=== PATIENT | female | born 1935 | race Caucasian/White ===

== ENCOUNTER → 2016-04-24 | Outpatient (CLI) | payer MEDICARE, BC ==
--- NOTE | 2016-04-25 07:28 | XR ---
EXAMINATION TYPE: XR chest 2V DATE OF EXAM: 04/24/2016 3:44 PM COMPARISON: NONE HISTORY: Shortness of breath and cough for one week. TECHNIQUE: Frontal and lateral views of the chest are obtained. FINDINGS: Sternal wires and mediastinal clips are present. There is long segment coronary stent in th e proximal left circumflex. There is chronic senescent change without suspicious focal air space opac ity, pleural effusion, or pneumothorax seen. The cardiac silhouette size is within normal limits wit h atherosclerotic thoracic aorta. The osseous structures are demineralized. IMPRESSION: Chronic parenchymal changes or fibrosis without suspicious acute infiltrate.
== END | disposition home or self-care (01) ==
LOC: RADXRYALE 15:31
PROVIDERS: ATTEND Physician Assistant Medical
DX: R06.02 Shortness of breath (principal); R09.02 Hypoxemia
CPT/HCPCS: 71020; 80053; 83880; 85027; 85379

== ENCOUNTER → 2016-04-30 | Outpatient (CLI) | payer MEDICARE, BC ==
--- NOTE | 2016-04-30 08:35 | XR ---
EXAMINATION TYPE: XR chest 2V DATE OF EXAM: 04/30/2016 8:29 AM COMPARISON: Chest x-ray from 6 days ago. HISTORY: History of bypass and COPD presents with shortness of breath and elevated d-dimer. TECHNIQUE: Frontal and lateral views of the chest are obtained. FINDINGS: Sternal wires and mediastinal clips as well as left circumflex coronary stent are all redem onstrated. There is chronic emphysematous change present with left basilar fibrosis. There is no new focal air space opacity, pleural effusion, or pneumothorax seen. The cardiac silhouette size remain s enlarged with atherosclerotic thoracic aorta. The osseous structures are demineralized. IMPRESSION: Cardiomegaly and chronic emphysematous change with left basilar fibrosis, no acute pulmo nary process.
--- NOTE | 2016-04-30 09:23 | NM ---
EXAMINATION TYPE: NM pul vent and perfuse DATE OF EXAM: 04/30/2016 9:14 AM COMPARISON: Same-day chest x-ray. HISTORY: Shortness of breath and elevated d-dimer. TECHNIQUE: Utilizing inhalation of 71.5 mCi Tc 99m DTPA aerosol and intravenous injection of 5.5 mCi of Tc 99m MAA, ventilation and perfusion images are acquired post injection in multiple projections. FINDINGS: Central clumping of particles on ventilation images is consistent with underlying COPD. Some small ma tching defects are felt present. There is no evidence of mismatched defects. IMPRESSION: Low probability for pulmonary embolism.
== END | disposition home or self-care (01) ==
LOC: RADNMMAIN 08:17
PROVIDERS: ATTEND Family Medicine
DX: J43.9 Emphysema, unspecified (principal); J84.10 Pulmonary fibrosis, unspecified; I51.7 Cardiomegaly
CPT/HCPCS: 71020; 78582; A9540; A9567

== ENCOUNTER → 2016-05-14 | Outpatient (CLI) | payer MEDICARE, BC ==
--- NOTE | 2016-05-14 14:00 | US ---
EXAMINATION TYPE: US venous doppler duplex LE BI DATE OF EXAM: 05/14/2016 1:31 PM COMPARISON: NONE CLINICAL HISTORY: R79.89 Elevated D-dimer. Pain right calf. Edema bilateral feet and ankles. Patient on blood thinner SIDE PERFORMED: bilateral VESSELS IMAGED: External Iliac Vein (EIV) Common Femoral Vein Deep Femoral Vein Greater Saphenous Vein * Femoral Vein Popliteal Vein Small Saphenous Vein * Proximal Calf Veins (* superficial vessels) TECHNOLOGIST IMPRESSION: Right Leg: No evidence of acute DVT Left Leg: No evidence of acute DVT. Anechoic area left popliteal fossa = 3.4 x 1.1 x 1.9cm, Diaz's cyst IMPRESSION: 1. Bilateral lower extremity deep venous ultrasound without evidence of deep venous thrombosis. 2. Left popliteal cyst.
== END | disposition home or self-care (01) ==
LOC: RADUSWWP 12:49
PROVIDERS: ATTEND Family Medicine
DX: R79.89 Other specified abnormal findings of blood chemistry (principal); M71.22 Synovial cyst of popliteal space [Baker], left knee
CPT/HCPCS: 93970

== ENCOUNTER 2016-07-01 05:52 | Inpatient (IN) | payer MEDICARE, BC ==
[2016-07-01] MEDS ORDERED: IPRATROPIUM-ALBUTEROL 3 ML NEB INHALATION STA (05:54)
[2016-07-01] MEDS ORDERED: FUROSEMIDE 10 MG/ML 4 ML VIAL IV STA (05:54)
[2016-07-01] MEDS ORDERED: NITROGLYCERIN OINT 1 INCH/GM PACKET TOPICAL STA (05:55)
--- NOTE | 2016-07-01 05:58 | ED ---
General Adult HPI - General Source: RN notes reviewed <Charlie Heart - Last Filed: 07/01/16 07:06> <Charlie Romo - Last Filed: 07/01/16 08:11> - General Stated complaint: [place] Time Seen by Provider: 07/01/16 05:52 - History of Present Illness Initial comments: This is an 80-year-old female with a past history significant for COPD and continues to smoke. Patient states she does wear oxygen at night occasionally home. Patient comes in today because she had a 2 or 3 day history of getting more more short of breath. When EMS arrived she was barely moving any other gave her a couple treatments around placed her on CPAP. Patient states she's only been mildly better since. EMS also gave her 125 of Solu-Medrol. Patient states she's also noticed increased edema in both of her legs. Patient denies any recent fever chills or cough. Patient denies any chest pain or palpitations. Patient denies any abdominal pain patient denies nausea and vomiting. Patient denies any headache patient denies numbness weakness patient denies any syncopal episode or lightheadedness. Patient denies any recent injury or trauma. (Charlie Heart) - Related Data Home Medications Medication Instructions Recorded Confirmed Aspirin/Calcium Carbonate/Mag 325 mg PO DAILY 07/01/16 07/01/16 [Bufferin 325 mg Tablet] Atorvastatin [Lipitor] 80 mg PO HS 07/01/16 07/01/16 Ezetimibe [Zetia] 10 mg PO DAILY 07/01/16 07/01/16 Isosorbide Mononitrate [Imdur] 120 mg PO DAILY 07/01/16 07/01/16 Nadolol [Nadolol] 20 mg PO DAILY 07/01/16 07/01/16 Nitroglycerin Sl Tabs [Nitrostat] 0.4 mg SUBLINGUAL Q5M PRN 07/01/16 07/01/16 Prasugrel HCl [Effient] 1 tab PO DAILY 07/01/16 07/01/16 Tiotropium 18 Mcg/Puff [Spiriva] 1 cap INHALATION DAILY 07/01/16 07/01/16 amLODIPine BESYLATE [Amlodipine 5 mg PO HS 07/01/16 07/01/16 Besylate] Allergies Allergy/AdvReac Type Severity Reaction Status Date / Time eptifibatide Allergy Unknown Verified 07/01/16 06:07 [From Integrilin] Penicillins Allergy Rash/Hives Verified 07/01/16 06:05 Review of Systems ROS Other: All systems not noted in ROS Statement are negative. <Charlie Heart - Last Filed: 07/01/16 07:06> ROS Other: All systems not noted in ROS Statement are negative. <Charlie Romo - Last Filed: 07/01/16 08:11> ROS Statement: Those systems with pertinent positive or pertinent negative responses have been documented in the HPI. Past Medical History Past Medical History: Cancer Additional Past Medical History / Comment(s): breast cancer History of Any Multi-Drug Resistant Organisms: None Reported Past Surgical History: Coronary Bypass/CABG, Hysterectomy Past Psychological History: No Psychological Hx Reported Smoking Status: Current every day smoker Past Alcohol Use History: None Reported Past Drug Use History: None Reported <Charlie Heart - Last Filed: 07/01/16 07:06> General Exam <Charlie Heart - Last Filed: 07/01/16 07:06> General appearance: alert, anxious, in distress Head exam: Present: atraumatic, normocephalic, normal inspection Eye exam: Present: normal appearance, PERRL, EOMI. Absent: scleral icterus, conjunctival injection, periorbital swelling ENT exam: Present: normal exam, mucous membranes moist Neck exam: Present: normal inspection. Absent: tenderness, meningismus, lymphadenopathy Respiratory exam: Present: respiratory distress, wheezes, rales, accessory muscle use, decreased breath sounds, prolonged expiratory. Absent: rhonchi, stridor Cardiovascular Exam: Present: regular rate, normal rhythm, normal heart sounds. Absent: systolic murmur, diastolic murmur, rubs, gallop, clicks GI/Abdominal exam: Present: soft, normal bowel sounds. Absent: distended, tenderness, guarding, rebound, rigid Extremities exam: Present: normal inspection, full ROM, normal capillary refill. Absent: tenderness, pedal edema, joint swelling, calf tenderness Back exam: Present: normal inspection Neurological exam: Present: alert, oriented X3, CN II-XII intact Psychiatric exam: Present: normal affect, normal mood Skin exam: Present: warm, dry, intact, normal color. Absent: rash <Charlie Romo - Last Filed: 07/01/16 08:11> - General Exam Comments Initial Comments: GENERAL: Patient is well-developed and well-nourished. Patient is nontoxic and well- hydrated and is in moderate distress. ENT: Neck is soft and supple. No significant lymphadenopathy is noted. Oropharynx is clear. Moist mucous membranes. Neck has full range of motion without eliciting any pain. EYES: The sclera were anicteric and conjunctiva were pink and moist. Extraocular movements were intact and pupils were equal round and reactive to light. Eyelids were unremarkable. PULMONARY: Patient is wheezing diffusely and has crackles at the bases. CARDIOVASCULAR: There is a regular rate and rhythm without any murmurs gallops or rubs. ABDOMEN: Soft and nontender with normal bowel sounds. No palpable organomegaly was noted. There is no palpable pulsatile mass. SKIN: Skin is clear with no lesions or rashes and otherwise unremarkable. NEUROLOGIC: Patient is alert and oriented x3. Cranial nerves II through XII are grossly intact. Motor and sensory are also intact. Normal speech, volume and content. Symmetrical smile. MUSCULOSKELETAL: Normal extremities with adequate strength and full range of motion. Patient has 2+ edema bilaterally LYMPHATICS: No significant lymphadenopathy is noted PSYCHIATRIC: Normal psychiatric evaluation. Normal interpersonal interactions appears functionally intact in deals appropriately with others. No signs of depression. No signs of anxiety. (Charlie Heart) Course <Charlie Heart - Last Filed: 07/01/16 07:06> <Charlie Romo - Last Filed: 07/01/16 08:11> Vital Signs 07/01/16 07/01/16 07/01/16 05:57 06:09 06:20 Temperature 97.9 F Pulse Rate 81 71 70 Respiratory 32 H Rate Blood Pressure 172/89 O2 Sat by Pulse 79 L Oximetry 07/01/16 07:05 Temperature Pulse Rate 61 Respiratory 25 H Rate Blood Pressure 160/72 O2 Sat by Pulse 97 Oximetry - Reevaluation(s) Reevaluation #1: 07/01/16 08:11 Patient becoming more alert on BiPAP, right work of breathing is improving ( Charlie Romo) Medical Decision Making - Lab Data Result diagrams: 07/01/16 06:10 07/01/16 06:10 <Charlie Heart - Last Filed: 07/01/16 07:06> - Lab Data Result diagrams: 07/01/16 06:10 07/01/16 06:10 - Radiology Data Radiology results: report reviewed (Chest x-ray positive for pneumonia CHF), image reviewed <Charlie Romo - Last Filed: 07/01/16 08:11> - Medical Decision Making EKG shows a sinus rhythm at 76 bpm UT interval is 210 QRS is 98 QT interval 400 QTC 450. Patient's EKG shows some ST segment depression in leads 1 and aVL as well as leads 2 and there is some poor quality in leads V5 and V6. Dr. Romo will be taking over the care of this patient at 7 AM (Charlie Heart) 80-year-old female Female here for evaluation of significant shortness of breath , patient is placed on BiPAP upon arrival to emergency room secondary to respiratory and work of respiration work of breathing, patient has COPD CHF and pneumonia. Patient will be admitted for monitoring and cardiopulmonary status. (Charlie Romo) - Lab Data Lab Results 07/01/16 07/01/16 07/01/16 Range/Units 06:10 06:10 06:10 WBC 10.8 H (3.8-10.6) k/uL RBC 3.37 L (3.80-5.40) m/uL Hgb 9.8 L (11.4-16.0) gm/dL Hct 29.8 L (34.0-46.0) % MCV 88.4 (80.0-100.0) fL MCH 28.9 (25.0-35.0) pg MCHC 32.8 (31.0-37.0) g/dL RDW 16.3 H (11.5-15.5) % Plt Count 234 (150-450) k/uL Neutrophils % 65 % Lymphocytes % 16 % Monocytes % 6 % Eosinophils % 10 % Basophils % 1 % Neutrophils # 7.1 (1.3-7.7) k/uL Lymphocytes # 1.7 (1.0-4.8) k/uL Monocytes # 0.6 (0-1.0) k/uL Eosinophils # 1.0 H (0-0.7) k/uL Basophils # 0.1 (0-0.2) k/uL Hypochromasia Moderate Anisocytosis Slight PT (9.0-12.0) sec INR (<1.1) APTT (22.0-30.0) sec Sodium 140 (137-145) mmol/L Potassium 4.3 (3.5-5.1) mmol/L Chloride 107 (98-107) mmol/L Carbon Dioxide 20 L (22-30) mmol/L Anion Gap 13 mmol/L BUN 43 H (7-17) mg/dL Creatinine 1.50 H (0.52-1.04) mg/dL Est GFR (MDRD) Af Amer 40 (>60 ml/min/1.73 sqM) Est GFR (MDRD) Non-Af 33 (>60 ml/min/1.73 sqM) Glucose 166 H (74-99) mg/dL Calcium 9.5 (8.4-10.2) mg/dL Magnesium 1.8 (1.6-2.3) mg/dL Total Bilirubin 0.8 (0.2-1.3) mg/dL AST 17 (14-36) U/L ALT 41 (9-52) U/L Alkaline Phosphatase 111 (38-126) U/L Total Creatine Kinase 37 (30-135) U/L CK-MB (CK-2) 0.9 (0.0-2.4) ng/mL CK-MB (CK-2) Rel Index 2.4 Troponin I <0.012 (0.000-0.034) ng/mL NT-Pro-B Natriuret Pep pg/mL Total Protein 7.5 (6.3-8.2) g/dL Albumin 4.0 (3.5-5.0) g/dL 07/01/16 07/01/16 Range/Units 06:10 06:10 WBC (3.8-10.6) k/uL RBC (3.80-5.40) m/uL Hgb (11.4-16.0) gm/dL Hct (34.0-46.0) % MCV (80.0-100.0) fL MCH (25.0-35.0) pg MCHC (31.0-37.0) g/dL RDW (11.5-15.5) % Plt Count (150-450) k/uL Neutrophils % % Lymphocytes % % Monocytes % % Eosinophils % % Basophils % % Neutrophils # (1.3-7.7) k/uL Lymphocytes # (1.0-4.8) k/uL Monocytes # (0-1.0) k/uL Eosinophils # (0-0.7) k/uL Basophils # (0-0.2) k/uL Hypochromasia Anisocytosis PT 13.1 H (9.0-12.0) sec INR 1.3 (<1.1) APTT 24.0 (22.0-30.0) sec Sodium (137-145) mmol/L Potassium (3.5-5.1) mmol/L Chloride (98-107) mmol/L Carbon Dioxide (22-30) mmol/L Anion Gap mmol/L BUN (7-17) mg/dL Creatinine (0.52-1.04) mg/dL Est GFR (MDRD) Af Amer (>60 ml/min/1.73 sqM) Est GFR (MDRD) Non-Af (>60 ml/min/1.73 sqM) Glucose (74-99) mg/dL Calcium (8.4-10.2) mg/dL Magnesium (1.6-2.3) mg/dL Total Bilirubin (0.2-1.3) mg/dL AST (14-36) U/L ALT (9-52) U/L Alkaline Phosphatase (38-126) U/L Total Creatine Kinase (30-135) U/L CK-MB (CK-2) (0.0-2.4) ng/mL CK-MB (CK-2) Rel Index Troponin I (0.000-0.034) ng/mL NT-Pro-B Natriuret Pep 52060 pg/mL Total Protein (6.3-8.2) g/dL Albumin (3.5-5.0) g/dL Critical Care Time Critical Care Time: Yes Total Critical Care Time: 31 <Charlie Romo - Last Filed: 07/01/16 08:11> Disposition <Charlie Heart - Last Filed: 07/01/16 07:06> <Charlie Romo - Last Filed: 07/01/16 08:11> Clinical Impression: Congestive heart failure, Community acquired pneumonia, Acute exacerbation of chronic obstructive airways disease, Hypoxia Disposition: ADMITTED IP TO THIS HOSP Condition: Serious Referrals: John Galeano DO [Primary Care Provider] - 1-2 days
[2016-07-01 06:36] LABS: Anisocytosis Slight; Basophils # (A) 0.1 k/uL (0-0.2); Basophils % (A) 1 %; CH 27.7; CHCM 31.4; Eosinophils % (A) 10 %; HCT 29.8 % (34.0-46.0); HDW 3.22; HGB 9.8 gm/dL (11.4-16.0); Hypochromasia Moderate; Luc # (Auto) 0.27; Luc % (Auto) 3; Lymphocytes # (A) 1.7 k/uL (1.0-4.8); Lymphocytes % (A) 16 %; MCH 28.9 pg (25.0-35.0); MCHC 32.8 g/dL (31.0-37.0); MCV 88.4 fL (80.0-100.0); Mean Platelet Volume 7.6; Monocytes # (A) 0.6 k/uL (0-1.0); Monocytes % (A) 6 %; Neutrophils # (A) 7.1 k/uL (1.3-7.7); Neutrophils % (A) 65 %; RBC 3.37 m/uL (3.80-5.40); RDW 16.3 % (11.5-15.5); WBC 10.8 k/uL (3.8-10.6); WBC (Perox) 10.46
[2016-07-01 06:45] LABS: Calcium 9.5 mg/dL (8.4-10.2); Magnesium 1.8 mg/dL (1.6-2.3); Potassium 4.3 mmol/L (3.5-5.1); Total Bilirubin 0.8 mg/dL (0.2-1.3); Total Protein 7.5 g/dL (6.3-8.2)
[2016-07-01 06:49] LABS: INR 1.3 (<1.1); Prothrombin Time 13.1 sec (9.0-12.0)
[2016-07-01 06:53] LABS: Creatine Kinase 37 U/L (30-135)
[2016-07-01 07:05] LABS: Creatine Kinase MB 0.9 ng/mL (0.0-2.4); Troponin I <0.012 ng/mL (0.000-0.034)
--- NOTE | 2016-07-01 07:33 | XR ---
EXAMINATION TYPE: XR chest 1V portable DATE OF EXAM: 07/01/2016 6:48 AM HISTORY: Shortness of breath. COMPARISON: 04/30/2016 TECHNIQUE: Single view of the chest is submitted. FINDINGS: Demonstrated are scattered senescent parenchymal change. There is pulmonary venous congestion with patchy basilar infiltrates and small effusions. There is al so cardiomegaly. Hilar and mediastinal structures are within normal limits. Degenerative changes are seen of the dorsal spine. IMPRESSION: 1. The findings may reflect congestive failure although basilar infiltrates of other etiology not e xcluded. Correlate clinically and progress studies are recommended.
[2016-07-01] MEDS ORDERED: IPRATROPIUM 0.5 MG/2.5 ML NEBU INHALATION STA (08:04)
[2016-07-01] MEDS ORDERED: ALBUTEROL NEBULIZED 2.5 MG/3 ML INHALATION STA (08:04)
[2016-07-01] MEDS ORDERED: LEVOFLOXACIN 750MG-D5W PMX 750 MG in DEXTROSE/WATER 1 150ML.BAG IVPB STA (08:05)
[2016-07-01] MEDS ORDERED: methylPREDNISolone SOD SUCCI 125 MG/2 ML VIAL IV STA (08:05)
[2016-07-01] MEDS ORDERED: PNEUMONIA PROTOCOL UTILIZED 1 EACH MISC PO PRN (08:06)
[2016-07-01] MEDS ORDERED: ENOXAPARIN 40 MG/0.4 ML SYRINGE SQ STA (08:10)
[2016-07-01] MEDS: SODIUM CHLORIDE 0.9% 1,000 ML IV SCH (08:42)
--- NOTE | 2016-07-01 10:02 | ECHOF ---
Referral Reason:Heart Failure MEASUREMENTS -------- HEIGHT: 157.5 cm WEIGHT: 63.5 kg BP: 155/50 RVIDd: 2.4 cm (< 3.3) IVSd: 1.0 cm (0.6 - 1.1) LVIDd: 5.6 cm (3.9 - 5.3) LVPWd: 1.3 cm (0.6 - 1.1) IVSs: 1.6 cm LVIDs: 4.4 cm LVPWs: 1.3 cm LA Diam: 4.5 cm (2.7 - 3.8) LAESV Index (A-L): 26.06 ml/m MV EXCURSION: 18.395 mm (> 18.000) MV EF SLOPE: 97 mm/s (70 - 150) EPSS: 0.8 cm MV E Reed: 0.87 m/s MV DecT: 161 ms MV A Reed: 0.53 m/s MV E/A Ratio: 1.63 FINDINGS -------- Sinus rhythm. This was a technically adequate study. There is mild concentric left ventricular hypertrophy. Overall left ventricular systolic function is low-normal with, an EF between 50 - 55 %. The right ventricle is normal in size. The left atrial size is normal. Normal LA size by volume 22+/-6 ml/m2. The right atrial size is normal. There is mild aortic valve sclerosis. There is mild aortic regurgitation. Mild mitral annular calcification present. Mild mitral regurgitation is present. Mild tricuspid regurgitation present. There is no evidence of pulmonary hypertension. The right ventricular systolic pressure, as measured by Doppler, is {RVSP}. There is no pulmonic regurgitation present. The aortic root size is normal. There is no pericardial effusion. CONCLUSIONS -------- 1. There is mild concentric left ventricular hypertrophy. 2. Overall left ventricular systolic function is low-normal with, an EF between 50 - 55 %. 3. There is mild aortic valve sclerosis. 4. There is mild aortic regurgitation. 5. Mild mitral annular calcification present. 6. Mild mitral regurgitation is present. 7. Mild tricuspid regurgitation present. 8. There is no evidence of pulmonary hypertension. 9. The right ventricular systolic pressure, as measured by Doppler, is {RVSP}. FINISHING SUPERVISOR: Norma Saleh RDCS
[2016-07-01] MEDS: methylPREDNISolone SOD SUCCI 125 MG/2 ML VIAL IV SCH ×3 (12:05→22:56)
[2016-07-01] MEDS: IPRATROPIUM-ALBUTEROL 3 ML NEB INHALATION SCH ×3 (12:18→21:42)
--- NOTE | 2016-07-01 13:16 | P.CNPUL ---
History of Present Illness Consult date: 07/01/16 Reason for consult: dyspnea History of present illness: 80-year-old female patient who presented to the hospital because of progressive worsening shortness of breath. The patient is known to have coronary artery disease and she has undergone previous carotid bypass surgery out of town. The patient used to live in [facility] and she moved to [place] approximately 3 years ago. Over the past 1 week, the patient is progressively getting short of breath and she has noted some increased congested cough. No fever. No chills. No sweats. No pleurisy. No chest pain. She had developed significant edema in lower extremities bilaterally. She has been investigated in the past for DVTs and that came back negative based on an ultrasound Doppler that was done on 05/14/2016. Perfusion scan that was also done on 04/30/2016 was a low probability. During this current admission, the patient's white cell count was not elevated at 10.8. The patient significantly elevated proBNP level above 14,000. The cardiac enzymes first set of troponin was negative and the CPK was also within normal limits. The chest x-ray shows bilateral lower lobe pulmonary infiltration/fusion which could be a combination of CHF/ pneumonia. The patient was started on IV Lasix. The patient is also on empiric antibiotic coverage with Levaquin. She has a harsh cardiac murmur and an echocardiogram is pending for now. Review of Systems 12 point review of system was done and the positive findings are almost above in history of present illness Past Medical History Past Medical History: Coronary Artery Disease (CAD), Cancer, COPD, Pneumonia Additional Past Medical History / Comment(s): Coronary artery disease with previous bypass surgery, history of left-sided breast cancer with a previous lumpectomy, COPD, chronic smoker, nocturnal oxygen use at 2 L/m nasal cannula, chronic back pain, sciatica, COPD, hyperlipidemia, hypertension, cardiac murmur , chronic renal failure History of Any Multi-Drug Resistant Organisms: None Reported Past Surgical History: Appendectomy, Breast Surgery, Coronary Bypass/CABG, Heart Catheterization, Heart Catheterization With Stent Additional Past Surgical History / Comment(s): 1989 triple bypass, PCI with stent "years ago"-done in [place]-pt does not recall date, lumpectomy left breast, colonoscopy, ectopic with R fallopian tube and ovary removed. Past Anesthesia/Blood Transfusion Reactions: No Reported Reaction Date of Last Stent Placement:: unkn Past Psychological History: No Psychological Hx Reported Additional Psychological History / Comment(s): Pt has a gulshan who resides with her. She uses a cane on occasion. She drives. Smoking Status: Current every day smoker Past Alcohol Use History: None Reported Additional Past Alcohol Use History / Comment(s): Pt states she started smoking in 1955 and has been a ppd smoker for much of that time. She is now down to 5 cigarettes a day. Past Drug Use History: None Reported - Past Family History Father Family Medical History: Cancer Additional Family Medical History / Comment(s): Father had throat cancer and at the age of 85 yrs. Mother Family Medical History: No Reported History Additional Family Medical History / Comment(s): Mother was healthy and at the age of 85yrs. Medications and Allergies Home Medications Medication Instructions Recorded Confirmed Type Aspirin/Calcium Carbonate/Mag 325 mg PO DAILY 07/01/16 07/01/16 History [Bufferin 325 mg Tablet] Atorvastatin [Lipitor] 80 mg PO HS 07/01/16 07/01/16 History Ezetimibe [Zetia] 10 mg PO DAILY 07/01/16 07/01/16 History Isosorbide Mononitrate [Imdur] 120 mg PO DAILY 07/01/16 07/01/16 History Nadolol [Nadolol] 20 mg PO DAILY 07/01/16 07/01/16 History Nitroglycerin Sl Tabs [Nitrostat] 0.4 mg SUBLINGUAL Q5M PRN 07/01/16 07/01/16 History Prasugrel HCl [Effient] 10 mg PO DAILY 07/01/16 07/01/16 History Tiotropium 18 Mcg/Puff [Spiriva] 1 cap INHALATION RT-DAILY 07/01/16 07/01/16 History amLODIPine BESYLATE [Amlodipine 5 mg PO HS 07/01/16 07/01/16 History Besylate] predniSONE [Prednisone] 5 mg PO DAILY PRN 07/01/16 07/01/16 History Allergies Allergy/AdvReac Type Severity Reaction Status Date / Time eptifibatide Allergy Unknown Verified 07/01/16 08:13 [From Integrilin] Penicillins Allergy Rash/Hives Verified 07/01/16 08:13 Physical Exam Vitals: Vital Signs Temp Pulse Pulse Resp BP BP Pulse Ox 07/01/16 12:19 68 07/01/16 12:00 96.1 F L 67 16 156/67 07/01/16 09:49 97.8 F 75 20 160/98 94 L 07/01/16 09:34 62 07/01/16 09:24 60 07/01/16 08:54 60 18 151/66 98 Head exam was generally normal. There was no scleral icterus or corneal arcus. Mucous membranes were moist.Neck was supple and positive jugular venous distension, thyromegaly, or carotid bruits. Carotids were easily palpable bilaterally. There was no adenopathy. Lung sounds are diminished in lung bases along with some bibasilar crackles. Heart sounds reveal a harsh systolic ejection murmur grade 4/6 heard throughout the precordium more so along the left apex.Abdominal exam revealed normal bowel sounds. The abdomen was soft, non -tender, and without masses, organomegaly, or appreciable enlargement of the abdominal aorta. Extremities revealed +1-2 pitting edema. There is no cyanosis or clubbing at this point. Neurologically, the patient is awake and alert. Results - Laboratory Findings CBC and BMP: 07/01/16 06:10 07/01/16 06:10 PT/INR, D-dimer PT 13.1 sec (9.0-12.0) H 07/01/16 06:10 INR 1.3 (<1.1) 07/01/16 06:10 - Diagnostic Findings Chest x-ray: image reviewed Assessment and Plan Plan: Assessment 1 acute hypoxic respiratory failure. The patient presented with significant shortness of breath and she was supported with a BiPAP overnight. Chest x-ray showing bilateral lower lobe pulmonary infiltration/effusion. Rule out a combination of CHF/pneumonia although CHF is very much suspected knowing that the patient's proBNP level was significantly elevated and the patient had developed progressive edema lower extremities bilaterally. Currently she is on 5 L of oxygen by nasal cannula 2 acute lower lobe pulmonary infiltration/effusion, likely combination of pneumonia/CHF 3 lower extremity edema 4 coronary artery disease with history of cardiac bypass surgery 5 chronic renal failure, creatinine is 1.5 6 cardiac murmur awaiting echocardiogram 7 COPD maintained on Spiriva on outpatient basis 8 hyperlipidemia 9 chronic anemia Plan IV Fluids. Continue Bronchodilators. Continue IV Lasix 40 Mg Every 12 Hours. Continue the IV Levaquin. Continued IV Solu-Medrol. Echocardiogram. Etiology Evaluation. Repeat Chest X-Ray in the Morning. We'll Continue to Follow.
[2016-07-01 14:23] LABS: Creatine Kinase MB 0.9 ng/mL (0.0-2.4); Troponin I 0.013 ng/mL (0.000-0.034)
[2016-07-01] MEDS ORDERED: NITROGLYCERIN SL TABS 0.4 MG TAB SUBLINGUAL PRN (15:34)
--- NOTE | 2016-07-01 16:01 | P.CRDCN ---
History of Present Illness Consult date: 07/01/16 Requesting physician: Gregor Ortega Consult reason: congestive heart failure Chief complaint: Shortness of breath History of present illness: This is an 80-year-old female with known history of coronary artery disease and prior bypass surgery, prior's cardiac stent placement, hypertension , hyperlipidemia, COPD with home O2 use, nicotine dependence, chronic renal failure, who presented to the hospital with symptoms of progressively worsening shortness of breath. Symptoms have been progressively getting worse over the past one week to 10 days. She denies having any chest discomfort. She also states that she developed swelling in her lower extremities. He denies any active cough at home, denies any recent fever or chills. Patient was given Solu -Medrol via EMS. Chest x-ray on arrival shows congestive heart failure although by basilar infiltrates are not excluded. EKG on arrival shows normal sinus rhythm with a first-degree AV block and nonspecific ST-T wave changes in the inferior lateral leads. Blood cell count on admission 10.8, hemoglobin 9.8 , platelet count 234, potassium 4.3, BUN 43, creatinine 1.5. Magnesium I.8, troponins 0.012, 0.013. BNP level 14,500. Patient was initiated on IV Lasix for congestive cardiac failure ,in the emergency room as well as IV antibiotics for possible pneumonia. Echocardiogram with Doppler study was performed which revealed an ejection fraction of 50-55%. Mild MR, mild TR, mild AR and mild . Past Medical History Past Medical History: Coronary Artery Disease (CAD), Cancer, COPD, Pneumonia Additional Past Medical History / Comment(s): Coronary artery disease with previous bypass surgery, history of left-sided breast cancer with a previous lumpectomy, COPD, chronic smoker, nocturnal oxygen use at 2 L/m nasal cannula, chronic back pain, sciatica, COPD, hyperlipidemia, hypertension, cardiac murmur , chronic renal failure History of Any Multi-Drug Resistant Organisms: None Reported Past Surgical History: Appendectomy, Breast Surgery, Coronary Bypass/CABG, Heart Catheterization, Heart Catheterization With Stent Additional Past Surgical History / Comment(s): 1989 triple bypass, PCI with stent "years ago"-done in [place]-pt does not recall date, lumpectomy left breast, colonoscopy, ectopic with R fallopian tube and ovary removed. Past Anesthesia/Blood Transfusion Reactions: No Reported Reaction Date of Last Stent Placement:: unkn Past Psychological History: No Psychological Hx Reported Additional Psychological History / Comment(s): Pt has a gulshan who resides with her. She uses a cane on occasion. She drives. Smoking Status: Current every day smoker Past Alcohol Use History: None Reported Additional Past Alcohol Use History / Comment(s): Pt states she started smoking in 1955 and has been a ppd smoker for much of that time. She is now down to 5 cigarettes a day. Past Drug Use History: None Reported - Past Family History Father Family Medical History: Cancer Additional Family Medical History / Comment(s): Father had throat cancer and at the age of 85 yrs. Mother Family Medical History: No Reported History Additional Family Medical History / Comment(s): Mother was healthy and at the age of 85yrs. Medications and Allergies Home Medications Medication Instructions Recorded Confirmed Type Aspirin/Calcium Carbonate/Mag 325 mg PO DAILY 07/01/16 07/01/16 History [Bufferin 325 mg Tablet] Atorvastatin [Lipitor] 80 mg PO HS 07/01/16 07/01/16 History Ezetimibe [Zetia] 10 mg PO DAILY 07/01/16 07/01/16 History Isosorbide Mononitrate [Imdur] 120 mg PO DAILY 07/01/16 07/01/16 History Nadolol [Nadolol] 20 mg PO DAILY 07/01/16 07/01/16 History Nitroglycerin Sl Tabs [Nitrostat] 0.4 mg SUBLINGUAL Q5M PRN 07/01/16 07/01/16 History Prasugrel HCl [Effient] 10 mg PO DAILY 07/01/16 07/01/16 History Tiotropium 18 Mcg/Puff [Spiriva] 1 cap INHALATION RT-DAILY 07/01/16 07/01/16 History amLODIPine BESYLATE [Amlodipine 5 mg PO HS 07/01/16 07/01/16 History Besylate] predniSONE [Prednisone] 5 mg PO DAILY PRN 07/01/16 07/01/16 History Allergies Allergy/AdvReac Type Severity Reaction Status Date / Time eptifibatide Allergy Unknown Verified 07/01/16 08:13 [From Integrilin] Penicillins Allergy Rash/Hives Verified 07/01/16 08:13 Physical Exam Vitals: Vital Signs Temp Pulse Pulse Resp BP BP Pulse Ox 07/01/16 12:19 68 07/01/16 12:00 96.1 F L 67 16 156/67 07/01/16 09:49 97.8 F 75 20 160/98 94 L 07/01/16 09:34 62 07/01/16 09:24 60 07/01/16 08:54 60 18 151/66 98 Intake and Output 07/01/16 07/01/16 07/01/16 06:59 14:59 22:59 Intake Total 120 Output Total 300 Balance -180 Intake: Oral 120 Output: Urine 300 Other: Weight 63.503 kg Patient Weight 07/02/16 06:59 Weight 63.503 kg PHYSICAL EXAMINATION: HEENT: Head is atraumatic, normocephalic. Pupils equal, round. Neck is supple. There is no elevated jugular venous pressure. HEART EXAMINATION: Heart S1 and S2 systolic murmur is heard CHEST EXAMINATION: Lungs reveal fine crackles to bilateral bases with diminished air entry to the bases. ABDOMEN: Soft, nontender. Bowel sounds are heard. No organomegaly noted. EXTREMITIES: 2+ peripheral pulses with 2+ evidence of peripheral edema and no calf tenderness noted. NEUROLOGIC patient is awake, alert and oriented -3. . Results 07/01/16 06:10 07/01/16 06:10 Cardiac Enzymes 07/01/16 Range/Units 13:28 CK-MB (CK-2) 0.9 (0.0-2.4) ng/mL Troponin I 0.013 (0.000-0.034) ng/mL Current Medications Generic Name Dose Route Start Last Admin Trade Name Freq PRN Reason Stop Dose Admin Albuterol/Ipratropium 3 ml 07/01/16 12:00 07/01/16 12:18 Duoneb 0.5 Mg-3 Mg/3 Ml Soln INHALATION 3 ml RT-QID [facility] Administration Amlodipine Besylate 5 mg 07/01/16 21:00 Norvasc PO HS [facility] Aspirin 325 mg 07/02/16 09:00 Aspirin PO DAILY [facility] Atorvastatin Calcium 80 mg 07/01/16 21:00 Lipitor PO HS [facility] Ezetimibe 10 mg 07/02/16 09:00 Zetia PO DAILY [facility] Enoxaparin Sodium 30 mg 07/02/16 09:00 Lovenox SQ DAILY [facility] Furosemide 40 mg 07/01/16 21:00 Lasix IV Q12H TONG Levofloxacin 750 mg/ IV 150 mls @ 100 mls/hr 07/02/16 18:00 Solution IVPB 07/14/16 18:01 Q48H TONG Sodium Chloride 1,000 mls @ 20 mls/hr 07/01/16 08:15 07/01/16 08:42 Saline 0.9% IV 20 mls/hr .Q24H TONG Administration Isosorbide Mononitrate 120 mg 07/02/16 09:00 Imdur PO DAILY TONG Methylprednisolone Sodium Succinate 60 mg 07/01/16 12:00 07/01/16 12:05 Solu-Medrol IV 60 mg Q6HR TONG Administration Miscellaneous Information 1 each 07/01/16 08:06 Pneumonia Protocol Utilized PO ONCE PRN Per Protocol Nadolol 20 mg 07/02/16 09:00 Corgard PO DAILY TONG Nitroglycerin 0.4 mg 07/01/16 15:34 Nitrostat SUBLINGUAL Q5M PRN Angina Prasugrel 10 mg 07/02/16 09:00 Effient PO DAILY TONG Intake and Output 07/01/16 07/01/16 07/01/16 06:59 14:59 22:59 Intake Total 120 Output Total 300 Balance -180 Intake: Oral 120 Output: Urine 300 Other: Weight 63.503 kg Patient Weight 07/02/16 06:59 Weight 63.503 kg EKG Interpretations (text) EKG shows a normal sinus rhythm with first-degree AV block and inferior lateral ST-T wave changes Assessment and Plan Plan: Assessment and plan #1 Q respiratory failure, secondary to congestive cardiac failure, diastolic in nature. Acute on chronic. Evidence also of possible pneumonia. #2 COPD, on home O2 #3 nicotine dependence #4 acute on chronic renal failure #5 hyperlipidemia #6 chronic anemia #7 known history of coronary artery disease with prior bypass surgery and stent placements Plan We will recommend to continue patient on current dose of IV Lasix. Continue antibiotics for possible pneumonia. I'll also try to obtain records of patient' s prior cardiac procedures. Decrease aspirin to 81 mg daily. Monitor intake and output along with daily weights and daily lytes BUN and creatinine. DNP note has been reviewed, I agree with a documented findings and plan of care. Patient was seen and examined.
[2016-07-01 17:15] LABS: Glucose,Whole Blood 290 mg/dL (75-99)
[2016-07-01] MEDS: INSULIN LISPRO (humaLOG) 300 UNIT/3 ML VIAL SQ SCH ×2 (17:38→22:57)
--- NOTE | 2016-07-01 19:45 | HP ---
DATE OF ADMISSION: CHIEF COMPLAINT: Dyspnea. HISTORY OF PRESENT ILLNESS: Ms. Leon is an 80-year-old female with known history of coronary artery disease, status post bypass graft in 1989, remote history of smoking and COPD. She came to the hospital with complaints of worsening shortness of breath for the past one month. Apparently patient was treated for pneumonia and COPD exacerbation with steroids and antibiotics sometime in April of 2016, and patient since then has been having worsening short of breath which got worse in the last one week, which made her come to the hospital. Patient was also having worsening leg swelling up to the thighs. No fever. No chills. Otherwise, patient denied any complaints of chest pain. Patient otherwise denied any recent illnesses and no recent travel. Patient had a DVT workup, including ultrasound as well as perfusion scan in April and May 2016 that have been negative. Patient was found to have elevated BNP level at 14,400. Chest x-ray showed congestive heart failure, although basilar infiltrates or other etiology not excluded. Patient is currently being treated with IV Lasix and antibiotics in the form of levofloxacin. Patient was hypoxic on admission and required BiPAP machine overnight. Currently patient is saturating well on nasal cannula and Pulmonary has been consulted for evaluation. REVIEW OF SYSTEMS: CONSTITUTIONAL: No fever. No chills. No weakness. RESPIRATORY: Patient does have a cough. No sputum production. Patient does have shortness of breath. CARDIOVASCULAR: No chest pain. Patient does have shortness of breath and leg swelling. ABDOMEN: No nausea, vomiting, abdominal pain. GENITOURINARY: Negative. ENDOCRINE: Negative. PSYCHIATRY: Negative. SKIN: Negative. MUSCULOSKELETAL: Negative. All other fourteen-point review of systems negative except as above. Past medical history includes: 1. History of coronary artery disease, status post coronary artery bypass graft in the . 2. History of stent placement 2 to 3 after that. 3. Chronic obstructive pulmonary disease. 4. Remote history of smoking. 5. History of left-sided breast cancer with previous lumpectomy. 6. Chronic back pain. 7. Chronic obstructive pulmonary disease, dependent on home oxygen. 8. Hyperlipidemia. 9. Hypertension. 10. Cardiac murmur. 11. Chronic kidney disease. PAST SURGICAL HISTORY: 1. Appendectomy. 2. Breast surgery. 3. Coronary artery bypass graft. 4. Cardiac catheterization and stent placement. 5. Colonoscopy. 6. Ectopic with right fallopian tube and ovary removed. No psychosocial history. SOCIAL HISTORY: Patient lives with her daughter. She uses a cane and a walker. Started smoking in 1955 at 1 pack per day. Currently 5 cigarettes per day. Denied any alcohol use. Denied any drugs or IVDU. FAMILY HISTORY: Father had throat cancer and at the age of 85. Mother healthy and at 85. HOME MEDICATIONS: 1. Aspirin. 2. Calcium carbonate and magnesium. 3. Atorvastatin. 4. Zetia. 5. Imdur. 6. Nadolol. 7. Nitroglycerin sublingual. 8. Prasugrel. 9. Spiriva. 10. Amlodipine. 11. Prednisone. ALLERGIES include: 1. INTEGRILIN. 2. PENICILLIN. PHYSICAL EXAMINATION: An 80-year-old female lying in bed comfortably. Awake, alert, alert and oriented x3. Patient in no apparent distress. VITALS: Blood pressure is 151/66, pulse 60, respiratory rate 18, afebrile. Pulse ox was 98% on 50% BiPAP in the morning. Currently saturating at 96% on 5 L nasal cannula. HEENT: Atraumatic, normocephalic. Neck is supple. No JVD. CVS: S1, S2 heard. No murmurs. No gallop. LUNGS: Bilateral air entry is present. Minimal expiratory wheezing positive. Nonlabored breathing. ABDOMEN: Soft, nontender. Bowel sounds present. RADIOLOGY SERVICES MANAGER: Awake, alert, oriented x3. No focal deficit. EXTREMITIES: Bilateral 2 to 3+ edema. Pulses palpable. No clubbing or cyanosis. PSYCHIATRIC: Cooperative. LABORATORY DATA: WBC 10.8, hemoglobin 9.8, platelets 234. INR 1.3. Sodium 140, potassium 4.3, chloride 107, bicarb 20. BUN 43, creatinine 1.5. GFR 33. Glucose is 166. Troponin x2 negative. NT-proBNP is 14,500. Liver enzymes within normal limits. Albumin level is 4.0. Two-D echo showed normal ejection fraction and no wall motion abnormalities. No valvular abnormalities noted. EKG showed sinus rhythm, AV block. IMPRESSION: 1. Shortness of breath, multifactorial, secondary to congestive heart failure as well as basilar infiltrate with pneumonia. 2. Acute hypoxic respiratory failure secondary to congestive heart failure exacerbation. 3. Acute congestive heart failure exacerbation with possible diastolic dysfunction. Two-D echocardiogram showed normal ejection fraction. 4. Bibasilar pneumonia/infiltrates. 5. History of coronary artery disease, status post coronary artery bypass graft in 1989 followed by stents x3. 6. Acute on chronic kidney disease, stage III. Baseline creatinine of around 1.5. 7. Chronic obstructive pulmonary disease with mild exacerbation. Patient is on home oxygen nocturnally. 8. Hypertension. 9. Hyperlipidemia. 10. Normocytic anemia. PLAN: Patient will be continued on IV diuresis with Lasix 40 mg b.i.d. and continue with the steroids, continue with the breathing treatments. Currently on antibiotics in the form of levofloxacin. Will continue the current management. Further recommendations based on the clinical course. Possible anemia is also contributing to her symptoms. Will ( ) level.
[2016-07-01 20:02] LABS: Creatine Kinase MB 0.8 ng/mL (0.0-2.4); Troponin I <0.012 ng/mL (0.000-0.034)
[2016-07-01 20:57] LABS: Glucose,Whole Blood 207 mg/dL (75-99)
[2016-07-01 21:43] LABS: Hemoglobin A1C 5.2 % (4.2-6.1)
[2016-07-01] MEDS: ATORVASTATIN 80 MG TAB PO SCH (22:09)
[2016-07-01] MEDS: amLODIPine 5 MG TAB PO SCH (22:09)
[2016-07-01] MEDS: FUROSEMIDE 10 MG/ML 4 ML VIAL IV SCH (22:09)
[2016-07-02 06:07] LABS: Glucose,Whole Blood 240 mg/dL (75-99)
[2016-07-02] MEDS: methylPREDNISolone SOD SUCCI 125 MG/2 ML VIAL IV SCH ×2 (06:26→12:00)
[2016-07-02] MEDS: INSULIN LISPRO (humaLOG) 300 UNIT/3 ML VIAL SQ SCH ×2 (06:26→17:19)
[2016-07-02] MEDS: SODIUM CHLORIDE 0.9% 1,000 ML IV SCH (08:32)
--- NOTE | 2016-07-02 08:33 | XR ---
EXAMINATION TYPE: XR chest 2V DATE OF EXAM: 07/02/2016 7:02 AM COMPARISON: 07/01/2016 INDICATION: Pneumonia CHF TECHNIQUE: Single frontal view of the chest is obtained. FINDINGS: The heart size is borderline in size. The pulmonary vasculature is normal. Bibasilar infiltrates are present. A small right pleural effusion is present. There may be slight imp rovement from prior study. IMPRESSION: 1. Bibasilar infiltrates with small right pleural effusion. Slight improvement from prior study. Cont inued follow-up is recommended.
[2016-07-02] MEDS: ASPIRIN 81 MG CHEW PO SCH (08:40)
[2016-07-02] MEDS: NADOLOL 20 MG TAB PO SCH (08:40)
[2016-07-02] MEDS: EZETIMIBE 10 MG TAB PO SCH (08:40)
[2016-07-02] MEDS: PRASUGREL 10 MG TAB PO SCH (08:40)
[2016-07-02] MEDS: ISOSORBIDE MONONITRATE ER 60 MG TAB.ER.24H PO SCH (08:40)
[2016-07-02] MEDS: FUROSEMIDE 10 MG/ML 4 ML VIAL IV SCH ×2 (08:40→21:06)
[2016-07-02] MEDS ORDERED: ENOXAPARIN 40 MG/0.4 ML SYRINGE SQ SCH (09:00)
[2016-07-02] MEDS ORDERED: ASPIRIN 325 MG TAB PO SCH (09:00)
[2016-07-02] MEDS: IPRATROPIUM-ALBUTEROL 3 ML NEB INHALATION SCH ×4 (09:03→20:57)
[2016-07-02 11:44] LABS: Glucose,Whole Blood 271 mg/dL (75-99)
[2016-07-02] MEDS ORDERED: INSULIN REGULAR 100 UNIT in SODIUM CHLORIDE 0.9% 100 ML IV SCH ×2 (12:15→15:30)
[2016-07-02] MEDS ORDERED: INSULIN LISPRO (humaLOG) 300 UNIT/3 ML VIAL SQ SCH ×2 (12:30→17:30)
[2016-07-02 14:20] LABS: Glucose,Whole Blood 292 mg/dL (75-99)
[2016-07-02] MEDS: ENOXAPARIN 30 MG/0.3 ML SYRINGE SQ SCH (14:39)
[2016-07-02 14:58] LABS: Glucose,Whole Blood 247 mg/dL (75-99)
[2016-07-02 16:44] LABS: Glucose,Whole Blood 129 mg/dL (75-99)
--- NOTE | 2016-07-02 17:34 | PN ---
The patient is being treated for congestive heart failure, chronic diastolic dysfunction with acute exacerbation. Patient also has multiple other pulmonary comorbidities including chronic obstructive pulmonary disease and patient is also on levofloxacin. Unfortunately I am not able to open the x-ray up and patient does cough. Patient is also being treated for pneumonia. I will go ahead and continue antibiotics for today and I will look at the x-rays, attempt to try to look at the x-rays tomorrow. If patient does not appear to have pneumonia, these antibiotics can be discontinued. Patient clinically does not appear to have pneumonia. REVIEW OF SYSTEMS: CARDIOVASCULAR: No chest pain, no orthopnea, no PND, no palpitations. PULMONARY: Continued shortness of breath. No significant change compared to yesterday. GASTROINTESTINAL: No diarrhea, nausea or vomiting. No abdominal pain. Normoactive bowel sounds. NEUROLOGIC: No headaches, no weakness, no numbness. Medications are reviewed. PHYSICAL EXAMINATION: VITAL SIGNS: Temperature 97.4, pulse of 80, respirations 16, blood pressure 172/74, saturating at 96% on 3.5 liters of oxygen here, patient uses 2 liters of oxygen at home. GENERAL: The patient is alert and oriented x3, not in any acute distress. Well developed, well nourished. HEENT: Pupils are round and equally reacting to light. EOMI. No scleral icterus. No conjunctival pallor. Normocephalic, atraumatic. No pharyngeal erythema. No thyromegaly. CARDIOVASCULAR: S1 and S2 present. No murmurs, rubs, or gallops. PULMONARY: Bibasilar crackles are appreciated. Patient does have wheezing on expiratory wheezing on exam. ABDOMEN: Soft, nontender, nondistended, normoactive bowel sounds. No palpable organomegaly. MUSCULOSKELETAL: No joint swelling or deformity. EXTREMITIES: No cyanosis, clubbing, or pedal edema. NEUROLOGICAL: Gross neurological examination did not reveal any focal deficits. SKIN: No rashes. LABORATORY DATA: None available from today, We will obtain basic metabolic profile. Patient is on Lasix, BMP and kidney function monitoring is essential. ASSESSMENT AND PLAN: 1. Acute hypoxic respiratory failure secondary to congestive heart failure exacerbation. Patient is also being treated for pneumonia, which we will go ahead and continue until we rule out pneumonia. 2. Kidney function, close kidney function monitoring. I's and O's. Patient appeared to have urinating well today more than yesterday. 3. Patient has congestive heart failure, chronic diastolic dysfunction with acute exacerbation. 4. Coronary artery disease. 5. Chronic kidney disease Stage III with baseline creatinine of around 1.5. Patient may have prerenal azotemia secondary to congestive heart failure exacerbation as well. 6. Chronic obstructive pulmonary disease with mild acute exacerbation. 7. Hypertension. 8. Hyperlipidemia. 9. Normocytic anemia secondary to anemia of chronic disease. Chest x-ray report was reviewed, although I was unable to open the x-ray, images at this point of time, showed bibasilar infiltrates and small right-sided pleural effusion. RVSP data is not available.
[2016-07-02] MEDS ORDERED: LEVOFLOXACIN 750 MG TAB PO SCH (18:00)
[2016-07-02] MEDS ORDERED: LEVOFLOXACIN 750MG-D5W PMX 750 MG in DEXTROSE/WATER 1 150ML.BAG IVPB SCH (18:00)
--- NOTE | 2016-07-02 18:25 | P.PN ---
Subjective 80-year-old female patient who presented to the hospital because of progressive worsening shortness of breath. The patient is known to have coronary artery disease and she has undergone previous carotid bypass surgery out of town. The patient used to live in [facility] and she moved to [place] approximately 3 years ago. Over the past 1 week, the patient is progressively getting short of breath and she has noted some increased congested cough. No fever. No chills. No sweats. No pleurisy. No chest pain. She had developed significant edema in lower extremities bilaterally. She has been investigated in the past for DVTs and that came back negative based on an ultrasound Doppler that was done on 05/14/2016. Perfusion scan that was also done on 04/30/2016 was a low probability. During this current admission, the patient's white cell count was not elevated at 10.8. The patient significantly elevated proBNP level above 14,000. The cardiac enzymes first set of troponin was negative and the CPK was also within normal limits. The chest x-ray shows bilateral lower lobe pulmonary infiltration/fusion which could be a combination of CHF/ pneumonia. The patient was started on IV Lasix. The patient is also on empiric antibiotic coverage with Levaquin. She has a harsh cardiac murmur and an echocardiogram is pending for now. The patient is seen again today 07/02/2016 in follow-up. She is awake and alert in no acute distress. She is breathing quite a bit easier today as compared to yesterday. Her echocardiogram revealed a preserved left ventricular systolic function with estimated ejection fraction 50-55%. There is no evidence of pulmonary hypertension. He diuresed well he remains in a negative balance. Her peripheral edema has improved. She is maintaining good O2 saturations in the mid 90s on room air. She's been afebrile. Objective - Vital Signs Vital signs: Vital Signs Temp 97.4 F L 07/02/16 15:25 Pulse 97 07/02/16 15:25 Resp 16 07/02/16 15:25 BP 172/74 07/02/16 15:25 Pulse Ox 96 07/02/16 15:25 Intake & Output 07/01/16 07/02/16 07/02/16 18:59 06:59 18:59 Intake Total 120 160 369.1 Output Total 300 650 600 Balance -180 -490 -230.9 Weight 63.503 kg 68.6 kg Intake: IV 160 Sodium Chloride 0.9% 1, 160 000 ml @ 20 mls/hr IV . Q24H TONG Rx#:[id number] Intake, IV Titration 9.1 Amount Insulin Regular 100 unit 9.1 In Sodium Chloride 0.9% 100 ml @ Titrate IV .Q0M TONG Rx#:[id number] Oral 120 360 Output: Urine 300 650 600 Other: # Bowel Movements 0 - Exam Head exam was generally normal. There was no scleral icterus or corneal arcus. Mucous membranes were moist.Neck was supple and positive jugular venous distension, thyromegaly, or carotid bruits. Carotids were easily palpable bilaterally. There was no adenopathy. Lung sounds are diminished in lung bases along with some bibasilar crackles. Heart sounds reveal a harsh systolic ejection murmur grade 4/6 heard throughout the precordium more so along the left apex.Abdominal exam revealed normal bowel sounds. The abdomen was soft, non -tender, and without masses, organomegaly, or appreciable enlargement of the abdominal aorta. Extremities revealed +1-2 pitting edema. There is no cyanosis or clubbing at this point. Neurologically, the patient is awake and alert. - Labs CBC & Chem 7: 07/01/16 06:10 07/01/16 06:10 Labs: Abnormal Lab Results - Last 24 Hours (Table) 07/01/16 07/02/16 07/02/16 Range/Units 20:44 06:00 06:08 POC Glucose (mg/dL) 207 H 240 H (75-99) mg/dL Iron 28 L (37-170) ug/dL % Saturation 8.0 L (20-50) % 07/02/16 07/02/16 07/02/16 Range/Units 11:40 13:51 14:38 POC Glucose (mg/dL) 271 H 292 H 247 H (75-99) mg/dL Iron (37-170) ug/dL % Saturation (20-50) % 07/02/16 Range/Units 16:32 POC Glucose (mg/dL) 129 H (75-99) mg/dL Iron (37-170) ug/dL % Saturation (20-50) % Microbiology - Last 24 Hours (Table) 07/01/16 13:28 Blood Culture - Preliminary Blood No Growth after 24 hours Assessment and Plan Plan: Assessment 1 acute hypoxic respiratory failure. The patient presented with significant shortness of breath and she was supported with a BiPAP overnight. Chest x-ray showing bilateral lower lobe pulmonary infiltration/effusion. Rule out a combination of CHF/pneumonia although CHF is very much suspected knowing that the patient's proBNP level was significantly elevated and the patient had developed progressive edema lower extremities bilaterally. Currently she is on 5 L of oxygen by nasal cannula 2 acute lower lobe pulmonary infiltration/effusion, likely combination of pneumonia/CHF 3 lower extremity edema 4 coronary artery disease with history of cardiac bypass surgery 5 chronic renal failure, creatinine is 1.5 6 cardiac murmur awaiting echocardiogram 7 COPD maintained on Spiriva on outpatient basis 8 hyperlipidemia 9 chronic anemia Plan The patient was seen and evaluated by Dr. Thacker. She is doing quite a bit better. We'll continue to diurese patient. We'll repeat her chest x-ray in the a.m. We will continue to follow. Possible discharge in the a.m.
[2016-07-02] MEDS ORDERED: INSULIN GLARGINE 100 UNIT/ML 10 ML VIAL SQ SCH (21:00)
[2016-07-02] MEDS: ATORVASTATIN 80 MG TAB PO SCH (21:05)
[2016-07-02] MEDS: amLODIPine 5 MG TAB PO SCH (21:05)
[2016-07-02 21:12] LABS: Glucose,Whole Blood 197 mg/dL (75-99)
[2016-07-02] MEDS: methylPREDNISolone SOD SUCCI 40 MG/ML 1 ML VIAL IV SCH (21:19)
[2016-07-03 06:28] LABS: Anisocytosis Slight; CH 27.3; CHCM 29.4; HCT 25.1 % (34.0-46.0); Hypochromasia Marked; MCH 27.3 pg (25.0-35.0); MCHC 29.3 g/dL (31.0-37.0); MCV 93.1 fL (80.0-100.0); Mean Platelet Volume 8.1; RBC 2.69 m/uL (3.80-5.40); RDW 16.6 % (11.5-15.5); WBC 14.8 k/uL (3.8-10.6)
[2016-07-03 06:30] LABS: Glucose,Whole Blood 209 mg/dL (75-99)
[2016-07-03 06:33] LABS: Calcium 9.4 mg/dL (8.4-10.2); Potassium 4.4 mmol/L (3.5-5.1)
[2016-07-03 06:42] LABS: HGB 7.3 gm/dL (11.4-16.0)
[2016-07-03] MEDS: FUROSEMIDE 10 MG/ML 4 ML VIAL IV SCH (06:55)
[2016-07-03] MEDS: INSULIN LISPRO (humaLOG) 300 UNIT/3 ML VIAL SQ SCH ×3 (07:04→17:24)
--- NOTE | 2016-07-03 07:38 | XR ---
EXAMINATION TYPE: XR chest 2V DATE OF EXAM: 07/03/2016 6:45 AM COMPARISON: 07/02/2016 HISTORY: 80-year-old female with follow-up for CHF TECHNIQUE: Frontal and lateral views FINDINGS: The heart remains mildly enlarged. Median sternotomy wires and post-CABG clips the mediastinum and li renzo coronary stent. Mild interstitial prominence similar. Small pleural effusions are redemonstrated . Some of the adjacent patchy opacity shows interval improvement. IMPRESSION: 1. Continued small effusions. Some of the adjacent basilar atelectasis/consolidation shows interval i mprovement. 2. Residual mild pulmonary vascular congestion.
[2016-07-03] MEDS: SODIUM CHLORIDE 0.9% 1,000 ML IV SCH (08:02)
[2016-07-03] MEDS: methylPREDNISolone SOD SUCCI 40 MG/ML 1 ML VIAL IV SCH ×2 (08:10→23:15)
[2016-07-03] MEDS: EZETIMIBE 10 MG TAB PO SCH (08:10)
[2016-07-03] MEDS: PRASUGREL 10 MG TAB PO SCH (08:10)
[2016-07-03] MEDS: ISOSORBIDE MONONITRATE ER 60 MG TAB.ER.24H PO SCH (08:10)
[2016-07-03] MEDS: ASPIRIN 81 MG CHEW PO SCH (08:10)
[2016-07-03] MEDS: NADOLOL 20 MG TAB PO SCH (08:10)
[2016-07-03] MEDS: ENOXAPARIN 30 MG/0.3 ML SYRINGE SQ SCH (08:10)
[2016-07-03] MEDS: IPRATROPIUM-ALBUTEROL 3 ML NEB INHALATION SCH ×4 (08:44→20:16)
[2016-07-03 11:38] LABS: % Iron Saturation 9.6 % (20-50)
[2016-07-03 11:50] LABS: Glucose,Whole Blood 258 mg/dL (75-99)
--- NOTE | 2016-07-03 13:54 | P.PN ---
Subjective 80-year-old female patient who presented to the hospital because of progressive worsening shortness of breath. The patient is known to have coronary artery disease and she has undergone previous carotid bypass surgery out of town. The patient used to live in [facility] and she moved to [place] approximately 3 years ago. Over the past 1 week, the patient is progressively getting short of breath and she has noted some increased congested cough. No fever. No chills. No sweats. No pleurisy. No chest pain. She had developed significant edema in lower extremities bilaterally. She has been investigated in the past for DVTs and that came back negative based on an ultrasound Doppler that was done on 05/14/2016. Perfusion scan that was also done on 04/30/2016 was a low probability. During this current admission, the patient's white cell count was not elevated at 10.8. The patient significantly elevated proBNP level above 14,000. The cardiac enzymes first set of troponin was negative and the CPK was also within normal limits. The chest x-ray shows bilateral lower lobe pulmonary infiltration/fusion which could be a combination of CHF/ pneumonia. The patient was started on IV Lasix. The patient is also on empiric antibiotic coverage with Levaquin. She has a harsh cardiac murmur and an echocardiogram is pending for now. The patient is seen again today 07/02/2016 in follow-up. She is awake and alert in no acute distress. She is breathing quite a bit easier today as compared to yesterday. Her echocardiogram revealed a preserved left ventricular systolic function with estimated ejection fraction 50-55%. There is no evidence of pulmonary hypertension. He diuresed well he remains in a negative balance. Her peripheral edema has improved. She is maintaining good O2 saturations in the mid 90s on room air. She's been afebrile. The patient is seen again today 07/03/2016 in follow-up on the selective care unit. She is awake and alert in no acute distress. Her breathing is improved today as compared to yesterday. She is nearly back to her baseline. Mean O2 saturations in the low 90s on room air. Has had increased creatinine level and her Lasix is currently on hold. Objective - Vital Signs Vital signs: Vital Signs Temp 97.6 F 07/03/16 12:00 Pulse 66 07/03/16 12:01 Resp 16 07/03/16 12:00 BP 142/65 07/03/16 12:00 Pulse Ox 92 L 07/03/16 12:00 Intake & Output 07/02/16 07/03/16 07/03/16 18:59 06:59 18:59 Intake Total 369.1 60 180 Output Total 600 500 Balance -230.9 -440 180 Weight 68 kg Intake: IV 60 Sodium Chloride 0.9% 1, 60 000 ml @ 20 mls/hr IV . Q24H TONG Rx#:[id number] Intake, IV Titration 9.1 Amount Insulin Regular 100 unit 9.1 In Sodium Chloride 0.9% 100 ml @ Titrate IV .Q0M TONG Rx#:[id number] Oral 360 180 Output: Urine 600 500 Other: # Bowel Movements 0 - Exam Head exam was generally normal. There was no scleral icterus or corneal arcus. Mucous membranes were moist.Neck was supple and positive jugular venous distension, thyromegaly, or carotid bruits. Carotids were easily palpable bilaterally. There was no adenopathy. Lung sounds are diminished in lung bases along with some bibasilar crackles. Heart sounds reveal a harsh systolic ejection murmur grade 4/6 heard throughout the precordium more so along the left apex.Abdominal exam revealed normal bowel sounds. The abdomen was soft, non -tender, and without masses, organomegaly, or appreciable enlargement of the abdominal aorta. Extremities revealed +1-2 pitting edema. There is no cyanosis or clubbing at this point. Neurologically, the patient is awake and alert. - Labs CBC & Chem 7: 07/03/16 05:45 07/03/16 05:45 Labs: Abnormal Lab Results - Last 24 Hours (Table) 07/02/16 07/02/16 07/02/16 Range/Units 13:51 14:38 16:32 WBC (3.8-10.6) k/uL RBC (3.80-5.40) m/uL Hgb (11.4-16.0) gm/dL Hct (34.0-46.0) % MCHC (31.0-37.0) g/dL RDW (11.5-15.5) % Carbon Dioxide (22-30) mmol/L BUN (7-17) mg/dL Creatinine (0.52-1.04) mg/dL Glucose (74-99) mg/dL POC Glucose (mg/dL) 292 H 247 H 129 H (75-99) mg/dL Iron (37-170) ug/dL % Saturation (20-50) % 07/02/16 07/03/16 07/03/16 Range/Units 21:10 05:45 05:45 WBC 14.8 H (3.8-10.6) k/uL RBC 2.69 L (3.80-5.40) m/uL Hgb 7.3 L D (11.4-16.0) gm/dL Hct 25.1 L (34.0-46.0) % MCHC 29.3 L (31.0-37.0) g/dL RDW 16.6 H (11.5-15.5) % Carbon Dioxide 17 L (22-30) mmol/L BUN 83 H* (7-17) mg/dL Creatinine 2.48 H (0.52-1.04) mg/dL Glucose 177 H (74-99) mg/dL POC Glucose (mg/dL) 197 H (75-99) mg/dL Iron (37-170) ug/dL % Saturation (20-50) % 07/03/16 07/03/16 07/03/16 Range/Units 05:45 06:27 11:48 WBC (3.8-10.6) k/uL RBC (3.80-5.40) m/uL Hgb (11.4-16.0) gm/dL Hct (34.0-46.0) % MCHC (31.0-37.0) g/dL RDW (11.5-15.5) % Carbon Dioxide (22-30) mmol/L BUN (7-17) mg/dL Creatinine (0.52-1.04) mg/dL Glucose (74-99) mg/dL POC Glucose (mg/dL) 209 H 258 H (75-99) mg/dL Iron 32 L (37-170) ug/dL % Saturation 9.6 L (20-50) % Microbiology - Last 24 Hours (Table) 07/01/16 13:28 Blood Culture - Preliminary Blood No Growth after 24 hours Assessment and Plan Plan: Assessment 1 acute hypoxic respiratory failure. The patient presented with significant shortness of breath and she was supported with a BiPAP overnight. Chest x-ray showing bilateral lower lobe pulmonary infiltration/effusion. Rule out a combination of CHF/pneumonia although CHF is very much suspected knowing that the patient's proBNP level was significantly elevated and the patient had developed progressive edema lower extremities bilaterally. Currently she is on 5 L of oxygen by nasal cannula 2 acute lower lobe pulmonary infiltration/effusion, likely combination of pneumonia/CHF 3 lower extremity edema 4 coronary artery disease with history of cardiac bypass surgery 5 chronic renal failure, creatinine is 1.5 6 cardiac murmur awaiting echocardiogram 7 COPD maintained on Spiriva on outpatient basis 8 hyperlipidemia 9 chronic anemia Plan The patient was seen and evaluated by Dr. Thacker. She is doing quite a bit better. Her chest x-ray shows interval improvement as well. Continue with her current medications. We'll increase her activity as tolerated. We'll continue to follow.
[2016-07-03 14:37] VITALS: BMI 27.3
--- NOTE | 2016-07-03 14:54 | P.PN ---
Subjective This is an 80-year-old female with known history of coronary artery disease and prior bypass surgery, prior's cardiac stent placement, hypertension , hyperlipidemia, COPD with home O2 use, nicotine dependence, chronic renal failure, who presented to the hospital with symptoms of progressively worsening shortness of breath. Symptoms have been progressively getting worse over the past one week to 10 days. She denies having any chest discomfort. She also states that she developed swelling in her lower extremities. He denies any active cough at home, denies any recent fever or chills. Patient was given Solu -Medrol via EMS. Chest x-ray on arrival shows congestive heart failure although by basilar infiltrates are not excluded. EKG on arrival shows normal sinus rhythm with a first-degree AV block and nonspecific ST-T wave changes in the inferior lateral leads.BNP level 14,500 .Patient was initiated on IV Lasix for congestive cardiac failure ,in the emergency room as well as IV antibiotics for possible pneumonia. Echocardiogram with Doppler study was performed which revealed an ejection fraction of 50-55%. Mild MR, mild TR, mild AR and mild . was started on IV Lasix, creatinine today is 2.4, BUN 83, potassium 4.4. Hemoglobin is down to 7.3, white blood cell count 14.8. Lasix has been placed on hold, orders were placed for iron studies. Objective - Vital Signs Vital signs: Vital Signs Temp 97.6 F 07/03/16 12:00 Pulse 66 07/03/16 12:01 Resp 16 07/03/16 12:00 BP 142/65 07/03/16 12:00 Pulse Ox 92 L 07/03/16 12:00 Intake & Output 07/02/16 07/03/16 07/03/16 18:59 06:59 18:59 Intake Total 369.1 60 180 Output Total 600 500 Balance -230.9 -440 180 Weight 68 kg Intake: IV 60 Sodium Chloride 0.9% 1, 60 000 ml @ 20 mls/hr IV . Q24H TONG Rx#:[id number] Intake, IV Titration 9.1 Amount Insulin Regular 100 unit 9.1 In Sodium Chloride 0.9% 100 ml @ Titrate IV .Q0M TONG Rx#:[id number] Oral 360 180 Output: Urine 600 500 Other: # Bowel Movements 0 - Exam PHYSICAL EXAMINATION: HEENT: Head is atraumatic, normocephalic. Pupils equal, round. Neck is supple. There is no elevated jugular venous pressure. HEART EXAMINATION: Heart S1 and S2 systolic murmur is heard CHEST EXAMINATION: Lungs reveal fine crackles to bilateral bases with diminished air entry to the bases. ABDOMEN: Soft, nontender. Bowel sounds are heard. No organomegaly noted. EXTREMITIES: 2+ peripheral pulses with 2+ evidence of peripheral edema and no calf tenderness noted. NEUROLOGIC patient is awake, alert and oriented -3. . - Labs CBC & Chem 7: 07/03/16 05:45 07/03/16 05:45 Labs: Abnormal Lab Results - Last 24 Hours (Table) 07/02/16 07/02/16 07/02/16 Range/Units 13:51 14:38 16:32 WBC (3.8-10.6) k/uL RBC (3.80-5.40) m/uL Hgb (11.4-16.0) gm/dL Hct (34.0-46.0) % MCHC (31.0-37.0) g/dL RDW (11.5-15.5) % Carbon Dioxide (22-30) mmol/L BUN (7-17) mg/dL Creatinine (0.52-1.04) mg/dL Glucose (74-99) mg/dL POC Glucose (mg/dL) 292 H 247 H 129 H (75-99) mg/dL Iron (37-170) ug/dL % Saturation (20-50) % 07/02/16 07/03/16 07/03/16 Range/Units 21:10 05:45 05:45 WBC 14.8 H (3.8-10.6) k/uL RBC 2.69 L (3.80-5.40) m/uL Hgb 7.3 L D (11.4-16.0) gm/dL Hct 25.1 L (34.0-46.0) % MCHC 29.3 L (31.0-37.0) g/dL RDW 16.6 H (11.5-15.5) % Carbon Dioxide 17 L (22-30) mmol/L BUN 83 H* (7-17) mg/dL Creatinine 2.48 H (0.52-1.04) mg/dL Glucose 177 H (74-99) mg/dL POC Glucose (mg/dL) 197 H (75-99) mg/dL Iron (37-170) ug/dL % Saturation (20-50) % 07/03/16 07/03/16 07/03/16 Range/Units 05:45 06:27 11:48 WBC (3.8-10.6) k/uL RBC (3.80-5.40) m/uL Hgb (11.4-16.0) gm/dL Hct (34.0-46.0) % MCHC (31.0-37.0) g/dL RDW (11.5-15.5) % Carbon Dioxide (22-30) mmol/L BUN (7-17) mg/dL Creatinine (0.52-1.04) mg/dL Glucose (74-99) mg/dL POC Glucose (mg/dL) 209 H 258 H (75-99) mg/dL Iron 32 L (37-170) ug/dL % Saturation 9.6 L (20-50) % Microbiology - Last 24 Hours (Table) 07/01/16 13:28 Blood Culture - Preliminary Blood No Growth after 24 hours Assessment and Plan Plan: Assessment and plan #1 Q respiratory failure, secondary to congestive cardiac failure, diastolic in nature. Acute on chronic. Evidence also of possible pneumonia. #2 COPD, on home O2 #3 nicotine dependence #4 acute on chronic renal failure #5 hyperlipidemia #6 chronic anemia #7 known history of coronary artery disease with prior bypass surgery and stent placements Plan Continue Lasix. Order iron studies. Echo lytes BUN and creatinine in the morning. Along with CBC. DNP note has been reviewed, I agree with a documented findings and plan of care. Patient was seen and examined.
--- NOTE | 2016-07-03 15:15 | PN ---
Patient is admitted with congestive heart failure, chronic diastolic dysfunction with acute exacerbation. Patient has worsening renal function because of which diuretic therapy will be discontinued. Will continue to monitor her kidney function and I&O's at this point of time. Patient is still wheezing minimally. Beyond that, patient does not have any significant crackles. Chest x-ray although showing continued minimal pulmonary edema. REVIEW OF SYSTEMS: CARDIOVASCULAR: No chest pain, no orthopnea, no PND, no palpitations. PULMONARY: Denied any shortness of breath. No cough or hemoptysis. GASTROINTESTINAL: No diarrhea, nausea or vomiting. No abdominal pain. Normoactive bowel sounds. NEUROLOGIC: No headaches, no weakness, no numbness. Medications were reviewed. PHYSICAL EXAMINATION: Temperature 97.7, pulse of 66, respiratory rate of 16, blood pressure is 156/70, saturating at 93% on 2 L of O2 by nasal cannula. LUNG EXAMINATION: Minimal expiratory wheezing was appreciated on exam, no crackles were appreciated. GENERAL: The patient is alert and oriented x3, not in any acute distress. Well developed, well nourished. HEENT: Pupils are round and equally reacting to light. EOMI. No scleral icterus. No conjunctival pallor. Normocephalic, atraumatic. No pharyngeal erythema. No thyromegaly. CARDIOVASCULAR: S1 and S2 present. No murmurs, rubs, or gallops. ABDOMEN: Soft, nontender, nondistended, normoactive bowel sounds. No palpable organomegaly. MUSCULOSKELETAL: No joint swelling or deformity. EXTREMITIES: No cyanosis, clubbing, or pedal edema. NEUROLOGICAL: Gross neurological examination did not reveal any focal deficits. SKIN: No rashes. LABORATORY DATA: CBC and CMP are abnormal for low bicarbonate of 17, secondary to uremia. BUN of 83, creatinine of 2.48. ASSESSMENT AND PLAN: 1. Acute renal failure secondary to excessive diuretic therapy, which will be held. 2. Acute hypoxic respiratory failure secondary to congestive heart failure as well as chronic obstructive pulmonary disease or bronchospasm for which patient is on antibiotics. Therapy is being held because patient is on the hypovolemic side. 3. Chronic diastolic dysfunction with acute exacerbation, now presently hypovolemic. 4. Coronary artery disease. 5. Chronic kidney disease stage III with baseline creatinine around 1.5, now patient is AKA secondary to excessive diuretic therapy and prerenal azotemia. 6. Chronic obstructive pulmonary disease with acute exacerbation. 7. Hypertension. 8. Hyperlipidemia. 9. Normocytic anemia, probably anemia of chronic disease. PLAN: As mentioned above. Monitor kidney function closely, repeat electrolytes tomorrow. For her blood sugars which are uncontrolled, will up-titrate the Lantus as well as premeal insulin. This is due to systemic steroids she is receiving.
[2016-07-03 16:40] LABS: Glucose,Whole Blood 199 mg/dL (75-99)
[2016-07-03] MEDS: HEPARIN SODIUM,PORCINE 5,000 UNIT/ML 1 ML VIAL SQ SCH (17:26)
[2016-07-03] MEDS: amLODIPine 5 MG TAB PO SCH (23:13)
[2016-07-03] MEDS: ATORVASTATIN 80 MG TAB PO SCH (23:13)
[2016-07-03] MEDS: INSULIN GLARGINE 100 UNIT/ML 10 ML VIAL SQ SCH (23:14)
[2016-07-04 05:57] LABS: Glucose,Whole Blood 179 mg/dL (75-99)
[2016-07-04 07:08] LABS: Calcium 9.2 mg/dL (8.4-10.2); Potassium 4.2 mmol/L (3.5-5.1)
[2016-07-04] MEDS: INSULIN LISPRO (humaLOG) 300 UNIT/3 ML VIAL SQ SCH ×3 (07:41→17:23)
[2016-07-04] MEDS: HEPARIN SODIUM,PORCINE 5,000 UNIT/ML 1 ML VIAL SQ SCH ×4 (07:42→23:03)
[2016-07-04] MEDS: IPRATROPIUM-ALBUTEROL 3 ML NEB INHALATION SCH ×4 (08:19→20:16)
[2016-07-04] MEDS: methylPREDNISolone SOD SUCCI 40 MG/ML 1 ML VIAL IV SCH ×2 (10:47→20:55)
[2016-07-04] MEDS: ASPIRIN 81 MG CHEW PO SCH (10:47)
[2016-07-04] MEDS: ISOSORBIDE MONONITRATE ER 60 MG TAB.ER.24H PO SCH (10:47)
[2016-07-04] MEDS: NADOLOL 20 MG TAB PO SCH (10:48)
[2016-07-04 10:52] LABS: Anisocytosis Slight; CH 27.5; CHCM 30.2; HCT 25.1 % (34.0-46.0); HDW 2.88; HGB 7.6 gm/dL (11.4-16.0); Hypochromasia Marked; MCH 27.7 pg (25.0-35.0); MCHC 30.3 g/dL (31.0-37.0); MCV 91.5 fL (80.0-100.0); Mean Platelet Volume 8.8; RBC 2.74 m/uL (3.80-5.40); RDW 16.8 % (11.5-15.5); WBC 14.3 k/uL (3.8-10.6)
[2016-07-04] MEDS: SODIUM CHLORIDE 0.9% 1,000 ML IV SCH (10:55)
[2016-07-04 12:05] LABS: Glucose,Whole Blood 165 mg/dL (75-99)
[2016-07-04] MEDS: EZETIMIBE 10 MG TAB PO SCH (12:50)
--- NOTE | 2016-07-04 14:27 | P.PN ---
Subjective This is an 80-year-old female with known history of coronary artery disease and prior bypass surgery, prior's cardiac stent placement, hypertension , hyperlipidemia, COPD with home O2 use, nicotine dependence, chronic renal failure, who presented to the hospital with symptoms of progressively worsening shortness of breath. Symptoms have been progressively getting worse over the past one week to 10 days. She denies having any chest discomfort. She also states that she developed swelling in her lower extremities. He denies any active cough at home, denies any recent fever or chills. Patient was given Solu -Medrol via EMS. Chest x-ray on arrival shows congestive heart failure although by basilar infiltrates are not excluded. EKG on arrival shows normal sinus rhythm with a first-degree AV block and nonspecific ST-T wave changes in the inferior lateral leads.BNP level 14,500 .Patient was initiated on IV Lasix for congestive cardiac failure ,in the emergency room as well as IV antibiotics for possible pneumonia. Echocardiogram with Doppler study was performed which revealed an ejection fraction of 50-55%. Mild MR, mild TR, mild AR and mild . Creatinine yesterday 2.4, down to 2.2 today. Hemoglobin 7.6 today. Objective - Vital Signs Vital signs: Vital Signs Temp 97.3 F L 07/04/16 12:00 Pulse 67 07/04/16 12:00 Resp 18 07/04/16 12:00 BP 143/68 07/04/16 12:00 Pulse Ox 94 L 07/04/16 12:00 Intake & Output 07/03/16 07/04/16 07/04/16 18:59 06:59 18:59 Intake Total 420 100 180 Output Total 750 Balance 420 -650 180 Weight 68 kg 68.9 kg Intake: Oral 420 100 180 Output: Urine 750 Other: # Bowel Movements 0 - Exam PHYSICAL EXAMINATION: HEENT: Head is atraumatic, normocephalic. Pupils equal, round. Neck is supple. There is no elevated jugular venous pressure. HEART EXAMINATION: Heart S1 and S2 systolic murmur is heard CHEST EXAMINATION: Lungs reveal fine crackles to bilateral bases with diminished air entry to the bases. ABDOMEN: Soft, nontender. Bowel sounds are heard. No organomegaly noted. EXTREMITIES: 2+ peripheral pulses with 2+ evidence of peripheral edema and no calf tenderness noted. NEUROLOGIC patient is awake, alert and oriented -3. . - Labs CBC & Chem 7: 04/28/17 05:51 07/04/16 05:51 Labs: Abnormal Lab Results - Last 24 Hours (Table) 07/03/16 07/04/16 07/04/16 Range/Units 16:34 05:51 05:51 WBC 14.3 H (3.8-10.6) k/uL RBC 2.74 L (3.80-5.40) m/uL Hgb 7.6 L (11.4-16.0) gm/dL Hct 25.1 L (34.0-46.0) % MCHC 30.3 L (31.0-37.0) g/dL RDW 16.8 H (11.5-15.5) % Chloride 108 H (98-107) mmol/L Carbon Dioxide 21 L (22-30) mmol/L BUN 89 H* (7-17) mg/dL Creatinine 2.23 H (0.52-1.04) mg/dL Glucose 149 H (74-99) mg/dL POC Glucose (mg/dL) 199 H (75-99) mg/dL 07/04/16 07/04/16 Range/Units 05:56 12:00 WBC (3.8-10.6) k/uL RBC (3.80-5.40) m/uL Hgb (11.4-16.0) gm/dL Hct (34.0-46.0) % MCHC (31.0-37.0) g/dL RDW (11.5-15.5) % Chloride (98-107) mmol/L Carbon Dioxide (22-30) mmol/L BUN (7-17) mg/dL Creatinine (0.52-1.04) mg/dL Glucose (74-99) mg/dL POC Glucose (mg/dL) 179 H 165 H (75-99) mg/dL Microbiology - Last 24 Hours (Table) 07/03/16 15:55 Gram Stain - Preliminary Sputum 07/01/16 13:28 Blood Culture - Preliminary Blood No Growth after 48 hours Assessment and Plan Plan: Assessment and plan #1 Acute respiratory failure, secondary to congestive cardiac failure, diastolic in nature. Acute on chronic. Evidence also of possible pneumonia. #2 COPD, on home O2 #3 nicotine dependence #4 acute on chronic renal failure #5 hyperlipidemia #6 chronic anemia #7 known history of coronary artery disease with prior bypass surgery and stent placements Plan Etiology's standpoint, we'll follow this patient with you now on an as-needed basis only, please don't hesitate to call with any questions. DNP note has been reviewed, I agree with a documented findings and plan of care. Patient was seen and examined.
--- NOTE | 2016-07-04 14:46 | PN ---
Patient is admitted with congestive heart failure, chronic diastolic dysfunction with acute exacerbation. Patient was treated for that. Patient probably has pneumonia as well as COPD exacerbation. REVIEW OF SYSTEMS: RESPIRATORY: Patient states she is clinically not doing well either. CARDIOVASCULAR: No chest pain, no orthopnea, no PND, no palpitations. GASTROINTESTINAL: No diarrhea, nausea or vomiting. No abdominal pain. Normoactive bowel sounds. NEUROLOGIC: No headaches, no weakness, no numbness. Medications were reviewed. PHYSICAL EXAMINATION: VITAL SIGNS: Temperature 97.3, pulse of 66, respiratory rate of 18, blood pressure is 143/68, saturating at 94% on 3 L of O2 nasal cannula. RESPIRATORY: Minimal decrease in ( ) lung cobb. No wheezing was appreciated. No crackles were appreciated. GENERAL: The patient is alert and oriented x3, not in any acute distress. Well developed, well nourished. HEENT: Pupils are round and equally reacting to light. EOMI. No scleral icterus. No conjunctival pallor. Normocephalic, atraumatic. No pharyngeal erythema. No thyromegaly. CARDIOVASCULAR: S1 and S2 present. No murmurs, rubs, or gallops. ABDOMEN: Soft, nontender, nondistended, normoactive bowel sounds. No palpable organomegaly. MUSCULOSKELETAL: No joint swelling or deformity. EXTREMITIES: No cyanosis, clubbing, or pedal edema. NEUROLOGICAL: Gross neurological examination did not reveal any focal deficits. SKIN: No rashes. LABORATORY DATA: CBC, basic metabolic profile are abnormal for elevated WBC count of 14,300, hemoglobin of 7.6, chloride of 108, bicarbonate of 21, BUN of 89, creatinine of 2.23. ASSESSMENT AND PLAN: 1. Acute renal failure secondary to ( ) therapy, which will be held and will monitor kidney function. 2. Acute hypoxic respiratory failure, multifactorial with chronic obstructive pulmonary disease exacerbation and possible chronic diastolic dysfunction with acute exacerbation. On admission, patient is on the hypovolemic side at this point of time. 3. Coronary artery disease. 4. Chronic kidney disease stage III with acute renal failure secondary to prerenal azotemia from excessive diuretic therapy. 5. Hypertension. 6. Hyperlipidemia. 7. Normocytic anemia. PLAN: As mentioned above, if patient's kidney function improves, patient probably will be discharged tomorrow. Continue to hold off on Lasix.
--- NOTE | 2016-07-04 16:01 | P.PN ---
Subjective 80-year-old female patient who presented to the hospital because of progressive worsening shortness of breath. The patient is known to have coronary artery disease and she has undergone previous carotid bypass surgery out of town. The patient used to live in [facility] and she moved to [place] approximately 3 years ago. Over the past 1 week, the patient is progressively getting short of breath and she has noted some increased congested cough. No fever. No chills. No sweats. No pleurisy. No chest pain. She had developed significant edema in lower extremities bilaterally. She has been investigated in the past for DVTs and that came back negative based on an ultrasound Doppler that was done on 05/14/2016. Perfusion scan that was also done on 04/30/2016 was a low probability. During this current admission, the patient's white cell count was not elevated at 10.8. The patient significantly elevated proBNP level above 14,000. The cardiac enzymes first set of troponin was negative and the CPK was also within normal limits. The chest x-ray shows bilateral lower lobe pulmonary infiltration/fusion which could be a combination of CHF/ pneumonia. The patient was started on IV Lasix. The patient is also on empiric antibiotic coverage with Levaquin. She has a harsh cardiac murmur and an echocardiogram is pending for now. The patient is seen again today 07/02/2016 in follow-up. She is awake and alert in no acute distress. She is breathing quite a bit easier today as compared to yesterday. Her echocardiogram revealed a preserved left ventricular systolic function with estimated ejection fraction 50-55%. There is no evidence of pulmonary hypertension. He diuresed well he remains in a negative balance. Her peripheral edema has improved. She is maintaining good O2 saturations in the mid 90s on room air. She's been afebrile. The patient is seen again today 07/03/2016 in follow-up on the selective care unit. She is awake and alert in no acute distress. Her breathing is improved today as compared to yesterday. She is nearly back to her baseline. Mean O2 saturations in the low 90s on room air. Has had increased creatinine level and her Lasix is currently on hold. 07/04/2016, the patient has still having a congested cough. Unable to bring, sputum. Despite improvement in her breathing, she still requires oxygen at 3 L per minute nasal cannula. No nausea. No vomiting. No chest pain. She had an acute on top of the chronic renal insufficiency secondary to diuresis. Creatinine is up to 2.4 max and currently is down to 2.2. The rest of the electrodes are within normal limits. No nausea. No vomiting. No change in mental status. No headaches. No other complaints otherwise. She is feeling rather weak. She is anemic and her serum iron is on the lower side. Objective - Vital Signs Vital signs: Vital Signs Temp 97.3 F L 07/04/16 12:00 Pulse 67 07/04/16 12:00 Resp 18 07/04/16 12:00 BP 143/68 07/04/16 12:00 Pulse Ox 94 L 07/04/16 12:00 Intake & Output 07/03/16 07/04/16 07/04/16 18:59 06:59 18:59 Intake Total 420 100 180 Output Total 750 Balance 420 -650 180 Weight 68 kg 68.9 kg Intake: Oral 420 100 180 Output: Urine 750 Other: # Bowel Movements 0 - Exam Head exam was generally normal. There was no scleral icterus or corneal arcus. Mucous membranes were moist.Neck was supple and positive jugular venous distension, thyromegaly, or carotid bruits. Carotids were easily palpable bilaterally. There was no adenopathy. Lung sounds are diminished in lung bases along with some bibasilar crackles. Heart sounds reveal a harsh systolic ejection murmur grade 4/6 heard throughout the precordium more so along the left apex.Abdominal exam revealed normal bowel sounds. The abdomen was soft, non -tender, and without masses, organomegaly, or appreciable enlargement of the abdominal aorta. Extremities revealed +1-2 pitting edema. There is no cyanosis or clubbing at this point. Neurologically, the patient is awake and alert. - Labs CBC & Chem 7: 07/04/16 05:51 07/04/16 05:51 Labs: Abnormal Lab Results - Last 24 Hours (Table) 07/03/16 07/04/16 07/04/16 Range/Units 16:34 05:51 05:51 WBC 14.3 H (3.8-10.6) k/uL RBC 2.74 L (3.80-5.40) m/uL Hgb 7.6 L (11.4-16.0) gm/dL Hct 25.1 L (34.0-46.0) % MCHC 30.3 L (31.0-37.0) g/dL RDW 16.8 H (11.5-15.5) % Chloride 108 H (98-107) mmol/L Carbon Dioxide 21 L (22-30) mmol/L BUN 89 H* (7-17) mg/dL Creatinine 2.23 H (0.52-1.04) mg/dL Glucose 149 H (74-99) mg/dL POC Glucose (mg/dL) 199 H (75-99) mg/dL 07/04/16 07/04/16 Range/Units 05:56 12:00 WBC (3.8-10.6) k/uL RBC (3.80-5.40) m/uL Hgb (11.4-16.0) gm/dL Hct (34.0-46.0) % MCHC (31.0-37.0) g/dL RDW (11.5-15.5) % Chloride (98-107) mmol/L Carbon Dioxide (22-30) mmol/L BUN (7-17) mg/dL Creatinine (0.52-1.04) mg/dL Glucose (74-99) mg/dL POC Glucose (mg/dL) 179 H 165 H (75-99) mg/dL Microbiology - Last 24 Hours (Table) 07/01/16 13:28 Blood Culture - Preliminary Blood No Growth after 72 hours 07/03/16 15:55 Gram Stain - Preliminary Sputum Assessment and Plan Plan: Assessment 1 acute hypoxic respiratory failure. The patient presented with significant shortness of breath and she was supported with a BiPAP overnight. Chest x-ray showing bilateral lower lobe pulmonary infiltration/effusion. Rule out a combination of CHF/pneumonia although CHF is very much suspected knowing that the patient's proBNP level was significantly elevated and the patient had developed progressive edema lower extremities bilaterally. Currently she is on 3 L of oxygen by nasal cannula 2 acute lower lobe pulmonary infiltration/effusion, likely combination of pneumonia/CHF 3 lower extremity edema 4 coronary artery disease with history of cardiac bypass surgery 5 chronic renal failure, with acute worsening of the creatinine because of prerenal factors. 6 cardiac murmur awaiting echocardiogram 7 COPD maintained on Spiriva on outpatient basis 8 hyperlipidemia 9 chronic anemia, with a component of iron deficiency. Plan Continue the current management. Continue the antibiotics. The patient continues to have some congested cough. Unable to bring up much of sputum at this point. She is on Levaquin 500 mg every 48 hours. She is on IV Solu- Medrol. She is on bronchodilators. We'll repeat a chest x-ray in the morning to follow of the progress of this bilateral lower lobe pneumonia. Meanwhile, the diuretic will be placed on hold and the patient will be monitored in regards to renal function.Repeat chest x-ray in the morning. We'll give the patient does of IV iron.
[2016-07-04] MEDS ORDERED: SODIUM FERRIC GLUCONAT-SUCROSE 125 MG in SODIUM CHLORIDE 0.9% 100 ML IVPB ONE (16:30)
[2016-07-04 16:59] LABS: Glucose,Whole Blood 191 mg/dL (75-99)
[2016-07-04] MEDS: LEVOFLOXACIN 500 MG TAB PO SCH (17:28)
[2016-07-04] MEDS: ATORVASTATIN 80 MG TAB PO SCH (20:55)
[2016-07-04] MEDS: amLODIPine 5 MG TAB PO SCH (20:55)
[2016-07-04 21:13] LABS: Glucose,Whole Blood 159 mg/dL (75-99)
[2016-07-04] MEDS: INSULIN GLARGINE 100 UNIT/ML 10 ML VIAL SQ SCH (21:43)
--- NOTE | 2016-07-05 06:51 | XR ---
EXAMINATION TYPE: XR chest 2V DATE OF EXAM: 07/05/2016 6:41 AM COMPARISON: Chest x-ray from 2 days ago. HISTORY: Pneumonia and CHF progress study. TECHNIQUE: Frontal and lateral views of the chest are obtained. FINDINGS: Post-CABG changes with mediastinal clips and sternal wires is redemonstrated. There is calc ified left circumflex coronary stent redemonstrated. There is chronic parenchymal change with small bilateral pleural effusions and associated bibasilar atelectasis and/or infiltrate. The cardiac silh ouette size is stable and mildly enlarged with atherosclerotic thoracic aorta. The osseous structur es are demineralized. IMPRESSION: Chronic emphysematous change and cardiomegaly with small bilateral pleural effusions and associated bibasilar atelectasis and/or infiltrate all redemonstrated.
[2016-07-05 06:57] LABS: Glucose,Whole Blood 121 mg/dL (75-99)
[2016-07-05] MEDS: INSULIN LISPRO (humaLOG) 300 UNIT/3 ML VIAL SQ SCH ×3 (06:59→17:07)
[2016-07-05] MEDS: SODIUM CHLORIDE 0.9% 1,000 ML IV SCH (07:29)
[2016-07-05] MEDS: EZETIMIBE 10 MG TAB PO SCH (07:37)
[2016-07-05] MEDS: NADOLOL 20 MG TAB PO SCH (07:37)
[2016-07-05] MEDS: HEPARIN SODIUM,PORCINE 5,000 UNIT/ML 1 ML VIAL SQ SCH ×3 (07:37→21:01)
[2016-07-05] MEDS: ASPIRIN 81 MG CHEW PO SCH (07:37)
[2016-07-05] MEDS: methylPREDNISolone SOD SUCCI 40 MG/ML 1 ML VIAL IV SCH ×2 (07:37→20:53)
[2016-07-05] MEDS: ISOSORBIDE MONONITRATE ER 60 MG TAB.ER.24H PO SCH (07:37)
[2016-07-05] MEDS: IPRATROPIUM-ALBUTEROL 3 ML NEB INHALATION SCH ×4 (08:59→21:36)
[2016-07-05 11:36] LABS: Glucose,Whole Blood 245 mg/dL (75-99)
[2016-07-05] MEDS ORDERED: ACETAMINOPHEN TAB 325 MG TAB PO PRN (11:53)
--- NOTE | 2016-07-05 12:31 | P.PN ---
Subjective 80-year-old female patient who presented to the hospital because of progressive worsening shortness of breath. The patient is known to have coronary artery disease and she has undergone previous carotid bypass surgery out of town. The patient used to live in [facility] and she moved to [place] approximately 3 years ago. Over the past 1 week, the patient is progressively getting short of breath and she has noted some increased congested cough. No fever. No chills. No sweats. No pleurisy. No chest pain. She had developed significant edema in lower extremities bilaterally. She has been investigated in the past for DVTs and that came back negative based on an ultrasound Doppler that was done on 05/14/2016. Perfusion scan that was also done on 04/30/2016 was a low probability. During this current admission, the patient's white cell count was not elevated at 10.8. The patient significantly elevated proBNP level above 14,000. The cardiac enzymes first set of troponin was negative and the CPK was also within normal limits. The chest x-ray shows bilateral lower lobe pulmonary infiltration/fusion which could be a combination of CHF/ pneumonia. The patient was started on IV Lasix. The patient is also on empiric antibiotic coverage with Levaquin. She has a harsh cardiac murmur and an echocardiogram is pending for now. The patient is seen again today 07/02/2016 in follow-up. She is awake and alert in no acute distress. She is breathing quite a bit easier today as compared to yesterday. Her echocardiogram revealed a preserved left ventricular systolic function with estimated ejection fraction 50-55%. There is no evidence of pulmonary hypertension. He diuresed well he remains in a negative balance. Her peripheral edema has improved. She is maintaining good O2 saturations in the mid 90s on room air. She's been afebrile. The patient is seen again today 07/03/2016 in follow-up on the selective care unit. She is awake and alert in no acute distress. Her breathing is improved today as compared to yesterday. She is nearly back to her baseline. Mean O2 saturations in the low 90s on room air. Has had increased creatinine level and her Lasix is currently on hold. 07/04/2016, the patient has still having a congested cough. Unable to bring, sputum. Despite improvement in her breathing, she still requires oxygen at 3 L per minute nasal cannula. No nausea. No vomiting. No chest pain. She had an acute on top of the chronic renal insufficiency secondary to diuresis. Creatinine is up to 2.4 max and currently is down to 2.2. The rest of the electrodes are within normal limits. No nausea. No vomiting. No change in mental status. No headaches. No other complaints otherwise. She is feeling rather weak. She is anemic and her serum iron is on the lower side. On 07/05/2016, the patient is improved and less short of breath compared to yesterday. Chest x-ray still showing some atelectatic changes infiltrates in lung bases. Nevertheless clinically the patient seems to be breathing easier. No fever. No chills. Function is improving and the creatinine is down to 1.9. She was found to have some low iron level and the patient was given a dose of IV iron and 50 mg yesterday. In terms of her breathing, the patient continues to be on DuoNeb nebulized treatments around the clock, IV Solu-Medrol and oral Levaquin 500 milligrams every 48 hours. Objective - Vital Signs Vital signs: Vital Signs Temp 98.1 F 07/05/16 10:53 Pulse 63 07/05/16 10:53 Resp 16 07/05/16 10:53 BP 169/74 07/05/16 10:53 Pulse Ox 94 L 07/05/16 10:53 Intake & Output 07/04/16 07/05/16 07/05/16 18:59 06:59 18:59 Intake Total 360 320 Output Total 800 Balance 360 -480 Weight 68.5 kg Intake: IV 320 Sodium Chloride 0.9% 1, 320 000 ml @ 20 mls/hr IV . Q24H [facility] Rx#:[id number] Oral 360 Output: Urine 800 Other: Voiding Method Toilet - Exam Head exam was generally normal. There was no scleral icterus or corneal arcus. Mucous membranes were moist.Neck was supple and positive jugular venous distension, thyromegaly, or carotid bruits. Carotids were easily palpable bilaterally. There was no adenopathy. Lung sounds are diminished in lung bases along with some bibasilar crackles. Heart sounds reveal a harsh systolic ejection murmur grade 4/6 heard throughout the precordium more so along the left apex.Abdominal exam revealed normal bowel sounds. The abdomen was soft, non -tender, and without masses, organomegaly, or appreciable enlargement of the abdominal aorta. Extremities revealed +1-2 pitting edema. There is no cyanosis or clubbing at this point. Neurologically, the patient is awake and alert. - Labs CBC & Chem 7: 07/04/16 05:51 07/05/16 06:25 Labs: Abnormal Lab Results - Last 24 Hours (Table) 07/04/16 07/04/16 07/05/16 Range/Units 16:45 21:11 06:25 Chloride 110 H (98-107) mmol/L Carbon Dioxide 21 L (22-30) mmol/L BUN 91 H* (7-17) mg/dL Creatinine 1.90 H (0.52-1.04) mg/dL Glucose 110 H (74-99) mg/dL POC Glucose (mg/dL) 191 H 159 H (75-99) mg/dL 07/05/16 07/05/16 Range/Units 06:56 11:35 Chloride (98-107) mmol/L Carbon Dioxide (22-30) mmol/L BUN (7-17) mg/dL Creatinine (0.52-1.04) mg/dL Glucose (74-99) mg/dL POC Glucose (mg/dL) 121 H 245 H (75-99) mg/dL Microbiology - Last 24 Hours (Table) 07/03/16 15:55 Gram Stain - Final Sputum Sputum Culture - Final 07/01/16 13:28 Blood Culture - Preliminary Blood No Growth after 72 hours Assessment and Plan Plan: Assessment 1 acute hypoxic respiratory failure. The patient presented with significant shortness of breath and she was supported with a BiPAP overnight. Chest x-ray showing bilateral lower lobe pulmonary infiltration/effusion. Rule out a combination of CHF/pneumonia although CHF is very much suspected knowing that the patient's proBNP level was significantly elevated and the patient had developed progressive edema lower extremities bilaterally. Currently she is on 3 L of oxygen by nasal cannula On 07/05 2016, the patient is breathing easier and she seems to have improved compared to the past 2 days. Chest x-ray however still showing infiltration of the lung bases bilaterally and the patient remains on Zosyn. 2 acute lower lobe pulmonary infiltration/effusion, likely combination of pneumonia/CHF 3 lower extremity edema 4 coronary artery disease with history of cardiac bypass surgery 5 chronic renal failure, with acute worsening of the creatinine because of prerenal factors. 6 cardiac murmur awaiting echocardiogram 7 COPD maintained on Spiriva on outpatient basis 8 hyperlipidemia 9 chronic anemia, with a component of iron deficiency. Plan Continue the current management. Continue the antibiotics. Clinically the breathing status is improving. Creatinine is also down to 1.9. The patient is currently off diuretics. Ablate this patient the hallway. Wean down the FiO2 knowing that she is still at 3 L/m nasal cannula. We'll continue to follow.
[2016-07-05 16:29] LABS: Glucose,Whole Blood 178 mg/dL (75-99)
--- NOTE | 2016-07-05 19:23 | PN ---
Patient is admitted with congestive heart failure, chronic diastolic dysfunction and acute respiratory failure, multifactorial pneumonia and mostly secondary to COPD exacerbation. Patient is hypovolemic, discontinued IV Lasix because of worsening kidney function. Patient's kidney function has started improving now. REVIEW OF SYSTEMS: CARDIOVASCULAR: No chest pain, no orthopnea, no PND, no palpitations. PULMONARY: Denied any shortness of breath. No cough or hemoptysis. GASTROINTESTINAL: No diarrhea, nausea or vomiting. No abdominal pain. Normoactive bowel sounds. NEUROLOGIC: No headaches, no weakness, no numbness. Medications are reviewed. PHYSICAL EXAMINATION: VITAL SIGNS: Temperature 97.5, pulse of 68, respiratory rate of 16, blood pressure is 194/77, saturating at 95% on 3L of O2 by nasal cannula. GENERAL: The patient is alert and oriented x3, not in any acute distress. Well developed, well nourished. HEENT: Pupils are round and equally reacting to light. EOMI. No scleral icterus. No conjunctival pallor. Normocephalic, atraumatic. No pharyngeal erythema. No thyromegaly. CARDIOVASCULAR: S1 and S2 present. No murmurs, rubs, or gallops. PULMONARY: Decreased air entry in bilateral lung cobb. No wheezing was appreciated. No crackles were appreciated. ABDOMEN: Soft, nontender, nondistended, normoactive bowel sounds. No palpable organomegaly. MUSCULOSKELETAL: No joint swelling or deformity. EXTREMITIES: No cyanosis, clubbing, or pedal edema. NEUROLOGICAL: Gross neurological examination did not reveal any focal deficits. SKIN: No rashes. LABORATORY DATA: Improved creatinine to 1.9; BUN is 91, a bit worse when compared to yesterday. ASSESSMENT AND PLAN: 1. Acute renal failure secondary to excessive diuretic therapy, which is being held at this point of time with improving creatinine function. Patient has prerenal azotemia and intravascular volume depletion secondary to excessive diuretic therapy. 2. Acute hypoxic respiratory failure, multifactorial, secondary to chronic obstructive pulmonary disease exacerbation with possible chronic diastolic dysfunction with acute exacerbation on admission, now on the volume depleted side, along with possible pneumonia for which patient is on antibiotics. 3. Coronary artery disease. 4. 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 5. Hypertension. 6. Hyperlipidemia 7. Normocytic anemia. 8. Continue to hold of Lasix, monitor kidney function. PT and OT evaluation. If she requests rehab, the patient will be discharged the day after; otherwise, patient probably can be discharged tomorrow.
[2016-07-05] MEDS: ATORVASTATIN 80 MG TAB PO SCH (20:53)
[2016-07-05] MEDS: amLODIPine 5 MG TAB PO SCH (20:53)
[2016-07-05 21:00] LABS: Glucose,Whole Blood 148 mg/dL (75-99)
[2016-07-05] MEDS: INSULIN GLARGINE 100 UNIT/ML 10 ML VIAL SQ SCH (21:01)
[2016-07-06 06:25] LABS: Glucose,Whole Blood 84 mg/dL (75-99)
[2016-07-06] MEDS: INSULIN LISPRO (humaLOG) 300 UNIT/3 ML VIAL SQ SCH ×3 (06:27→19:04)
[2016-07-06 07:07] LABS: Calcium 9.1 mg/dL (8.4-10.2); Potassium 4.1 mmol/L (3.5-5.1)
[2016-07-06] MEDS: SODIUM CHLORIDE 0.9% 1,000 ML IV SCH (07:41)
[2016-07-06] MEDS: NADOLOL 20 MG TAB PO SCH (07:41)
[2016-07-06] MEDS: EZETIMIBE 10 MG TAB PO SCH (07:41)
[2016-07-06] MEDS: ASPIRIN 81 MG CHEW PO SCH (07:41)
[2016-07-06] MEDS: HEPARIN SODIUM,PORCINE 5,000 UNIT/ML 1 ML VIAL SQ SCH ×3 (07:41→23:51)
[2016-07-06] MEDS: ISOSORBIDE MONONITRATE ER 60 MG TAB.ER.24H PO SCH (07:41)
[2016-07-06] MEDS: methylPREDNISolone SOD SUCCI 40 MG/ML 1 ML VIAL IV SCH ×2 (07:41→21:47)
[2016-07-06] MEDS: IPRATROPIUM-ALBUTEROL 3 ML NEB INHALATION SCH ×4 (08:48→19:29)
[2016-07-06 11:35] LABS: Glucose,Whole Blood 140 mg/dL (75-99)
--- NOTE | 2016-07-06 12:38 | P.PN ---
Subjective 80-year-old female patient who presented to the hospital because of progressive worsening shortness of breath. The patient is known to have coronary artery disease and she has undergone previous carotid bypass surgery out of town. The patient used to live in [facility] and she moved to [place] approximately 3 years ago. Over the past 1 week, the patient is progressively getting short of breath and she has noted some increased congested cough. No fever. No chills. No sweats. No pleurisy. No chest pain. She had developed significant edema in lower extremities bilaterally. She has been investigated in the past for DVTs and that came back negative based on an ultrasound Doppler that was done on 05/14/2016. Perfusion scan that was also done on 04/30/2016 was a low probability. During this current admission, the patient's white cell count was not elevated at 10.8. The patient significantly elevated proBNP level above 14,000. The cardiac enzymes first set of troponin was negative and the CPK was also within normal limits. The chest x-ray shows bilateral lower lobe pulmonary infiltration/fusion which could be a combination of CHF/ pneumonia. The patient was started on IV Lasix. The patient is also on empiric antibiotic coverage with Levaquin. She has a harsh cardiac murmur and an echocardiogram is pending for now. The patient is seen again today 07/02/2016 in follow-up. She is awake and alert in no acute distress. She is breathing quite a bit easier today as compared to yesterday. Her echocardiogram revealed a preserved left ventricular systolic function with estimated ejection fraction 50-55%. There is no evidence of pulmonary hypertension. He diuresed well he remains in a negative balance. Her peripheral edema has improved. She is maintaining good O2 saturations in the mid 90s on room air. She's been afebrile. The patient is seen again today 07/03/2016 in follow-up on the selective care unit. She is awake and alert in no acute distress. Her breathing is improved today as compared to yesterday. She is nearly back to her baseline. Mean O2 saturations in the low 90s on room air. Has had increased creatinine level and her Lasix is currently on hold. 07/04/2016, the patient has still having a congested cough. Unable to bring, sputum. Despite improvement in her breathing, she still requires oxygen at 3 L per minute nasal cannula. No nausea. No vomiting. No chest pain. She had an acute on top of the chronic renal insufficiency secondary to diuresis. Creatinine is up to 2.4 max and currently is down to 2.2. The rest of the electrodes are within normal limits. No nausea. No vomiting. No change in mental status. No headaches. No other complaints otherwise. She is feeling rather weak. She is anemic and her serum iron is on the lower side. On 07/05/2016, the patient is improved and less short of breath compared to yesterday. Chest x-ray still showing some atelectatic changes infiltrates in lung bases. Nevertheless clinically the patient seems to be breathing easier. No fever. No chills. Function is improving and the creatinine is down to 1.9. She was found to have some low iron level and the patient was given a dose of IV iron and 50 mg yesterday. In terms of her breathing, the patient continues to be on DuoNeb nebulized treatments around the clock, IV Solu-Medrol and oral Levaquin 500 milligrams every 48 hours. On 07/06/2016, the patient is doing better. She is less short of breath. Her pulse ox is around 96% on 3 L of oxygen by nasal cannula and I was able to cut down her oxygen further and wean it off. She does have some limited congested cough. No chest pain. No wheezing. Crackles in the lung bases improved. Renal function is also improving and the creatinine is down to 1.4. She has no specific complaints. She has chronic edema lower extremities bilaterally. Echocardiogram was again noted. Objective - Vital Signs Vital signs: Vital Signs Temp 98.5 F 07/06/16 12:00 Pulse 68 07/06/16 12:01 Resp 18 07/06/16 12:00 BP 146/80 07/06/16 12:00 Pulse Ox 98 07/06/16 12:00 Intake & Output 07/05/16 07/06/16 07/06/16 18:59 06:59 18:59 Intake Total 120 320 200 Output Total 200 Balance 120 120 200 Weight 63 kg Intake: IV 320 Sodium Chloride 0.9% 1, 320 000 ml @ 20 mls/hr IV . Q24H TONG Rx#:[id number] Oral 120 200 Output: Urine 200 Other: Voiding Method Toilet # Voids 1 - Exam Head exam was generally normal. There was no scleral icterus or corneal arcus. Mucous membranes were moist.Neck was supple and positive jugular venous distension, thyromegaly, or carotid bruits. Carotids were easily palpable bilaterally. There was no adenopathy. Lung sounds are diminished in lung bases along with some bibasilar crackles. Heart sounds reveal a harsh systolic ejection murmur grade 4/6 heard throughout the precordium more so along the left apex.Abdominal exam revealed normal bowel sounds. The abdomen was soft, non -tender, and without masses, organomegaly, or appreciable enlargement of the abdominal aorta. Extremities revealed +1-2 pitting edema. There is no cyanosis or clubbing at this point. Neurologically, the patient is awake and alert. - Labs CBC & Chem 7: 07/04/16 05:51 07/06/16 06:30 Labs: Abnormal Lab Results - Last 24 Hours (Table) 07/05/16 07/05/16 07/06/16 Range/Units 16:27 20:58 06:30 Chloride 112 H (98-107) mmol/L BUN 78 H (7-17) mg/dL Creatinine 1.42 H (0.52-1.04) mg/dL POC Glucose (mg/dL) 178 H 148 H (75-99) mg/dL 07/06/16 Range/Units 11:33 Chloride (98-107) mmol/L BUN (7-17) mg/dL Creatinine (0.52-1.04) mg/dL POC Glucose (mg/dL) 140 H (75-99) mg/dL Microbiology - Last 24 Hours (Table) 07/01/16 13:28 Blood Culture - Preliminary Blood No Growth after 96 hours 07/03/16 15:55 Gram Stain - Final Sputum Sputum Culture - Final Assessment and Plan Plan: Assessment 1 acute hypoxic respiratory failure. The patient presented with significant shortness of breath and she was supported with a BiPAP overnight. Chest x-ray showing bilateral lower lobe pulmonary infiltration/effusion. Rule out a combination of CHF/pneumonia although CHF is very much suspected knowing that the patient's proBNP level was significantly elevated and the patient had developed progressive edema lower extremities bilaterally. Currently she is on 3 L of oxygen by nasal cannula On 07/05 2016, the patient is breathing easier and she seems to have improved compared to the past 2 days. Chest x-ray however still showing infiltration of the lung bases bilaterally and the patient remains on Levaquin On 07/06/2016, the patient is improving and the patient is less short of breath. It final chest x-ray will be done tomorrow. The patient remains on Levaquin 2 acute lower lobe pulmonary infiltration/effusion, likely combination of pneumonia/CHF 3 lower extremity edema, chronic 4 coronary artery disease with history of cardiac bypass surgery 5 chronic renal failure, with acute worsening of the creatinine because of prerenal factors. Noted the patient had an acute on top of chronic renal failure and creatinine is gradually improving is down to 1.4 on the diuretics have been stopped. 6 cardiac murmur awaiting echocardiogram 7 COPD maintained on Spiriva on outpatient basis 8 hyperlipidemia 9 chronic anemia, with a component of iron deficiency. Plan Continue the current management. Wean down the FiO2. Chest x-ray in the morning. Monitor renal function. Monitor hemoglobin. Discharge planning is in progress.
--- NOTE | 2016-07-06 15:37 | PN ---
Patient is admitted to congestive heart failure, chronic diastolic dysfunction with acute exacerbation. Patient does not have any heart failure exacerbation. The patient is presently being treated for pneumonia and COPD. Patient's target saturations are improving and patient's kidney function is improving at this point of time. Patient will need physical therapy evaluation, possibility of subacute rehabilitation placement. Patient will be transferred out of selective care unit. REVIEW OF SYSTEMS: CARDIOVASCULAR: No chest pain, no orthopnea, no PND, no palpitations. PULMONARY: Denied any shortness of breath. No cough or hemoptysis. GASTROINTESTINAL: No diarrhea, nausea or vomiting. No abdominal pain. Normoactive bowel sounds. NEUROLOGIC: No headaches, no weakness, no numbness. GENERAL: Patient was complaining of generalized weakness and not able to take care of herself at home apparently. Medications are reviewed. PHYSICAL EXAMINATION: Temperature 98.8, pulse of 68, respiratory rate of 18, blood pressure is 146/84, saturating at 98% on 2 L of O2 via cannula. GENERAL: The patient is alert and oriented x3, not in any acute distress. Well developed, well nourished. HEENT: Pupils are round and equally reacting to light. EOMI. No scleral icterus. No conjunctival pallor. Normocephalic, atraumatic. No pharyngeal erythema. No thyromegaly. CARDIOVASCULAR: S1 and S2 present. No murmurs, rubs, or gallops. PULMONARY: Chest is clear to auscultation, no wheezing or crackles. ABDOMEN: Soft, nontender, nondistended, normoactive bowel sounds. No palpable organomegaly. MUSCULOSKELETAL: No joint swelling or deformity. EXTREMITIES: No cyanosis, clubbing, or pedal edema. NEUROLOGICAL: Gross neurological examination did not reveal any focal deficits. SKIN: No rashes. LABORATORY DATA: The BUN and creatinine continue to improve. BUN 78 and creatinine is 1.42. ASSESSMENT AND PLAN: 1. Acute renal failure secondary to excessive diuretic therapy. 2. Acute hypoxic respiratory failure secondary to chronic obstructive pulmonary disease exacerbation and patient is also being treated for pneumonia. 3. Coronary artery disease. 4. 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 5. Hypertension. 6. Hyperlipidemia. 7. Normocytic anemia. Plan is to continue to hold Lasix. Continue physical therapy. Continue systemic steroids, inhalational treatments, antibiotics and transferred out of selective care.
[2016-07-06 17:00] LABS: Glucose,Whole Blood 144 mg/dL (75-99)
[2016-07-06] MEDS: LEVOFLOXACIN 500 MG TAB PO SCH (18:17)
[2016-07-06 21:23] LABS: Glucose,Whole Blood 157 mg/dL (75-99)
[2016-07-06] MEDS: INSULIN GLARGINE 100 UNIT/ML 10 ML VIAL SQ SCH (21:47)
[2016-07-06] MEDS: ATORVASTATIN 80 MG TAB PO SCH (21:47)
[2016-07-06] MEDS: amLODIPine 5 MG TAB PO SCH (21:47)
[2016-07-07 02:18] LABS: Glucose,Whole Blood 194 mg/dL (75-99)
[2016-07-07 07:25] LABS: Glucose,Whole Blood 149 mg/dL (75-99)
[2016-07-07] MEDS: IPRATROPIUM-ALBUTEROL 3 ML NEB INHALATION SCH ×3 (07:43→15:24)
[2016-07-07 08:03] VITALS: RESP 16; TEMP 97.9
[2016-07-07] MEDS: ISOSORBIDE MONONITRATE ER 60 MG TAB.ER.24H PO SCH (08:41)
[2016-07-07] MEDS: methylPREDNISolone SOD SUCCI 40 MG/ML 1 ML VIAL IV SCH (08:42)
[2016-07-07] MEDS: EZETIMIBE 10 MG TAB PO SCH (08:42)
[2016-07-07] MEDS: ASPIRIN 81 MG CHEW PO SCH (08:42)
[2016-07-07] MEDS: HEPARIN SODIUM,PORCINE 5,000 UNIT/ML 1 ML VIAL SQ SCH ×2 (08:42→16:53)
[2016-07-07] MEDS: INSULIN LISPRO (humaLOG) 300 UNIT/3 ML VIAL SQ SCH ×3 (08:44→16:53)
[2016-07-07 10:35] LABS: Potassium 4.1 mmol/L (3.5-5.1)
[2016-07-07] MEDS: NADOLOL 20 MG TAB PO SCH (10:36)
--- NOTE | 2016-07-07 11:18 | XR ---
EXAMINATION TYPE: XR chest 1V DATE OF EXAM: 07/07/2016 11:06 AM HISTORY: Shortness of breath. COMPARISON: 07/05/2016 TECHNIQUE: Single view of the chest is submitted. FINDINGS: Demonstrated are scattered senescent parenchymal change. There is no evidence for focal infiltrate. The heart continues to be enlarged although slightly improved. There is persistent but improving pulm onary venous congestion and interstitial edema. Small pleural effusions persist. Hilar and mediastinal structures are within normal limits. Degenerative changes are seen of the dorsal spine. IMPRESSION: 1. The heart continues to be enlarged although slightly improved. There is persistent but improving pulmonary venous congestion and interstitial edema. Small pleural effusions persist.
--- NOTE | 2016-07-07 11:21 | DS ---
PROGRESS NOTE/DISCHARGE SUMMARY DATE OF ADMISSION: 07/01/2016 DATE OF DISCHARGE: This dictation is both progress note and discharge summary. Patient is admitted for congestive heart failure, chronic diastolic dysfunction with acute exacerbation. Patient later became hypovolemic and Lasix was discontinued and patient's kidney function initially worsened, has gotten better now and patient is also being treated for pneumonia and COPD. Patient has improved symptoms. Will get ( ) and make her ambulate. She may end up requiring home O2. Patient presently uses only 2 L at home during nighttime. Will obtain a chest x-ray, make sure she is not retaining fluid and will get the opinion of Cardiology regarding her home dosage of Lasix and patient was subsequently discharged to either subacute rehabilitation, if she qualifies and PT and OT is evaluating the patient or home with home care. REVIEW OF SYSTEMS: CARDIOVASCULAR: No chest pain, no orthopnea, no PND, no palpitations. PULMONARY: Denied any shortness of breath. No cough or hemoptysis. GASTROINTESTINAL: No diarrhea, nausea or vomiting. No abdominal pain. Normoactive bowel sounds. NEUROLOGIC: No headaches, no weakness, no numbness. Medications were reviewed. PHYSICAL EXAMINATION: Temperature 97.9, pulse of 68, respiratory rate of 16, blood pressure is 173/74, saturating at 98% on 3 L of O2 nasal cannula. GENERAL: The patient is alert and oriented x3, not in any acute distress. Well developed, well nourished. HEENT: Pupils are round and equally reacting to light. EOMI. No scleral icterus. No conjunctival pallor. Normocephalic, atraumatic. No pharyngeal erythema. No thyromegaly. CARDIOVASCULAR: S1 and S2 present. No murmurs, rubs, or gallops. PULMONARY: Chest is clear to auscultation, no wheezing or crackles. ABDOMEN: Soft, nontender, nondistended, normoactive bowel sounds. No palpable organomegaly. MUSCULOSKELETAL: No joint swelling or deformity. NEUROLOGICAL: Gross neurological examination did not reveal any focal deficits. SKIN: No rashes. EXTREMITIES: Patient does have 2+ pitting pedal edema. No murmurs, rubs, or gallops were appreciated. I did not appreciate any clearcut JVD. Lungs are clear to auscultation. LABORATORY DATA: Improved BUN and creatinine 69 and 1.39. Her baseline creatinine is around 1.3. ASSESSMENT AND PLAN: 1. Acute renal failure secondary to excessive diuretic therapy, which improved now and acute hypoxic respiratory failure secondary to chronic obstructive pulmonary disease exacerbation and pneumonia. 2. Coronary artery disease. 3. Chronic kidney disease stage III with hypertensive nephrosclerosis. 4. Hypertension. 5. Hyperlipidemia. 6. Normocytic anemia. Patient will be discharged today as mentioned above. DISCHARGE DIET: Cardiac. Activity as tolerated. Follow up with Dr. John Galeano as an outpatient. Patient may need compressions socks. Spent greater than 35 minutes in total discharge process.
[2016-07-07 11:46] LABS: Glucose,Whole Blood 119 mg/dL (75-99)
[2016-07-07] MEDS: SODIUM CHLORIDE 0.9% 1,000 ML IV SCH (13:28)
[2016-07-07 15:54] VITALS: BP 177/76; PULSE 56
--- NOTE | 2016-07-07 16:58 | P.PN ---
Subjective Principal diagnosis: Acute congestive heart failure 80-year-old female patient who presented to the hospital because of progressive worsening shortness of breath. The patient is known to have coronary artery disease and she has undergone previous carotid bypass surgery out of town. The patient used to live in [facility] and she moved to [place] approximately 3 years ago. Over the past 1 week, the patient is progressively getting short of breath and she has noted some increased congested cough. No fever. No chills. No sweats. No pleurisy. No chest pain. She had developed significant edema in lower extremities bilaterally. She has been investigated in the past for DVTs and that came back negative based on an ultrasound Doppler that was done on 05/14/2016. Perfusion scan that was also done on 04/30/2016 was a low probability. During this current admission, the patient's white cell count was not elevated at 10.8. The patient significantly elevated proBNP level above 14,000. The cardiac enzymes first set of troponin was negative and the CPK was also within normal limits. The chest x-ray shows bilateral lower lobe pulmonary infiltration/fusion which could be a combination of CHF/ pneumonia. The patient was started on IV Lasix. The patient is also on empiric antibiotic coverage with Levaquin. She has a harsh cardiac murmur and an echocardiogram is pending for now. The patient is seen again today 07/02/2016 in follow-up. She is awake and alert in no acute distress. She is breathing quite a bit easier today as compared to yesterday. Her echocardiogram revealed a preserved left ventricular systolic function with estimated ejection fraction 50-55%. There is no evidence of pulmonary hypertension. He diuresed well he remains in a negative balance. Her peripheral edema has improved. She is maintaining good O2 saturations in the mid 90s on room air. She's been afebrile. The patient is seen again today 07/03/2016 in follow-up on the selective care unit. She is awake and alert in no acute distress. Her breathing is improved today as compared to yesterday. She is nearly back to her baseline. Mean O2 saturations in the low 90s on room air. Has had increased creatinine level and her Lasix is currently on hold. 07/04/2016, the patient has still having a congested cough. Unable to bring, sputum. Despite improvement in her breathing, she still requires oxygen at 3 L per minute nasal cannula. No nausea. No vomiting. No chest pain. She had an acute on top of the chronic renal insufficiency secondary to diuresis. Creatinine is up to 2.4 max and currently is down to 2.2. The rest of the electrodes are within normal limits. No nausea. No vomiting. No change in mental status. No headaches. No other complaints otherwise. She is feeling rather weak. She is anemic and her serum iron is on the lower side. On 07/05/2016, the patient is improved and less short of breath compared to yesterday. Chest x-ray still showing some atelectatic changes infiltrates in lung bases. Nevertheless clinically the patient seems to be breathing easier. No fever. No chills. Function is improving and the creatinine is down to 1.9. She was found to have some low iron level and the patient was given a dose of IV iron and 50 mg yesterday. In terms of her breathing, the patient continues to be on DuoNeb nebulized treatments around the clock, IV Solu-Medrol and oral Levaquin 500 milligrams every 48 hours. On 07/06/2016, the patient is doing better. She is less short of breath. Her pulse ox is around 96% on 3 L of oxygen by nasal cannula and I was able to cut down her oxygen further and wean it off. She does have some limited congested cough. No chest pain. No wheezing. Crackles in the lung bases improved. Renal function is also improving and the creatinine is down to 1.4. She has no specific complaints. She has chronic edema lower extremities bilaterally. Echocardiogram was again noted. On 07/07/2016, patient continues to do well, breathing a lot easier, no shortness of breath, no chest pain, no fever, no chills, no hemoptysis, no wheezing. Continues to have minimal crackles at the bases, and chest x-ray showed definite improvement in her pulmonary edema. Basic metabolic profile was noted , BUN is up to 69 creatinine is 1.31, patient remains on diuretics. Objective - Vital Signs Vital signs: Vital Signs Temp 97.9 F 07/07/16 15:00 Pulse 64 07/07/16 15:37 Resp 16 07/07/16 15:00 BP 177/76 07/07/16 15:00 Pulse Ox 93 L 07/07/16 15:00 Intake & Output 07/06/16 07/07/16 07/07/16 18:59 06:59 18:59 Intake Total 318 480 200 Output Total 200 Balance 318 480 0 Weight 63 kg 63 kg Intake: Oral 318 480 200 Output: Urine 200 Other: Voiding Method Toilet Toilet # Voids 1 1 # Bowel Movements 0 - Exam Head exam was generally normal. There was no scleral icterus or corneal arcus. Mucous membranes were moist.Neck was supple and positive jugular venous distension, thyromegaly, or carotid bruits. Carotids were easily palpable bilaterally. There was no adenopathy. Lung sounds are diminished in lung bases along with some bibasilar crackles. Heart sounds reveal a harsh systolic ejection murmur grade 4/6 heard throughout the precordium more so along the left apex.Abdominal exam revealed normal bowel sounds. The abdomen was soft, non -tender, and without masses, organomegaly, or appreciable enlargement of the abdominal aorta. Extremities revealed +1-2 pitting edema. There is no cyanosis or clubbing at this point. Neurologically, the patient is awake and alert. - Labs CBC & Chem 7: 07/04/16 05:51 07/07/16 09:24 Labs: Abnormal Lab Results - Last 24 Hours (Table) 07/06/16 07/06/16 07/07/16 Range/Units 16:57 21:12 02:16 Chloride (98-107) mmol/L BUN (7-17) mg/dL Creatinine (0.52-1.04) mg/dL Glucose (74-99) mg/dL POC Glucose (mg/dL) 144 H 157 H 194 H (75-99) mg/dL 07/07/16 07/07/16 07/07/16 Range/Units 07:14 09:24 11:40 Chloride 109 H (98-107) mmol/L BUN 69 H (7-17) mg/dL Creatinine 1.31 H (0.52-1.04) mg/dL Glucose 209 H (74-99) mg/dL POC Glucose (mg/dL) 149 H 119 H (75-99) mg/dL Microbiology - Last 24 Hours (Table) 07/01/16 13:28 Blood Culture - Final Blood No Growth after 144 hours Assessment and Plan Plan: 1 acute hypoxic respiratory failure. This is mostly a picture of congestive heart failure on presentation, chest x-ray is showing definite improvement. Rule out a combination of CHF/pneumonia although CHF is very much suspected knowing that the patient's proBNP level was significantly elevated and the patient had developed progressive edema lower extremities bilaterally. Currently she is on 3 L of oxygen by nasal cannula On 07/05 2016, the patient is breathing easier and she seems to have improved compared to the past 2 days. Chest x-ray however still showing infiltration of the lung bases bilaterally and the patient remains on Levaquin On 07/06/2016, the patient is improving and the patient is less short of breath. It final chest x-ray will be done tomorrow. The patient remains on Levaquin On 07/07/2016, chest x-ray was reviewed and improved, clinically the patient is feeling better, consider discharge planning. 2 acute lower lobe pulmonary infiltration/effusion, likely combination of pneumonia/CHF 3 lower extremity edema, chronic 4 coronary artery disease with history of cardiac bypass surgery 5 chronic renal failure, with acute worsening of the creatinine because of prerenal factors. Noted the patient had an acute on top of chronic renal failure and creatinine is gradually improving is down to 1.4 on the diuretics have been stopped. 6 cardiac murmur awaiting echocardiogram 7 COPD maintained on Spiriva on outpatient basis 8 hyperlipidemia 9 chronic anemia, with a component of iron deficiency. Recommendation: Continue oxygen, continue present meds including diuretics, consider discharge planning. Time with Patient: Less than 30
[2016-07-07 17:03] LABS: Glucose,Whole Blood 192 mg/dL (75-99)
== END 2016-07-07 17:55 | DRG 291 ==
LOC: EC 05:52 → 6ICU 08:06 → 6SEL 09:38 → 5MS5E 07-06 16:14
PROVIDERS: ADMIT Hospitalist; ATTEND Hospitalist
DX: I13.0 Hypertensive heart and chronic kidney disease with heart failure and stage 1 through stage 4 chronic kidney disease, or unspecified chronic kidney disease (principal); I50.33 Acute on chronic diastolic (congestive) heart failure; J96.01 Acute respiratory failure with hypoxia; J18.9 Pneumonia, unspecified organism; N17.9 Acute kidney failure, unspecified; E86.1 Hypovolemia; J44.0 Chronic obstructive pulmonary disease with (acute) lower respiratory infection; N18.3 Chronic kidney disease, stage 3 (moderate); Z99.81 Dependence on supplemental oxygen; J44.1 Chronic obstructive pulmonary disease with (acute) exacerbation; D63.8 Anemia in other chronic diseases classified elsewhere; E78.5 Hyperlipidemia, unspecified; F17.210 Nicotine dependence, cigarettes, uncomplicated; I25.10 Atherosclerotic heart disease of native coronary artery without angina pectoris; I44.0 Atrioventricular block, first degree; T50.2X5A Adverse effect of carbonic-anhydrase inhibitors, benzothiadiazides and other diuretics, initial encounter; Z79.899 Other long term (current) drug therapy; Z85.3 Personal history of malignant neoplasm of breast; Z95.1 Presence of aortocoronary bypass graft; Z95.5 Presence of coronary angioplasty implant and graft
CPT/HCPCS: 36415; 71010; 71020; 80048; 80053; 82550; 82553; 82728; 83036; 83540; 83550; 83735; 83880; 84466; 84484; 85025; 85027; 85610; 85730; 87040; 87070; 87205; 93005; 93306; 94640; 94660; 94760; 96365; 96372; 96375; 99291

== ENCOUNTER → 2016-08-20 | Outpatient (CLI) | payer MEDICARE, BC ==
--- NOTE | 2016-08-21 07:19 | XR ---
EXAMINATION TYPE: XR chest 2V DATE OF EXAM: 08/20/2016 COMPARISON: 07/07/2016 TECHNIQUE: PA and lateral views submitted. HISTORY: Shortness of breath FINDINGS: Heart is enlarged and there is postoperative change. Underlying COPD and pulmonary fibrosis suspected . Coarsened interstitium noted. Stable appearing compression deformity midthoracic spine. Question co ronary stenting. Vascular atherosclerotic changes noted. IMPRESSION: 1. COPD with suspected pulmonary fibrosis. Underlying infiltrate at the right lung base not excluded correlate clinically. Interstitium appears to be increased correlate for progressive pulmonary fibros is versus interstitial pneumonitis or mild venous congestion.
== END | disposition home or self-care (01) ==
LOC: RADXRYALE 16:38
PROVIDERS: ATTEND Physician Assistant Medical
DX: J44.9 Chronic obstructive pulmonary disease, unspecified (principal)
CPT/HCPCS: 71020

== ENCOUNTER → 2016-08-29 | Outpatient (CLI) | payer MEDICARE, BC ==
--- NOTE | 2016-08-30 06:40 | XR ---
EXAMINATION TYPE: XR chest 2V DATE OF EXAM: 08/29/2016 HISTORY: SHORTNESS OF BREATH. REFERENCE: Previous study dated 08/20/2016. FINDINGS: There has been a midline sternotomy. The lungs are overinflated. There are bibasilar infiltrates. The heart is enlarged. There is marked c oronary artery calcification. There is underlying interstitial disease which appears chronic and like ly relates to fibrosis. There are small, bilateral effusions. IMPRESSION: 1. COPD. 2. CARDIOMEGALY. 3. BIBASILAR INFILTRATES. 4. SMALL, BILATERAL EFFUSIONS. 5. UNDERLYING INTERSTITIAL CHANGE.
== END | disposition home or self-care (01) ==
LOC: RADXRYALE 16:55
PROVIDERS: ATTEND Family Medicine
DX: J90 Pleural effusion, not elsewhere classified (principal); J44.9 Chronic obstructive pulmonary disease, unspecified; R91.8 Other nonspecific abnormal finding of lung field; I51.7 Cardiomegaly
CPT/HCPCS: 71020

== ENCOUNTER 2016-09-08 15:45 | Emergency (ER) | payer MEDICARE, BC ==
[2016-09-08 16:01] VITALS: RESP 18
[2016-09-08] MEDS ORDERED: ALBUTEROL NEBULIZED 2.5 MG/3 ML INHALATION STA (16:17)
[2016-09-08 16:34] LABS: Basophils # (A) 0.1 k/uL (0-0.2); Basophils % (A) 1 %; CH 26.2; CHCM 31.8; Eosinophils # (A) 0.1 k/uL (0-0.7); Eosinophils % (A) 1 %; HCT 23.5 % (34.0-46.0); HDW 3.85; HGB 7.6 gm/dL (11.4-16.0); Hypochromasia Moderate; Luc # (Auto) 0.24; Luc % (Auto) 2; Lymphocytes # (A) 2.4 k/uL (1.0-4.8); Lymphocytes % (A) 24 %; MCH 26.7 pg (25.0-35.0); MCHC 32.3 g/dL (31.0-37.0); Mean Platelet Volume 8.5; Monocytes # (A) 0.7 k/uL (0-1.0); Monocytes % (A) 7 %; Neutrophils # (A) 6.7 k/uL (1.3-7.7); Neutrophils % (A) 65 %; Poikilocytosis Slight; RBC 2.84 m/uL (3.80-5.40); RDW 15.8 % (11.5-15.5); WBC 10.2 k/uL (3.8-10.6); WBC (Perox) 9.89
[2016-09-08 16:39] LABS: MCV 82.7 fL (80.0-100.0)
[2016-09-08 16:44] LABS: Calcium 8.8 mg/dL (8.4-10.2); Potassium 3.9 mmol/L (3.5-5.1)
--- NOTE | 2016-09-08 16:53 | XR ---
EXAMINATION TYPE: XR chest 2V DATE OF EXAM: 09/08/2016 COMPARISON: 07/07/2016 HISTORY: Short of breath TECHNIQUE: Frontal and lateral views of the chest are obtained. FINDINGS: There is pulmonary vascular congestion. There is blunting of costophrenic angles. There ar e sternal wires. There is osteopenia with 70% anterior wedging of a midthoracic vertebra. IMPRESSION: Congestive heart failure some pulmonary edema and pleural fluid. The congestion is worse than last exam. Pleural fluid is unchanged.
--- NOTE | 2016-09-08 18:03 | ED ---
General Adult HPI - General Chief complaint: Recheck/Abnormal Lab/Rx Stated complaint: Dr Sent Time Seen by Provider: 09/08/16 16:04 Source: patient, RN notes reviewed Mode of arrival: wheelchair Limitations: no limitations - History of Present Illness Initial comments: 81-year-old female presented emergency department with chief complaint of low hemoglobin. Patient had lab work drawn on September 0504-25 patient states her doctor called her and told to come to the ER for evaluation with hemoglobin is 7.3. Patient has chronically low hemoglobin when reviewing medical records. Patient denies hematuria, rectal bleeding, melena. Patient has no abdominal pain denies nausea vomiting diarrhea constipation. Patient states she has history of CHF, COPD. Patient had x-ray 10 days ago which showed evidence of CHF and elevated BNP. She is continued on Lasix. Patient states she is feeling better and aspect. States she has no increased shortness of breath this time. - Related Data Home Medications Medication Instructions Recorded Confirmed Atorvastatin [Lipitor] 80 mg PO DAILY 07/01/16 09/08/16 Ezetimibe [Zetia] 10 mg PO DAILY 07/01/16 09/08/16 Isosorbide Mononitrate [Imdur] 120 mg PO DAILY 07/01/16 09/08/16 Nadolol 20 mg PO DAILY 07/01/16 09/08/16 Nitroglycerin Sl Tabs [Nitrostat] 0.4 mg SUBLINGUAL Q5M PRN 07/01/16 09/08/16 Prasugrel HCl [Effient] 10 mg PO DAILY 07/01/16 09/08/16 Tiotropium 18 Mcg/Puff [Spiriva] 1 cap INHALATION RT-DAILY 07/01/16 09/08/16 Aspirin 325 mg PO DAILY 09/08/16 09/08/16 Furosemide [Lasix] 20 mg PO DAILY 09/08/16 09/08/16 INSULIN LISPRO (humaLOG) [HumaLOG] See Protocol SQ AC-TID PRN 09/08/16 09/08/16 Insulin Glargine [Lantus] 10 unit SQ HS 09/08/16 09/08/16 amLODIPine [Norvasc] 10 mg PO DAILY 09/08/16 09/08/16 Allergies Allergy/AdvReac Type Severity Reaction Status Date / Time eptifibatide Allergy Unknown Verified 09/08/16 16:27 [From Integrilin] Penicillins Allergy Rash/Hives Verified 09/08/16 16:27 Review of Systems ROS Statement: Those systems with pertinent positive or pertinent negative responses have been documented in the HPI. ROS Other: All systems not noted in ROS Statement are negative. Past Medical History Past Medical History: Coronary Artery Disease (CAD), Cancer, COPD, Pneumonia Additional Past Medical History / Comment(s): Coronary artery disease with previous bypass surgery, history of left-sided breast cancer with a previous lumpectomy, COPD, chronic smoker, nocturnal oxygen use at 2 L/m nasal cannula, chronic back pain, sciatica, COPD, hyperlipidemia, hypertension, cardiac murmur , chronic renal failure History of Any Multi-Drug Resistant Organisms: None Reported Past Surgical History: Appendectomy, Breast Surgery, Coronary Bypass/CABG, Heart Catheterization, Heart Catheterization With Stent Additional Past Surgical History / Comment(s): 1989 triple bypass, PCI with stent "years ago"-done in [place]-pt does not recall date, lumpectomy left breast, colonoscopy, ectopic with R fallopian tube and ovary removed. Past Anesthesia/Blood Transfusion Reactions: No Reported Reaction Date of Last Stent Placement:: unkn Past Psychological History: No Psychological Hx Reported Smoking Status: Current every day smoker Past Alcohol Use History: None Reported Past Drug Use History: None Reported - Past Family History Father Family Medical History: Cancer Additional Family Medical History / Comment(s): Father had throat cancer and at the age of 85 yrs. Mother Family Medical History: No Reported History Additional Family Medical History / Comment(s): Mother was healthy and at the age of 85yrs. General Exam Limitations: no limitations General appearance: alert, in no apparent distress Neck exam: Present: normal inspection. Absent: tenderness, meningismus, lymphadenopathy Respiratory exam: Present: wheezes (Minimal). Absent: normal lung sounds bilaterally, respiratory distress, rales, rhonchi, stridor Cardiovascular Exam: Present: regular rate, normal rhythm, normal heart sounds. Absent: systolic murmur, diastolic murmur, rubs, gallop, clicks GI/Abdominal exam: Present: soft, normal bowel sounds. Absent: distended, tenderness, guarding, rebound, rigid Rectal exam: Present: normal inspection, normal rectal tone, heme (-) stool, other (Exam performed with Lucía RN) Back exam: Absent: CVA tenderness (R), CVA tenderness (L) Neurological exam: Present: alert, oriented X3, CN II-XII intact Course Vital Signs 09/08/16 09/08/16 09/08/16 15:56 16:35 16:41 Temperature 98.3 F Pulse Rate 48 L 56 L 62 Respiratory 18 Rate Blood Pressure 168/74 O2 Sat by Pulse 93 L Oximetry 09/08/16 17:46 Temperature 98.9 F Pulse Rate 80 Respiratory 18 Rate Blood Pressure 164/71 O2 Sat by Pulse 92 L Oximetry Medical Decision Making - Medical Decision Making 81-year-old female presented for low hemoglobin. Patient's hemoglobin is 7.6 at this time she does not require transfusion. Patient did have some evidence of CHF on x-ray no one compared does not see much worse and patient is currently on Lasix. She has no complaints of shortness of breath or chest pain off her normal baseline. Patient did ambulate with no difficulty year and had no desaturations. Patient states she normally monitor pulse ox at home and which she normally stays around 93 or 92. Patiently discharges out with follow- up with primary care physician on Thursday return parameters were discussed. Case discussed with Dr. Carrizales - Lab Data Result diagrams: 09/08/16 16:22 09/08/16 16:22 Lab Results 09/08/16 09/08/16 09/08/16 Range/Units 16:22 16:22 16:22 WBC 10.2 (3.8-10.6) k/uL RBC 2.84 L (3.80-5.40) m/uL Hgb 7.6 L (11.4-16.0) gm/dL Hct 23.5 L (34.0-46.0) % MCV 82.7 D (80.0-100.0) fL MCH 26.7 (25.0-35.0) pg MCHC 32.3 (31.0-37.0) g/dL RDW 15.8 H (11.5-15.5) % Plt Count 248 (150-450) k/uL Neutrophils % 65 % Lymphocytes % 24 % Monocytes % 7 % Eosinophils % 1 % Basophils % 1 % Neutrophils # 6.7 (1.3-7.7) k/uL Lymphocytes # 2.4 (1.0-4.8) k/uL Monocytes # 0.7 (0-1.0) k/uL Eosinophils # 0.1 (0-0.7) k/uL Basophils # 0.1 (0-0.2) k/uL Hypochromasia Moderate Poikilocytosis Slight Sodium 140 (137-145) mmol/L Potassium 3.9 (3.5-5.1) mmol/L Chloride 106 (98-107) mmol/L Carbon Dioxide 20 L (22-30) mmol/L Anion Gap 14 mmol/L BUN 69 H (7-17) mg/dL Creatinine 2.02 H (0.52-1.04) mg/dL Est GFR (MDRD) Af Amer 29 (>60 ml/min/1.73 sqM) Est GFR (MDRD) Non-Af 24 (>60 ml/min/1.73 sqM) Glucose 95 (74-99) mg/dL Calcium 8.8 (8.4-10.2) mg/dL Stool Occult Blood (Negative) Blood Type A Positive Blood Type Confirm Blood Type Recheck CABO Indicated Antibody Screen NEGATIVE Spec Expiration Date 09/11/2016232109/08/16 09/08/16 Range/Units 16:22 16:22 WBC (3.8-10.6) k/uL RBC (3.80-5.40) m/uL Hgb (11.4-16.0) gm/dL Hct (34.0-46.0) % MCV (80.0-100.0) fL MCH (25.0-35.0) pg MCHC (31.0-37.0) g/dL RDW (11.5-15.5) % Plt Count (150-450) k/uL Neutrophils % % Lymphocytes % % Monocytes % % Eosinophils % % Basophils % % Neutrophils # (1.3-7.7) k/uL Lymphocytes # (1.0-4.8) k/uL Monocytes # (0-1.0) k/uL Eosinophils # (0-0.7) k/uL Basophils # (0-0.2) k/uL Hypochromasia Poikilocytosis Sodium (137-145) mmol/L Potassium (3.5-5.1) mmol/L Chloride (98-107) mmol/L Carbon Dioxide (22-30) mmol/L Anion Gap mmol/L BUN (7-17) mg/dL Creatinine (0.52-1.04) mg/dL Est GFR (MDRD) Af Amer (>60 ml/min/1.73 sqM) Est GFR (MDRD) Non-Af (>60 ml/min/1.73 sqM) Glucose (74-99) mg/dL Calcium (8.4-10.2) mg/dL Stool Occult Blood Negative (Negative) Blood Type Blood Type Confirm A Positive Blood Type Recheck Antibody Screen Spec Expiration Date Disposition Clinical Impression: Anemia Disposition: HOME SELF-CARE Condition: Stable Instructions: Anemia (ED) Additional Instructions: Please return to the Emergency Department if symptoms worsen or any other concerns. Referrals: John Galeano DO [Primary Care Provider] - 1-2 days Time of Disposition: 18:02
[2016-09-08 18:14] VITALS: BP 167/72; PULSE 58; TEMP 97
== END 2016-09-08 18:23 | disposition home or self-care (01) ==
LOC: EC 15:45
DX: D64.9 Anemia, unspecified (principal); I13.0 Hypertensive heart and chronic kidney disease with heart failure and stage 1 through stage 4 chronic kidney disease, or unspecified chronic kidney disease; N18.9 Chronic kidney disease, unspecified; I50.9 Heart failure, unspecified; J44.9 Chronic obstructive pulmonary disease, unspecified; I25.10 Atherosclerotic heart disease of native coronary artery without angina pectoris; E78.5 Hyperlipidemia, unspecified; F17.200 Nicotine dependence, unspecified, uncomplicated; Z85.3 Personal history of malignant neoplasm of breast; Z95.1 Presence of aortocoronary bypass graft; Z99.81 Dependence on supplemental oxygen; Z88.0 Allergy status to penicillin; Z88.8 Allergy status to other drugs, medicaments and biological substances; Z79.02 Long term (current) use of antithrombotics/antiplatelets; Z79.4 Long term (current) use of insulin; Z79.51 Long term (current) use of inhaled steroids; Z79.82 Long term (current) use of aspirin; Z79.899 Other long term (current) drug therapy
CPT/HCPCS: 36415; 71020; 80048; 82272; 85025; 86850; 86900; 86901; 94640; 99284

== ENCOUNTER 2016-09-11 09:16 | Inpatient (IN) | payer MEDICARE, BC ==
[2016-09-11] MEDS ORDERED: IPRATROPIUM-ALBUTEROL 3 ML NEB INHALATION STA (09:34)
[2016-09-11] MEDS ORDERED: NITROGLYCERIN OINT 1 INCH/GM PACKET TOPICAL STA (09:34)
[2016-09-11] MEDS ORDERED: FUROSEMIDE 10 MG/ML 4 ML VIAL IV STA (09:34)
--- NOTE | 2016-09-11 09:43 | ED ---
General Adult HPI - General Stated complaint: Difficulty Breathing Time Seen by Provider: 09/11/16 09:22 Source: patient, RN notes reviewed Mode of arrival: EMS Limitations: no limitations - History of Present Illness Initial comments: Patient is a pleasant 81-year-old female presenting to the emergency department complaining of difficulty breathing. Onset of symptoms was when she awoke. Patient has a history of similar symptoms previously associated with COPD. Patient admits also to have any history of congestive heart failure. Patient does have leg swelling. No calf pain. No fevers. No cough. Patient was told she had some fluid in her lungs couple of days ago with an x-ray. Patient did have some left shoulder discomfort this morning that resolved with aspirin and nitroglycerin. - Related Data Home Medications Medication Instructions Recorded Confirmed Atorvastatin [Lipitor] 80 mg PO DAILY 07/01/16 09/11/16 Ezetimibe [Zetia] 10 mg PO DAILY 07/01/16 09/11/16 Isosorbide Mononitrate [Imdur] 120 mg PO DAILY 07/01/16 09/11/16 Nadolol 20 mg PO DAILY 07/01/16 09/11/16 Nitroglycerin Sl Tabs [Nitrostat] 0.4 mg SUBLINGUAL Q5M PRN 07/01/16 09/11/16 Prasugrel HCl [Effient] 10 mg PO DAILY 07/01/16 09/11/16 Tiotropium 18 Mcg/Puff [Spiriva] 1 cap INHALATION RT-DAILY 07/01/16 09/11/16 Aspirin 325 mg PO DAILY 09/08/16 09/11/16 Furosemide [Lasix] 20 mg PO DAILY 09/08/16 09/11/16 INSULIN LISPRO (humaLOG) [HumaLOG] See Protocol SQ AC-TID PRN 09/08/16 09/11/16 Insulin Glargine [Lantus] 10 unit SQ HS 09/08/16 09/11/16 amLODIPine [Norvasc] 10 mg PO DAILY 09/08/16 09/11/16 Allergies Allergy/AdvReac Type Severity Reaction Status Date / Time eptifibatide Allergy Unknown Verified 09/11/16 10:29 [From Integrilin] Penicillins Allergy Rash/Hives Verified 09/11/16 10:29 Review of Systems ROS Statement: Those systems with pertinent positive or pertinent negative responses have been documented in the HPI. ROS Other: All systems not noted in ROS Statement are negative. Constitutional: Denies: fever Eyes: Denies: eye pain ENT: Denies: ear pain Respiratory: Reports: dyspnea. Denies: cough Cardiovascular: Denies: palpitations Endocrine: Denies: fatigue Gastrointestinal: Denies: abdominal pain Genitourinary: Denies: dysuria Musculoskeletal: Denies: back pain Skin: Denies: rash Neurological: Denies: headache Past Medical History Past Medical History: Coronary Artery Disease (CAD), Cancer, COPD, Pneumonia Additional Past Medical History / Comment(s): Coronary artery disease with previous bypass surgery, history of left-sided breast cancer with a previous lumpectomy, COPD, chronic smoker, nocturnal oxygen use at 2 L/m nasal cannula, chronic back pain, sciatica, COPD, hyperlipidemia, hypertension, cardiac murmur , chronic renal failure History of Any Multi-Drug Resistant Organisms: None Reported Past Surgical History: Appendectomy, Breast Surgery, Coronary Bypass/CABG, Heart Catheterization, Heart Catheterization With Stent Additional Past Surgical History / Comment(s): 1989 triple bypass, PCI with stent "years ago"-done in [place]-pt does not recall date, lumpectomy left breast, colonoscopy, ectopic with R fallopian tube and ovary removed. Past Anesthesia/Blood Transfusion Reactions: No Reported Reaction Date of Last Stent Placement:: unkn Past Psychological History: No Psychological Hx Reported Smoking Status: Current every day smoker Past Alcohol Use History: None Reported Past Drug Use History: None Reported - Past Family History Father Family Medical History: Cancer Additional Family Medical History / Comment(s): Father had throat cancer and at the age of 85 yrs. Mother Family Medical History: No Reported History Additional Family Medical History / Comment(s): Mother was healthy and at the age of 85yrs. General Exam Limitations: no limitations General appearance: alert, in no apparent distress Head exam: Present: atraumatic Eye exam: Present: normal appearance, PERRL ENT exam: Present: normal oropharynx Neck exam: Present: normal inspection Respiratory exam: Present: rales Cardiovascular Exam: Present: regular rate, normal rhythm, systolic murmur GI/Abdominal exam: Present: soft. Absent: tenderness Extremities exam: Present: normal inspection Neurological exam: Present: alert Psychiatric exam: Present: normal affect, normal mood Skin exam: Present: normal color Course Vital Signs 09/11/16 09/11/16 09/11/16 09:35 09:37 09:50 Temperature 97.8 F Pulse Rate 62 57 L 56 L Respiratory 24 Rate Blood Pressure 134/62 O2 Sat by Pulse 82 L Oximetry 09/11/16 09/11/16 10:07 10:47 Temperature 97 F L Pulse Rate 58 L 61 Respiratory 20 20 Rate Blood Pressure 162/67 150/70 O2 Sat by Pulse 89 L 92 L Oximetry EKG Findings - EKG Comments: EKG Findings:: Sinus bradycardia 55. UT 176. QRS 102. QT 470. QTc 449. Normal axis. ST depression V5 V6. Normal QRS. Medical Decision Making - Medical Decision Making Patient reexamined. Patient and family updated. Case discussed with Dr. Boston, who will admit for Dr. Conner Benjamin. - Lab Data Result diagrams: 09/11/16 09:25 09/11/16 09:25 Lab Results 09/11/16 09/11/16 09/11/16 Range/Units 09:25 09:25 09:25 WBC 8.6 (3.8-10.6) k/uL RBC 2.72 L (3.80-5.40) m/uL Hgb 7.1 L (11.4-16.0) gm/dL Hct 22.7 L (34.0-46.0) % MCV 83.4 (80.0-100.0) fL MCH 26.1 (25.0-35.0) pg MCHC 31.3 (31.0-37.0) g/dL RDW 16.0 H (11.5-15.5) % Plt Count 247 (150-450) k/uL Neutrophils % 72 % Lymphocytes % 19 % Monocytes % 5 % Eosinophils % 1 % Basophils % 0 % Neutrophils # 6.2 (1.3-7.7) k/uL Lymphocytes # 1.6 (1.0-4.8) k/uL Monocytes # 0.5 (0-1.0) k/uL Eosinophils # 0.1 (0-0.7) k/uL Basophils # 0.0 (0-0.2) k/uL Hypochromasia Marked Poikilocytosis Slight Anisocytosis Slight PT (9.0-12.0) sec INR (<1.1) APTT (22.0-30.0) sec Sodium 141 (137-145) mmol/L Potassium 4.5 (3.5-5.1) mmol/L Chloride 107 (98-107) mmol/L Carbon Dioxide 18 L (22-30) mmol/L Anion Gap 16 mmol/L BUN 93 H* (7-17) mg/dL Creatinine 2.76 H (0.52-1.04) mg/dL Est GFR (MDRD) Af Amer 20 (>60 ml/min/1.73 sqM) Est GFR (MDRD) Non-Af 16 (>60 ml/min/1.73 sqM) Glucose 128 H (74-99) mg/dL Calcium 8.6 (8.4-10.2) mg/dL Total Bilirubin 0.8 (0.2-1.3) mg/dL AST 19 (14-36) U/L ALT 49 (9-52) U/L Alkaline Phosphatase 166 H (38-126) U/L Total Creatine Kinase <20 L (30-135) U/L CK-MB (CK-2) 0.7 (0.0-2.4) ng/mL CK-MB (CK-2) Rel Index 0.0 Troponin I 0.025 (0.000-0.034) ng/mL NT-Pro-B Natriuret Pep pg/mL Total Protein 6.4 (6.3-8.2) g/dL Albumin 3.4 L (3.5-5.0) g/dL 09/11/16 09/11/16 Range/Units 09:25 09:25 WBC (3.8-10.6) k/uL RBC (3.80-5.40) m/uL Hgb (11.4-16.0) gm/dL Hct (34.0-46.0) % MCV (80.0-100.0) fL MCH (25.0-35.0) pg MCHC (31.0-37.0) g/dL RDW (11.5-15.5) % Plt Count (150-450) k/uL Neutrophils % % Lymphocytes % % Monocytes % % Eosinophils % % Basophils % % Neutrophils # (1.3-7.7) k/uL Lymphocytes # (1.0-4.8) k/uL Monocytes # (0-1.0) k/uL Eosinophils # (0-0.7) k/uL Basophils # (0-0.2) k/uL Hypochromasia Poikilocytosis Anisocytosis PT 13.5 H (9.0-12.0) sec INR 1.4 (<1.1) APTT 23.2 (22.0-30.0) sec Sodium (137-145) mmol/L Potassium (3.5-5.1) mmol/L Chloride (98-107) mmol/L Carbon Dioxide (22-30) mmol/L Anion Gap mmol/L BUN (7-17) mg/dL Creatinine (0.52-1.04) mg/dL Est GFR (MDRD) Af Amer (>60 ml/min/1.73 sqM) Est GFR (MDRD) Non-Af (>60 ml/min/1.73 sqM) Glucose (74-99) mg/dL Calcium (8.4-10.2) mg/dL Total Bilirubin (0.2-1.3) mg/dL AST (14-36) U/L ALT (9-52) U/L Alkaline Phosphatase (38-126) U/L Total Creatine Kinase (30-135) U/L CK-MB (CK-2) (0.0-2.4) ng/mL CK-MB (CK-2) Rel Index Troponin I (0.000-0.034) ng/mL NT-Pro-B Natriuret Pep 96845 pg/mL Total Protein (6.3-8.2) g/dL Albumin (3.5-5.0) g/dL - Radiology Data Radiology results: image reviewed (Chest x-ray shows cardiomegaly and worsening changes of congestive heart failure. COPD.) Disposition Clinical Impression: Congestive heart failure Disposition: ADMITTED IP TO THIS HOSP Referrals: John Galeano DO [Primary Care Provider] - 1-2 days Decision Time: 11:05
[2016-09-11 09:49] LABS: Anisocytosis Slight; Basophils % (A) 0 %; CHCM 31.2; Eosinophils # (A) 0.1 k/uL (0-0.7); Eosinophils % (A) 1 %; HCT 22.7 % (34.0-46.0); HDW 3.95; HGB 7.1 gm/dL (11.4-16.0); Hypochromasia Marked; Luc # (Auto) 0.17; Luc % (Auto) 2; Lymphocytes # (A) 1.6 k/uL (1.0-4.8); Lymphocytes % (A) 19 %; MCH 26.1 pg (25.0-35.0); MCHC 31.3 g/dL (31.0-37.0); MCV 83.4 fL (80.0-100.0); Mean Platelet Volume 8.7; Monocytes # (A) 0.5 k/uL (0-1.0); Monocytes % (A) 5 %; Neutrophils # (A) 6.2 k/uL (1.3-7.7); Neutrophils % (A) 72 %; Poikilocytosis Slight; RBC 2.72 m/uL (3.80-5.40); WBC 8.6 k/uL (3.8-10.6); WBC (Perox) 8.58
[2016-09-11 09:57] LABS: INR 1.4 (<1.1); Partial Thromboplastin Time 23.2 sec (22.0-30.0); Prothrombin Time 13.5 sec (9.0-12.0)
[2016-09-11 09:58] LABS: Calcium 8.6 mg/dL (8.4-10.2); Potassium 4.5 mmol/L (3.5-5.1); Total Bilirubin 0.8 mg/dL (0.2-1.3); Total Protein 6.4 g/dL (6.3-8.2)
[2016-09-11 10:24] LABS: Creatine Kinase MB 0.7 ng/mL (0.0-2.4); Troponin I 0.025 ng/mL (0.000-0.034)
[2016-09-11 10:26] LABS: Creatine Kinase <20 U/L (30-135)
--- NOTE | 2016-09-11 10:26 | XR ---
EXAMINATION TYPE: XR chest 2V DATE OF EXAM: 09/11/2016 HISTORY: difficulty breathing. REFERENCE: Previous study dated 09/08/2016. FINDINGS: There has been a midline sternotomy. The lungs are overinflated. The heart is enlarged. There is vascular congestion and pulmonary edema. There is basilar airspace disease. There are bilateral effusions, greater on the right than the left. IMPRESSION: 1. COPD. 2. CARDIOMEGALY. 3. WORSENING CHANGES OF CONGESTIVE HEART FAILURE.
[2016-09-11] MEDS ORDERED: ASPIRIN 325 MG TAB PO STA (11:05)
[2016-09-11] MEDS: NITROGLYCERIN OINT 1 INCH/GM PACKET TOPICAL SCH ×3 (14:20→20:55)
--- NOTE | 2016-09-11 15:46 | P.HPIM ---
History of Present Illness H&P Date: 09/11/16 Chief Complaint: Difficulty in breathing 7-year-old female with chronic kidney disease comes in the hospital with acute onset difficulty breathing. Patient states that she was in good health over the weekend started to have some progressive worsening of dyspnea on september thereafter noted to have severe dyspnea this morning and hence came to the hospital for ongoing care Patient was noted to be in severe distress patient was noted to be in congestive heart failure patient was started on BiPAP at 12/5 a BiPAP over EPAP patient is currently on 50% of FiO2 Patient denies having any headaches blurry vision nausea vomiting chest pain. 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, nocturnal oxygen use at 2 L/m nasal cannula , chronic back pain, R sided sciatica, cardiac murmur, chronic renal failure stage III, normocytic anemia History of Any Multi-Drug Resistant Organisms: None Reported Past Surgical History: Appendectomy, Breast Surgery, Coronary Bypass/CABG, Heart Catheterization, Heart Catheterization With Stent Additional Past Surgical History / Comment(s): 1989 triple bypass, PCI with stent "years ago"-done in [place]-pt does not recall date, lumpectomy left breast, colonoscopy, ectopic with R fallopian tube and ovary removed, bilateral cataract removal with lens implants. Past Anesthesia/Blood Transfusion Reactions: No Reported Reaction Date of Last Stent Placement:: unkn Smoking Status: Former smoker - Past Family History Father Family Medical History: Cancer Additional Family Medical History / Comment(s): Father had throat cancer and at the age of 85 yrs. Mother Family Medical History: No Reported History Additional Family Medical History / Comment(s): Mother was healthy and at the age of 85yrs. Medications and Allergies Home Medications Medication Instructions Recorded Confirmed Type Atorvastatin [Lipitor] 80 mg PO DAILY 07/01/16 09/11/16 History Ezetimibe [Zetia] 10 mg PO DAILY 07/01/16 09/11/16 History Isosorbide Mononitrate [Imdur] 120 mg PO DAILY 07/01/16 09/11/16 History Nadolol 20 mg PO DAILY 07/01/16 09/11/16 History Nitroglycerin Sl Tabs [Nitrostat] 0.4 mg SUBLINGUAL Q5M PRN 07/01/16 09/11/16 History Prasugrel HCl [Effient] 10 mg PO DAILY 07/01/16 09/11/16 History Tiotropium 18 Mcg/Puff [Spiriva] 1 cap INHALATION RT-DAILY 07/01/16 09/11/16 History Aspirin 325 mg PO DAILY 09/08/16 09/11/16 History Furosemide [Lasix] 20 mg PO DAILY 09/08/16 09/11/16 History INSULIN LISPRO (humaLOG) [HumaLOG] See Protocol SQ AC-TID PRN 09/08/16 09/11/16 History Insulin Glargine [Lantus] 10 unit SQ HS 09/08/16 09/11/16 History amLODIPine [Norvasc] 10 mg PO DAILY 09/08/16 09/11/16 History Allergies Allergy/AdvReac Type Severity Reaction Status Date / Time eptifibatide Allergy Unknown Verified 09/11/16 10:29 [From Integrilin] Penicillins Allergy Rash/Hives Verified 09/11/16 10:29 Physical Exam Vitals: Vital Signs Temp Pulse Pulse Resp BP BP Pulse Ox 09/11/16 12:30 96.9 F L 56 L 21 131/74 96 09/11/16 12:16 96.5 F L 58 L 18 157/70 92 L 09/11/16 10:47 61 20 150/70 92 L 09/11/16 10:07 97 F L 58 L 20 162/67 89 L 09/11/16 09:50 56 L 09/11/16 09:37 57 L 09/11/16 09:35 97.8 F 62 24 134/62 82 L Intake and Output 09/11/16 09/11/16 09/11/16 06:59 14:59 22:59 Other: Weight 63.957 kg Patient Weight 09/12/16 06:59 Weight 63.957 kg Physical exam Gen. appearance oriented 3 in no distress Neck is supple no JVD Lungs Crackles at the bases no wheezing, or rhonchi 3+ edema Heart S1-S2 heard regular rate and rhythm no murmurs appreciated Abdomen is soft nontender no organomegaly bowel sounds are intact Neurologically cranial nerves II-12 grossly intact no focal motor or sensory deficits noted Skin no abnormalities appreciated Results CBC & Chem 7: 09/11/16 09:25 09/11/16 09:25 Labs: Abnormal Lab Results - Last 24 Hours (Table) 09/11/16 09/11/16 09/11/16 Range/Units 09:25 09:25 09:25 RBC 2.72 L (3.80-5.40) m/uL Hgb 7.1 L (11.4-16.0) gm/dL Hct 22.7 L (34.0-46.0) % RDW 16.0 H (11.5-15.5) % PT (9.0-12.0) sec Carbon Dioxide 18 L (22-30) mmol/L BUN 93 H* (7-17) mg/dL Creatinine 2.76 H (0.52-1.04) mg/dL Glucose 128 H (74-99) mg/dL Alkaline Phosphatase 166 H (38-126) U/L Total Creatine Kinase <20 L (30-135) U/L Albumin 3.4 L (3.5-5.0) g/dL 09/11/16 Range/Units 09:25 RBC (3.80-5.40) m/uL Hgb (11.4-16.0) gm/dL Hct (34.0-46.0) % RDW (11.5-15.5) % PT 13.5 H (9.0-12.0) sec Carbon Dioxide (22-30) mmol/L BUN (7-17) mg/dL Creatinine (0.52-1.04) mg/dL Glucose (74-99) mg/dL Alkaline Phosphatase (38-126) U/L Total Creatine Kinase (30-135) U/L Albumin (3.5-5.0) g/dL Thrombosis Risk Factor Assmnt - Choose All That Apply Any of the Below Risk Factors Present?: Yes Each Factor Represents 1 point: Abnormal pulmonary function (COPD), Heart failure (<1month), Serious lung disease incl. pneumonia (< 1month), Swollen legs (current) Other Risk Factors: Yes Each Risk Factor Represents 2 Points: Malignancy Each Risk Factor Represents 3 Points: Age 75 years or older Other congenital or acquired thrombophilia - If yes, enter type in comment: No Thrombosis Risk Factor Assessment Total Risk Factor Score: 9 Thrombosis Risk Factor Assessment Level: High Risk Assessment and Plan Plan: #1 acute exacerbation of heart failure patient's previous EF is 55-60 unknown diastolic or systolic #2 acute hypoxemic respiratory failure #3 anemia likely due to CK D we'll rule out iron deficiency #4 non-anion gap metabolic acidosis #5 history of COPD #6 hypertension #7 diabetes most type II #8 Dyslipidemia #9 history of CAD status post PCI Plan We'll change Lasix to 80 IV twice a day strict I's and O's Repeat echocardiogram will be ordered discuss the case with the cupola tapper helper as well We'll discontinue off BiPAP as tolerated Iron profile will be done Labs in a.m. DVT prophylaxis
[2016-09-11] MEDS ORDERED: FUROSEMIDE 10 MG/ML 4 ML VIAL IV SCH (16:00)
[2016-09-11] MEDS: HEPARIN SODIUM,PORCINE 5,000 UNIT/ML 1 ML VIAL SQ SCH ×2 (16:27→23:36)
[2016-09-11] MEDS: FUROSEMIDE 10 MG/ML 10 ML VIAL IV SCH ×2 (16:27→20:43)
[2016-09-11 16:44] LABS: Glucose,Whole Blood 179 mg/dL (75-99)
[2016-09-11] MEDS: INSULIN LISPRO (humaLOG) 300 UNIT/3 ML VIAL SQ PRN ×2 (17:36→20:47)
[2016-09-11 20:38] LABS: Glucose,Whole Blood 195 mg/dL (75-99)
[2016-09-11] MEDS: INSULIN GLARGINE 100 UNIT/ML 10 ML VIAL SQ SCH (20:43)
[2016-09-12 05:45] LABS: Glucose,Whole Blood 125 mg/dL (75-99)
[2016-09-12 06:56] LABS: Anisocytosis Slight; Basophils % (A) 1 %; CH 25.8; CHCM 30.5; Eosinophils # (A) 0.2 k/uL (0-0.7); Eosinophils % (A) 2 %; HCT 22.4 % (34.0-46.0); HDW 3.85; Hypochromasia Marked; Luc # (Auto) 0.18; Luc % (Auto) 2; Lymphocytes # (A) 1.8 k/uL (1.0-4.8); Lymphocytes % (A) 21 %; MCH 26.2 pg (25.0-35.0); MCV 84.7 fL (80.0-100.0); Mean Platelet Volume 8.5; Monocytes # (A) 0.6 k/uL (0-1.0); Monocytes % (A) 7 %; Neutrophils # (A) 5.8 k/uL (1.3-7.7); Neutrophils % (A) 68 %; Poikilocytosis Slight; RBC 2.65 m/uL (3.80-5.40); RDW 16.1 % (11.5-15.5); WBC 8.6 k/uL (3.8-10.6); WBC (Perox) 8.37
[2016-09-12 07:01] LABS: Calcium 8.7 mg/dL (8.4-10.2); Magnesium 1.7 mg/dL (1.6-2.3); Potassium 4.6 mmol/L (3.5-5.1); Total Bilirubin 0.7 mg/dL (0.2-1.3); Total Protein 6.3 g/dL (6.3-8.2)
[2016-09-12 07:03] LABS: HGB 6.9 gm/dL (11.4-16.0)
--- NOTE | 2016-09-12 07:06 | XR ---
EXAMINATION TYPE: XR chest 1V portable DATE OF EXAM: 09/12/2016 HISTORY: [place]. REFERENCE: Previous study dated 09/11/2016. FINDINGS: There has been a midline sternotomy and AC bypass. The heart is enlarged. There is vascular congestion and pulmonary edema. There are small, bilateral e ffusions worse on the left than the right. IMPRESSION: CONTINUING CHANGES OF CONGESTIVE HEART FAILURE.
[2016-09-12] MEDS ORDERED: FUROSEMIDE 10 MG/ML 10 ML VIAL IV STA (08:16)
[2016-09-12] MEDS: ASPIRIN 325 MG TAB PO SCH (08:27)
[2016-09-12] MEDS: NADOLOL 20 MG TAB PO SCH (08:27)
[2016-09-12] MEDS: PRASUGREL 10 MG TAB PO SCH (08:27)
[2016-09-12] MEDS: HEPARIN SODIUM,PORCINE 5,000 UNIT/ML 1 ML VIAL SQ SCH ×3 (08:29→23:29)
[2016-09-12] MEDS: FUROSEMIDE 10 MG/ML 10 ML VIAL IV SCH (08:29)
[2016-09-12] MEDS: NITROGLYCERIN OINT 1 INCH/GM PACKET TOPICAL SCH ×4 (08:29→20:12)
[2016-09-12] MEDS: TIOTROPIUM 18 MCG/PUFF INHALER INHALATION SCH (08:52)
[2016-09-12 09:35] LABS: % Iron Saturation 4.6 % (20-50)
--- NOTE | 2016-09-12 09:38 | P.CRDCN ---
History of Present Illness Consult date: 09/12/16 Requesting physician: Evaristo [place] Consult reason: congestive heart failure Chief complaint: Shortness of breath History of present illness: This is an 81-year-old female with known history of coronary artery disease and prior bypass surgery, prior cardiac stent placement, hypertension, hyperlipidemia, COPD, nicotine dependence, chronic renal failure, who was recently in the hospital in June of this year with an exacerbation of congestive cardiac failure. She presents to the hospital with symptoms of worsening shortness of breath. Chest x-ray on admission did reveal congestive cardiac failure. EKG shows a sinus bradycardia with nonspecific ST-T wave abnormalities. Hemoglobin on admission 7.1, 6.9 this morning. Platelet count 247, to 35 this morning. Potassium 4.6, BUN 104, creatinine 3.2. Magnesium 1.7. BNP level 41,200. Troponin 0.025. Patient was seen in consultation by Dr. VC Medina, she was initiated on IV Lasix 80 mg every 8 hourly. Oriented to the patient, she does not recall ever having a workup for her anemia, upon review of the charts, it appears that she has been anemic since April of this year. Echocardiogram with Doppler study performed in June revealed an ejection fraction of 50-55%. 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 with a previous lumpectomy, nocturnal oxygen use at 2 L/m nasal cannula , chronic back pain, R sided sciatica, cardiac murmur, chronic renal failure stage III, normocytic anemia History of Any Multi-Drug Resistant Organisms: None Reported Past Surgical History: Appendectomy, Breast Surgery, Coronary Bypass/CABG, Heart Catheterization, Heart Catheterization With Stent Additional Past Surgical History / Comment(s): 1989 triple bypass, PCI with stent "years ago"-done in [place]-pt does not recall date, lumpectomy left breast, colonoscopy, ectopic with R fallopian tube and ovary removed, bilateral cataract removal with lens implants. Past Anesthesia/Blood Transfusion Reactions: No Reported Reaction Date of Last Stent Placement:: unkn Smoking Status: Former smoker - Past Family History Father Family Medical History: Cancer Additional Family Medical History / Comment(s): Father had throat cancer and at the age of 85 yrs. Mother Family Medical History: No Reported History Additional Family Medical History / Comment(s): Mother was healthy and at the age of 85yrs. Medications and Allergies Home Medications Medication Instructions Recorded Confirmed Type Atorvastatin [Lipitor] 80 mg PO DAILY 07/01/16 09/11/16 History Ezetimibe [Zetia] 10 mg PO DAILY 07/01/16 09/11/16 History Isosorbide Mononitrate [Imdur] 120 mg PO DAILY 07/01/16 09/11/16 History Nadolol 20 mg PO DAILY 07/01/16 09/11/16 History Nitroglycerin Sl Tabs [Nitrostat] 0.4 mg SUBLINGUAL Q5M PRN 07/01/16 09/11/16 History Prasugrel HCl [Effient] 10 mg PO DAILY 07/01/16 09/11/16 History Tiotropium 18 Mcg/Puff [Spiriva] 1 cap INHALATION RT-DAILY 07/01/16 09/11/16 History Aspirin 325 mg PO DAILY 09/08/16 09/11/16 History Furosemide [Lasix] 20 mg PO DAILY 09/08/16 09/11/16 History INSULIN LISPRO (humaLOG) [HumaLOG] See Protocol SQ AC-TID PRN 09/08/16 09/11/16 History Insulin Glargine [Lantus] 10 unit SQ HS 09/08/16 09/11/16 History amLODIPine [Norvasc] 10 mg PO DAILY 09/08/16 09/11/16 History Allergies Allergy/AdvReac Type Severity Reaction Status Date / Time eptifibatide Allergy Unknown Verified 09/11/16 10:29 [From Integrilin] Penicillins Allergy Rash/Hives Verified 09/11/16 10:29 Physical Exam Vitals: Vital Signs Temp Pulse Pulse Resp BP BP Pulse Ox 09/12/16 04:00 97 F L 67 18 126/90 98 09/12/16 00:00 97 F L 74 18 142/81 100 09/11/16 20:47 92 L 09/11/16 20:00 97 F L 71 19 159/66 92 L 09/11/16 17:04 95 09/11/16 16:00 97 F L 60 20 128/58 93 L 09/11/16 12:30 96.9 F L 56 L 21 131/74 96 09/11/16 12:16 96.5 F L 58 L 18 157/70 92 L 09/11/16 10:47 61 20 150/70 92 L 09/11/16 10:07 97 F L 58 L 20 162/67 89 L 09/11/16 09:50 56 L 09/11/16 09:37 57 L 09/11/16 09:35 97.8 F 62 24 134/62 82 L Intake and Output 09/11/16 09/12/16 09/12/16 22:59 06:59 14:59 Intake Total 20 600 90 Output Total 350 100 Balance -330 500 90 Intake: IV 20 0.9 flush 20 Oral 600 90 Output: Urine 350 100 Other: Voiding Method Bedside Commode Bedside Commode Weight 66.1 kg PHYSICAL EXAMINATION: HEENT: Head is atraumatic, normocephalic. Pupils equal, round. Neck is supple. There is elevated jugular venous pressure. HEART EXAMINATION: Heart S1 S2 1 systolic murmur is heard. CHEST EXAMINATION: Lungs reveal rales to bilateral bases with diminished air entry to the bases. ABDOMEN: Soft, nontender. Bowel sounds are heard. No organomegaly noted. EXTREMITIES: 2+ peripheral pulses with 2+ evidence of peripheral edema and no calf tenderness noted. NEUROLOGIC patient is awake, alert and oriented -3. . Results 09/12/16 06:15 09/12/16 06:15 Cardiac Enzymes 09/11/16 09/11/16 09/12/16 Range/Units 09:25 09:25 06:15 AST 19 15 (14-36) U/L CK-MB (CK-2) 0.7 (0.0-2.4) ng/mL Troponin I 0.025 (0.000-0.034) ng/mL Coagulation 09/11/16 Range/Units 09:25 PT 13.5 H (9.0-12.0) sec APTT 23.2 (22.0-30.0) sec CBC 09/11/16 09/12/16 Range/Units 09:25 06:15 WBC 8.6 8.6 (3.8-10.6) k/uL RBC 2.72 L 2.65 L (3.80-5.40) m/uL Hgb 7.1 L 6.9 L* (11.4-16.0) gm/dL Hct 22.7 L 22.4 L (34.0-46.0) % Plt Count 247 235 (150-450) k/uL Comprehensive Metabolic Panel 09/11/16 09/12/16 Range/Units 09:25 06:15 Sodium 141 143 (137-145) mmol/L Potassium 4.5 4.6 (3.5-5.1) mmol/L Chloride 107 108 H (98-107) mmol/L Carbon Dioxide 18 L 18 L (22-30) mmol/L BUN 93 H* 104 H* (7-17) mg/dL Creatinine 2.76 H 3.20 H (0.52-1.04) mg/dL Glucose 128 H 108 H (74-99) mg/dL Calcium 8.6 8.7 (8.4-10.2) mg/dL AST 19 15 (14-36) U/L ALT 49 46 (9-52) U/L Alkaline Phosphatase 166 H 145 H (38-126) U/L Total Protein 6.4 6.3 (6.3-8.2) g/dL Albumin 3.4 L 3.3 L (3.5-5.0) g/dL Current Medications Generic Name Dose Route Start Last Admin Trade Name Kennethq PRN Reason Stop Dose Admin Aspirin 325 mg 09/12/16 09:00 09/12/16 08:27 Aspirin PO 325 mg DAILY TONG Administration Furosemide 80 mg 09/11/16 15:00 09/12/16 08:29 Lasix IV 80 mg Q12HR TONG Administration Heparin Sodium (Porcine) 5,000 unit 09/11/16 16:00 09/12/16 08:29 Heparin SQ 5,000 unit Q8HR TONG Administration Insulin Glargine 10 unit 09/11/16 21:00 09/11/16 20:43 Lantus SQ 10 unit HS TONG Administration Insulin Human Lispro 0 unit 09/11/16 14:21 09/11/16 20:47 Humalog SQ 2 unit AC-TID PRN Administration Blood Sugar - High Protocol Nadolol 20 mg 09/12/16 09:00 09/12/16 08:27 Corgard PO 20 mg DAILY TONG Administration Nitroglycerin 1 inch 09/11/16 13:00 09/12/16 08:29 Nitro-Bid Oint TOPICAL 1 inch QID TONG Administration Prasugrel 10 mg 09/12/16 09:00 09/12/16 08:27 Effient PO 10 mg DAILY TONG Administration Sodium Chloride 10 ml 09/11/16 21:00 09/12/16 08:29 Saline Flush IV 10 ml BID TONG Administration Tiotropium [place] 1 puff 09/12/16 08:00 09/12/16 08:52 Spiriva INHALATION Not Given RT-DAILY TONG Intake and Output 09/11/16 09/12/16 09/12/16 22:59 06:59 14:59 Intake Total 20 600 90 Output Total 350 100 Balance -330 500 90 Intake: IV 20 0.9 flush 20 Oral 600 90 Output: Urine 350 100 Other: Voiding Method Bedside Commode Bedside Commode Weight 66.1 kg 09/12/16 06:15 09/12/16 06:15 EKG Interpretations (text) EKG shows a sinus bradycardia with non-specific ST-T wave changes Assessment and Plan Plan: Assessment and plan #1 diastolic congestive heart failure, acute on chronic #2 anemia #3 acute on chronic renal failure #4 hypertension Number 5 diabetes #6 history of coronary artery disease with prior bypass and stent placements #7 hyperlipidemia #8 nicotine dependence #9 COPD Plan We'll repeat an echocardiogram with Doppler study, start the patient on IV diuretics 80 mg every 12 hourly, monitor intake and output closely along with the renal function. Suggest workup for anemia. Further recommendations to follow. DNP note has been reviewed, I agree with a documented findings and plan of care. Patient was seen and examined.
[2016-09-12 10:17] LABS: Hemoglobin A1C 7.3 % (4.2-6.1)
--- NOTE | 2016-09-12 10:24 | ECHOF ---
Referral Reason:chf MEASUREMENTS -------- HEIGHT: 157.5 cm WEIGHT: 65.8 kg BP: 119/75 RVIDd: 3.6 cm (< 3.3) IVSd: 1.5 cm (0.6 - 1.1) LVIDd: 4.7 cm (3.9 - 5.3) LVPWd: 1.6 cm (0.6 - 1.1) IVSs: 1.6 cm LVIDs: 3.2 cm LVPWs: 1.4 cm LA Diam: 4.1 cm (2.7 - 3.8) LAESV Index (A-L): 42.96 ml/m Ao Diam: 2.7 cm (2.0 - 3.7) AV Cusp: 1.0 cm (1.5 - 2.6) LA Diam: 4.7 cm (2.7 - 3.8) MV EXCURSION: 17.007 mm (> 18.000) MV EF SLOPE: 122 mm/s (70 - 150) EPSS: 0.7 cm MV E Reed: 0.94 m/s MV DecT: 143 ms MV A Reed: 0.46 m/s MV E/A Ratio: 2.05 AR PHT: 543 ms RAP: 20.00 mmHg RVSP: 66.34 mmHg FINDINGS -------- Undetermined rhythm. This was a technically adequate study. There is moderate concentric left ventricular hypertrophy. Overall left ventricular systolic function is low-normal with, an EF between 50 - 55 %. The right ventricle is normal in size. LA is severely dilated >40 ml/m2 The right atrial size is normal. There is mild aortic valve sclerosis. There is mild aortic regurgitation. Mild mitral annular calcification present. Moderate mitral regurgitation is present. Moderate tricuspid regurgitation present. Right ventricular systolic pressure is normal at < 35 mmHg. There is severe pulmonary hypertension. Moderate pulmonic regurgitation. The aortic root size is normal. The inferior vena cava is severely dilated. There is no pericardial effusion. CONCLUSIONS -------- 1. There is moderate concentric left ventricular hypertrophy. 2. There is severe pulmonary hypertension. 3. Moderate pulmonic regurgitation. 4. The aortic root size is normal. 5. The inferior vena cava is severely dilated. 6. There is no pericardial effusion. 7. Overall left ventricular systolic function is low-normal with, an EF between 50 - 55 %. 8. LA is severely dilated >40 ml/m2 9. There is mild aortic valve sclerosis. 10. There is mild aortic regurgitation. 11. Mild mitral annular calcification present. 12. Moderate mitral regurgitation is present. 13. Moderate tricuspid regurgitation present. 14. Right ventricular systolic pressure is normal at < 35 mmHg. MIND READER: Norma Saleh RDCS
--- NOTE | 2016-09-12 10:46 | P.NPCON ---
History of Present Illness - Reason for Consult acute renal failure - History of Present Illness Reason for consultation: Acute kidney injury History of present illness: Patient is a 81-year-old female seen in renal consultation for acute kidney injury. Her baseline creatinine appears to be near 1.3. It was elevated at 2.76 this admission and is up to 3.2 this morning. Patient presented to the hospital with dyspnea that started yesterday morning. Patient does have history of diastolic CHF and takes 20 mg of Lasix every day. She has severe edema in her lower extremities and chest x-ray is suggestive of pulmonary edema. She denies any vomiting or diarrhea. Denies chest pain. Oral intake has been fair. No difficulty with urination. No hematuria or dysuria. No evidence of urinary retention. Denies use of NSAIDs. Denies any family history of renal disease. She does not follow with a subcontract administrator as an outpatient. Hemoglobin is also down to 6.9 and she scheduled to receive 1 unit of blood transmission today. Vital signs are stable. General: The patient appeared well nourished and normally developed. HEENT: Head exam is unremarkable. Neck is without jugular venous distension. LUNGS: Lungs are clear to auscultation and percussion. Breath sounds decreased. HEART: Rate and Rhythm are regular. First and second heart sounds normal. No murmurs, rubs or gallops. ABDOMEN: Abdominal exam reveals normal bowel sounds. Non-tender and non- distended. No evidence of peritonitis. EXTREMITITES: 2+ edema. 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 with a previous lumpectomy, nocturnal oxygen use at 2 L/m nasal cannula , chronic back pain, R sided sciatica, cardiac murmur, chronic renal failure stage III, normocytic anemia History of Any Multi-Drug Resistant Organisms: None Reported Past Surgical History: Appendectomy, Breast Surgery, Coronary Bypass/CABG, Heart Catheterization, Heart Catheterization With Stent Additional Past Surgical History / Comment(s): 1989 triple bypass, PCI with stent "years ago"-done in [place]-pt does not recall date, lumpectomy left breast, colonoscopy, ectopic with R fallopian tube and ovary removed, bilateral cataract removal with lens implants. Past Anesthesia/Blood Transfusion Reactions: No Reported Reaction Date of Last Stent Placement:: unkn Smoking Status: Former smoker - Past Family History Father Family Medical History: Cancer Additional Family Medical History / Comment(s): Father had throat cancer and at the age of 85 yrs. Mother Family Medical History: No Reported History Additional Family Medical History / Comment(s): Mother was healthy and at the age of 85yrs. Medications and Allergies Home Medications Medication Instructions Recorded Confirmed Type Atorvastatin [Lipitor] 80 mg PO DAILY 07/01/16 09/11/16 History Ezetimibe [Zetia] 10 mg PO DAILY 07/01/16 09/11/16 History Isosorbide Mononitrate [Imdur] 120 mg PO DAILY 07/01/16 09/11/16 History Nadolol 20 mg PO DAILY 07/01/16 09/11/16 History Nitroglycerin Sl Tabs [Nitrostat] 0.4 mg SUBLINGUAL Q5M PRN 07/01/16 09/11/16 History Prasugrel HCl [Effient] 10 mg PO DAILY 07/01/16 09/11/16 History Tiotropium 18 Mcg/Puff [Spiriva] 1 cap INHALATION RT-DAILY 07/01/16 09/11/16 History Aspirin 325 mg PO DAILY 09/08/16 09/11/16 History Furosemide [Lasix] 20 mg PO DAILY 09/08/16 09/11/16 History INSULIN LISPRO (humaLOG) [HumaLOG] See Protocol SQ AC-TID PRN 09/08/16 09/11/16 History Insulin Glargine [Lantus] 10 unit SQ HS 09/08/16 09/11/16 History amLODIPine [Norvasc] 10 mg PO DAILY 09/08/16 09/11/16 History Allergies Allergy/AdvReac Type Severity Reaction Status Date / Time eptifibatide Allergy Unknown Verified 09/11/16 10:29 [From Integrilin] Penicillins Allergy Rash/Hives Verified 09/11/16 10:29 Physical Exam Vitals: Vital Signs Temp Pulse Pulse Resp BP BP Pulse Ox 09/12/16 08:00 96.9 F L 63 24 137/65 98 09/12/16 04:00 97 F L 67 18 126/90 98 09/12/16 00:00 97 F L 74 18 142/81 100 09/11/16 20:47 92 L 09/11/16 20:00 97 F L 71 19 159/66 92 L 09/11/16 17:04 95 09/11/16 16:00 97 F L 60 20 128/58 93 L 09/11/16 12:30 96.9 F L 56 L 21 131/74 96 09/11/16 12:16 96.5 F L 58 L 18 157/70 92 L 09/11/16 10:47 61 20 150/70 92 L Intake and Output 09/11/16 09/12/16 09/12/16 22:59 06:59 14:59 Intake Total 20 600 90 Output Total 350 100 Balance -330 500 90 Intake: IV 20 0.9 flush 20 Oral 600 90 Output: Urine 350 100 Other: Voiding Method Bedside Commode Bedside Commode Weight 66.1 kg Results - Lab Results Most recent lab results Calcium 8.7 mg/dL (8.4-10.2) 09/12/16 06:15 Magnesium 1.7 mg/dL (1.6-2.3) 09/12/16 06:15 09/12/16 06:15 09/12/16 06:15 Assessment and Plan Plan: Assessment: #1. Nonoliguric acute kidney injury secondary to ischemic ATN secondary to cardiorenal syndrome. Creatinine up to 3.2 today. #2. Diastolic CHF. Decompensated. #3. Volume overload. #4. Acute anemia. Hemoglobin 6.9 this morning. No active bleeding. Rule out iron deficiency. #5. Metabolic acidosis secondary to acute kidney injury. #6. Insulin-dependent diabetes mellitus. #7. Chronic kidney disease stage III with baseline creatinine near 1.3. Etiology is likely cardiorenal syndrome with component of diabetic kidney disease. Plan: Discontinue IV push Lasix and start Lasix drip at 10 mL an hour. Cardiology following. Dobutamine to be started as well. Low-salt and 1200 mL fluid restricted diet. Start oral sodium bicarbonate 650 Shahriar grams twice daily. Doesn't and nose and daily weights. Scheduled to receive 1 unit of blood transfusion today. Check iron studies. Check urinalysis. Check renal ultrasound. Follow-up echocardiogram results. Thank you for the consultation. I will continue to follow the patient with you during her hospital stay.
--- NOTE | 2016-09-12 10:54 | P.PN ---
Subjective 7-year-old female with chronic kidney disease comes in the hospital with acute onset difficulty breathing. Patient states that she was in good health over the weekend started to have some progressive worsening of dyspnea on september thereafter noted to have severe dyspnea this morning and hence came to the hospital for ongoing care Patient was noted to be in severe distress patient was noted to be in congestive heart failure patient was started on BiPAP at 12/5 a BiPAP over EPAP patient is currently on 50% of FiO2 Patient denies having any headaches blurry vision nausea vomiting chest pain. Patient does state to have orthopnea and PND Patient is currently using about 4 pillows Has significant amount of weight gain in her lower extremity is Or 3+ edema according to her 09/12/2016 Patient states that she is having a difficulty breathing at this time patient is sitting up in bed continues to be on BiPAP at this time requiring over 5 L of oxygen States that her breathing has gotten worse over the last 24 hours Objective - Vital Signs Vital signs: Vital Signs Temp 96.9 F L 09/12/16 08:00 Pulse 63 09/12/16 08:00 Resp 24 09/12/16 08:00 BP 137/65 09/12/16 08:00 Pulse Ox 98 09/12/16 08:00 Intake & Output 09/11/16 09/12/16 09/12/16 18:59 06:59 18:59 Intake Total 620 90 Output Total 350 100 Balance -350 520 90 Weight 63.957 kg 66.1 kg Intake: IV 20 0.9 flush 20 Oral 600 90 Output: Urine 350 100 Other: Voiding Method Bedside Commode - Exam In appearance alert oriented 3 in mild respiratory distress Lungs air movement is noted crackles at the bases no rhonchi noted Heart S1-S2 heard regular rate and rhythm no murmurs appreciated Abdomen is soft nontender organomegaly Neuro no focal motor or sensory deficits noted Lower extremities 3+ pitting edema noted bilaterally - Labs CBC & Chem 7: 09/12/16 06:15 09/12/16 06:15 Labs: Abnormal Lab Results - Last 24 Hours (Table) 09/11/16 09/11/16 09/12/16 Range/Units 16:39 20:37 05:44 RBC (3.80-5.40) m/uL Hgb (11.4-16.0) gm/dL Hct (34.0-46.0) % RDW (11.5-15.5) % Chloride (98-107) mmol/L Carbon Dioxide (22-30) mmol/L BUN (7-17) mg/dL Creatinine (0.52-1.04) mg/dL Glucose (74-99) mg/dL POC Glucose (mg/dL) 179 H 195 H 125 H (75-99) mg/dL Iron (37-170) ug/dL % Saturation (20-50) % Alkaline Phosphatase (38-126) U/L Albumin (3.5-5.0) g/dL 09/12/16 09/12/16 Range/Units 06:15 06:15 RBC 2.65 L (3.80-5.40) m/uL Hgb 6.9 L* (11.4-16.0) gm/dL Hct 22.4 L (34.0-46.0) % RDW 16.1 H (11.5-15.5) % Chloride 108 H (98-107) mmol/L Carbon Dioxide 18 L (22-30) mmol/L BUN 104 H* (7-17) mg/dL Creatinine 3.20 H (0.52-1.04) mg/dL Glucose 108 H (74-99) mg/dL POC Glucose (mg/dL) (75-99) mg/dL Iron 15 L (37-170) ug/dL % Saturation 4.6 L (20-50) % Alkaline Phosphatase 145 H (38-126) U/L Albumin 3.3 L (3.5-5.0) g/dL Assessment and Plan Plan: #1 acute exacerbation of heart failure, diastolic in nature with valvular dysfunction #2 acute hypoxemic respiratory failure #3 anemia likely due to CK D we'll rule out iron deficiency #4 non-anion gap metabolic acidosis #5 history of COPD #6 hypertension #7 diabetes most type II #8 Dyslipidemia #9 history of CAD status post PCI #10 moderate MR Plan Chart the patient on a Lasix drip at 10 mg/h N started on inotropic agent Continue BiPAP strict I's and O's frequent PVRs Renal function slightly worsened today We'll have nephrology evaluate the patient as well
[2016-09-12 11:19] LABS: Appearance,Urine Cloudy (Clear); Bilirubin,Urine Negative (Negative); Glucose,Urine (UA) Negative (Negative); Ketones,Urine Negative (Negative); Leukocyte Esterase,Urine Small (Negative); Mucus,Urine Rare /hpf; Nitrite,Urine Negative (Negative); Particle Count 5555; Protein,Urine Negative (Negative); RBC,Urine 1 /hpf (0-5); Specific Gravity,Urine 1.009 (1.001-1.035); Squamous Epithelial Cell,Urine 3 /hpf (0-4); UA Billing (MACRO vs. MICRO) MICRO; Urobilinogen,Urine <2.0 mg/dL (<2.0); WBC,Urine 2 /hpf (0-5)
--- NOTE | 2016-09-12 11:22 | US ---
EXAMINATION TYPE: US kidneys/renal and bladder DATE OF EXAM: 09/12/2016 COMPARISON: CT CLINICAL HISTORY: nick. EXAM MEASUREMENTS: Right Kidney: 9.1 x 4.6 x 4.7 cm Left Kidney: 7.6 x 3.9 x 3.5 cm Exam done portable on patient with difficulty breathing, unable to lay flat. Patient scanned upright. Right Kidney: No hydronephrosis or masses seen Left Kidney: atrophied, echogenic, lower pole partially obscured by bowel. Bladder: not well distended Incidental note is made of lt pleural effusion Left kidney is smaller than the right. This may be secondary to atrophic change. IMPRESSION: 1. UNREMARKABLE RENAL ULTRASOUND. THERE IS NO EVIDENCE OF HYDRONEPHROSIS AT THIS TIME. 2. LEFT-SIDED PLEURAL EFFUSION.
[2016-09-12] MEDS: FUROSEMIDE 250 MG in SODIUM CHLORIDE 0.9% 225 ML IVP SCH (11:30)
[2016-09-12 11:32] LABS: Glucose,Whole Blood 157 mg/dL (75-99)
[2016-09-12] MEDS: SODIUM FERRIC GLUCONAT-SUCROSE 125 MG in SODIUM CHLORIDE 0.9% 100 ML IVPB SCH (11:34)
[2016-09-12] MEDS: DOBUTamine DRIP 500 MG in DEXTROSE/WATER 1 250ML.BAG IV SCH (15:03)
[2016-09-12] MEDS: MAGNESIUM SULFATE-D5W PMX 1 GM in DEXTROSE/WATER 1 100ML.BAG IVPB SCH ×2 (15:46→16:44)
[2016-09-12 16:55] LABS: Glucose,Whole Blood 214 mg/dL (75-99)
[2016-09-12] MEDS: INSULIN LISPRO (humaLOG) 300 UNIT/3 ML VIAL SQ PRN (20:12)
[2016-09-12] MEDS: INSULIN GLARGINE 100 UNIT/ML 10 ML VIAL SQ SCH (20:12)
[2016-09-12 20:41] LABS: Glucose,Whole Blood 216 mg/dL (75-99)
[2016-09-13 06:39] LABS: Glucose,Whole Blood 87 mg/dL (75-99)
[2016-09-13 06:48] LABS: Basophils % (A) 1 %; CH 25.8; CHCM 30.7; Eosinophils # (A) 0.2 k/uL (0-0.7); Eosinophils % (A) 2 %; HCT 24.8 % (34.0-46.0); HDW 4.47; HGB 7.8 gm/dL (11.4-16.0); Hypochromasia Marked; Luc # (Auto) 0.18; Luc % (Auto) 2; Lymphocytes # (A) 1.5 k/uL (1.0-4.8); Lymphocytes % (A) 19 %; MCH 26.6 pg (25.0-35.0); MCHC 31.4 g/dL (31.0-37.0); MCV 84.5 fL (80.0-100.0); Mean Platelet Volume 7.9; Monocytes # (A) 0.6 k/uL (0-1.0); Monocytes % (A) 7 %; Neutrophils # (A) 5.4 k/uL (1.3-7.7); Neutrophils % (A) 68 %; Poikilocytosis Moderate; RBC 2.94 m/uL (3.80-5.40); RDW 15.8 % (11.5-15.5); WBC 7.9 k/uL (3.8-10.6); WBC (Perox) 8.13
[2016-09-13 06:59] LABS: Calcium 8.6 mg/dL (8.4-10.2); Magnesium 2.2 mg/dL (1.6-2.3); Potassium 3.8 mmol/L (3.5-5.1)
--- NOTE | 2016-09-13 07:32 | XR ---
EXAMINATION TYPE: XR chest 1V portable DATE OF EXAM: 09/13/2016 Comparison: 09/12/2016 Clinical History: 81 year-old female follow-up CHF Findings: Median sternotomy wires and post-CABG clips in the mediastinum. Heart remains mildly enlarged. Diffus e interstitial prominence and increasing bibasilar opacities with small pleural effusions. Impression: Continued CHF with pulmonary vascular congestion/interstitial edema. Bibasilar infiltrates vs conflue nt edema and small pleural effusions are slightly increased.
[2016-09-13] MEDS: TIOTROPIUM 18 MCG/PUFF INHALER INHALATION SCH (08:38)
[2016-09-13] MEDS: PRASUGREL 10 MG TAB PO SCH (08:59)
[2016-09-13] MEDS: HEPARIN SODIUM,PORCINE 5,000 UNIT/ML 1 ML VIAL SQ SCH ×3 (08:59→23:09)
[2016-09-13] MEDS: ASPIRIN 325 MG TAB PO SCH (08:59)
[2016-09-13] MEDS: NADOLOL 20 MG TAB PO SCH (08:59)
[2016-09-13] MEDS: NITROGLYCERIN OINT 1 INCH/GM PACKET TOPICAL SCH ×4 (08:59→21:20)
[2016-09-13] MEDS: SODIUM FERRIC GLUCONAT-SUCROSE 125 MG in SODIUM CHLORIDE 0.9% 100 ML IVPB SCH (08:59)
[2016-09-13] MEDS: FUROSEMIDE 250 MG in SODIUM CHLORIDE 0.9% 225 ML IVP SCH (09:00)
[2016-09-13] MEDS: DOBUTamine DRIP 500 MG in DEXTROSE/WATER 1 250ML.BAG IV SCH ×2 (09:00→19:54)
--- NOTE | 2016-09-13 09:53 | P.PN ---
Subjective This is an 81-year-old female seen in consultation because of cardiorenal syndrome, chronic kidney disease. She has severe heart failure, edema, is on Lasix drip as well as dobutamine drip. She has responded now with subjective improvement in her shortness of breath. Her appetite remains poor but slowly improving. She is able to sleep last night. Currently on exam she is sitting on her bed. Does have some dizziness on and off. A chest x-ray done today shows no significant change from yesterday's chest x-ray. Her creatinine did improve though to 2.6 from 3.2 She is known with COPD coronary artery disease diabetes hypertension, coronary artery bypass and coronary stents. Objective - Vital Signs Vital signs: Vital Signs Temp 97 F L 09/13/16 04:00 Pulse 63 09/13/16 04:00 Resp 18 09/13/16 04:00 BP 141/63 09/13/16 04:00 Pulse Ox 95 09/13/16 04:00 Intake & Output 09/12/16 09/13/16 09/13/16 18:59 06:59 18:59 Intake Total 1079.603 225 463.65 Output Total 300 1100 400 Balance 779.603 -875 63.65 Weight 66.4 kg Intake: IV 155 225 0.9 @10 90 DOBUTamine DRIP 500 mg In 10 45 Dextrose/Water 1 250ml. bag @ 2.5 MCG/KG/MIN 4.95 mls/hr IV .Q24H [facility] Rx#: [id number] Furosemide 250 mg In 45 90 Sodium Chloride 0.9% 225 ml @ 10 MG/HR 10 mls/hr IVP .Q24H [facility] Rx#: [id number] Sodium Ferric Gluconat- 100 Sucrose 125 mg In Sodium Chloride 0.9% 100 ml @ 100 mls/hr IVPB DAILY [facility] Rx#:[id number] Intake, IV Titration 114.603 363.65 Amount DOBUTamine DRIP 500 mg In 14.603 148.65 Dextrose/Water 1 250ml. bag @ 2.5 MCG/KG/MIN 4.95 mls/hr IV .Q24H [facility] Rx#: [id number] Furosemide 250 mg In 215 Sodium Chloride 0.9% 225 ml @ 10 MG/HR 10 mls/hr IVP .Q24H [facility] Rx#: [id number] Magnesium Sulfate-D5w Pmx 100 1 gm In Dextrose/Water 1 100ml.bag @ 100 mls/hr IVPB Q1H [facility] Rx#: [id number] Oral 190 100 Blood Product 620 Rc As-1 Unit 310 [id number] Output: Urine 300 1100 400 Other: Voiding Method Bedside Commode # Voids 1 Currently on exam she is awake alert oriented. HEENT exam JVP is elevated about 8-10 cm about her sternal angle Neck is supple no facial asymmetry Lungs are significant for bilateral fine crackles with fair air entry and no dullness to percussion. Heart sounds unremarkable for any murmur rub gallop Abdomen soft nontender no hepatosplenomegaly Extremity exam was moderate edema Neurologically awake alert oriented. Warm to touch. - Labs CBC & Chem 7: 09/13/16 06:20 09/13/16 06:20 Labs: Abnormal Lab Results - Last 24 Hours (Table) 09/12/16 09/12/16 09/12/16 Range/Units 06:15 06:15 09:07 RBC (3.80-5.40) m/uL Hgb (11.4-16.0) gm/dL Hct (34.0-46.0) % RDW (11.5-15.5) % Chloride (98-107) mmol/L Carbon Dioxide (22-30) mmol/L BUN (7-17) mg/dL Creatinine (0.52-1.04) mg/dL POC Glucose (mg/dL) (75-99) mg/dL Hemoglobin A1c 7.3 H (4.2-6.1) % Iron 15 L (37-170) ug/dL % Saturation 4.6 L (20-50) % Urine Appearance (Clear) Urine Blood (Negative) Ur Leukocyte Esterase (Negative) Hyaline Casts (0-2) /lpf Urine Mucus (None) /hpf Crossmatch See Detail 09/12/16 09/12/16 09/12/16 Range/Units 10:20 11:28 16:51 RBC (3.80-5.40) m/uL Hgb (11.4-16.0) gm/dL Hct (34.0-46.0) % RDW (11.5-15.5) % Chloride (98-107) mmol/L Carbon Dioxide (22-30) mmol/L BUN (7-17) mg/dL Creatinine (0.52-1.04) mg/dL POC Glucose (mg/dL) 157 H 214 H (75-99) mg/dL Hemoglobin A1c (4.2-6.1) % Iron (37-170) ug/dL % Saturation (20-50) % Urine Appearance Cloudy H (Clear) Urine Blood Trace H (Negative) Ur Leukocyte Esterase Small H (Negative) Hyaline Casts 20 H (0-2) /lpf Urine Mucus Rare H (None) /hpf Crossmatch 09/12/16 09/13/16 09/13/16 Range/Units 20:00 06:20 06:20 RBC 2.94 L (3.80-5.40) m/uL Hgb 7.8 L (11.4-16.0) gm/dL Hct 24.8 L (34.0-46.0) % RDW 15.8 H (11.5-15.5) % Chloride 111 H (98-107) mmol/L Carbon Dioxide 16 L (22-30) mmol/L BUN 103 H* (7-17) mg/dL Creatinine 2.65 H (0.52-1.04) mg/dL POC Glucose (mg/dL) 216 H (75-99) mg/dL Hemoglobin A1c (4.2-6.1) % Iron (37-170) ug/dL % Saturation (20-50) % Urine Appearance (Clear) Urine Blood (Negative) Ur Leukocyte Esterase (Negative) Hyaline Casts (0-2) /lpf Urine Mucus (None) /hpf Crossmatch Assessment and Plan Plan: Impression. 1. Acute kidney injury secondary to cardiorenal syndrome, responding to IV Lasix and dobutamine creatinine down from 3.2-2.6. Urine output is documented at 1400 mL but this is a non-catheterized specimen. 2. Chronic kidney disease stage III, secondary to nephrosclerosis, baseline creatinine 1.3. No proteinuria to suggest diabetic nephropathy 3. History of diabetes, 4. Anemia of chronic kidney disease, hemoglobin is 7.8, up from 6.9 5. Iron deficiency on Venofer. 6. Significant edema 7. Gap and non-gap acidosis. Bicarb is 16 and gap is 16. Etiology is acute kidney injury. Recommendation. 1. Will continue the Lasix and dobutamine. 2. Start sodium bicarb 650, 4 times a day 8. Monitor calcium phosphorus hemoglobin renal profile and potassium. 4. Strict I's and O's
--- NOTE | 2016-09-13 11:40 | PN ---
This patient was admitted with congestive cardiac failure. The patient continues to have symptoms of shortness of breath. She did not respond to the IV diuretics very well. Blood pressure is 129/59 mmHg. Her oxygen saturation is 92%. The respiratory rate is 26. First and second heart sounds are normal. Lungs examination reveals bilateral rales in the lower one third of the lung cobb. Chest x-ray yesterday did show evidence of significant heart failure. The patient's echocardiogram was repeated which showed overall normal left ventricular systolic function with evidence of dilated left atrium, pulmonary hypertension and dilated IVCs. This is suggestive of acute on chronic diastolic heart failure. Because of significant pulmonary hypertension, as well as congestive heart failure, the patient is started on Lasix drip. She is going to get one unit of packed cells and we will also start her on small dose of dobutamine to see if there is any improvement which might help to improve his pulmonary hypertension. [facility]
[2016-09-13] MEDS: SODIUM BICARBONATE TAB 650 MG TAB PO SCH ×3 (11:55→21:14)
[2016-09-13 12:00] LABS: Glucose,Whole Blood 144 mg/dL (75-99)
--- NOTE | 2016-09-13 14:21 | P.PN ---
Subjective Principal diagnosis: CHF This is an 81-year-old female with known history of coronary artery disease and prior bypass surgery, prior cardiac stent placement, hypertension, hyperlipidemia, COPD, nicotine dependence, chronic renal failure, who was recently in the hospital in June of this year with an exacerbation of congestive cardiac failure. She presents to the hospital with symptoms of worsening shortness of breath. Chest x-ray on admission did reveal congestive cardiac failure. EKG shows a sinus bradycardia with nonspecific ST-T wave abnormalities. BNP level on admission 41,200. Patient was initiated on IV Lasix drip as well as dobutamine drip. She did diurese well through the night last night, and continues to put out good urine today. Creatinine show some improvement today, 2.6 today BUN 103, potassium 3.8. Hemoglobin 7.8. Patient does state that overall she is feeling much better. Continues to have a significant amount of peripheral edema. Chest x-ray repeated this morning reveals congestive heart failure with pulmonary vascular congestion and interstitial edema. Objective - Vital Signs Vital signs: Vital Signs Temp 97 F L 09/13/16 11:59 Pulse 54 L 09/13/16 11:59 Resp 16 09/13/16 11:59 BP 144/72 09/13/16 11:59 Pulse Ox 94 L 09/13/16 11:59 Intake & Output 09/12/16 09/13/16 09/13/16 18:59 06:59 18:59 Intake Total 1079.603 225 463.65 Output Total 300 1100 400 Balance 779.603 -875 63.65 Weight 66.4 kg Intake: IV 155 225 0.9 @10 90 DOBUTamine DRIP 500 mg In 10 45 Dextrose/Water 1 250ml. bag @ 2.5 MCG/KG/MIN 4.95 mls/hr IV .Q24H [facility] Rx#: [id number] Furosemide 250 mg In 45 90 Sodium Chloride 0.9% 225 ml @ 10 MG/HR 10 mls/hr IVP .Q24H [facility] Rx#: [id number] Sodium Ferric Gluconat- 100 Sucrose 125 mg In Sodium Chloride 0.9% 100 ml @ 100 mls/hr IVPB DAILY [facility] Rx#:[id number] Intake, IV Titration 114.603 363.65 Amount DOBUTamine DRIP 500 mg In 14.603 148.65 Dextrose/Water 1 250ml. bag @ 2.5 MCG/KG/MIN 4.95 mls/hr IV .Q24H [facility] Rx#: [id number] Furosemide 250 mg In 215 Sodium Chloride 0.9% 225 ml @ 10 MG/HR 10 mls/hr IVP .Q24H [facility] Rx#: [id number] Magnesium Sulfate-D5w Pmx 100 1 gm In Dextrose/Water 1 100ml.bag @ 100 mls/hr IVPB Q1H [facility] Rx#: [id number] Oral 190 100 Blood Product 620 Rc As-1 Unit 310 [id number] Output: Urine 300 1100 400 Other: Voiding Method Bedside Commode # Voids 1 - Exam PHYSICAL EXAMINATION: HEENT: Head is atraumatic, normocephalic. Pupils equal, round. Neck is supple. There is elevated jugular venous pressure. HEART EXAMINATION: Heart S1 S2 1 systolic murmur is heard. CHEST EXAMINATION: Lungs reveal rales to bilateral bases with diminished air entry to the bases. ABDOMEN: Soft, nontender. Bowel sounds are heard. No organomegaly noted. EXTREMITIES: 2+ peripheral pulses with 2+ evidence of peripheral edema and no calf tenderness noted. NEUROLOGIC patient is awake, alert and oriented -3. . - Labs CBC & Chem 7: 09/13/16 06:20 09/13/16 06:20 Labs: Abnormal Lab Results - Last 24 Hours (Table) 09/12/16 09/12/16 09/12/16 Range/Units 09:07 16:51 20:00 RBC (3.80-5.40) m/uL Hgb (11.4-16.0) gm/dL Hct (34.0-46.0) % RDW (11.5-15.5) % Chloride (98-107) mmol/L Carbon Dioxide (22-30) mmol/L BUN (7-17) mg/dL Creatinine (0.52-1.04) mg/dL POC Glucose (mg/dL) 214 H 216 H (75-99) mg/dL Crossmatch See Detail 09/13/16 09/13/16 09/13/16 Range/Units 06:20 06:20 11:57 RBC 2.94 L (3.80-5.40) m/uL Hgb 7.8 L (11.4-16.0) gm/dL Hct 24.8 L (34.0-46.0) % RDW 15.8 H (11.5-15.5) % Chloride 111 H (98-107) mmol/L Carbon Dioxide 16 L (22-30) mmol/L BUN 103 H* (7-17) mg/dL Creatinine 2.65 H (0.52-1.04) mg/dL POC Glucose (mg/dL) 144 H (75-99) mg/dL Crossmatch Assessment and Plan Plan: Assessment and plan #1 diastolic congestive heart failure, acute on chronic #2 anemia #3 acute on chronic renal failure #4 hypertension Number 5 diabetes #6 history of coronary artery disease with prior bypass and stent placements #7 hyperlipidemia #8 nicotine dependence #9 COPD Plan We will continue the patient on the Lasix drip along with the dobutamine drip. Continue to monitor accurate intake and output along with daily weights. DNP note has been reviewed, I agree with a documented findings and plan of care. Patient was seen and examined.
[2016-09-13 17:02] LABS: Glucose,Whole Blood 163 mg/dL (75-99)
--- NOTE | 2016-09-13 18:00 | P.PN ---
Subjective 7-year-old female with chronic kidney disease comes in the hospital with acute onset difficulty breathing. Patient states that she was in good health over the weekend started to have some progressive worsening of dyspnea on september thereafter noted to have severe dyspnea this morning and hence came to the hospital for ongoing care Patient was noted to be in severe distress patient was noted to be in congestive heart failure patient was started on BiPAP at 12/5 a BiPAP over EPAP patient is currently on 50% of FiO2 Patient denies having any headaches blurry vision nausea vomiting chest pain. Patient does state to have orthopnea and PND Patient is currently using about 4 pillows Has significant amount of weight gain in her lower extremity is Or 3+ edema according to her 09/12/2016 Patient states that she is having a difficulty breathing at this time patient is sitting up in bed continues to be on BiPAP at this time requiring over 5 L of oxygen States that her breathing has gotten worse over the last 24 hours 09/13/2016 Patient is doing significantly better today Is on 5 L of supplemental oxygen however uses BiPAP intermittently Urine output has improved Status post 1 unit of PRBC Denies having fevers chills chest pain nausea vomiting or diarrhea at this time Objective - Vital Signs Vital signs: Vital Signs Temp 97 F L 09/13/16 16:00 Pulse 62 09/13/16 16:00 Resp 18 09/13/16 16:00 BP 130/58 09/13/16 16:00 Pulse Ox 93 L 09/13/16 16:00 Intake & Output 09/12/16 09/13/16 09/13/16 18:59 06:59 18:59 Intake Total 1079.603 225 463.65 Output Total 300 1100 400 Balance 779.603 -875 63.65 Weight 66.4 kg Intake: IV 155 225 0.9 @10 90 DOBUTamine DRIP 500 mg In 10 45 Dextrose/Water 1 250ml. bag @ 2.5 MCG/KG/MIN 4.95 mls/hr IV .Q24H [facility] Rx#: [id number] Furosemide 250 mg In 45 90 Sodium Chloride 0.9% 225 ml @ 10 MG/HR 10 mls/hr IVP .Q24H [facility] Rx#: [id number] Sodium Ferric Gluconat- 100 Sucrose 125 mg In Sodium Chloride 0.9% 100 ml @ 100 mls/hr IVPB DAILY [facility] Rx#:[id number] Intake, IV Titration 114.603 363.65 Amount DOBUTamine DRIP 500 mg In 14.603 148.65 Dextrose/Water 1 250ml. bag @ 2.5 MCG/KG/MIN 4.95 mls/hr IV .Q24H [facility] Rx#: [id number] Furosemide 250 mg In 215 Sodium Chloride 0.9% 225 ml @ 10 MG/HR 10 mls/hr IVP .Q24H [facility] Rx#: [id number] Magnesium Sulfate-D5w Pmx 100 1 gm In Dextrose/Water 1 100ml.bag @ 100 mls/hr IVPB Q1H [facility] Rx#: [id number] Oral 190 100 Blood Product 620 Rc As-1 Unit 310 [id number] Output: Urine 300 1100 400 Other: Voiding Method Bedside Commode # Voids 1 - Exam In appearance alert oriented 3 in mild respiratory distress Lungs air movement is noted crackles at the bases however improved from previous examinations no rhonchi noted Heart S1-S2 heard regular rate and rhythm no murmurs appreciated Abdomen is soft nontender organomegaly Neuro no focal motor or sensory deficits noted Lower extremities 3+ pitting edema noted bilaterally - Labs CBC & Chem 7: 09/13/16 06:20 09/13/16 06:20 Labs: Abnormal Lab Results - Last 24 Hours (Table) 09/12/16 09/13/16 09/13/16 Range/Units 20:00 06:20 06:20 RBC 2.94 L (3.80-5.40) m/uL Hgb 7.8 L (11.4-16.0) gm/dL Hct 24.8 L (34.0-46.0) % RDW 15.8 H (11.5-15.5) % Chloride 111 H (98-107) mmol/L Carbon Dioxide 16 L (22-30) mmol/L BUN 103 H* (7-17) mg/dL Creatinine 2.65 H (0.52-1.04) mg/dL POC Glucose (mg/dL) 216 H (75-99) mg/dL 09/13/16 09/13/16 Range/Units 11:57 16:58 RBC (3.80-5.40) m/uL Hgb (11.4-16.0) gm/dL Hct (34.0-46.0) % RDW (11.5-15.5) % Chloride (98-107) mmol/L Carbon Dioxide (22-30) mmol/L BUN (7-17) mg/dL Creatinine (0.52-1.04) mg/dL POC Glucose (mg/dL) 144 H 163 H (75-99) mg/dL Assessment and Plan Plan: #1 acute exacerbation of heart failure, diastolic in nature with valvular dysfunction #2 acute hypoxemic respiratory failure #3 anemia likely due to CK D we'll rule out iron deficiency #4 non-anion gap metabolic acidosis #5 history of COPD #6 hypertension #7 diabetes most type II #8 Dyslipidemia #9 history of CAD status post PCI #10 moderate MR Plan Continue with Lasix drip and dobutamine Renal functions improved Telemetry monitoring BiPAP when necessary Supplement oxygen to be titrated down her graft
[2016-09-13 20:31] LABS: Glucose,Whole Blood 254 mg/dL (75-99)
[2016-09-13] MEDS: INSULIN GLARGINE 100 UNIT/ML 10 ML VIAL SQ SCH (21:12)
[2016-09-13] MEDS: INSULIN LISPRO (humaLOG) 300 UNIT/3 ML VIAL SQ PRN (21:13)
[2016-09-14 05:41] LABS: Glucose,Whole Blood 90 mg/dL (75-99)
[2016-09-14 06:54] LABS: Anisocytosis Slight; Basophils % (A) 1 %; CH 25.6; CHCM 29.7; Eosinophils # (A) 0.2 k/uL (0-0.7); Eosinophils % (A) 2 %; HCT 24.8 % (34.0-46.0); HDW 4.17; HGB 7.6 gm/dL (11.4-16.0); Hypochromasia Marked; Luc # (Auto) 0.17; Luc % (Auto) 2; Lymphocytes # (A) 1.4 k/uL (1.0-4.8); Lymphocytes % (A) 18 %; MCH 26.7 pg (25.0-35.0); MCHC 30.8 g/dL (31.0-37.0); MCV 86.6 fL (80.0-100.0); Mean Platelet Volume 7.4; Monocytes # (A) 0.5 k/uL (0-1.0); Monocytes % (A) 7 %; Neutrophils # (A) 5.5 k/uL (1.3-7.7); Neutrophils % (A) 70 %; Poikilocytosis Moderate; RBC 2.87 m/uL (3.80-5.40); RDW 16.2 % (11.5-15.5); WBC 7.8 k/uL (3.8-10.6); WBC (Perox) 8.02
[2016-09-14 06:56] LABS: Calcium 8.8 mg/dL (8.4-10.2); Potassium 3.9 mmol/L (3.5-5.1); Total Bilirubin 0.7 mg/dL (0.2-1.3); Total Protein 6.1 g/dL (6.3-8.2)
[2016-09-14] MEDS: NITROGLYCERIN OINT 1 INCH/GM PACKET TOPICAL SCH ×2 (07:23→07:24)
[2016-09-14] MEDS: HEPARIN SODIUM,PORCINE 5,000 UNIT/ML 1 ML VIAL SQ SCH ×3 (07:32→22:26)
[2016-09-14] MEDS: NADOLOL 20 MG TAB PO SCH (07:33)
[2016-09-14] MEDS: PRASUGREL 10 MG TAB PO SCH (07:33)
[2016-09-14] MEDS: FUROSEMIDE 250 MG in SODIUM CHLORIDE 0.9% 225 ML IVP SCH ×2 (07:33→09:28)
[2016-09-14] MEDS: ASPIRIN 325 MG TAB PO SCH (07:33)
[2016-09-14] MEDS: SODIUM BICARBONATE TAB 650 MG TAB PO SCH ×4 (07:33→22:25)
[2016-09-14] MEDS: DOBUTamine DRIP 500 MG in DEXTROSE/WATER 1 250ML.BAG IV SCH (07:33)
[2016-09-14] MEDS: TIOTROPIUM 18 MCG/PUFF INHALER INHALATION SCH (07:54)
--- NOTE | 2016-09-14 09:25 | P.PN ---
Subjective This is an 81-year-old female seen in consultation because of cardiorenal syndrome, chronic kidney disease. She has severe heart failure, with 2+ edema, is on Lasix drip as well as dobutamine drip. She has responded somewhat with subjective improvement in her shortness of breath. Her appetite remains poor but slowly improving. She is able to sleep last night. Currently on exam she is sitting on her bed. Does have some dizziness on and off. A chest x-ray done on 09/13/2016 yesterday shows no significant change from previous chest x- ray. Her creatinine did improve though from 3.2-2.6 blood went up again to 2.8 this morning. She is known with COPD coronary artery disease diabetes hypertension, coronary artery bypass and coronary stents. Objective - Vital Signs Vital signs: Vital Signs Temp 97.4 F L 09/14/16 08:00 Pulse 62 09/14/16 04:00 Resp 18 09/14/16 08:00 BP 134/72 09/14/16 08:00 Pulse Ox 94 L 09/14/16 08:00 Intake & Output 09/13/16 09/14/16 09/14/16 18:59 06:59 18:59 Intake Total 663.65 333.019 460.952 Output Total 400 500 Balance 263.65 -166.981 460.952 Weight 67.6 kg Intake: IV 225 0.9 @10 90 DOBUTamine DRIP 500 mg In 45 Dextrose/Water 1 250ml. bag @ 2.5 MCG/KG/MIN 4.95 mls/hr IV .Q24H [facility] Rx#: [id number] Furosemide 250 mg In 90 Sodium Chloride 0.9% 225 ml @ 10 MG/HR 10 mls/hr IVP .Q24H [facility] Rx#: [id number] Intake, IV Titration 363.65 108.019 340.952 Amount DOBUTamine DRIP 500 mg In 148.65 108.019 115.452 Dextrose/Water 1 250ml. bag @ 2.5 MCG/KG/MIN 4.95 mls/hr IV .Q24H [facility]ONG Rx#: [id number] Furosemide 250 mg In 215 225.5 Sodium Chloride 0.9% 225 ml @ 10 MG/HR 10 mls/hr IVP .Q24H [facility] Rx#: [id number] Oral 300 120 Output: Urine 400 500 Other: Voiding Method Bedside Commode # Voids 1 Early on exam she is awake alert oriented continues to sit by the side of her bed. She is on nasal cannula oxygen. Her saturation 94% Orthostatic changes were not present with sitting blood pressure of 117/54 with heart rate of 61 and standing up was 122/83 with a heart rate of 57 although she did should complain off dizziness. HEENT exam JVP is elevated about 7-8 cm above her sternal angle. Lungs are clear to auscultation with fair air entry bilaterally no dullness to percussion Heart sounds are unremarkable no murmur rub gallop Abdomen soft nontender Extremity exam was 2+ edema Neurologically awake alert oriented warm to touch. No focal motor deficit but generalized weakness - Labs CBC & Chem 7: 09/14/16 06:14 09/14/16 06:10 Labs: Abnormal Lab Results - Last 24 Hours (Table) 09/13/16 09/13/16 09/13/16 Range/Units 11:57 16:58 20:30 RBC (3.80-5.40) m/uL Hgb (11.4-16.0) gm/dL Hct (34.0-46.0) % MCHC (31.0-37.0) g/dL RDW (11.5-15.5) % Chloride (98-107) mmol/L Carbon Dioxide (22-30) mmol/L BUN (7-17) mg/dL Creatinine (0.52-1.04) mg/dL POC Glucose (mg/dL) 144 H 163 H 254 H (75-99) mg/dL Total Protein (6.3-8.2) g/dL Albumin (3.5-5.0) g/dL 09/14/16 09/14/16 Range/Units 06:10 06:14 RBC 2.87 L (3.80-5.40) m/uL Hgb 7.6 L (11.4-16.0) gm/dL Hct 24.8 L (34.0-46.0) % MCHC 30.8 L (31.0-37.0) g/dL RDW 16.2 H (11.5-15.5) % Chloride 109 H (98-107) mmol/L Carbon Dioxide 17 L (22-30) mmol/L BUN 102 H* (7-17) mg/dL Creatinine 2.83 H (0.52-1.04) mg/dL POC Glucose (mg/dL) (75-99) mg/dL Total Protein 6.1 L (6.3-8.2) g/dL Albumin 3.2 L (3.5-5.0) g/dL Assessment and Plan Plan: Impression. 1. Acute kidney injury secondary to cardiorenal syndrome, responding to IV Lasix and dobutamine creatinine down from 3.2-2.6. Urine output is down from 1400 mL to 900 mL but it may not be an accurate collection. She does not have a Roy catheter. 2. Chronic kidney disease stage III, secondary to nephrosclerosis, baseline creatinine 1.3. No proteinuria to suggest diabetic nephropathy 3. History of diabetes, 4. Anemia of chronic kidney disease, hemoglobin is 6.9 > 7.8 > 7.6, will 5. Iron deficiency status post 1 dose of Ferrlecit 125 mg on 09/12/2016 r. 6. Significant edema 7. Gap and non-gap acidosis. Bicarb is 17 and gap is 18. Etiology is acute kidney injury. Recommendation. 1. Will continue the Lasix and dobutamine. 2. Continue sodium bicarb 650, 4 times a day 3. Monitor calcium phosphorus hemoglobin renal profile and potassium. 4. Strict I's and O's 5. Will add Zaroxolyn 10 mg daily 1 dose.
[2016-09-14] MEDS: SODIUM FERRIC GLUCONAT-SUCROSE 125 MG in SODIUM CHLORIDE 0.9% 100 ML IVPB SCH (09:26)
[2016-09-14] MEDS ORDERED: METOLAZONE 5 MG TAB PO SCH (09:30)
[2016-09-14 11:40] LABS: Glucose,Whole Blood 134 mg/dL (75-99)
[2016-09-14] MEDS ORDERED: METOLAZONE 5 MG TAB PO ONE (12:00)
[2016-09-14] MEDS: ISOSORBIDE MONONITRATE ER 60 MG TAB.ER.24H PO SCH (12:22)
[2016-09-14] MEDS: ATORVASTATIN 80 MG TAB PO SCH (12:22)
--- NOTE | 2016-09-14 15:44 | P.PN ---
Subjective 7-year-old female with chronic kidney disease comes in the hospital with acute onset difficulty breathing. Patient states that she was in good health over the weekend started to have some progressive worsening of dyspnea on september thereafter noted to have severe dyspnea this morning and hence came to the hospital for ongoing care Patient was noted to be in severe distress patient was noted to be in congestive heart failure patient was started on BiPAP at 12/5 a BiPAP over EPAP patient is currently on 50% of FiO2 Patient denies having any headaches blurry vision nausea vomiting chest pain. Patient does state to have orthopnea and PND Patient is currently using about 4 pillows Has significant amount of weight gain in her lower extremity is Or 3+ edema according to her 09/12/2016 Patient states that she is having a difficulty breathing at this time patient is sitting up in bed continues to be on BiPAP at this time requiring over 5 L of oxygen States that her breathing has gotten worse over the last 24 hours 09/13/2016 Patient is doing significantly better today Is on 5 L of supplemental oxygen however uses BiPAP intermittently Urine output has improved Status post 1 unit of PRBC Denies having fevers chills chest pain nausea vomiting or diarrhea at this time 09/14/2016 States to be doing slightly better no fevers chills nausea vomiting diarrhea. States her breathing is better however is anxious that she does not have access to BiPAP now Objective - Vital Signs Vital signs: Vital Signs Temp 97.4 F L 09/14/16 15:27 Pulse 65 09/14/16 15:27 Resp 20 09/14/16 15:29 BP 152/60 09/14/16 15:27 Pulse Ox 92 L 09/14/16 15:27 Intake & Output 09/13/16 09/14/16 09/14/16 18:59 06:59 18:59 Intake Total 663.65 333.019 720.119 Output Total 400 500 Balance 263.65 -166.981 720.119 Weight 67.6 kg Intake: IV 225 0.9 @10 90 DOBUTamine DRIP 500 mg In 45 Dextrose/Water 1 250ml. bag @ 2.5 MCG/KG/MIN 4.95 mls/hr IV .Q24H [facility] Rx#: [id number] Furosemide 250 mg In 90 Sodium Chloride 0.9% 225 ml @ 10 MG/HR 10 mls/hr IVP .Q24H [facility] Rx#: [id number] Intake, IV Titration 363.65 108.019 360.119 Amount DOBUTamine DRIP 500 mg In 148.65 108.019 115.452 Dextrose/Water 1 250ml. bag @ 2.5 MCG/KG/MIN 4.95 mls/hr IV .Q24H [facility] Rx#: [id number] Furosemide 250 mg In 215 244.667 Sodium Chloride 0.9% 225 ml @ 10 MG/HR 10 mls/hr IVP .Q24H [facility] Rx#: [id number] Oral 300 360 Output: Urine 400 500 Other: Voiding Method Bedside Commode # Voids 1 - Exam In appearance alert oriented 3 in mild respiratory distress Lungs air movement is noted crackles at the bases however improved from previous examinations no rhonchi noted Heart S1-S2 heard regular rate and rhythm no murmurs appreciated Abdomen is soft nontender organomegaly Neuro no focal motor or sensory deficits noted Lower extremities 3+ pitting edema noted bilaterally - Labs CBC & Chem 7: 09/14/16 06:14 09/14/16 06:10 Labs: Abnormal Lab Results - Last 24 Hours (Table) 09/13/16 09/13/16 09/14/16 Range/Units 16:58 20:30 06:10 RBC (3.80-5.40) m/uL Hgb (11.4-16.0) gm/dL Hct (34.0-46.0) % MCHC (31.0-37.0) g/dL RDW (11.5-15.5) % Chloride 109 H (98-107) mmol/L Carbon Dioxide 17 L (22-30) mmol/L BUN 102 H* (7-17) mg/dL Creatinine 2.83 H (0.52-1.04) mg/dL POC Glucose (mg/dL) 163 H 254 H (75-99) mg/dL Total Protein 6.1 L (6.3-8.2) g/dL Albumin 3.2 L (3.5-5.0) g/dL 09/14/16 09/14/16 Range/Units 06:14 11:21 RBC 2.87 L (3.80-5.40) m/uL Hgb 7.6 L (11.4-16.0) gm/dL Hct 24.8 L (34.0-46.0) % MCHC 30.8 L (31.0-37.0) g/dL RDW 16.2 H (11.5-15.5) % Chloride (98-107) mmol/L Carbon Dioxide (22-30) mmol/L BUN (7-17) mg/dL Creatinine (0.52-1.04) mg/dL POC Glucose (mg/dL) 134 H (75-99) mg/dL Total Protein (6.3-8.2) g/dL Albumin (3.5-5.0) g/dL Assessment and Plan Plan: #1 acute exacerbation of heart failure, diastolic in nature with valvular dysfunction #2 acute hypoxemic respiratory failure #3 severe iron deficiency anemia #4 non-anion gap metabolic acidosis #5 history of COPD #6 hypertension #7 diabetes most type II #8 Dyslipidemia #9 history of CAD status post PCI #10 moderate MR Plan Continue with Lasix drip and dobutamine A dose of Zaroxolyn was given DC dobutamine tomorrow? Renal function improved Telemetry monitoring Day 3 of IV iron status post 1 unit of PRBC BiPAP when necessary Supplement oxygen to be titrated down
[2016-09-14 16:41] LABS: Glucose,Whole Blood 195 mg/dL (75-99)
[2016-09-14 21:04] LABS: Glucose,Whole Blood 214 mg/dL (75-99)
[2016-09-14] MEDS: INSULIN GLARGINE 100 UNIT/ML 10 ML VIAL SQ SCH (22:24)
[2016-09-15 06:11] LABS: Glucose,Whole Blood 146 mg/dL (75-99)
[2016-09-15 06:56] LABS: Potassium 3.7 mmol/L (3.5-5.1); Total Bilirubin 0.6 mg/dL (0.2-1.3); Total Protein 5.9 g/dL (6.3-8.2)
[2016-09-15] MEDS: ATORVASTATIN 80 MG TAB PO SCH (08:31)
[2016-09-15] MEDS: PRASUGREL 10 MG TAB PO SCH (08:31)
[2016-09-15] MEDS: ISOSORBIDE MONONITRATE ER 60 MG TAB.ER.24H PO SCH (08:31)
[2016-09-15] MEDS: NADOLOL 20 MG TAB PO SCH (08:31)
[2016-09-15] MEDS: ASPIRIN 325 MG TAB PO SCH (08:31)
[2016-09-15] MEDS: HEPARIN SODIUM,PORCINE 5,000 UNIT/ML 1 ML VIAL SQ SCH ×2 (08:31→17:54)
[2016-09-15] MEDS: SODIUM BICARBONATE TAB 650 MG TAB PO SCH ×4 (08:32→22:09)
[2016-09-15] MEDS: TIOTROPIUM 18 MCG/PUFF INHALER INHALATION SCH (09:20)
[2016-09-15] MEDS: DOBUTamine DRIP 500 MG in DEXTROSE/WATER 1 250ML.BAG IV SCH (11:38)
[2016-09-15] MEDS: FUROSEMIDE 250 MG in SODIUM CHLORIDE 0.9% 225 ML IVP SCH (11:38)
[2016-09-15 11:39] LABS: Glucose,Whole Blood 147 mg/dL (75-99)
--- NOTE | 2016-09-15 12:19 | PN ---
The patient is seen for followup for acute kidney injury, mainly cardiorenal syndrome. She is maintained on dobutamine and Lasix drip. Her renal function is fairly stable with creatinine staying at about 2.8 mg/dL, which is the same as yesterday. Patient's urine output for 24 hours has been about 900 mL. She is on a Lasix drip at 10 mg an hour and dobutamine. She did receive Zaroxolyn 10 mg yesterday. The patient states that she has voided more since she received the Zaroxolyn. This patient she states her shortness of breath is perhaps slightly better. She still has significant dyspnea on exertion. No chest pains. No nausea, vomiting or abdominal pain. Patient is tolerating oral intake. On examination, blood pressure is 152/69, heart rate 60 per minute. She is afebrile. EXAMINATION OF THE HEART: S1 and S2. Systolic murmur is heard. EXAMINATION OF THE LUNGS: Bilateral breath sounds are heard with crackles in the bases. ABDOMEN: Soft, nontender. Examination of the lower extremities shows edema 1+ bilaterally. BUDGET REPORT CLERK exam is grossly intact. The patient is moving all 4 extremities. Labs show sodium 143, potassium 3.7, BUN 106, serum creatinine 2.8 mg/dL. ASSESSMENT: 1 Acute kidney injury, cardiorenal syndrome, currently maintained on Lasix, which I will continue. I will repeat another dose of Zaroxolyn today. 2. Diastolic dysfunction and heart failure. 3. Mitral regurgitation noted on echocardiogram. 4. Pulmonary hypertension and elevated right heart pressures. 5. Chronic kidney disease, secondary to nephrosclerosis and NKF stage III with previous creatinine about 1.3 mg/dL. 6. Anemia with hemoglobin 6.9 grams per deciliter, status post packed RBCs transfusion. No active bleeding noted at this time.There was significant iron deficiency noted with iron saturation only at 4.6% and patient is maintained on IV iron infusion. PLAN: Repeat Zaroxolyn. Continue with Lasix drip. Patient has been talked to regarding possible need for renal replacement therapy if her renal function continues to worsen and volume status does not improve. Repeat CBC today and transfuse packed RBCs if hemoglobin is lower. MTDD
--- NOTE | 2016-09-15 16:12 | P.PN ---
Subjective Principal diagnosis: CHF This is an 81-year-old female with known history of coronary artery disease and prior bypass surgery, prior cardiac stent placement, hypertension, hyperlipidemia, COPD, nicotine dependence, chronic renal failure, who was recently in the hospital in June of this year with an exacerbation of congestive cardiac failure. She presents to the hospital with symptoms of worsening shortness of breath. Chest x-ray on admission did reveal congestive cardiac failure. EKG shows a sinus bradycardia with nonspecific ST-T wave abnormalities. BNP level on admission 41,200. Patient was initiated on IV Lasix drip as well as dobutamine drip. She did diurese well through the night last night, and continues to put out good urine today. Creatinine show some improvement today, 2.6 today BUN 103, potassium 3.8. Hemoglobin 7.8. Patient does state that overall she is feeling much better. Continues to have a significant amount of peripheral edema. Chest x-ray repeated this morning reveals congestive heart failure with pulmonary vascular congestion and interstitial edema. 09/15/2016 Patient seen and examined this morning, urine output very marginal today. She was given 10 mg of Zaroxolyn yesterday. Potassium 3.7 today, BUN 106, creatinine 2.8. States that her breathing is mildly improved today, still quite short of breath. Dr. Zamora did have a lengthy discussion with the patient regarding the possible need for dialysis. Objective - Vital Signs Vital signs: Vital Signs Temp 97.9 F 09/15/16 15:25 Pulse 59 L 09/15/16 15:25 Resp 16 09/15/16 15:25 BP 166/70 09/15/16 15:25 Pulse Ox 94 L 09/15/16 15:25 Intake & Output 09/14/16 09/15/16 09/15/16 18:59 06:59 18:59 Intake Total 668.212 5828 Output Total 600 1000 Balance 840.119 -600 40 Weight 68.3 kg 68.3 kg Intake: Intake, IV Titration 360.119 500 Amount DOBUTamine DRIP 500 mg In 115.452 250 Dextrose/Water 1 250ml. bag @ 2.5 MCG/KG/MIN 4.95 mls/hr IV .Q24H [facility] Rx#: [id number] Furosemide 250 mg In 244.667 250 Sodium Chloride 0.9% 225 ml @ 10 MG/HR 10 mls/hr IVP .Q24H [facility] Rx#: [id number] Oral 480 540 Output: Urine 600 1000 Other: Voiding Method Bedside Commode # Voids 1 - Exam PHYSICAL EXAMINATION: HEENT: Head is atraumatic, normocephalic. Pupils equal, round. Neck is supple. There is elevated jugular venous pressure. HEART EXAMINATION: Heart S1 S2 1 systolic murmur is heard. CHEST EXAMINATION: Lungs reveal rales to bilateral bases with diminished air entry to the bases. ABDOMEN: Soft, nontender. Bowel sounds are heard. No organomegaly noted. EXTREMITIES: 2+ peripheral pulses with 2+ evidence of peripheral edema and no calf tenderness noted. NEUROLOGIC patient is awake, alert and oriented -3. . - Labs CBC & Chem 7: 09/14/16 06:14 09/15/16 06:13 Labs: Abnormal Lab Results - Last 24 Hours (Table) 09/12/16 09/14/16 09/14/16 Range/Units 09:07 16:36 20:59 Chloride (98-107) mmol/L Carbon Dioxide (22-30) mmol/L BUN (7-17) mg/dL Creatinine (0.52-1.04) mg/dL Glucose (74-99) mg/dL POC Glucose (mg/dL) 195 H 214 H (75-99) mg/dL AST (14-36) U/L Total Protein (6.3-8.2) g/dL Albumin (3.5-5.0) g/dL Crossmatch See Detail 09/15/16 09/15/16 09/15/16 Range/Units 06:10 06:13 11:37 Chloride 108 H (98-107) mmol/L Carbon Dioxide 20 L (22-30) mmol/L BUN 106 H* (7-17) mg/dL Creatinine 2.80 H (0.52-1.04) mg/dL Glucose 131 H (74-99) mg/dL POC Glucose (mg/dL) 146 H 147 H (75-99) mg/dL AST 12 L (14-36) U/L Total Protein 5.9 L (6.3-8.2) g/dL Albumin 3.2 L (3.5-5.0) g/dL Crossmatch Assessment and Plan Plan: Assessment and plan #1 diastolic congestive heart failure, acute on chronic #2 anemia #3 acute on chronic renal failure #4 hypertension # 5 diabetes #6 history of coronary artery disease with prior bypass and stent placements #7 hyperlipidemia #8 nicotine dependence #9 COPD Plan We will continue the patient on the Lasix drip along with the dobutamine drip. Continue to monitor accurate intake and output along with daily weights. DNP note has been reviewed, I agree with a documented findings and plan of care. Patient was seen and examined.
[2016-09-15 16:54] LABS: Glucose,Whole Blood 154 mg/dL (75-99)
--- NOTE | 2016-09-15 17:26 | PN ---
Mrs. Leon is an 81-year-old female who presented with symptoms of worsening dyspnea and renal failure. She continues to be quite dyspneic this morning. She denies any symptoms of chest discomfort. She continues to have significant peripheral edema. She has a history of coronary artery bypass grafting, percutaneous revascularization, hypertension, hyperlipidemia, and chronic obstructive lung disease. During this hospitalization she had an echocardiogram that showed a preserved systolic function with dilated inferior vena cava and severe pulmonary hypertension. She continues to be on IV dobutamine, IV Lasix drip, Corgard 20 mg daily, nitro paste, sodium bicarb and aspirin. PHYSICAL EXAMINATION: Blood pressure 134/70 with heart rate in the 60s. Lungs with mild crackles at the bases. Heart: S1, S2. No S3 with systolic murmur 2/6 heard at the base. No diastolic murmur. Abdomen is soft, nontender. Extremities : Bilateral 2 to 3+ edema. Lab data revealed a BUN and creatinine of 102 and 2.83. Potassium 3.9. Hemoglobin of 7.6. IMPRESSION: 1. Severe heart failure with preserved systolic function and evidence of cardiorenal syndrome. 2. History of coronary artery disease. 3. History of diabetes. 4. History of hyperlipidemia. 5. History of chronic obstructive heart disease. RECOMMENDATIONS: From the cardiac standpoint, I will re-initiate the treatment with Effient. Marilyn has received dose of Zaroxolyn today. Will continue the rest of her medical regimen. Probably will stop the dobutamine tomorrow and depending on her progress further recommendations will be made. The prognosis remains guarded. MTDD
--- NOTE | 2016-09-15 17:50 | P.PN ---
Subjective 7-year-old female with chronic kidney disease comes in the hospital with acute onset difficulty breathing. Patient states that she was in good health over the weekend started to have some progressive worsening of dyspnea on september thereafter noted to have severe dyspnea this morning and hence came to the hospital for ongoing care Patient was noted to be in severe distress patient was noted to be in congestive heart failure patient was started on BiPAP at 12/5 a BiPAP over EPAP patient is currently on 50% of FiO2 Patient denies having any headaches blurry vision nausea vomiting chest pain. Patient does state to have orthopnea and PND Patient is currently using about 4 pillows Has significant amount of weight gain in her lower extremity is Or 3+ edema according to her 09/12/2016 Patient states that she is having a difficulty breathing at this time patient is sitting up in bed continues to be on BiPAP at this time requiring over 5 L of oxygen States that her breathing has gotten worse over the last 24 hours 09/13/2016 Patient is doing significantly better today Is on 5 L of supplemental oxygen however uses BiPAP intermittently Urine output has improved Status post 1 unit of PRBC Denies having fevers chills chest pain nausea vomiting or diarrhea at this time 09/14/2016 States to be doing slightly better no fevers chills nausea vomiting diarrhea. States her breathing is better however is anxious that she does not have access to BiPAP now 09/15/2016 States to be feeling slightly better is currently maintained on 4 L supplement oxygen No fevers chills nausea vomiting or diarrhea is reported States to improvement in lower extremity edema. Objective - Vital Signs Vital signs: Vital Signs Temp 97.9 F 09/15/16 15:25 Pulse 59 L 09/15/16 16:00 Resp 16 09/15/16 16:00 BP 166/70 09/15/16 15:25 Pulse Ox 94 L 09/15/16 15:25 Intake & Output 09/14/16 09/15/16 09/15/16 18:59 06:59 18:59 Intake Total 678.465 0523 Output Total 600 1000 Balance 840.119 -600 40 Weight 68.3 kg 68.3 kg Intake: Intake, IV Titration 360.119 500 Amount DOBUTamine DRIP 500 mg In 115.452 250 Dextrose/Water 1 250ml. bag @ 2.5 MCG/KG/MIN 4.95 mls/hr IV .Q24H [facility] Rx#: [id number] Furosemide 250 mg In 244.667 250 Sodium Chloride 0.9% 225 ml @ 10 MG/HR 10 mls/hr IVP .Q24H [facility] Rx#: [id number] Oral 480 540 Output: Urine 600 1000 Other: Voiding Method Bedside Commode # Voids 1 - Exam In appearance alert oriented 3 in mild respiratory distress Lungs air movement is noted crackles at the bases however improved from previous examinations no rhonchi noted Heart S1-S2 heard regular rate and rhythm no murmurs appreciated Abdomen is soft nontender organomegaly Neuro no focal motor or sensory deficits noted Lower extremities 2+ pitting edema noted bilaterally - Labs CBC & Chem 7: 09/14/16 06:14 09/15/16 06:13 Labs: Abnormal Lab Results - Last 24 Hours (Table) 09/12/16 09/14/16 09/15/16 Range/Units 09:07 20:59 06:10 Chloride (98-107) mmol/L Carbon Dioxide (22-30) mmol/L BUN (7-17) mg/dL Creatinine (0.52-1.04) mg/dL Glucose (74-99) mg/dL POC Glucose (mg/dL) 214 H 146 H (75-99) mg/dL AST (14-36) U/L Total Protein (6.3-8.2) g/dL Albumin (3.5-5.0) g/dL Crossmatch See Detail 09/15/16 09/15/16 09/15/16 Range/Units 06:13 11:37 16:49 Chloride 108 H (98-107) mmol/L Carbon Dioxide 20 L (22-30) mmol/L BUN 106 H* (7-17) mg/dL Creatinine 2.80 H (0.52-1.04) mg/dL Glucose 131 H (74-99) mg/dL POC Glucose (mg/dL) 147 H 154 H (75-99) mg/dL AST 12 L (14-36) U/L Total Protein 5.9 L (6.3-8.2) g/dL Albumin 3.2 L (3.5-5.0) g/dL Crossmatch Assessment and Plan Plan: #1 acute exacerbation of heart failure, diastolic in nature with valvular dysfunction #2 acute hypoxemic respiratory failure #3 severe iron deficiency anemia #4 non-anion gap metabolic acidosis #5 history of COPD #6 hypertension #7 diabetes most type II #8 Dyslipidemia #9 history of CAD status post PCI #10 moderate MR Plan Continue with Lasix drip discontinue dobutamine continue with Zaroxolyn This with nephrology as well in regards to possibility of ultrafiltration Strict I's and O's Continue monitoring labs in a.m.
[2016-09-15] MEDS: METOLAZONE 5 MG TAB PO SCH (17:53)
[2016-09-15 21:06] LABS: Glucose,Whole Blood 173 mg/dL (75-99)
[2016-09-15] MEDS: INSULIN GLARGINE 100 UNIT/ML 10 ML VIAL SQ SCH (22:16)
[2016-09-15] MEDS: IPRATROPIUM-ALBUTEROL 3 ML NEB INHALATION SCH (23:56)
[2016-09-16] MEDS: HEPARIN SODIUM,PORCINE 5,000 UNIT/ML 1 ML VIAL SQ SCH ×3 (00:13→18:03)
[2016-09-16] MEDS: IPRATROPIUM-ALBUTEROL 3 ML NEB INHALATION SCH ×5 (03:28→20:50)
[2016-09-16] MEDS: IPRATROPIUM-ALBUTEROL 3 ML NEB INHALATION PRN ×2 (05:54→22:51)
[2016-09-16 06:33] LABS: Glucose,Whole Blood 72 mg/dL (75-99)
[2016-09-16 06:43] LABS: Anisocytosis Slight; Basophils % (A) 0 %; CH 26.3; CHCM 30.9; Eosinophils # (A) 0.2 k/uL (0-0.7); Eosinophils % (A) 3 %; HCT 25.2 % (34.0-46.0); HDW 4.09; HGB 7.7 gm/dL (11.4-16.0); Hypochromasia Marked; Luc # (Auto) 0.16; Luc % (Auto) 2; Lymphocytes # (A) 1.5 k/uL (1.0-4.8); Lymphocytes % (A) 22 %; MCH 26.2 pg (25.0-35.0); MCHC 30.7 g/dL (31.0-37.0); MCV 85.3 fL (80.0-100.0); Monocytes # (A) 0.6 k/uL (0-1.0); Monocytes % (A) 8 %; Neutrophils # (A) 4.5 k/uL (1.3-7.7); Neutrophils % (A) 65 %; Poikilocytosis Moderate; RBC 2.96 m/uL (3.80-5.40); WBC 6.9 k/uL (3.8-10.6); WBC (Perox) 6.85
[2016-09-16 07:01] LABS: Calcium 9.1 mg/dL (8.4-10.2); Potassium 3.5 mmol/L (3.5-5.1); Total Bilirubin 0.5 mg/dL (0.2-1.3); Total Protein 5.9 g/dL (6.3-8.2)
[2016-09-16] MEDS: ISOSORBIDE MONONITRATE ER 60 MG TAB.ER.24H PO SCH (07:49)
[2016-09-16] MEDS: ATORVASTATIN 80 MG TAB PO SCH (07:50)
[2016-09-16] MEDS: ASPIRIN 81 MG CHEW PO SCH (07:50)
[2016-09-16] MEDS: SYMBICORT 160-4.5 MCG INHALER INHALATION SCH ×3 (07:50→21:09)
[2016-09-16] MEDS: PRASUGREL 10 MG TAB PO SCH (07:51)
[2016-09-16] MEDS: NADOLOL 20 MG TAB PO SCH (07:51)
[2016-09-16] MEDS: METOLAZONE 5 MG TAB PO SCH (07:51)
[2016-09-16] MEDS: SODIUM BICARBONATE TAB 650 MG TAB PO SCH ×4 (07:52→21:33)
--- NOTE | 2016-09-16 07:59 | XR ---
EXAMINATION TYPE: XR chest 1V portable DATE OF EXAM: 09/16/2016 CLINICAL HISTORY: Difficulty breathing and CHF progress study. TECHNIQUE: Single AP portable frontal view of the chest is obtained. COMPARISON: Chest x-ray from 3 days earlier FINDINGS: Sternal wires and mediastinal clips are redemonstrated. There is stable mild cardiomegaly. There is suspected coronary stent graft in the proximal left circumflex on current study unchanged b e new from prior. There are reticular interstitial changes bilaterally with bibasilar opacity felt to reflect infiltrat e and/or atelectasis and probable small bilateral pleural effusions. Findings stable versus prior. Os seous structures are demineralized. IMPRESSION: Overall stable findings, interstitial changes likely reflect combination of chronic fib rosis and acute edema with persistent small bilateral pleural effusions and bibasilar infiltrate and/ or atelectasis all redemonstrated.
[2016-09-16] MEDS: TIOTROPIUM 18 MCG/PUFF INHALER INHALATION SCH ×2 (08:06→08:47)
--- NOTE | 2016-09-16 11:53 | P.PN ---
Subjective Principal diagnosis: CHF This is an 81-year-old female with known history of coronary artery disease and prior bypass surgery, prior cardiac stent placement, hypertension, hyperlipidemia, COPD, nicotine dependence, chronic renal failure, who was recently in the hospital in June of this year with an exacerbation of congestive cardiac failure. She presents to the hospital with symptoms of worsening shortness of breath. Chest x-ray on admission did reveal congestive cardiac failure. EKG shows a sinus bradycardia with nonspecific ST-T wave abnormalities. BNP level on admission 41,200. Patient was initiated on IV Lasix drip as well as dobutamine drip. She did diurese well through the night last night, and continues to put out good urine today. Creatinine show some improvement today, 2.6 today BUN 103, potassium 3.8. Hemoglobin 7.8. Patient does state that overall she is feeling much better. Continues to have a significant amount of peripheral edema. Chest x-ray repeated this morning reveals congestive heart failure with pulmonary vascular congestion and interstitial edema. 09/15/2016 Patient seen and examined this morning, urine output very marginal today. She was given 10 mg of Zaroxolyn yesterday. Potassium 3.7 today, BUN 106, creatinine 2.8. States that her breathing is mildly improved today, still quite short of breath. Dr. Zamora did have a lengthy discussion with the patient regarding the possible need for dialysis. 09/16/2016. Patient seen and examined this morning, urinary protein is very marginal. Patient does feel more short of breath today.BUN 105, creatinine 3.1 , hemoglobin 7.7. Patient has been advised that she may need to undergo dialysis. Objective - Vital Signs Vital signs: Vital Signs Temp 97.6 F 09/16/16 10:07 Pulse 56 L 09/16/16 10:07 Resp 20 09/16/16 10:07 BP 140/62 09/16/16 10:07 Pulse Ox 90 L 09/16/16 10:07 Intake & Output 09/15/16 09/16/16 09/16/16 18:59 06:59 18:59 Intake Total 1040 280 120 Output Total 1000 500 Balance 40 -220 120 Weight 68.3 kg 69.4 kg 69.4 kg Intake: IV 160 0.9 @10 80 Furosemide 250 mg In 80 Sodium Chloride 0.9% 225 ml @ 10 MG/HR 10 mls/hr IVP .Q24H [facility] Rx#: [id number] Intake, IV Titration 500 Amount DOBUTamine DRIP 500 mg In 250 Dextrose/Water 1 250ml. bag @ 2.5 MCG/KG/MIN 4.95 mls/hr IV .Q24H [facility] Rx#: [id number] Furosemide 250 mg In 250 Sodium Chloride 0.9% 225 ml @ 10 MG/HR 10 mls/hr IVP .Q24H [facility] Rx#: [id number] Oral 540 120 120 Output: Urine 1000 500 Other: Voiding Method Bedside Commode Bedside Commode # Voids 1 1 - Exam PHYSICAL EXAMINATION: HEENT: Head is atraumatic, normocephalic. Pupils equal, round. Neck is supple. There is elevated jugular venous pressure. HEART EXAMINATION: Heart S1 S2 1 systolic murmur is heard. CHEST EXAMINATION: Lungs reveal rales to bilateral bases with diminished air entry to the bases. ABDOMEN: Soft, nontender. Bowel sounds are heard. No organomegaly noted. EXTREMITIES: 2+ peripheral pulses with 2+ evidence of peripheral edema and no calf tenderness noted. NEUROLOGIC patient is awake, alert and oriented -3. . - Labs CBC & Chem 7: 09/16/16 06:03 09/16/16 06:03 Labs: Abnormal Lab Results - Last 24 Hours (Table) 09/15/16 09/15/16 09/16/16 Range/Units 16:49 21:05 05:59 RBC (3.80-5.40) m/uL Hgb (11.4-16.0) gm/dL Hct (34.0-46.0) % MCHC (31.0-37.0) g/dL RDW (11.5-15.5) % Carbon Dioxide (22-30) mmol/L BUN (7-17) mg/dL Creatinine (0.52-1.04) mg/dL Glucose (74-99) mg/dL POC Glucose (mg/dL) 154 H 173 H 72 L (75-99) mg/dL AST (14-36) U/L Total Protein (6.3-8.2) g/dL Albumin (3.5-5.0) g/dL 09/16/16 09/16/16 Range/Units 06:03 06:03 RBC 2.96 L (3.80-5.40) m/uL Hgb 7.7 L (11.4-16.0) gm/dL Hct 25.2 L (34.0-46.0) % MCHC 30.7 L (31.0-37.0) g/dL RDW 18.0 H (11.5-15.5) % Carbon Dioxide 20 L (22-30) mmol/L BUN 105 H* (7-17) mg/dL Creatinine 3.10 H (0.52-1.04) mg/dL Glucose 63 L (74-99) mg/dL POC Glucose (mg/dL) (75-99) mg/dL AST 12 L (14-36) U/L Total Protein 5.9 L (6.3-8.2) g/dL Albumin 3.2 L (3.5-5.0) g/dL Assessment and Plan Plan: Assessment and plan #1 diastolic congestive heart failure, acute on chronic #2 anemia #3 acute on chronic renal failure #4 hypertension # 5 diabetes #6 history of coronary artery disease with prior bypass and stent placements #7 hyperlipidemia #8 nicotine dependence #9 COPD Plan We will continue the patient on the Lasix drip along with the dobutamine drip. Continue to monitor accurate intake and output along with daily weights.patient may benefit from dialysis, we'll continue to follow. DNP note has been reviewed, I agree with a documented findings and plan of care. Patient was seen and examined.
[2016-09-16 12:00] LABS: Glucose,Whole Blood 121 mg/dL (75-99)
--- NOTE | 2016-09-16 15:42 | P.PN ---
Subjective 7-year-old female with chronic kidney disease comes in the hospital with acute onset difficulty breathing. Patient states that she was in good health over the weekend started to have some progressive worsening of dyspnea on september thereafter noted to have severe dyspnea this morning and hence came to the hospital for ongoing care Patient was noted to be in severe distress patient was noted to be in congestive heart failure patient was started on BiPAP at 12/5 a BiPAP over EPAP patient is currently on 50% of FiO2 Patient denies having any headaches blurry vision nausea vomiting chest pain. Patient does state to have orthopnea and PND Patient is currently using about 4 pillows Has significant amount of weight gain in her lower extremity is Or 3+ edema according to her 09/12/2016 Patient states that she is having a difficulty breathing at this time patient is sitting up in bed continues to be on BiPAP at this time requiring over 5 L of oxygen States that her breathing has gotten worse over the last 24 hours 09/13/2016 Patient is doing significantly better today Is on 5 L of supplemental oxygen however uses BiPAP intermittently Urine output has improved Status post 1 unit of PRBC Denies having fevers chills chest pain nausea vomiting or diarrhea at this time 09/14/2016 States to be doing slightly better no fevers chills nausea vomiting diarrhea. States her breathing is better however is anxious that she does not have access to BiPAP now 09/15/2016 States to be feeling slightly better is currently maintained on 4 L supplement oxygen No fevers chills nausea vomiting or diarrhea is reported States to improvement in lower extremity edema. 09/16/2016 Patient states to be feeling better. Currently on 4 L supplement oxygen. However is not able to lay flat No fevers chills nausea vomiting or diarrhea is reported States that there is improvement in her lower extremity edema Objective - Vital Signs Vital signs: Vital Signs Temp 97.9 F 09/16/16 15:25 Pulse 59 L 09/16/16 15:25 Resp 17 09/16/16 15:25 BP 144/65 09/16/16 15:25 Pulse Ox 94 L 09/16/16 15:25 Intake & Output 09/15/16 09/16/16 09/16/16 18:59 06:59 18:59 Intake Total 1040 280 360 Output Total 1000 500 600 Balance 40 -220 -240 Weight 68.3 kg 69.4 kg 69.4 kg Intake: IV 160 0.9 @10 80 Furosemide 250 mg In 80 Sodium Chloride 0.9% 225 ml @ 10 MG/HR 10 mls/hr IVP .Q24H [facility] Rx#: [id number] Intake, IV Titration 500 Amount DOBUTamine DRIP 500 mg In 250 Dextrose/Water 1 250ml. bag @ 2.5 MCG/KG/MIN 4.95 mls/hr IV .Q24H [facility] Rx#: [id number] Furosemide 250 mg In 250 Sodium Chloride 0.9% 225 ml @ 10 MG/HR 10 mls/hr IVP .Q24H [facility] Rx#: [id number] Oral 540 120 360 Output: Urine 1000 500 600 Other: Voiding Method Bedside Commode Bedside Commode # Voids 1 1 1 - Exam In appearance alert oriented 3 in mild respiratory distress Lungs air movement is noted crackles at the bases however improved from previous examinations no rhonchi noted Heart S1-S2 heard regular rate and rhythm no murmurs appreciated Abdomen is soft nontender organomegaly Neuro no focal motor or sensory deficits noted Lower extremities 2+ pitting edema noted bilaterally - Labs CBC & Chem 7: 09/16/16 06:03 09/16/16 06:03 Labs: Abnormal Lab Results - Last 24 Hours (Table) 09/15/16 09/15/16 09/16/16 Range/Units 16:49 21:05 05:59 RBC (3.80-5.40) m/uL Hgb (11.4-16.0) gm/dL Hct (34.0-46.0) % MCHC (31.0-37.0) g/dL RDW (11.5-15.5) % Carbon Dioxide (22-30) mmol/L BUN (7-17) mg/dL Creatinine (0.52-1.04) mg/dL Glucose (74-99) mg/dL POC Glucose (mg/dL) 154 H 173 H 72 L (75-99) mg/dL AST (14-36) U/L Total Protein (6.3-8.2) g/dL Albumin (3.5-5.0) g/dL 09/16/16 09/16/16 09/16/16 Range/Units 06:03 06:03 11:48 RBC 2.96 L (3.80-5.40) m/uL Hgb 7.7 L (11.4-16.0) gm/dL Hct 25.2 L (34.0-46.0) % MCHC 30.7 L (31.0-37.0) g/dL RDW 18.0 H (11.5-15.5) % Carbon Dioxide 20 L (22-30) mmol/L BUN 105 H* (7-17) mg/dL Creatinine 3.10 H (0.52-1.04) mg/dL Glucose 63 L (74-99) mg/dL POC Glucose (mg/dL) 121 H (75-99) mg/dL AST 12 L (14-36) U/L Total Protein 5.9 L (6.3-8.2) g/dL Albumin 3.2 L (3.5-5.0) g/dL Assessment and Plan Plan: #1 acute exacerbation of heart failure, diastolic in nature with valvular dysfunction #2 acute hypoxemic respiratory failure #3 severe iron deficiency anemia #4 non-anion gap metabolic acidosis #5 history of COPD #6 hypertension #7 diabetes most type II #8 Dyslipidemia #9 history of CAD status post PCI #10 moderate MR Plan Renal functions slightly worsen. However patient has reasonable amount of urine output Clinically slightly improved Chest x-ray today is noted continues to have pulmonary edema underlying fibrosis is noted We'll obtain a computed tomography scan of the chest without contrast Continue ongoing care with Zaroxolyn. Over the next 24 hours hopefully patient will improve and ultrafiltration could be prevented
[2016-09-16 16:07] LABS: Glucose,Whole Blood 213 mg/dL (75-99)
--- NOTE | 2016-09-16 17:47 | CT ---
EXAMINATION TYPE: CT chest wo con DATE OF EXAM: 09/16/2016 COMPARISON: Chest x-ray same date HISTORY: SOB and difficulty breathing. CT DLP: 284.9 mGycm. Automated Exposure Control for Dose Reduction was Utilized. TECHNIQUE: CT scan of the thorax is performed without IV contrast. FINDINGS: LUNGS: There are bilateral pleural effusions present. Interstitium is increased bilaterally, groundgl ass opacity compatible with alveolitis, pulmonary edema present bilaterally. Calcifications at the lo wer right lung compatible with old granulomatous disease. Lower lung air bronchograms are present. MEDIASTINUM: Lack of IV contrast is noted. Heart is enlarged. There are coronary artery calcification s. Aortic root calcification is present. Pulmonary arteries prominent, there may be pulmonary artery hypertension. Retrocaval pretracheal lymph node is enlarged, subcarinal calcified nodes, right hilar calcified nodes are present. Patient is post median sternotomy, coronary artery bypass graft noted. No cardiomegaly or pericardial effusion is seen. OTHER: Bilateral adrenal hyperplasia is noted. Calcifications are present within the spleen. Left kid monica is atrophic. Pancreatic calcifications may be due to chronic pancreatitis. Abdominal aorta is dil ated at approximately 5 cm. Is incompletely evaluated. There is a scoliotic curvature of the spine. D egenerative disc disease present within the spine. IMPRESSION: Findings compatible with patient's chest x-ray, congestive heart failure with bilateral p leural effusions. Postop changes. Old granulomatous disease. Abdominal aortic aneurysm. Bilateral adr enal hyperplasia suspected. Additional findings above.
[2016-09-16] MEDS: FUROSEMIDE 250 MG in SODIUM CHLORIDE 0.9% 225 ML IVP SCH ×2 (18:02→18:03)
--- NOTE | 2016-09-16 18:06 | PN ---
Patient is seen for followup for acute kidney injury, mainly cardiorenal. Patient remains on dobutamine and Lasix drip at 10 mg/hour. We added Zaroxolyn at 10 mg daily. Patient states she is feeling slightly better; however, her weight has not changed much for the last 3 days. Patient's serum creatinine is at 3.1 today from 2.8 yesterday. I had discussed dialysis with her, and at this time she would like to wait at least another 1 to 2 days prior to making that decision. On examination today, blood pressure is 144/65, heart rate 59 per minute. She is afebrile. EXAMINATION OF THE HEART: S1 and S2. EXAMINATION OF LUNGS: Bilateral breath sounds are heard. Abdomen is soft, non-tender. Examination of lower extremities shows edema 1+ bilaterally. 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 Patient is moving all 4 extremities. Labs show sodium 143, potassium 3.5, BUN 105, serum creatinine 3.1. Hemoglobin 7.7 grams/dL. ASSESSMENT: 1. Acute kidney injury, cardiorenal, currently non-oliguric with slight elevation in creatinine from yesterday, which is up to 3.1 from 2.8 yesterday. I have discussed with the patient regarding renal replacement therapy, and at this time she states that she would like to wait another 24 hours prior to making that decision. Patient does say that her shortness of breath is slightly better. We will continue with the Lasix drip and the Zaroxolyn at 10 mg daily. 2. Anemia with severe iron deficiency, maintained on IV iron, status post one unit packed RBC transfusion. No active bleeding noted at this time. 3. Pulmonary hypertension and elevated right heart pressures. 4. Chronic kidney disease, stage III, with previous creatinine about 1.3 mg/dL secondary to nephrosclerosis. PLAN: Continue current diuretics. Repeat labs in a.m. Possible dialysis tomorrow. [facility]
[2016-09-16 21:02] LABS: Glucose,Whole Blood 212 mg/dL (75-99)
[2016-09-16] MEDS: INSULIN GLARGINE 100 UNIT/ML 10 ML VIAL SQ SCH (21:32)
[2016-09-17] MEDS: HEPARIN SODIUM,PORCINE 5,000 UNIT/ML 1 ML VIAL SQ SCH ×3 (01:05→17:32)
[2016-09-17] MEDS: IPRATROPIUM-ALBUTEROL 3 ML NEB INHALATION PRN ×2 (03:26→23:12)
[2016-09-17 06:27] LABS: Glucose,Whole Blood 128 mg/dL (75-99)
[2016-09-17 06:38] LABS: Anisocytosis Slight; Basophils % (A) 0 %; CH 26.2; Eosinophils # (A) 0.2 k/uL (0-0.7); Eosinophils % (A) 2 %; HCT 24.6 % (34.0-46.0); HDW 3.99; HGB 7.8 gm/dL (11.4-16.0); Hypochromasia Marked; Luc # (Auto) 0.13; Luc % (Auto) 2; Lymphocytes # (A) 1.2 k/uL (1.0-4.8); Lymphocytes % (A) 21 %; MCH 26.8 pg (25.0-35.0); MCHC 31.6 g/dL (31.0-37.0); MCV 84.8 fL (80.0-100.0); Mean Platelet Volume 7.3; Monocytes # (A) 0.5 k/uL (0-1.0); Monocytes % (A) 8 %; Neutrophils % (A) 66 %; Poikilocytosis Slight; RDW 18.2 % (11.5-15.5); WBC (Perox) 5.82
[2016-09-17 06:47] LABS: Calcium 9.1 mg/dL (8.4-10.2); Potassium 3.5 mmol/L (3.5-5.1); Total Bilirubin 0.6 mg/dL (0.2-1.3); Total Protein 5.8 g/dL (6.3-8.2)
[2016-09-17] MEDS: IPRATROPIUM-ALBUTEROL 3 ML NEB INHALATION SCH ×4 (08:26→20:03)
[2016-09-17] MEDS: SYMBICORT 160-4.5 MCG INHALER INHALATION SCH ×5 (08:27→20:03)
[2016-09-17] MEDS: ASPIRIN 81 MG CHEW PO SCH (08:37)
[2016-09-17] MEDS: ATORVASTATIN 80 MG TAB PO SCH (08:37)
[2016-09-17] MEDS: ISOSORBIDE MONONITRATE ER 60 MG TAB.ER.24H PO SCH (08:37)
[2016-09-17] MEDS: NADOLOL 20 MG TAB PO SCH (08:38)
[2016-09-17] MEDS: METOLAZONE 5 MG TAB PO SCH (08:38)
[2016-09-17] MEDS: PRASUGREL 10 MG TAB PO SCH (08:38)
[2016-09-17] MEDS: SODIUM BICARBONATE TAB 650 MG TAB PO SCH ×4 (08:39→21:10)
[2016-09-17] MEDS: TIOTROPIUM 18 MCG/PUFF INHALER INHALATION SCH ×2 (08:46→08:52)
[2016-09-17 11:35] LABS: Glucose,Whole Blood 132 mg/dL (75-99)
[2016-09-17] MEDS: FUROSEMIDE 250 MG in SODIUM CHLORIDE 0.9% 225 ML IVP SCH (12:00)
--- NOTE | 2016-09-17 14:07 | P.PN ---
Subjective Principal diagnosis: CHF This is an 81-year-old female with known history of coronary artery disease and prior bypass surgery, prior cardiac stent placement, hypertension, hyperlipidemia, COPD, nicotine dependence, chronic renal failure, who was recently in the hospital in June of this year with an exacerbation of congestive cardiac failure. She presents to the hospital with symptoms of worsening shortness of breath. Chest x-ray on admission did reveal congestive cardiac failure. EKG shows a sinus bradycardia with nonspecific ST-T wave abnormalities. BNP level on admission 41,200. Patient was initiated on IV Lasix drip as well as dobutamine drip. She did diurese well through the night last night, and continues to put out good urine today. Creatinine show some improvement today, 2.6 today BUN 103, potassium 3.8. Hemoglobin 7.8. Patient does state that overall she is feeling much better. Continues to have a significant amount of peripheral edema. Chest x-ray repeated this morning reveals congestive heart failure with pulmonary vascular congestion and interstitial edema. 09/15/2016 Patient seen and examined this morning, urine output very marginal today. She was given 10 mg of Zaroxolyn yesterday. Potassium 3.7 today, BUN 106, creatinine 2.8. States that her breathing is mildly improved today, still quite short of breath. Dr. Zamora did have a lengthy discussion with the patient regarding the possible need for dialysis. 09/16/2016. Patient seen and examined this morning, urinary protein is very marginal. Patient does feel more short of breath today.BUN 105, creatinine 3.1 , hemoglobin 7.7. Patient has been advised that she may need to undergo dialysis. 09/17/2016. Patient seen and examined this morning, feeling significantly better today. Urine output has increased significantly, BUN today 105, creatinine 2.7, hemoglobin 7.8. Continues to be on a Lasix drip. Objective - Vital Signs Vital signs: Vital Signs Temp 97.3 F L 09/17/16 12:00 Pulse 68 09/17/16 12:01 Resp 20 09/17/16 12:00 BP 138/61 09/17/16 12:00 Pulse Ox 93 L 09/17/16 12:00 Intake & Output 09/16/16 09/17/16 09/17/16 18:59 06:59 18:59 Intake Total 730.167 70.167 1024 Output Total 600 600 300 Balance 130.167 -529.833 724 Weight 69.4 kg 69.2 kg Intake: IV 80 0.9 @10 80 Intake, IV Titration 250.167 70.167 164 Amount Furosemide 250 mg In 250.167 70.167 164 Sodium Chloride 0.9% 225 ml @ 15 MG/HR 15 mls/hr IVP .[id number] [facility] Rx#: [id number] Oral 480 780 Output: Urine 600 600 300 Other: Voiding Method Bedside Commode # Voids 1 1 1 - Labs CBC & Chem 7: 09/17/16 06:18 09/17/16 06:17 Labs: Abnormal Lab Results - Last 24 Hours (Table) 09/16/16 09/16/16 09/17/16 Range/Units 15:55 20:49 06:17 RBC (3.80-5.40) m/uL Hgb (11.4-16.0) gm/dL Hct (34.0-46.0) % RDW (11.5-15.5) % Carbon Dioxide 21 L (22-30) mmol/L BUN 105 H* (7-17) mg/dL Creatinine 2.70 H (0.52-1.04) mg/dL Glucose 112 H (74-99) mg/dL POC Glucose (mg/dL) 213 H 212 H (75-99) mg/dL AST 12 L (14-36) U/L Total Protein 5.8 L (6.3-8.2) g/dL Albumin 3.2 L (3.5-5.0) g/dL 09/17/16 09/17/16 09/17/16 Range/Units 06:18 06:26 11:29 RBC 2.90 L (3.80-5.40) m/uL Hgb 7.8 L (11.4-16.0) gm/dL Hct 24.6 L (34.0-46.0) % RDW 18.2 H (11.5-15.5) % Carbon Dioxide (22-30) mmol/L BUN (7-17) mg/dL Creatinine (0.52-1.04) mg/dL Glucose (74-99) mg/dL POC Glucose (mg/dL) 128 H 132 H (75-99) mg/dL AST (14-36) U/L Total Protein (6.3-8.2) g/dL Albumin (3.5-5.0) g/dL Assessment and Plan Plan: Assessment and plan #1 diastolic congestive heart failure, acute on chronic #2 anemia #3 acute on chronic renal failure #4 hypertension # 5 diabetes #6 history of coronary artery disease with prior bypass and stent placements #7 hyperlipidemia #8 nicotine dependence #9 COPD Plan We will continue the patient on the Lasix drip.. Continue to monitor accurate intake and output along with daily weights. DNP note has been reviewed, I agree with a documented findings and plan of care. Patient was seen and examined.
--- NOTE | 2016-09-17 14:16 | PN ---
DATE OF SERVICE: 09/17/2016 Patient is seen for followup for acute kidney injury, mainly cardiorenal syndrome. Currently, she is maintained on dobutamine ( ) along with Zaroxolyn at 10 mg per day. We have discussed dialysis and patient wanted to wait another 24 hours prior to starting renal replacement therapy; however, responding her creatinine is down to 2.7 from 3.1 yesterday and she has made a lot of urine. We have about 1500 mL over 24 hours. Patient overall states she is feeling better. Therefore, I have advised her that we will continue to monitor for now. On examination, currently blood pressure is 142/58, heart rate is 77 per minute. She is afebrile. Examination of the heart, S1, S2. Examination of the lungs, bilateral breath sounds are heard. Abdomen is soft, nontender. Exam of the lower extremities shows edema 2+ bilaterally. 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 Patient moving all 4 extremities. Labs show sodium 142, potassium 3.5, BUN 105, serum creatinine 2.7, hemoglobin 7.8 g/dL. ASSESSMENT: 1. Acute kidney injury, cardiorenal, currently stable with some improvement in serum creatinine. Patient also has good ( ). Will continue the current regimen for now and hold off on dialysis and will leave Antivert again tomorrow. 2. Fluid overload and congestive heart failure with CAT scan showing evidence of interstitial edema. Continue current regimen and again if there is no further improvement in her overall condition and renal function, she will need to start renal replacement therapy. Hopefully, this will be just a temporary measure. 3. Anemia with no active bleeding noted. Status post RBC transfusion. Patient was also found to be severely iron deficient and has IV iron as well. 4. Diastolic dysfunction with echocardiogram done on 09/12/2016 showing ejection fraction 50% to 55%. 5. Severely dilated left atrium. 6. Severe pulmonary hypertension. PLAN: Continue the Zaroxolyn along with the Lasix drip. Repeat labs in a.m. Evaluate for need for dialysis tomorrow. [facility]
--- NOTE | 2016-09-17 16:06 | P.PN ---
Subjective 7-year-old female with chronic kidney disease comes in the hospital with acute onset difficulty breathing. Patient states that she was in good health over the weekend started to have some progressive worsening of dyspnea on september thereafter noted to have severe dyspnea this morning and hence came to the hospital for ongoing care Patient was noted to be in severe distress patient was noted to be in congestive heart failure patient was started on BiPAP at 12/5 a BiPAP over EPAP patient is currently on 50% of FiO2 Patient denies having any headaches blurry vision nausea vomiting chest pain. Patient does state to have orthopnea and PND Patient is currently using about 4 pillows Has significant amount of weight gain in her lower extremity is Or 3+ edema according to her 09/12/2016 Patient states that she is having a difficulty breathing at this time patient is sitting up in bed continues to be on BiPAP at this time requiring over 5 L of oxygen States that her breathing has gotten worse over the last 24 hours 09/13/2016 Patient is doing significantly better today Is on 5 L of supplemental oxygen however uses BiPAP intermittently Urine output has improved Status post 1 unit of PRBC Denies having fevers chills chest pain nausea vomiting or diarrhea at this time 09/14/2016 States to be doing slightly better no fevers chills nausea vomiting diarrhea. States her breathing is better however is anxious that she does not have access to BiPAP now 09/15/2016 States to be feeling slightly better is currently maintained on 4 L supplement oxygen No fevers chills nausea vomiting or diarrhea is reported States to improvement in lower extremity edema. 09/16/2016 Patient states to be feeling better. Currently on 4 L supplement oxygen. However is not able to lay flat No fevers chills nausea vomiting or diarrhea is reported States that there is improvement in her lower extremity edema 03/20/2016 Patient is doing significantly better Was able to lay down. States that she is able to breathe better at rest her lower extremity edema is improved Chest pain diarrhea abdominal pain nausea vomiting headaches are reported Objective - Vital Signs Vital signs: Vital Signs Temp 97.3 F L 09/17/16 12:00 Pulse 68 09/17/16 12:01 Resp 20 09/17/16 12:00 BP 138/61 09/17/16 12:00 Pulse Ox 93 L 09/17/16 12:00 Intake & Output 09/16/16 09/17/16 09/17/16 18:59 06:59 18:59 Intake Total 730.167 70.167 1024 Output Total 600 600 300 Balance 130.167 -529.833 724 Weight 69.4 kg 69.2 kg Intake: IV 80 0.9 @10 80 Intake, IV Titration 250.167 70.167 164 Amount Furosemide 250 mg In 250.167 70.167 164 Sodium Chloride 0.9% 225 ml @ 15 MG/HR 15 mls/hr IVP .[id number] [facility] Rx#: [id number] Oral 480 780 Output: Urine 600 600 300 Other: Voiding Method Bedside Commode # Voids 1 1 1 - Exam In appearance alert oriented 3 in mild respiratory distress Lungs air movement is noted crackles at the bases however improved from previous examinations no rhonchi noted Heart S1-S2 heard regular rate and rhythm no murmurs appreciated Abdomen is soft nontender organomegaly Neuro no focal motor or sensory deficits noted Lower extremities 2+ pitting edema noted bilaterally improved - Labs CBC & Chem 7: 09/17/16 06:18 09/17/16 06:17 Labs: Abnormal Lab Results - Last 24 Hours (Table) 09/16/16 09/16/16 09/17/16 Range/Units 15:55 20:49 06:17 RBC (3.80-5.40) m/uL Hgb (11.4-16.0) gm/dL Hct (34.0-46.0) % RDW (11.5-15.5) % Carbon Dioxide 21 L (22-30) mmol/L BUN 105 H* (7-17) mg/dL Creatinine 2.70 H (0.52-1.04) mg/dL Glucose 112 H (74-99) mg/dL POC Glucose (mg/dL) 213 H 212 H (75-99) mg/dL AST 12 L (14-36) U/L Total Protein 5.8 L (6.3-8.2) g/dL Albumin 3.2 L (3.5-5.0) g/dL 09/17/16 09/17/16 09/17/16 Range/Units 06:18 06:26 11:29 RBC 2.90 L (3.80-5.40) m/uL Hgb 7.8 L (11.4-16.0) gm/dL Hct 24.6 L (34.0-46.0) % RDW 18.2 H (11.5-15.5) % Carbon Dioxide (22-30) mmol/L BUN (7-17) mg/dL Creatinine (0.52-1.04) mg/dL Glucose (74-99) mg/dL POC Glucose (mg/dL) 128 H 132 H (75-99) mg/dL AST (14-36) U/L Total Protein (6.3-8.2) g/dL Albumin (3.5-5.0) g/dL Assessment and Plan Plan: #1 acute exacerbation of heart failure, diastolic in nature with valvular dysfunction #2 acute hypoxemic respiratory failure #3 severe iron deficiency anemia #4 non-anion gap metabolic acidosis #5 history of COPD #6 hypertension #7 diabetes most type II #8 Dyslipidemia #9 history of CAD status post PCI #10 moderate MR Plan Urine output is significantly better Continue with 15 mg per hour on the Lasix drip Renal functions also improved Hopefully the next 24 hours could be changed over to a intermittent infusion of Lasix Encourage ambulation Titrate down oxygen as tolerated
[2016-09-17 16:46] LABS: Glucose,Whole Blood 190 mg/dL (75-99)
[2016-09-17 20:35] LABS: Glucose,Whole Blood 193 mg/dL (75-99)
[2016-09-17] MEDS: INSULIN GLARGINE 100 UNIT/ML 10 ML VIAL SQ SCH (21:10)
[2016-09-18] MEDS: IPRATROPIUM-ALBUTEROL 3 ML NEB INHALATION PRN ×2 (02:53→22:50)
[2016-09-18] MEDS: HEPARIN SODIUM,PORCINE 5,000 UNIT/ML 1 ML VIAL SQ SCH ×3 (04:12→15:46)
[2016-09-18 05:58] LABS: Glucose,Whole Blood 132 mg/dL (75-99)
[2016-09-18 06:37] LABS: Anisocytosis Slight; Basophils % (A) 1 %; CH 26.3; CHCM 31.2; Eosinophils # (A) 0.3 k/uL (0-0.7); Eosinophils % (A) 4 %; HCT 24.1 % (34.0-46.0); HDW 3.96; HGB 7.6 gm/dL (11.4-16.0); Hypochromasia Marked; Luc # (Auto) 0.15; Luc % (Auto) 3; Lymphocytes # (A) 1.5 k/uL (1.0-4.8); Lymphocytes % (A) 24 %; MCH 26.6 pg (25.0-35.0); MCHC 31.5 g/dL (31.0-37.0); MCV 84.4 fL (80.0-100.0); Mean Platelet Volume 8.2; Monocytes # (A) 0.6 k/uL (0-1.0); Monocytes % (A) 10 %; Neutrophils # (A) 3.6 k/uL (1.3-7.7); Neutrophils % (A) 59 %; Poikilocytosis Slight; RBC 2.86 m/uL (3.80-5.40); RDW 18.7 % (11.5-15.5); WBC 6.1 k/uL (3.8-10.6); WBC (Perox) 5.94
[2016-09-18 07:00] LABS: Calcium 8.6 mg/dL (8.4-10.2); Potassium 3.2 mmol/L (3.5-5.1); Total Bilirubin 0.7 mg/dL (0.2-1.3)
[2016-09-18] MEDS: IPRATROPIUM-ALBUTEROL 3 ML NEB INHALATION SCH ×4 (07:59→18:59)
[2016-09-18] MEDS: TIOTROPIUM 18 MCG/PUFF INHALER INHALATION SCH (07:59)
[2016-09-18] MEDS ORDERED: POTASSIUM CHLORIDE ER 20 MEQ TAB.ER PO STA (09:19)
--- NOTE | 2016-09-18 09:25 | P.PN ---
Subjective Patient is seen in follow-up for acute kidney injury. Her creatinine peaked at 3.2 this admission and is down to 2.5 today. She is currently maintained on Lasix drip at 15 mL an hour as well as metolazone. She is noted to have diastolic CHF with severe pulmonary hypertension. States her edema and dyspnea are both improved. Admits to good urine output. Her weight is trending down. Urine output in the last 24 hours is documented as 1.2 L. Not sure how accurate this is as she does not have a Roy catheter. No vomiting or diarrhea. Vital signs are stable. General: The patient appeared well nourished and normally developed. HEENT: Head exam is unremarkable. Neck is without jugular venous distension. LUNGS: Lungs are clear to auscultation and percussion. Breath sounds decreased. HEART: Rate and Rhythm are regular. First and second heart sounds normal. No murmurs, rubs or gallops. ABDOMEN: Abdominal exam reveals normal bowel sounds. Non-tender and non- distended. No evidence of peritonitis. EXTREMITITES: 2+ edema. Objective - Vital Signs Vital signs: Vital Signs Temp 97.2 F L 09/18/16 04:00 Pulse 80 09/18/16 08:11 Resp 18 09/18/16 04:00 BP 138/61 09/18/16 04:00 Pulse Ox 98 09/18/16 04:00 Intake & Output 09/17/16 09/18/16 09/18/16 18:59 06:59 18:59 Intake Total 1264 Output Total 300 Balance 964 Weight 68.7 kg Intake: IV 80 0.9 @10 80 Intake, IV Titration 164 Amount Furosemide 250 mg In 164 Sodium Chloride 0.9% 225 ml @ 15 MG/HR 15 mls/hr IVP .[id number] [facility] Rx#: [id number] Oral 1020 Output: Urine 300 Other: # Voids 1 400 - Labs CBC & Chem 7: 09/18/16 06:04 09/18/16 06:04 Labs: Abnormal Lab Results - Last 24 Hours (Table) 09/17/16 09/17/16 09/17/16 Range/Units 11:29 16:43 20:31 RBC (3.80-5.40) m/uL Hgb (11.4-16.0) gm/dL Hct (34.0-46.0) % RDW (11.5-15.5) % Potassium (3.5-5.1) mmol/L BUN (7-17) mg/dL Creatinine (0.52-1.04) mg/dL Glucose (74-99) mg/dL POC Glucose (mg/dL) 132 H 190 H 193 H (75-99) mg/dL AST (14-36) U/L Total Protein (6.3-8.2) g/dL Albumin (3.5-5.0) g/dL 09/18/16 09/18/16 09/18/16 Range/Units 05:56 06:04 06:04 RBC 2.86 L (3.80-5.40) m/uL Hgb 7.6 L (11.4-16.0) gm/dL Hct 24.1 L (34.0-46.0) % RDW 18.7 H (11.5-15.5) % Potassium 3.2 L (3.5-5.1) mmol/L BUN 102 H* (7-17) mg/dL Creatinine 2.50 H (0.52-1.04) mg/dL Glucose 113 H (74-99) mg/dL POC Glucose (mg/dL) 132 H (75-99) mg/dL AST 11 L (14-36) U/L Total Protein 6.0 L (6.3-8.2) g/dL Albumin 3.2 L (3.5-5.0) g/dL Assessment and Plan Plan: Assessment: #1. Nonoliguric acute kidney injury secondary to cardiorenal syndrome. Creatinine down to 2.5 today. #2. Diastolic CHF. Decompensated. #3. Volume overload. Improving. Weight trending down. #4. Acute anemia. s/p pRBC transfusion this admission and IV iron. #5. Metabolic acidosis secondary to acute kidney injury. Improved. #6. Insulin-dependent diabetes mellitus. #7. Chronic kidney disease stage III with baseline creatinine near 1.3. Etiology is cardiorenal syndrome. #8. Hypokalemia due to diuresis. Rule out mg deficiency. Plan: Continue Lasix drip at 15 mL an hour. Cardiology following. Dobutamine has been discontinued. Low-salt and 1200 mL fluid restricted diet. Continue oral sodium bicarbonate 650 mg twice daily. Daily weights. Replace potassium - 40 meq today. Check Mg level. Patient refusing renal replacement therapy at this time and wants to continue with diuretics only for now.
[2016-09-18] MEDS: SODIUM BICARBONATE TAB 650 MG TAB PO SCH ×4 (09:34→21:50)
[2016-09-18] MEDS: NADOLOL 20 MG TAB PO SCH (09:35)
[2016-09-18] MEDS: PRASUGREL 10 MG TAB PO SCH (09:35)
[2016-09-18] MEDS: ISOSORBIDE MONONITRATE ER 60 MG TAB.ER.24H PO SCH (09:35)
[2016-09-18] MEDS: METOLAZONE 5 MG TAB PO SCH (09:35)
[2016-09-18] MEDS: ASPIRIN 81 MG CHEW PO SCH (09:35)
[2016-09-18] MEDS: ATORVASTATIN 80 MG TAB PO SCH (09:36)
--- NOTE | 2016-09-18 11:07 | P.PN ---
Subjective Principal diagnosis: CHF This is an 81-year-old female with known history of coronary artery disease and prior bypass surgery, prior cardiac stent placement, hypertension, hyperlipidemia, COPD, nicotine dependence, chronic renal failure, who was recently in the hospital in June of this year with an exacerbation of congestive cardiac failure. She presents to the hospital with symptoms of worsening shortness of breath. Chest x-ray on admission did reveal congestive cardiac failure. EKG shows a sinus bradycardia with nonspecific ST-T wave abnormalities. BNP level on admission 41,200. Patient was initiated on IV Lasix drip as well as dobutamine drip. She did diurese well through the night last night, and continues to put out good urine today. Creatinine show some improvement today, 2.6 today BUN 103, potassium 3.8. Hemoglobin 7.8. Patient does state that overall she is feeling much better. Continues to have a significant amount of peripheral edema. Chest x-ray repeated this morning reveals congestive heart failure with pulmonary vascular congestion and interstitial edema. 09/15/2016 Patient seen and examined this morning, urine output very marginal today. She was given 10 mg of Zaroxolyn yesterday. Potassium 3.7 today, BUN 106, creatinine 2.8. States that her breathing is mildly improved today, still quite short of breath. Dr. Zamora did have a lengthy discussion with the patient regarding the possible need for dialysis. 09/16/2016. Patient seen and examined this morning, urinary protein is very marginal. Patient does feel more short of breath today.BUN 105, creatinine 3.1 , hemoglobin 7.7. Patient has been advised that she may need to undergo dialysis. 09/17/2016. Patient seen and examined this morning, feeling significantly better today. Urine output has increased significantly, BUN today 105, creatinine 2.7, hemoglobin 7.8. Continues to be on a Lasix drip. 09/18/2016 patient seen and examined this morning, slept well last night, feeling better overall today. Continues to have good urine output. Her weight today is down 1 kg. Blood pressure 138/60 with a heart rate in the 50s to 60s. Hemoglobin 7.6, BUN 102, creatinine 2.5, potassium 3.2. Objective - Vital Signs Vital signs: Vital Signs Temp 97.2 F L 09/18/16 04:00 Pulse 80 09/18/16 08:11 Resp 18 09/18/16 04:00 BP 138/61 09/18/16 04:00 Pulse Ox 98 09/18/16 04:00 Intake & Output 09/17/16 09/18/16 09/18/16 18:59 06:59 18:59 Intake Total 1264 Output Total 300 Balance 964 Weight 68.7 kg Intake: IV 80 0.9 @10 80 Intake, IV Titration 164 Amount Furosemide 250 mg In 164 Sodium Chloride 0.9% 225 ml @ 15 MG/HR 15 mls/hr IVP .[id number] [facility] Rx#: [id number] Oral 1020 Output: Urine 300 Other: # Voids 1 400 - Exam PHYSICAL EXAMINATION: HEENT: Head is atraumatic, normocephalic. Pupils equal, round. Neck is supple. There is elevated jugular venous pressure. HEART EXAMINATION: Heart S1 S2 1 systolic murmur is heard. CHEST EXAMINATION: Lungs reveal fine rales to bilateral bases with improvement air entry to the bases. ABDOMEN: Soft, nontender. Bowel sounds are heard. No organomegaly noted. EXTREMITIES: 2+ peripheral pulses with 1+ evidence of peripheral edema and no calf tenderness noted. NEUROLOGIC patient is awake, alert and oriented -3. . - Labs CBC & Chem 7: 09/18/16 06:04 09/18/16 06:04 Labs: Abnormal Lab Results - Last 24 Hours (Table) 09/17/16 09/17/16 09/17/16 Range/Units 11:29 16:43 20:31 RBC (3.80-5.40) m/uL Hgb (11.4-16.0) gm/dL Hct (34.0-46.0) % RDW (11.5-15.5) % Potassium (3.5-5.1) mmol/L BUN (7-17) mg/dL Creatinine (0.52-1.04) mg/dL Glucose (74-99) mg/dL POC Glucose (mg/dL) 132 H 190 H 193 H (75-99) mg/dL AST (14-36) U/L Total Protein (6.3-8.2) g/dL Albumin (3.5-5.0) g/dL 09/18/16 09/18/16 09/18/16 Range/Units 05:56 06:04 06:04 RBC 2.86 L (3.80-5.40) m/uL Hgb 7.6 L (11.4-16.0) gm/dL Hct 24.1 L (34.0-46.0) % RDW 18.7 H (11.5-15.5) % Potassium 3.2 L (3.5-5.1) mmol/L BUN 102 H* (7-17) mg/dL Creatinine 2.50 H (0.52-1.04) mg/dL Glucose 113 H (74-99) mg/dL POC Glucose (mg/dL) 132 H (75-99) mg/dL AST 11 L (14-36) U/L Total Protein 6.0 L (6.3-8.2) g/dL Albumin 3.2 L (3.5-5.0) g/dL Assessment and Plan Plan: Assessment and plan #1 diastolic congestive heart failure, acute on chronic #2 anemia #3 acute on chronic renal failure #4 hypertension # 5 diabetes #6 history of coronary artery disease with prior bypass and stent placements #7 hyperlipidemia #8 nicotine dependence #9 COPD Plan From cardiology's perspective, we will follow this patient with you now on an as -needed basis only, diuresis as per nephrology. We will make a follow-up appointment in the office post discharge. DNP note has been reviewed, I agree with a documented findings and plan of care. Patient was seen and examined.
[2016-09-18 11:49] LABS: Glucose,Whole Blood 202 mg/dL (75-99)
--- NOTE | 2016-09-18 15:56 | P.PN ---
Subjective 7-year-old female with chronic kidney disease comes in the hospital with acute onset difficulty breathing. Patient states that she was in good health over the weekend started to have some progressive worsening of dyspnea on september thereafter noted to have severe dyspnea this morning and hence came to the hospital for ongoing care Patient was noted to be in severe distress patient was noted to be in congestive heart failure patient was started on BiPAP at 12/5 a BiPAP over EPAP patient is currently on 50% of FiO2 Patient denies having any headaches blurry vision nausea vomiting chest pain. Patient does state to have orthopnea and PND Patient is currently using about 4 pillows Has significant amount of weight gain in her lower extremity is Or 3+ edema according to her 09/12/2016 Patient states that she is having a difficulty breathing at this time patient is sitting up in bed continues to be on BiPAP at this time requiring over 5 L of oxygen States that her breathing has gotten worse over the last 24 hours 09/13/2016 Patient is doing significantly better today Is on 5 L of supplemental oxygen however uses BiPAP intermittently Urine output has improved Status post 1 unit of PRBC Denies having fevers chills chest pain nausea vomiting or diarrhea at this time 09/14/2016 States to be doing slightly better no fevers chills nausea vomiting diarrhea. States her breathing is better however is anxious that she does not have access to BiPAP now 09/15/2016 States to be feeling slightly better is currently maintained on 4 L supplement oxygen No fevers chills nausea vomiting or diarrhea is reported States to improvement in lower extremity edema. 09/16/2016 Patient states to be feeling better. Currently on 4 L supplement oxygen. However is not able to lay flat No fevers chills nausea vomiting or diarrhea is reported States that there is improvement in her lower extremity edema 03/20/2016 Patient is doing significantly better Was able to lay down. States that she is able to breathe better at rest her lower extremity edema is improved Chest pain diarrhea abdominal pain nausea vomiting headaches are reported 09/18/2016 Patient is doing better Was able to relate Our states to be weak Denies having fevers chills nausea vomiting or diarrhea Objective - Vital Signs Vital signs: Vital Signs Temp 97.6 F 09/18/16 12:00 Pulse 72 09/18/16 15:23 Resp 18 09/18/16 12:00 BP 138/64 09/18/16 12:00 Pulse Ox 93 L 09/18/16 12:00 Intake & Output 09/17/16 09/18/16 09/18/16 18:59 06:59 18:59 Intake Total 1264 180 Output Total 300 1000 Balance 964 -820 Weight 68.7 kg Intake: IV 80 0.9 @10 80 Intake, IV Titration 164 Amount Furosemide 250 mg In 164 Sodium Chloride 0.9% 225 ml @ 15 MG/HR 15 mls/hr IVP .[id number] [id number] Rx#: [id number] Oral 1020 180 Output: Urine 300 1000 Other: # Voids 1 400 - Exam In appearance alert oriented 3 in mild respiratory distress Lungs air movement is noted no significant crackles no rhonchi noted Heart S1-S2 heard regular rate and rhythm no murmurs appreciated Abdomen is soft nontender organomegaly Neuro no focal motor or sensory deficits noted Lower extremities 2+ pitting edema noted bilaterally improved - Labs CBC & Chem 7: 09/18/16 06:04 09/18/16 06:04 Labs: Abnormal Lab Results - Last 24 Hours (Table) 09/17/16 09/17/16 09/18/16 Range/Units 16:43 20:31 05:56 RBC (3.80-5.40) m/uL Hgb (11.4-16.0) gm/dL Hct (34.0-46.0) % RDW (11.5-15.5) % Potassium (3.5-5.1) mmol/L BUN (7-17) mg/dL Creatinine (0.52-1.04) mg/dL Glucose (74-99) mg/dL POC Glucose (mg/dL) 190 H 193 H 132 H (75-99) mg/dL AST (14-36) U/L Total Protein (6.3-8.2) g/dL Albumin (3.5-5.0) g/dL 09/18/16 09/18/16 09/18/16 Range/Units 06:04 06:04 11:45 RBC 2.86 L (3.80-5.40) m/uL Hgb 7.6 L (11.4-16.0) gm/dL Hct 24.1 L (34.0-46.0) % RDW 18.7 H (11.5-15.5) % Potassium 3.2 L (3.5-5.1) mmol/L BUN 102 H* (7-17) mg/dL Creatinine 2.50 H (0.52-1.04) mg/dL Glucose 113 H (74-99) mg/dL POC Glucose (mg/dL) 202 H (75-99) mg/dL AST 11 L (14-36) U/L Total Protein 6.0 L (6.3-8.2) g/dL Albumin 3.2 L (3.5-5.0) g/dL Assessment and Plan Plan: #1 acute exacerbation of heart failure, diastolic in nature with valvular dysfunction #2 acute hypoxemic respiratory failure #3 severe iron deficiency anemia #4 non-anion gap metabolic acidosis #5 history of COPD #6 hypertension #7 diabetes most type II #8 Dyslipidemia #9 history of CAD status post PCI #10 moderate MR Plan Urine output is significantly better Continue with 15 mg per hour on the Lasix drip PT/OT Encourage ambulation Titrate down oxygen as tolerated
[2016-09-18 17:32] LABS: Glucose,Whole Blood 167 mg/dL (75-99)
[2016-09-18] MEDS: SYMBICORT 160-4.5 MCG INHALER INHALATION SCH (18:58)
[2016-09-18] MEDS: FUROSEMIDE 250 MG in SODIUM CHLORIDE 0.9% 225 ML IVP SCH ×4 (20:02→20:09)
[2016-09-18 21:51] LABS: Glucose,Whole Blood 204 mg/dL (75-99)
[2016-09-18] MEDS: INSULIN GLARGINE 100 UNIT/ML 10 ML VIAL SQ SCH (21:56)
[2016-09-19] MEDS: HEPARIN SODIUM,PORCINE 5,000 UNIT/ML 1 ML VIAL SQ SCH ×4 (00:22→23:29)
[2016-09-19] MEDS: IPRATROPIUM-ALBUTEROL 3 ML NEB INHALATION PRN (02:50)
[2016-09-19 06:27] LABS: Glucose,Whole Blood 131 mg/dL (75-99)
[2016-09-19 06:33] LABS: Calcium 8.5 mg/dL (8.4-10.2); Magnesium 1.9 mg/dL (1.6-2.3); Potassium 3.1 mmol/L (3.5-5.1)
[2016-09-19] MEDS ORDERED: POTASSIUM CHLORIDE ER 20 MEQ TAB.ER PO STA (06:40)
--- NOTE | 2016-09-19 07:45 | PN ---
Patient is seen for followup for acute kidney injury, mainly cardiorenal which has been improving slowly. There was consideration for dialysis at one time; however, her renal function continues to improve. She is maintained on Lasix drip and dobutamine. Weight has also decreased now by about 1 kg. On examination, blood pressure is 143/58, heart rate 62 per minute, patient is afebrile. Examination of the heart, S1, S2. Examination of the lungs, bilateral breath sounds are heard. Abdomen is soft, nontender. Examination of the lower extremities shows edema 2+ bilaterally. REGIONAL ENGAGEMENT CONSULTANT exam is grossly intact. Labs show sodium 144, potassium 3.1 from this morning. Serum creatinine 2.45. BUN at 108. ASSESSMENT: 1. Acute kidney injury, cardiorenal, currently slowing improving. Continue with the Lasix drip which is now at 15 mg/h along with the dobutamine. 2. Hypokalemia secondary to diuretics. Will replace. 3. Diastolic heart failure. PLAN: Replace potassium and continue with current diuretic regimen with Lasix drip and Zaroxolyn. Repeat labs in a.m. MTDD
[2016-09-19] MEDS: ASPIRIN 81 MG CHEW PO SCH (07:49)
[2016-09-19] MEDS: ISOSORBIDE MONONITRATE ER 60 MG TAB.ER.24H PO SCH (07:49)
[2016-09-19] MEDS: METOLAZONE 5 MG TAB PO SCH (07:49)
[2016-09-19] MEDS: ATORVASTATIN 80 MG TAB PO SCH (07:49)
[2016-09-19] MEDS: NADOLOL 20 MG TAB PO SCH (07:50)
[2016-09-19] MEDS: SODIUM BICARBONATE TAB 650 MG TAB PO SCH ×4 (07:50→20:17)
[2016-09-19] MEDS: PRASUGREL 10 MG TAB PO SCH (07:50)
[2016-09-19] MEDS: IPRATROPIUM-ALBUTEROL 3 ML NEB INHALATION SCH ×4 (08:18→20:38)
[2016-09-19] MEDS: TIOTROPIUM 18 MCG/PUFF INHALER INHALATION SCH (08:20)
[2016-09-19] MEDS: SYMBICORT 160-4.5 MCG INHALER INHALATION SCH ×2 (08:20→20:38)
[2016-09-19 12:13] LABS: Glucose,Whole Blood 151 mg/dL (75-99)
[2016-09-19] MEDS: FUROSEMIDE 250 MG in SODIUM CHLORIDE 0.9% 225 ML IVP SCH (16:14)
[2016-09-19 17:11] LABS: Glucose,Whole Blood 196 mg/dL (75-99)
[2016-09-19] MEDS: POTASSIUM CHLORIDE ER 20 MEQ TAB.ER PO SCH (20:17)
[2016-09-19 20:45] LABS: Glucose,Whole Blood 243 mg/dL (75-99)
[2016-09-19] MEDS: INSULIN GLARGINE 100 UNIT/ML 10 ML VIAL SQ SCH (20:54)
[2016-09-20] MEDS: IPRATROPIUM-ALBUTEROL 3 ML NEB INHALATION PRN ×3 (00:37→23:22)
[2016-09-20] MEDS: FUROSEMIDE 250 MG in SODIUM CHLORIDE 0.9% 225 ML IVP SCH ×3 (04:55→20:15)
[2016-09-20 05:52] LABS: Glucose,Whole Blood 127 mg/dL (75-99)
[2016-09-20 06:46] LABS: Anisocytosis Slight; Basophils % (A) 1 %; CH 26.6; CHCM 30.3; Eosinophils # (A) 0.2 k/uL (0-0.7); Eosinophils % (A) 4 %; HCT 26.9 % (34.0-46.0); HDW 3.83; HGB 8.1 gm/dL (11.4-16.0); Hypochromasia Marked; Luc # (Auto) 0.16; Luc % (Auto) 2; Lymphocytes # (A) 1.4 k/uL (1.0-4.8); Lymphocytes % (A) 20 %; MCH 26.3 pg (25.0-35.0); MCV 87.9 fL (80.0-100.0); Mean Platelet Volume 8.8; Monocytes # (A) 0.7 k/uL (0-1.0); Monocytes % (A) 10 %; Neutrophils # (A) 4.2 k/uL (1.3-7.7); Neutrophils % (A) 63 %; Poikilocytosis Slight; RBC 3.06 m/uL (3.80-5.40); RDW 18.6 % (11.5-15.5); WBC 6.7 k/uL (3.8-10.6); WBC (Perox) 6.92
[2016-09-20 07:12] LABS: Calcium 8.9 mg/dL (8.4-10.2); Potassium 3.4 mmol/L (3.5-5.1)
--- NOTE | 2016-09-20 07:34 | PN ---
DATE OF SERVICE: 09/19/2016 CLINICAL HISTORY: Ms. Baker is an 81-year-old female with known history of chronic kidney disease, admitted to the hospital with worsening short of breath and leg swelling. Patient noted to be in severe distress with congestive heart failure and was on BiPAP machine. Currently, patient is saturating well on nasal cannula. Otherwise, patient is still having bilateral lower extremity swelling. Currently, patient is on IV Lasix drip and Nephrology is following this patient as well. Patient, otherwise denied any complaints of chest pain or short of breath. No nausea, vomiting. REVIEW OF SYSTEMS: No fever, no chills, No abdominal pain. No nausea, vomiting. No headache, dizziness or lightheadedness. All other review of systems negative except above. Current medications include: DuoNeb, aspirin, Lipitor, Symbicort, Lasix, heparin subQ, Lantus, Humalog, Imdur, metolazone, Nadolol, potassium chloride, prasugrel, sodium bicarbonate and saline flush. PHYSICAL EXAMINATION: An 81-year-old female, sitting in a chair, awake, alert and oriented x3. Appears to be in no apparent distress. VITALS: Blood pressure is 150/76, pulse is 63, respirations 18, temperature afebrile, pulse ox 94% on 3 L of nasal cannula. HEENT: Atraumatic, normocephalic. Neck is supple, no JVD. CVS exam S1, S2 heard. No murmurs, no rub. LUNGS: Bilateral air entry is present. Decreased breath sounds basally. Nonlabored breathing. Abdomen is soft, nontender. Bowel sounds are heard. HEAD SULFIDE OPERATOR: Awake, alert, oriented x3. Able to move all her extremities. EXTREMITIES: Bilateral lower extremity 3+ edema, pitting type. Pulses palpable. SKIN: No rash or skin lesions. LABORATORY DATA: Sodium 141, potassium 3.1, chloride 1.02, bicarb is 27, BUN 108, creatinine 2.45, magnesium 1.9. IMPRESSION: 1. Acute exacerbation on congestive heart failure with diastolic dysfunction with valvular dysfunction. 2. Acute hypoxic respiratory failure on admission. Was on BiPAP machine. 3. Acute on chronic Kidney disease-4, possible cardiorenal, currently on IV Lasix drip. 4. Severe iron-deficiency anemia. 5. Non-anion gap metabolic acidosis currently on bicarb tablets. 6. History of chronic obstructive pulmonary disease. 7. Hypertension. 8. Diabetes type 2. 9. Hyperlipidemia. 10. History of coronary artery disease, status post PCI. 11. Moderate mitral regurgitation. DISCUSSION AND PLAN: Patient will be continued on IV Lasix drip. Monitor INR and continue with the current management. Continue with the PT, OT. Patient is still having orthopnea. Will continue with the current management including oxygen therapy and titrate down to room air. Will follow closely. Further recommendations based on the clinical course. MTDD
[2016-09-20] MEDS: IPRATROPIUM-ALBUTEROL 3 ML NEB INHALATION SCH ×4 (08:15→19:45)
[2016-09-20] MEDS: SYMBICORT 160-4.5 MCG INHALER INHALATION SCH ×2 (08:16→19:44)
[2016-09-20] MEDS: NADOLOL 20 MG TAB PO SCH (09:11)
[2016-09-20] MEDS: METOLAZONE 5 MG TAB PO SCH (09:11)
[2016-09-20] MEDS: ASPIRIN 81 MG CHEW PO SCH (09:11)
[2016-09-20] MEDS: ATORVASTATIN 80 MG TAB PO SCH (09:11)
[2016-09-20] MEDS: ISOSORBIDE MONONITRATE ER 60 MG TAB.ER.24H PO SCH (09:11)
[2016-09-20] MEDS: HEPARIN SODIUM,PORCINE 5,000 UNIT/ML 1 ML VIAL SQ SCH ×3 (09:12→23:43)
[2016-09-20] MEDS: PRASUGREL 10 MG TAB PO SCH (09:12)
[2016-09-20] MEDS: POTASSIUM CHLORIDE ER 20 MEQ TAB.ER PO SCH ×2 (09:12→21:49)
--- NOTE | 2016-09-20 09:34 | P.PN ---
Subjective Patient is seen in follow-up for acute kidney injury. Her creatinine peaked at 3.2 this admission and is down to 2.4 today. She is currently maintained on Lasix drip at 15 mL an hour as well as metolazone. Dobutamine has been discontinued. She is noted to have diastolic CHF with severe pulmonary hypertension. States her edema and dyspnea are both improved. Admits to good urine output. Urine output in the last 24 hours is documented as 1.3 L. Not sure how accurate this is as she does not have a Roy catheter and the nurse isn't sure about this either. No vomiting or diarrhea. Vital signs are stable. General: The patient appeared well nourished and normally developed. HEENT: Head exam is unremarkable. Neck is without jugular venous distension. LUNGS: Lungs are clear to auscultation and percussion. Breath sounds decreased. HEART: Rate and Rhythm are regular. First and second heart sounds normal. No murmurs, rubs or gallops. ABDOMEN: Abdominal exam reveals normal bowel sounds. Non-tender and non- distended. No evidence of peritonitis. EXTREMITITES: 2+ edema. Objective - Vital Signs Vital signs: Vital Signs Temp 96.8 F L 09/20/16 04:00 Pulse 62 09/20/16 08:27 Resp 18 09/20/16 04:00 BP 156/72 09/20/16 04:00 Pulse Ox 94 L 09/20/16 08:17 Intake & Output 09/19/16 09/20/16 09/20/16 18:59 06:59 18:59 Intake Total 250 492.5 Output Total 1000 300 600 Balance -750 -300 -107.5 Weight 68.9 kg Intake: Intake, IV Titration 250 252.5 Amount Furosemide 250 mg In 250 Sodium Chloride 0.9% 225 ml @ 15 MG/HR 15 mls/hr IVP .[id number] [facility] Rx#: [id number] Furosemide 250 mg In 252.5 Sodium Chloride 0.9% 225 ml @ 20 MG/HR 20 mls/hr IVP .[id number] [facility] Rx#: [id number] Oral 240 Output: Urine 1000 300 600 Other: Voiding Method Bedside Commode Bedside Commode # Voids 1 1 - Labs CBC & Chem 7: 09/20/16 06:26 09/20/16 06:26 Labs: Abnormal Lab Results - Last 24 Hours (Table) 09/19/16 09/19/16 09/19/16 Range/Units 12:10 17:09 20:44 RBC (3.80-5.40) m/uL Hgb (11.4-16.0) gm/dL Hct (34.0-46.0) % MCHC (31.0-37.0) g/dL RDW (11.5-15.5) % Potassium (3.5-5.1) mmol/L BUN (7-17) mg/dL Creatinine (0.52-1.04) mg/dL Glucose (74-99) mg/dL POC Glucose (mg/dL) 151 H 196 H 243 H (75-99) mg/dL 09/20/16 09/20/16 09/20/16 Range/Units 05:50 06:26 06:26 RBC 3.06 L (3.80-5.40) m/uL Hgb 8.1 L (11.4-16.0) gm/dL Hct 26.9 L (34.0-46.0) % MCHC 30.0 L (31.0-37.0) g/dL RDW 18.6 H (11.5-15.5) % Potassium 3.4 L (3.5-5.1) mmol/L BUN 114 H* (7-17) mg/dL Creatinine 2.40 H (0.52-1.04) mg/dL Glucose 111 H (74-99) mg/dL POC Glucose (mg/dL) 127 H (75-99) mg/dL Assessment and Plan Plan: Assessment: #1. Nonoliguric acute kidney injury secondary to cardiorenal syndrome. Creatinine down to 2.4 today. Urinalysis benign. No evidence of hydronephrosis on renal ultrasound. #2. Diastolic CHF. Decompensated. #3. Volume overload. Slightly improved. #4. Acute anemia. s/p pRBC transfusion this admission and IV iron. #5. Metabolic acidosis secondary to acute kidney injury. Resolved. #6. Insulin-dependent diabetes mellitus. #7. Chronic kidney disease stage III with baseline creatinine near 1.3. Etiology is cardiorenal syndrome. #8. Hypokalemia due to diuresis. Magnesium replete. Plan: Increase Lasix drip to 20 mL an hour. Cardiology following. Dobutamine has been discontinued. Low-salt and 1200 mL fluid restricted diet. Discontinue sodium bicarbonate supplementation. Daily weights. Replace potassium - 40 meq today. Start Aranesp. Patient refusing renal replacement therapy at this time and wants to continue with diuretics only for now.
[2016-09-20] MEDS ORDERED: POTASSIUM CHLORIDE ER 20 MEQ TAB.ER PO ONE (10:00)
[2016-09-20 11:46] LABS: Glucose,Whole Blood 157 mg/dL (75-99)
[2016-09-20] MEDS: DARBEPOETIN ALFA 40 MCG/0.4 ML SYRINGE SQ SCH (12:25)
[2016-09-20 16:58] LABS: Glucose,Whole Blood 175 mg/dL (75-99)
[2016-09-20] MEDS: INSULIN LISPRO (humaLOG) 300 UNIT/3 ML VIAL SQ PRN (17:09)
[2016-09-20 20:50] LABS: Glucose,Whole Blood 210 mg/dL (75-99)
[2016-09-20] MEDS: INSULIN GLARGINE 100 UNIT/ML 10 ML VIAL SQ SCH (21:49)
[2016-09-21] MEDS: IPRATROPIUM-ALBUTEROL 3 ML NEB INHALATION PRN (03:27)
[2016-09-21 06:06] LABS: Glucose,Whole Blood 111 mg/dL (75-99)
[2016-09-21] MEDS: SODIUM BICARBONATE TAB 650 MG TAB PO SCH (07:37)
[2016-09-21] MEDS: SYMBICORT 160-4.5 MCG INHALER INHALATION SCH ×2 (08:06→19:37)
[2016-09-21] MEDS: IPRATROPIUM-ALBUTEROL 3 ML NEB INHALATION SCH ×4 (08:06→19:37)
--- NOTE | 2016-09-21 08:51 | P.PN ---
Subjective Patient is seen in follow-up for acute kidney injury. Her creatinine peaked at 3.2 this admission and was down to 2.4 as of yesterday. She is currently maintained on Lasix drip at 20 mL an hour as well as metolazone. Dobutamine has been discontinued. She is noted to have diastolic CHF with severe pulmonary hypertension. She is quite dyspneic today. Admits to good urine output. Urine output in the last 24 hours is documented as 2.8 L. Vital signs are stable. General: The patient appeared well nourished and normally developed. HEENT: Head exam is unremarkable. Neck is without jugular venous distension. LUNGS: Lungs are clear to auscultation and percussion. Breath sounds decreased. HEART: Rate and Rhythm are regular. First and second heart sounds normal. No murmurs, rubs or gallops. ABDOMEN: Abdominal exam reveals normal bowel sounds. Non-tender and non- distended. No evidence of peritonitis. EXTREMITITES: 2+ edema. Objective - Vital Signs Vital signs: Vital Signs Temp 96.8 F L 09/21/16 04:00 Pulse 66 09/21/16 08:20 Resp 18 09/21/16 04:00 BP 158/67 09/21/16 04:00 Pulse Ox 90 L 09/21/16 08:09 Intake & Output 09/20/16 09/21/16 09/21/16 18:59 06:59 18:59 Intake Total 732.5 217.667 Output Total 1250 1600 Balance -517.5 -1382.333 Weight 68 kg Intake: Intake, IV Titration 252.5 217.667 Amount Furosemide 250 mg In 252.5 217.667 Sodium Chloride 0.9% 225 ml @ 20 MG/HR 20 mls/hr IVP .[id number] [facility] Rx#: [id number] Oral 480 Output: Urine 1250 1600 Other: Voiding Method Bedside Commode # Voids 1 - Labs CBC & Chem 7: 09/20/16 06:26 09/20/16 06:26 Labs: Abnormal Lab Results - Last 24 Hours (Table) 09/20/16 09/20/16 09/20/16 Range/Units 11:44 16:50 20:49 POC Glucose (mg/dL) 157 H 175 H 210 H (75-99) mg/dL 09/21/16 Range/Units 06:04 POC Glucose (mg/dL) 111 H (75-99) mg/dL Assessment and Plan Plan: Assessment: #1. Nonoliguric acute kidney injury secondary to cardiorenal syndrome. Creatinine down to 2.4 as of yesterday. Urinalysis benign. No evidence of hydronephrosis on renal ultrasound. #2. Diastolic CHF. Decompensated. #3. Volume overload. Slightly improved. #4. Acute anemia. s/p pRBC transfusion this admission and IV iron. #5. Metabolic acidosis secondary to acute kidney injury. Resolved. #6. Insulin-dependent diabetes mellitus. #7. Chronic kidney disease stage III with baseline creatinine near 1.3. Etiology is cardiorenal syndrome. #8. Hypokalemia due to diuresis. Magnesium replete. Plan: Maintain Lasix drip at 20 mL an hour along with metolazone. Cardiology following. Dobutamine has been discontinued. Low-salt and 1200 mL fluid restricted diet. Discontinued sodium bicarbonate supplementation. Daily weights. Maintain Aranesp. Patient refusing renal replacement therapy at this time and wants to continue with diuretics only for now.
[2016-09-21] MEDS: ATORVASTATIN 80 MG TAB PO SCH (09:03)
[2016-09-21] MEDS: METOLAZONE 5 MG TAB PO SCH (09:03)
[2016-09-21] MEDS: ASPIRIN 81 MG CHEW PO SCH (09:04)
[2016-09-21] MEDS: POTASSIUM CHLORIDE ER 20 MEQ TAB.ER PO SCH ×2 (09:04→21:00)
[2016-09-21] MEDS: PRASUGREL 10 MG TAB PO SCH (09:04)
[2016-09-21] MEDS: HEPARIN SODIUM,PORCINE 5,000 UNIT/ML 1 ML VIAL SQ SCH (09:04)
[2016-09-21] MEDS: ISOSORBIDE MONONITRATE ER 60 MG TAB.ER.24H PO SCH (09:04)
[2016-09-21] MEDS: NADOLOL 20 MG TAB PO SCH (09:04)
[2016-09-21] MEDS: FUROSEMIDE 250 MG in SODIUM CHLORIDE 0.9% 225 ML IVP SCH ×2 (09:04→21:03)
[2016-09-21 10:11] LABS: Calcium 8.8 mg/dL (8.4-10.2)
[2016-09-21 12:14] LABS: Glucose,Whole Blood 134 mg/dL (75-99)
[2016-09-21] MEDS: INSULIN LISPRO (humaLOG) 300 UNIT/3 ML VIAL SQ PRN (12:50)
--- NOTE | 2016-09-21 16:04 | P.PN ---
Subjective Principal diagnosis: Leg swelling and short of breath Ms. Baker is an 81-year-old female with known history of chronic kidney disease , admitted to the hospital with worsening short of breath and leg swelling. Patient noted to be in severe distress with congestive heart failure and was on BiPAP machine. Currently, patient is saturating well on nasal cannula. Otherwise, patient is still having bilateral lower extremity swelling. Currently, patient is on IV Lasix drip and Nephrology is following this patient as well. Patient, otherwise denied any complaints of chest pain or short of breath. No nausea, vomiting. REVIEW OF SYSTEMS: No fever, no chills, No abdominal pain. No nausea, vomiting. No headache, dizziness or lightheadedness. All other review of systems negative except above. On 09/20/2016 Patient is still having leg swelling but improved compared to yesterday. Still having significant orthopnea. They'll function slightly improved. Otherwise there is no very c/ of chest pain or short of breath. No acute overnight issues and is diagnosing well. Objective - Vital Signs Vital signs: Vital Signs Temp 96.8 F L 09/21/16 15:54 Pulse 60 09/21/16 15:55 Resp 20 09/21/16 15:54 BP 144/73 09/21/16 15:54 Pulse Ox 90 L 09/21/16 15:54 Intake & Output 09/20/16 09/21/16 09/21/16 18:59 06:59 18:59 Intake Total 732.5 217.667 430 Output Total 1250 1600 1200 Balance -517.5 -1382.333 -770 Weight 68 kg Intake: Intake, IV Titration 252.5 217.667 250 Amount Furosemide 250 mg In 252.5 217.667 250 Sodium Chloride 0.9% 225 ml @ 20 MG/HR 20 mls/hr IVP .[id number] [facility] Rx#: [id number] Oral 480 180 Output: Urine 1250 1600 1200 Other: Voiding Method Bedside Commode # Voids 1 # Bowel Movements 1 - Exam An 81-year-old female, sitting in a chair, awake, alert and oriented x3. Appears to be in no apparent distress. HEENT: Atraumatic, normocephalic. Neck is supple, no JVD. CVS exam S1, S2 heard. No murmurs, no rub. LUNGS: Bilateral air entry is present. Decreased breath sounds basally. Nonlabored breathing. Abdomen is soft, nontender. Bowel sounds are heard. IUSS ANALYST: Awake, alert, oriented x3. Able to move all her extremities. EXTREMITIES: Bilateral lower extremity 3+ edema, pitting type. Pulses palpable. SKIN: No rash or skin lesions. - Labs CBC & Chem 7: 09/20/16 06:26 09/21/16 09:28 Labs: Abnormal Lab Results - Last 24 Hours (Table) 09/20/16 09/20/16 09/21/16 Range/Units 16:50 20:49 06:04 BUN (7-17) mg/dL Creatinine (0.52-1.04) mg/dL Glucose (74-99) mg/dL POC Glucose (mg/dL) 175 H 210 H 111 H (75-99) mg/dL 09/21/16 09/21/16 Range/Units 09:28 12:04 BUN 111 H* (7-17) mg/dL Creatinine 2.24 H (0.52-1.04) mg/dL Glucose 142 H (74-99) mg/dL POC Glucose (mg/dL) 134 H (75-99) mg/dL Assessment and Plan Plan: 1. Acute exacerbation on congestive heart failure with diastolic dysfunction with valvular dysfunction. 2. Acute hypoxic respiratory failure on admission. Was on BiPAP machine. 3. Acute on chronic Kidney disease-4, possible cardiorenal, currently on IV Lasix drip. cr 2.4 4. Severe iron-deficiency anemia. 5. Non-anion gap metabolic acidosis currently on bicarb tablets. 6. History of chronic obstructive pulmonary disease. 7. Hypertension. 8. Diabetes type 2. 9. Hyperlipidemia. 10. History of coronary artery disease, status post PCI. 11. Moderate mitral regurgitation. DISCUSSION AND PLAN: Patient will be continued on IV Lasix drip. Monitor CR and continue with the current management. Continue with the PT, OT. Patient is still having orthopnea. Will continue with the current management including oxygen therapy and titrate down to room air. Will follow closely. Further recommendations based on the clinical course.
[2016-09-21 16:43] LABS: Glucose,Whole Blood 129 mg/dL (75-99)
--- NOTE | 2016-09-21 16:56 | P.PN ---
Subjective Principal diagnosis: Leg swelling and short of breath Ms. Baker is an 81-year-old female with known history of chronic kidney disease , admitted to the hospital with worsening short of breath and leg swelling. Patient noted to be in severe distress with congestive heart failure and was on BiPAP machine. Currently, patient is saturating well on nasal cannula. Otherwise, patient is still having bilateral lower extremity swelling. Currently, patient is on IV Lasix drip and Nephrology is following this patient as well. Patient, otherwise denied any complaints of chest pain or short of breath. No nausea, vomiting. On 09/20/2016 Patient is still having leg swelling but improved compared to yesterday. Still having significant orthopnea. They'll function slightly improved. Otherwise there is no very c/ of chest pain or short of breath. No acute overnight issues and is diagnosing well. In 09/21/2016 Patient's leg swelling is improving slowly. Patient is able to lie in the bed with 2 pillows today. Chest pain. No worsening short of breath. Patient is having bruises on the abdomen and the heparin injection site, heparin has been held today. Patient's creatinine level improved to 2.2 for today REVIEW OF SYSTEMS: No fever, no chills, No abdominal pain. No nausea, vomiting. No headache, dizziness or lightheadedness. All other review of systems negative except above. Objective - Vital Signs Vital signs: Vital Signs Temp 96.8 F L 09/21/16 15:54 Pulse 60 09/21/16 16:06 Resp 20 09/21/16 15:54 BP 144/73 09/21/16 15:54 Pulse Ox 90 L 09/21/16 15:54 Intake & Output 09/20/16 09/21/16 09/21/16 18:59 06:59 18:59 Intake Total 732.5 217.667 430 Output Total 1250 1600 1200 Balance -517.5 -1382.333 -770 Weight 68 kg Intake: Intake, IV Titration 252.5 217.667 250 Amount Furosemide 250 mg In 252.5 217.667 250 Sodium Chloride 0.9% 225 ml @ 20 MG/HR 20 mls/hr IVP .[id number] Rx#: [id number] Oral 480 180 Output: Urine 1250 1600 1200 Other: Voiding Method Bedside Commode # Voids 1 # Bowel Movements 1 - Exam An 81-year-old female, sitting in a chair, awake, alert and oriented x3. Appears to be in no apparent distress. HEENT: Atraumatic, normocephalic. Neck is supple, no JVD. CVS exam S1, S2 heard. No murmurs, no rub. LUNGS: Bilateral air entry is present. Decreased breath sounds basally. Nonlabored breathing. Abdomen is soft, nontender. Bowel sounds are heard. TRUSS ASSEMBLER: Awake, alert, oriented x3. Able to move all her extremities. EXTREMITIES: Bilateral lower extremity 3+ edema, legs are pressured rapped, pitting type. Pulses palpable. SKIN: No rash or skin lesions. - Labs CBC & Chem 7: 09/20/16 06:26 09/21/16 09:28 Labs: Abnormal Lab Results - Last 24 Hours (Table) 09/20/16 09/20/16 09/21/16 Range/Units 16:50 20:49 06:04 BUN (7-17) mg/dL Creatinine (0.52-1.04) mg/dL Glucose (74-99) mg/dL POC Glucose (mg/dL) 175 H 210 H 111 H (75-99) mg/dL 09/21/16 09/21/16 09/21/16 Range/Units 09:28 12:04 16:40 BUN 111 H* (7-17) mg/dL Creatinine 2.24 H (0.52-1.04) mg/dL Glucose 142 H (74-99) mg/dL POC Glucose (mg/dL) 134 H 129 H (75-99) mg/dL Assessment and Plan Plan: 1. Acute exacerbation on congestive heart failure with diastolic dysfunction with valvular dysfunction. 2. Acute hypoxic respiratory failure on admission. Was on BiPAP machine. 3. Acute on chronic Kidney disease-4, possible cardiorenal, currently on IV Lasix drip. cr 2.4--2.24 4. Severe iron-deficiency anemia. 5. Non-anion gap metabolic acidosis currently on bicarb tablets. 6. History of chronic obstructive pulmonary disease. 7. Hypertension. 8. Diabetes type 2. 9. Hyperlipidemia. 10. History of coronary artery disease, status post PCI. 11. Moderate mitral regurgitation. DISCUSSION AND PLAN: Patient will be continued on IV Lasix drip. Monitor CR and continue with the current management. Continue with the PT, OT. Patient is still having orthopnea but improved. Vision is able to lie down flat with pillow support.. Will continue with the current management including oxygen therapy and titrate down to room air. Will follow closely. Further recommendations based on the clinical course. Time with Patient: Greater than 30
[2016-09-21 20:53] LABS: Glucose,Whole Blood 178 mg/dL (75-99)
[2016-09-21] MEDS: INSULIN GLARGINE 100 UNIT/ML 10 ML VIAL SQ SCH (21:00)
[2016-09-22 06:57] LABS: Calcium 9.1 mg/dL (8.4-10.2); Magnesium 1.8 mg/dL (1.6-2.3); Potassium 4.1 mmol/L (3.5-5.1)
[2016-09-22] MEDS: HEPARIN SODIUM,PORCINE 5,000 UNIT/ML 1 ML VIAL SQ SCH ×3 (08:23→23:19)
[2016-09-22] MEDS: SYMBICORT 160-4.5 MCG INHALER INHALATION SCH ×3 (08:29→19:52)
[2016-09-22] MEDS: IPRATROPIUM-ALBUTEROL 3 ML NEB INHALATION SCH ×7 (08:29→19:54)
[2016-09-22] MEDS: ATORVASTATIN 80 MG TAB PO SCH (08:52)
[2016-09-22] MEDS: ASPIRIN 81 MG CHEW PO SCH (08:52)
[2016-09-22] MEDS: NADOLOL 20 MG TAB PO SCH (08:53)
[2016-09-22] MEDS: ISOSORBIDE MONONITRATE ER 60 MG TAB.ER.24H PO SCH (08:53)
[2016-09-22] MEDS: METOLAZONE 5 MG TAB PO SCH (08:53)
[2016-09-22] MEDS: PRASUGREL 10 MG TAB PO SCH (08:54)
[2016-09-22] MEDS: POTASSIUM CHLORIDE ER 20 MEQ TAB.ER PO SCH ×2 (08:54→20:41)
--- NOTE | 2016-09-22 10:42 | P.PN ---
Subjective Patient is seen in follow-up for acute kidney injury. Her creatinine peaked at 3.2 this admission and is down to 2.06 today. She is currently maintained on Lasix drip at 20 mL an hour as well as metolazone. Dobutamine has been discontinued. She is noted to have diastolic CHF with severe pulmonary hypertension. She feels a little better today but still gets dyspneic and still has lower extremity edema. Admits to good urine output. Urine output in the last 24 hours is documented as 1.2 L but this does not appear to be accurate and was discussed with the nurse. Vital signs are stable. General: The patient appeared well nourished and normally developed. HEENT: Head exam is unremarkable. Neck is without jugular venous distension. LUNGS: Lungs are clear to auscultation and percussion. Breath sounds decreased. HEART: Rate and Rhythm are regular. First and second heart sounds normal. No murmurs, rubs or gallops. ABDOMEN: Abdominal exam reveals normal bowel sounds. Non-tender and non- distended. No evidence of peritonitis. EXTREMITITES: 2+ edema. Objective - Vital Signs Vital signs: Vital Signs Temp 98.2 F 09/22/16 04:00 Pulse 60 09/22/16 08:40 Resp 20 09/22/16 08:00 BP 150/65 09/22/16 04:00 Pulse Ox 100 09/22/16 08:30 Intake & Output 09/21/16 09/22/16 09/22/16 18:59 06:59 18:59 Intake Total 490 239.667 Output Total 1200 Balance -710 239.667 Weight 66 kg 66 kg Intake: Intake, IV Titration 250 239.667 Amount Furosemide 250 mg In 250 239.667 Sodium Chloride 0.9% 225 ml @ 20 MG/HR 20 mls/hr IVP .[id number] [facility] Rx#: [id number] Oral 240 Output: Urine 1200 Other: Voiding Method Bedside Commode # Voids 0 # Bowel Movements 1 - Labs CBC & Chem 7: 09/20/16 06:26 09/22/16 05:48 Labs: Abnormal Lab Results - Last 24 Hours (Table) 09/21/16 09/21/16 09/21/16 Range/Units 12:04 16:40 20:43 Sodium (137-145) mmol/L BUN (7-17) mg/dL Creatinine (0.52-1.04) mg/dL POC Glucose (mg/dL) 134 H 129 H 178 H (75-99) mg/dL 09/22/16 Range/Units 05:48 Sodium 146 H (137-145) mmol/L BUN 116 H* (7-17) mg/dL Creatinine 2.06 H (0.52-1.04) mg/dL POC Glucose (mg/dL) (75-99) mg/dL Assessment and Plan Plan: Assessment: #1. Nonoliguric acute kidney injury secondary to cardiorenal syndrome. Creatinine down to 2.06. Urinalysis benign. No evidence of hydronephrosis on renal ultrasound. #2. Diastolic CHF. Decompensated. #3. Volume overload. Slightly improved. #4. Acute anemia. s/p pRBC transfusion this admission and IV iron. #5. Metabolic acidosis secondary to acute kidney injury. Resolved. #6. Insulin-dependent diabetes mellitus. #7. Chronic kidney disease stage III with baseline creatinine near 1.3. Etiology is cardiorenal syndrome. #8. Hypokalemia due to diuresis. Magnesium replete. Improved. Plan: Maintain Lasix drip at 20 mL an hour along with metolazone. Cardiology following. Dobutamine has been discontinued. Low-salt and 1200 mL fluid restricted diet. Discontinued sodium bicarbonate supplementation. Daily weights and strict I's and O's. Maintain Aranesp. Patient refusing renal replacement therapy at this time and wants to continue with diuretics only for now.
[2016-09-22 11:40] LABS: Glucose,Whole Blood 128 mg/dL (75-99)
[2016-09-22] MEDS: FUROSEMIDE 250 MG in SODIUM CHLORIDE 0.9% 225 ML IVP SCH ×2 (12:17→20:40)
[2016-09-22 16:41] LABS: Glucose,Whole Blood 149 mg/dL (75-99)
[2016-09-22] MEDS: INSULIN GLARGINE 100 UNIT/ML 10 ML VIAL SQ SCH (20:40)
[2016-09-22 20:56] LABS: Glucose,Whole Blood 156 mg/dL (75-99)
[2016-09-23 06:56] LABS: Calcium 9.1 mg/dL (8.4-10.2); Magnesium 1.8 mg/dL (1.6-2.3); Potassium 3.9 mmol/L (3.5-5.1)
[2016-09-23] MEDS: SYMBICORT 160-4.5 MCG INHALER INHALATION SCH ×2 (07:53→19:22)
[2016-09-23] MEDS: IPRATROPIUM-ALBUTEROL 3 ML NEB INHALATION SCH ×4 (07:53→19:22)
[2016-09-23] MEDS: ASPIRIN 81 MG CHEW PO SCH (08:25)
[2016-09-23] MEDS: HEPARIN SODIUM,PORCINE 5,000 UNIT/ML 1 ML VIAL SQ SCH ×3 (08:25→23:44)
[2016-09-23] MEDS: METOLAZONE 5 MG TAB PO SCH (08:25)
[2016-09-23] MEDS: POTASSIUM CHLORIDE ER 20 MEQ TAB.ER PO SCH ×2 (08:26→21:04)
[2016-09-23] MEDS: ISOSORBIDE MONONITRATE ER 60 MG TAB.ER.24H PO SCH (08:26)
[2016-09-23] MEDS: NADOLOL 20 MG TAB PO SCH (08:26)
[2016-09-23] MEDS: PRASUGREL 10 MG TAB PO SCH (08:26)
[2016-09-23] MEDS: ATORVASTATIN 80 MG TAB PO SCH (08:26)
[2016-09-23 11:54] LABS: Glucose,Whole Blood 142 mg/dL (75-99)
--- NOTE | 2016-09-23 13:04 | P.PN ---
Subjective Patient is seen in follow-up for acute kidney injury. Her creatinine peaked at 3.2 this admission and was down to 2.06 yesterday. 2.4 today. She is currently maintained on Lasix drip at 20 mL an hour as well as metolazone. Dobutamine has been discontinued. She is noted to have diastolic CHF with severe pulmonary hypertension. She feels a little better today but still gets dyspneic and still has lower extremity edema, which is improving. Admits to good urine output. Urine output in the last 24 hours is documented as 2.8 L. Vital signs are stable. General: The patient appeared well nourished and normally developed. HEENT: Head exam is unremarkable. Neck is without jugular venous distension. LUNGS: Lungs are clear to auscultation and percussion. Breath sounds decreased. HEART: Rate and Rhythm are regular. First and second heart sounds normal. No murmurs, rubs or gallops. ABDOMEN: Abdominal exam reveals normal bowel sounds. Non-tender and non- distended. No evidence of peritonitis. EXTREMITITES: 2+ edema. Objective - Vital Signs Vital signs: Vital Signs Temp 98 F 09/23/16 08:00 Pulse 64 09/23/16 11:51 Resp 20 09/23/16 08:00 BP 145/87 09/23/16 08:00 Pulse Ox 95 09/23/16 08:00 Intake & Output 09/22/16 09/23/16 09/23/16 18:59 06:59 18:59 Intake Total 250 407.667 Output Total 950 1850 Balance -700 -1442.333 Weight 66 kg 65.8 kg Intake: IV 240 Lasix 240 Intake, IV Titration 250 167.667 Amount Furosemide 250 mg In 250 167.667 Sodium Chloride 0.9% 225 ml @ 20 MG/HR 20 mls/hr IVP .[id number] [facility] Rx#: [id number] Output: Urine 950 1850 Other: Voiding Method Bedside Commode # Voids 1 3 - Labs CBC & Chem 7: 09/20/16 06:26 09/23/16 06:14 Labs: Abnormal Lab Results - Last 24 Hours (Table) 09/22/16 09/22/16 09/23/16 Range/Units 16:36 20:54 06:14 BUN 109 H* (7-17) mg/dL Creatinine 2.40 H (0.52-1.04) mg/dL POC Glucose (mg/dL) 149 H 156 H (75-99) mg/dL 09/23/16 Range/Units 11:32 BUN (7-17) mg/dL Creatinine (0.52-1.04) mg/dL POC Glucose (mg/dL) 142 H (75-99) mg/dL Assessment and Plan Plan: Assessment: #1. Nonoliguric acute kidney injury secondary to cardiorenal syndrome. Creatinine down to 2.06 on September 22. 2.4 today. Urinalysis benign. No evidence of hydronephrosis on renal ultrasound. #2. Diastolic CHF. Decompensated. #3. Volume overload. Slightly improved. #4. Acute anemia. s/p pRBC transfusion this admission and IV iron. #5. Metabolic acidosis secondary to acute kidney injury. Resolved. #6. Insulin-dependent diabetes mellitus. #7. Chronic kidney disease stage III with baseline creatinine near 1.3. Etiology is cardiorenal syndrome. #8. Hypokalemia due to diuresis. Magnesium replete. Improved. Plan: Maintain Lasix drip at 20 mL an hour along with metolazone. Cardiology following. Dobutamine has been discontinued. Low-salt and 1200 mL fluid restricted diet. Discontinued sodium bicarbonate supplementation. Daily weights and strict I's and O's. Maintain Aranesp. Patient refusing renal replacement therapy at this time and wants to continue with diuretics only for now. I discussed with her today that ultrafiltration will help with her dyspnea and edema but she still wants to hold off at this time.
--- NOTE | 2016-09-23 13:37 | XR ---
EXAMINATION TYPE: XR chest 1V portable DATE OF EXAM: 09/23/2016 HISTORY: looking for improvement . REFERENCE: Previous study dated 09/16/2016. FINDINGS: There has been a midline sternotomy. The heart is enlarged. There is bibasilar airspace disease. There are small bilateral effusions. Overall aeration at the rig ht lung base is improved slightly. IMPRESSION: SLIGHT IMPROVED AERATION AT THE RIGHT LUNG BASE.
[2016-09-23 16:44] LABS: Glucose,Whole Blood 192 mg/dL (75-99)
[2016-09-23] MEDS ORDERED: TOLVAPTAN 15 MG 1/2 TABLET PO ONE (18:36)
[2016-09-23] MEDS: FUROSEMIDE 250 MG in SODIUM CHLORIDE 0.9% 225 ML IVP SCH (20:52)
[2016-09-23 21:00] LABS: Glucose,Whole Blood 218 mg/dL (75-99)
[2016-09-23] MEDS: INSULIN GLARGINE 100 UNIT/ML 10 ML VIAL SQ SCH (21:00)
--- NOTE | 2016-09-23 21:49 | P.PN ---
Subjective Principal diagnosis: Leg swelling and short of breath Ms. Baker is an 81-year-old female with known history of chronic kidney disease , admitted to the hospital with worsening short of breath and leg swelling. Patient noted to be in severe distress with congestive heart failure and was on BiPAP machine. Currently, patient is saturating well on nasal cannula. Otherwise, patient is still having bilateral lower extremity swelling. Currently, patient is on IV Lasix drip and Nephrology is following this patient as well. Patient, otherwise denied any complaints of chest pain or short of breath. No nausea, vomiting. On 09/20/2016 Patient is still having leg swelling but improved compared to yesterday. Still having significant orthopnea. They'll function slightly improved. Otherwise there is no very c/ of chest pain or short of breath. No acute overnight issues and is diagnosing well. In 09/21/2016 Patient's leg swelling is improving slowly. Patient is able to lie in the bed with 2 pillows today. Chest pain. No worsening short of breath. Patient is having bruises on the abdomen and the heparin injection site, heparin has been held today. Patient's creatinine level improved to 2.2 for today. On 09/22/2016 - patient's lower extremity edema has slightly improved. Patient is ambulating with some help. Renal functions slightly improving. REVIEW OF SYSTEMS: No fever, no chills, No abdominal pain. No nausea, vomiting. No headache, dizziness or lightheadedness. All other review of systems negative except above. Objective - Vital Signs Vital signs: Vital Signs Temp 97.5 F L 09/22/16 16:00 Pulse 60 09/22/16 20:02 Resp 20 09/22/16 16:00 BP 141/64 09/22/16 16:00 Pulse Ox 96 09/22/16 16:00 Intake & Output 09/22/16 09/22/16 09/23/16 06:59 18:59 06:59 Intake Total 239.667 250 167.667 Output Total 950 Balance 239.667 -700 167.667 Weight 66 kg 66 kg Intake: Intake, IV Titration 239.667 250 167.667 Amount Furosemide 250 mg In 239.667 250 167.667 Sodium Chloride 0.9% 225 ml @ 20 MG/HR 20 mls/hr IVP .[id number] [facility] Rx#: [id number] Output: Urine 950 Other: Voiding Method Bedside Commode # Voids 0 1 - Exam An 81-year-old female, sitting in a chair, awake, alert and oriented x3. Appears to be in no apparent distress. HEENT: Atraumatic, normocephalic. Neck is supple, no JVD. CVS exam S1, S2 heard. No murmurs, no rub. LUNGS: Bilateral air entry is present. Decreased breath sounds basally. Nonlabored breathing. Mild crackles bilaterally. Abdomen is soft, nontender. Bowel sounds are heard. BUSINESS REPORTING DEVELOPER: Awake, alert, oriented x3. Able to move all her extremities. EXTREMITIES: Bilateral lower extremity 3+ edema, legs are pressured rapped, pitting type. Pulses palpable. SKIN: No rash or skin lesions. - Labs CBC & Chem 7: 09/20/16 06:26 09/22/16 05:48 Labs: Abnormal Lab Results - Last 24 Hours (Table) 09/22/16 09/22/16 09/22/16 Range/Units 05:48 11:33 16:36 Sodium 146 H (137-145) mmol/L BUN 116 H* (7-17) mg/dL Creatinine 2.06 H (0.52-1.04) mg/dL POC Glucose (mg/dL) 128 H 149 H (75-99) mg/dL 09/22/16 Range/Units 20:54 Sodium (137-145) mmol/L BUN (7-17) mg/dL Creatinine (0.52-1.04) mg/dL POC Glucose (mg/dL) 156 H (75-99) mg/dL Assessment and Plan Plan: 1. Acute exacerbation on congestive heart failure with diastolic dysfunction with valvular dysfunction. 2. Acute hypoxic respiratory failure on admission. Was on BiPAP machine. 3. Acute on chronic Kidney disease-4, possible cardiorenal, currently on IV Lasix drip. cr 2.4--2.24 - 2.06 4. Severe iron-deficiency anemia. 5. Non-anion gap metabolic acidosis currently on bicarb tablets. 6. History of chronic obstructive pulmonary disease. 7. Hypertension. 8. Diabetes type 2. 9. Hyperlipidemia. 10. History of coronary artery disease, status post PCI. 11. Moderate mitral regurgitation. DISCUSSION AND PLAN: Patient will be continued on IV Lasix drip. Monitor creatinine and continue with the current management. Continue with the PT, OT. Patient is still having orthopnea but improved. She is able to lie down flat with pillow support.. Will continue with the current management including oxygen therapy and titrate down to room air. Will follow closely. Further recommendations based on the clinical course.
--- NOTE | 2016-09-23 21:54 | P.PN ---
Subjective Principal diagnosis: Acute exacerbation of CHF- diastolic Ms. Baker is an 81-year-old female with known history of chronic kidney disease , admitted to the hospital with worsening short of breath and leg swelling. Patient noted to be in severe distress with congestive heart failure and was on BiPAP machine. Currently, patient is saturating well on nasal cannula. Otherwise, patient is still having bilateral lower extremity swelling. Currently, patient is on IV Lasix drip and Nephrology is following this patient as well. Patient, otherwise denied any complaints of chest pain or short of breath. No nausea, vomiting. On 09/20/2016 Patient is still having leg swelling but improved compared to yesterday. Still having significant orthopnea. They'll function slightly improved. Otherwise there is no very c/ of chest pain or short of breath. No acute overnight issues and is diagnosing well. In 09/21/2016 Patient's leg swelling is improving slowly. Patient is able to lie in the bed with 2 pillows today. Chest pain. No worsening short of breath. Patient is having bruises on the abdomen and the heparin injection site, heparin has been held today. Patient's creatinine level improved to 2.2 for today. On 09/22/2016 - patient's lower extremity edema has slightly improved. Patient is ambulating with some help. Renal functions slightly improving. On 09/23/2016 - patient still has significant lower extremity edema. Patient is still on IV Lasix drip. Patient was started on Tolvaptan as per nephrology . Discussed with the patient about hemodialysis. Patient would like to have a discussion with her daughter regarding this. REVIEW OF SYSTEMS: No fever, no chills, No abdominal pain. No nausea, vomiting. No headache, dizziness or lightheadedness. All other review of systems negative except above. Objective - Vital Signs Vital signs: Vital Signs Temp 97.1 F L 09/23/16 20:00 Pulse 62 09/23/16 20:00 Resp 20 09/23/16 20:00 BP 162/79 09/23/16 20:00 Pulse Ox 95 09/23/16 20:00 Intake & Output 09/23/16 09/23/16 09/24/16 06:59 18:59 06:59 Intake Total 407.667 250 Output Total 1850 Balance -1442.333 250 Weight 65.8 kg Intake: IV 240 Lasix 240 Intake, IV Titration 167.667 250 Amount Furosemide 250 mg In 167.667 250 Sodium Chloride 0.9% 225 ml @ 20 MG/HR 20 mls/hr IVP .[id number] [facility] Rx#: [id number] Output: Urine 1850 Other: Voiding Method Bedside Commode Bedside Commode # Voids 3 2 - Exam An 81-year-old female, sitting in a chair, awake, alert and oriented x3. Appears to be in no apparent distress. HEENT: Atraumatic, normocephalic. Neck is supple, no JVD. CVS exam S1, S2 heard. No murmurs, no rub. LUNGS: Bilateral air entry is present. Decreased breath sounds basally. Nonlabored breathing. Mild crackles bilaterally. Abdomen is soft, nontender. Bowel sounds are heard. SUPERVISOR PAINT: Awake, alert, oriented x3. Able to move all her extremities. EXTREMITIES: Bilateral lower extremity 3+ edema, legs are in a Martell bandage, pitting type. Pulses palpable. SKIN: No rash or skin lesions. - Labs CBC & Chem 7: 09/20/16 06:26 09/23/16 06:14 Labs: Abnormal Lab Results - Last 24 Hours (Table) 09/23/16 09/23/16 09/23/16 Range/Units 06:14 11:32 16:34 BUN 109 H* (7-17) mg/dL Creatinine 2.40 H (0.52-1.04) mg/dL POC Glucose (mg/dL) 142 H 192 H (75-99) mg/dL 09/23/16 Range/Units 20:57 BUN (7-17) mg/dL Creatinine (0.52-1.04) mg/dL POC Glucose (mg/dL) 218 H (75-99) mg/dL Assessment and Plan Plan: 1. Acute exacerbation on congestive heart failure with diastolic dysfunction with valvular dysfunction. 2. Acute hypoxic respiratory failure on admission. Was on BiPAP machine. 3. Acute on chronic Kidney disease-4, possible cardiorenal, currently on IV Lasix drip. cr 2.4--2.24 - 2.06 - 2.40 4. Severe iron-deficiency anemia. 5. Non-anion gap metabolic acidosis currently on bicarb tablets. 6. History of chronic obstructive pulmonary disease. 7. Hypertension. 8. Diabetes type 2. 9. Hyperlipidemia. 10. History of coronary artery disease, status post PCI. 11. Moderate mitral regurgitation. DISCUSSION AND PLAN: Patient will be continued on IV Lasix drip. Monitor creatinine and continue with the current management. Continue with the PT, OT. Patient is still having orthopnea but improved. She is able to lie down flat with pillow support. Will continue with the current management including oxygen therapy and titrate down to room air. Will follow closely. Further recommendations based on the clinical course. Time with Patient: Greater than 30 (Greater than 35 minutes spent- in patient care, counseling and coordinating care.)
[2016-09-24 06:24] LABS: Glucose,Whole Blood 135 mg/dL (75-99)
[2016-09-24] MEDS: FUROSEMIDE 250 MG in SODIUM CHLORIDE 0.9% 225 ML IVP SCH ×6 (07:56→21:59)
[2016-09-24] MEDS: ATORVASTATIN 80 MG TAB PO SCH (09:20)
[2016-09-24] MEDS: ASPIRIN 81 MG CHEW PO SCH (09:20)
[2016-09-24] MEDS: HEPARIN SODIUM,PORCINE 5,000 UNIT/ML 1 ML VIAL SQ SCH ×2 (09:20→17:44)
[2016-09-24] MEDS: ISOSORBIDE MONONITRATE ER 60 MG TAB.ER.24H PO SCH (09:20)
[2016-09-24] MEDS: METOLAZONE 5 MG TAB PO SCH (09:20)
[2016-09-24] MEDS: PRASUGREL 10 MG TAB PO SCH (09:21)
[2016-09-24] MEDS: POTASSIUM CHLORIDE ER 20 MEQ TAB.ER PO SCH ×2 (09:21→20:51)
[2016-09-24] MEDS: NADOLOL 20 MG TAB PO SCH (09:21)
[2016-09-24] MEDS: SYMBICORT 160-4.5 MCG INHALER INHALATION SCH ×2 (09:22→20:24)
[2016-09-24] MEDS: IPRATROPIUM-ALBUTEROL 3 ML NEB INHALATION SCH ×4 (09:22→20:24)
--- NOTE | 2016-09-24 10:32 | P.PN ---
Subjective Patient is seen in follow-up for acute kidney injury. Her creatinine peaked at 3.2 this admission and was down to 2.06 on September 22 . 2.6 today. She is currently maintained on Lasix drip at 20 mL an hour as well as metolazone. Dobutamine has been discontinued. She is noted to have diastolic CHF with severe pulmonary hypertension. She feels a little better today but still gets dyspneic and still has lower extremity edema, which is improving. Admits to good urine output. Urine output in the last 24 hours is documented as 1.8 L. Vital signs are stable. General: The patient appeared well nourished and normally developed. HEENT: Head exam is unremarkable. Neck is without jugular venous distension. LUNGS: Lungs are clear to auscultation and percussion. Breath sounds decreased. HEART: Rate and Rhythm are regular. First and second heart sounds normal. No murmurs, rubs or gallops. ABDOMEN: Abdominal exam reveals normal bowel sounds. Non-tender and non- distended. No evidence of peritonitis. EXTREMITITES: 2+ edema. Objective - Vital Signs Vital signs: Vital Signs Temp 96.9 F L 09/24/16 08:00 Pulse 68 09/24/16 09:47 Resp 18 09/24/16 08:00 BP 156/75 09/24/16 08:00 Pulse Ox 97 09/24/16 08:00 Intake & Output 09/23/16 09/24/16 09/24/16 18:59 06:59 18:59 Intake Total 250 366 182.333 Output Total 1800 Balance 250 -1434 182.333 Weight 64.5 kg Intake: IV 300 0.9 @10 60 Lasix 240 Intake, IV Titration 250 66 182.333 Amount Furosemide 250 mg In 250 66 182.333 Sodium Chloride 0.9% 225 ml @ 20 MG/HR 20 mls/hr IVP .[id number] [facility] Rx#: [id number] Output: Urine 1800 Other: Voiding Method Bedside Commode # Voids 2 1 # Bowel Movements 1 - Labs CBC & Chem 7: 09/20/16 06:26 09/24/16 05:36 Labs: Abnormal Lab Results - Last 24 Hours (Table) 09/23/16 09/23/16 09/23/16 Range/Units 11:32 16:34 20:57 Carbon Dioxide (22-30) mmol/L BUN (7-17) mg/dL Creatinine (0.52-1.04) mg/dL POC Glucose (mg/dL) 142 H 192 H 218 H (75-99) mg/dL 09/24/16 09/24/16 Range/Units 05:36 06:21 Carbon Dioxide 33 H (22-30) mmol/L BUN 107 H* (7-17) mg/dL Creatinine 2.60 H (0.52-1.04) mg/dL POC Glucose (mg/dL) 135 H (75-99) mg/dL Assessment and Plan Plan: Assessment: #1. Nonoliguric acute kidney injury secondary to cardiorenal syndrome. Creatinine down to 2.06 on September 22. 2.6 today. Urinalysis benign. No evidence of hydronephrosis on renal ultrasound. #2. Diastolic CHF. Decompensated. #3. Volume overload. Slightly improved. #4. Acute anemia. s/p pRBC transfusion this admission and IV iron. #5. Metabolic acidosis secondary to acute kidney injury. Resolved. #6. Insulin-dependent diabetes mellitus. #7. Chronic kidney disease stage III with baseline creatinine near 1.3. Etiology is cardiorenal syndrome. #8. Hypokalemia due to diuresis. Magnesium replete. Improved. Plan: Maintain Lasix drip at 20 mL an hour along with metolazone. Cardiology following. Dobutamine has been discontinued. Low-salt and 1200 mL fluid restricted diet. Discontinued sodium bicarbonate supplementation. Daily weights and strict I's and O's. Maintain Aranesp. I discussed again with the patient and the daughter regarding the need for renal replacement therapy particularly for ultrafiltration. They are willing to proceed but want to speak to vascular surgeon as to have some questions regarding the catheter placement. Will plan for hemodialysis, mostly for ultrafiltration, once catheter is in place.
[2016-09-24 11:55] LABS: Glucose,Whole Blood 121 mg/dL (75-99)
[2016-09-24 16:59] LABS: Glucose,Whole Blood 144 mg/dL (75-99)
[2016-09-24] MEDS ORDERED: fentaNYL (PF) 50 MCG/ML 2 ML AMP IVP ONE (17:48)
[2016-09-24] MEDS: LIDOCAINE 2% INJ 20 MG/ML SQ ONE ×2 (17:53→17:54)
[2016-09-24 20:38] LABS: Glucose,Whole Blood 179 mg/dL (75-99)
[2016-09-24] MEDS: INSULIN GLARGINE 100 UNIT/ML 10 ML VIAL SQ SCH (20:51)
--- NOTE | 2016-09-24 22:20 | P.PN ---
Subjective Principal diagnosis: Acute exacerbation of CHF- diastolic Ms. Baker is an 81-year-old female with known history of chronic kidney disease , admitted to the hospital with worsening short of breath and leg swelling. Patient noted to be in severe distress with congestive heart failure and was on BiPAP machine. Currently, patient is saturating well on nasal cannula. Otherwise, patient is still having bilateral lower extremity swelling. Currently, patient is on IV Lasix drip and Nephrology is following this patient as well. Patient, otherwise denied any complaints of chest pain or short of breath. No nausea, vomiting. On 09/20/2016 Patient is still having leg swelling but improved compared to yesterday. Still having significant orthopnea. They'll function slightly improved. Otherwise there is no very c/ of chest pain or short of breath. No acute overnight issues and is diagnosing well. In 09/21/2016 Patient's leg swelling is improving slowly. Patient is able to lie in the bed with 2 pillows today. Chest pain. No worsening short of breath. Patient is having bruises on the abdomen and the heparin injection site, heparin has been held today. Patient's creatinine level improved to 2.2 for today. On 09/22/2016 - patient's lower extremity edema has slightly improved. Patient is ambulating with some help. Renal functions slightly improving. On 09/23/2016 - patient still has significant lower extremity edema. Patient is still on IV Lasix drip. Patient was started on Tolvaptan as per nephrology . Discussed with the patient about hemodialysis. Patient would like to have a discussion with her daughter regarding this. On 09/24/2016 - patient still has significant lower extremity edema. Patient is agreeable to dialysis but wants to speak with vascular surgery and nephrology. REVIEW OF SYSTEMS: No fever, no chills, No abdominal pain. No nausea, vomiting. No headache, dizziness or lightheadedness. All other review of systems negative except above. Objective - Vital Signs Vital signs: Vital Signs Temp 96.6 F L 09/24/16 18:31 Pulse 57 L 09/24/16 15:58 Resp 18 09/24/16 18:31 BP 124/70 09/24/16 18:31 Pulse Ox 93 L 09/24/16 18:31 Intake & Output 09/24/16 09/24/16 09/25/16 06:59 18:59 06:59 Intake Total 366 802.333 250 Output Total 1800 1400 Balance -1434 597.667 250 Weight 64.5 kg Intake: IV 300 240 0.9 @10 60 80 Lasix 240 160 Intake, IV Titration 66 182.333 250 Amount Furosemide 250 mg In 66 182.333 250 Sodium Chloride 0.9% 225 ml @ 20 MG/HR 20 mls/hr IVP .[id number] [facility] Rx#: [id number] Oral 380 Output: Urine 1800 1400 Other: Voiding Method Bedside Commode Bedside Commode # Voids 1 2 # Bowel Movements 1 - Exam An 81-year-old female, sitting in a chair, awake, alert and oriented x3. Appears to be in no apparent distress. HEENT: Atraumatic, normocephalic. Neck is supple, no JVD. CVS exam S1, S2 heard. No murmurs, no rub. LUNGS: Bilateral air entry is present. Decreased breath sounds basally. Nonlabored breathing. Mild crackles bilaterally. Abdomen is soft, nontender. Bowel sounds are heard. MEAL MILLER: Awake, alert, oriented x3. Able to move all her extremities. EXTREMITIES: Bilateral lower extremity 3+ edema, legs are in a Martell bandage, pitting type. Pulses palpable. SKIN: No rash or skin lesions. - Labs CBC & Chem 7: 09/20/16 06:26 09/24/16 05:36 Labs: Abnormal Lab Results - Last 24 Hours (Table) 09/24/16 09/24/16 09/24/16 Range/Units 05:36 06:21 11:41 Carbon Dioxide 33 H (22-30) mmol/L BUN 107 H* (7-17) mg/dL Creatinine 2.60 H (0.52-1.04) mg/dL POC Glucose (mg/dL) 135 H 121 H (75-99) mg/dL 09/24/16 09/24/16 Range/Units 16:51 20:36 Carbon Dioxide (22-30) mmol/L BUN (7-17) mg/dL Creatinine (0.52-1.04) mg/dL POC Glucose (mg/dL) 144 H 179 H (75-99) mg/dL Assessment and Plan Plan: 1. Acute exacerbation on congestive heart failure with diastolic dysfunction with valvular dysfunction. 2. Acute hypoxic respiratory failure on admission. Was on BiPAP machine. 3. Acute on chronic Kidney disease-4, possible cardiorenal, currently on IV Lasix drip. cr 2.4--2.24 - 2.06 - 2.40 - 2.60 4. Severe iron-deficiency anemia. 5. Non-anion gap metabolic acidosis currently on bicarb tablets. 6. History of chronic obstructive pulmonary disease. 7. Hypertension. 8. Diabetes type 2. 9. Hyperlipidemia. 10. History of coronary artery disease, status post PCI. 11. Moderate mitral regurgitation. DISCUSSION AND PLAN: Patient will be continued on IV Lasix drip. Monitor creatinine and continue with the current management. Continue with the PT, OT. Patient is still having orthopnea but improved. She is able to lie down flat with pillow support. Will continue with the current management including oxygen therapy and titrate down to room air. Will follow closely. Further recommendations based on the clinical course.
[2016-09-25] MEDS: HEPARIN SODIUM,PORCINE 5,000 UNIT/ML 1 ML VIAL SQ SCH ×4 (05:27→20:59)
[2016-09-25 06:00] LABS: Glucose,Whole Blood 165 mg/dL (75-99)
[2016-09-25 07:49] LABS: Calcium 8.7 mg/dL (8.4-10.2); Potassium 3.3 mmol/L (3.5-5.1)
--- NOTE | 2016-09-25 08:05 | CONS ---
Date of consultation: 09/24/2016 This is an 81-year-old female. Patient has been admitted with chronic kidney disease, history of shortness of breath, history of congestive heart failure. Patient has a high BUN and creatinine. I was consulted for placement for a dialysis catheter. MEDICAL HISTORY: History of chronic respiratory pulmonary disease, history of hypertension, history of diabetes type 2, history of hyperlipidemia, history of coronary artery disease. On examination, patient's neck is supple. She is very short of breath. ABDOMEN: Soft. Bilateral leg swelling noted. Femorals are palpable. Plan is placement of a dialysis catheter. Her risks and complications discussed. MARIA ESTHER
[2016-09-25] MEDS: ASPIRIN 81 MG CHEW PO SCH (08:18)
[2016-09-25] MEDS: ATORVASTATIN 80 MG TAB PO SCH (08:19)
[2016-09-25] MEDS: METOLAZONE 5 MG TAB PO SCH (08:19)
[2016-09-25] MEDS: PRASUGREL 10 MG TAB PO SCH (08:19)
[2016-09-25] MEDS: ISOSORBIDE MONONITRATE ER 60 MG TAB.ER.24H PO SCH (08:19)
[2016-09-25] MEDS: NADOLOL 20 MG TAB PO SCH (08:19)
[2016-09-25] MEDS: POTASSIUM CHLORIDE ER 20 MEQ TAB.ER PO SCH ×2 (08:19→21:00)
[2016-09-25] MEDS ORDERED: POTASSIUM CHLORIDE ER 20 MEQ TAB.ER PO STA (08:30)
[2016-09-25] MEDS: IPRATROPIUM-ALBUTEROL 3 ML NEB INHALATION SCH ×4 (08:49→20:27)
[2016-09-25] MEDS: SYMBICORT 160-4.5 MCG INHALER INHALATION SCH ×2 (08:49→20:27)
--- NOTE | 2016-09-25 09:12 | P.PN ---
Subjective Patient is seen in follow-up for acute kidney injury. Her creatinine peaked at 3.2 this admission and was down to 2.06 on September 22 . 2.15 today. She is currently maintained on Lasix drip at 20 mL an hour as well as metolazone. Dobutamine has been discontinued. She is noted to have diastolic CHF with severe pulmonary hypertension. She feels a little better today but still gets dyspneic and still has lower extremity edema, which is improving. Admits to good urine output. Urine output in the last 24 hours is documented as 3.9 L. Vital signs are stable. General: The patient appeared well nourished and normally developed. HEENT: Head exam is unremarkable. Neck is without jugular venous distension. LUNGS: Lungs are clear to auscultation and percussion. Breath sounds decreased. HEART: Rate and Rhythm are regular. First and second heart sounds normal. No murmurs, rubs or gallops. ABDOMEN: Abdominal exam reveals normal bowel sounds. Non-tender and non- distended. No evidence of peritonitis. EXTREMITITES: 1+ edema. Objective - Vital Signs Vital signs: Vital Signs Temp 97.0 F L 09/25/16 03:21 Pulse 72 09/25/16 09:03 Resp 18 09/25/16 03:21 BP 148/61 09/25/16 03:21 Pulse Ox 97 09/25/16 03:21 Intake & Output 09/24/16 09/25/16 09/25/16 18:59 06:59 18:59 Intake Total 802.333 910 Output Total 1400 2500 Balance -597.667 -1590 Weight 69.6 kg Intake: IV 240 300 0.9 @10 80 60 Lasix 160 240 Intake, IV Titration 182.333 250 Amount Furosemide 250 mg In 182.333 250 Sodium Chloride 0.9% 225 ml @ 20 MG/HR 20 mls/hr IVP .[id number] [facility] Rx#: [id number] Oral 380 360 Output: Urine 1400 2500 Other: Voiding Method Bedside Commode Bedside Commode # Voids 2 1 - Labs CBC & Chem 7: 09/20/16 06:26 09/25/16 07:16 Labs: Abnormal Lab Results - Last 24 Hours (Table) 09/24/16 09/24/16 09/24/16 Range/Units 11:41 16:51 20:36 Sodium (137-145) mmol/L Potassium (3.5-5.1) mmol/L Chloride (98-107) mmol/L Carbon Dioxide (22-30) mmol/L BUN (7-17) mg/dL Creatinine (0.52-1.04) mg/dL Glucose (74-99) mg/dL POC Glucose (mg/dL) 121 H 144 H 179 H (75-99) mg/dL 09/25/16 09/25/16 Range/Units 05:58 07:16 Sodium 146 H (137-145) mmol/L Potassium 3.3 L (3.5-5.1) mmol/L Chloride 97 L (98-107) mmol/L Carbon Dioxide 36 H (22-30) mmol/L BUN 110 H* (7-17) mg/dL Creatinine 2.15 H (0.52-1.04) mg/dL Glucose 138 H (74-99) mg/dL POC Glucose (mg/dL) 165 H (75-99) mg/dL Assessment and Plan Plan: Assessment: #1. Nonoliguric acute kidney injury secondary to cardiorenal syndrome. Creatinine down to 2.06 on September 22. 2.15 today. Urinalysis benign. No evidence of hydronephrosis on renal ultrasound. #2. Diastolic CHF. Decompensated. #3. Volume overload. Improving. #4. Acute anemia. s/p pRBC transfusion this admission and IV iron. #5. Metabolic acidosis secondary to acute kidney injury. Resolved. #6. Insulin-dependent diabetes mellitus. #7. Chronic kidney disease stage III with baseline creatinine near 1.3. Etiology is cardiorenal syndrome. #8. Hypokalemia due to diuresis. Magnesium replete. Plan: Discontinue Lasix drip. Low-salt and 1200 mL fluid restricted diet. Discontinued sodium bicarbonate supplementation. Daily weights and strict I's and O's. Maintain Aranesp. Patient was initially refusing renal replacement therapy but has now agreed. She had a right groin catheter placed on September 24. I will schedule her for ultrafiltration only today.
--- NOTE | 2016-09-25 10:43 | OP ---
PREOPERATIVE DIAGNOSIS: Acute on chronic renal failure. PROCEDURE: Placement of dialysis catheter right femoral approach, ultrasound guided right femoral vein. The patient was brought to the Senior Bi Developer, right side of the groin was prepped and drapes applied in the usual sterile manner. 1% Lidocaine was infiltrated. Ultrasound guided micropuncture in the right femoral vein. Micropuncture guidewire was passed, 4 [place] dilator was advanced on top of the guidewire and then dilator was advanced and 20 cm dilator catheter was advanced on top of the guidewire. There was free fluid noted. Flushed with heparin saline and hep locked. Secured with 3-0 Nylon. The patient tolerated the procedure well. MARIA ESTHER
[2016-09-25] MEDS: INSULIN LISPRO (humaLOG) 300 UNIT/3 ML VIAL SQ PRN ×2 (11:40→17:05)
[2016-09-25 12:07] LABS: Glucose,Whole Blood 267 mg/dL (75-99)
[2016-09-25 16:56] LABS: Glucose,Whole Blood 143 mg/dL (75-99)
[2016-09-25 20:37] LABS: Glucose,Whole Blood 270 mg/dL (75-99)
[2016-09-25] MEDS: INSULIN GLARGINE 100 UNIT/ML 10 ML VIAL SQ SCH (20:59)
[2016-09-26 05:55] LABS: Glucose,Whole Blood 112 mg/dL (75-99)
[2016-09-26 06:54] LABS: Magnesium 1.6 mg/dL (1.6-2.3); Potassium 3.6 mmol/L (3.5-5.1)
--- NOTE | 2016-09-26 08:26 | P.PN ---
Subjective Patient is seen in follow-up for acute kidney injury. Her creatinine peaked at 3.2 this admission and was down to 2.06 on September 22 . 2.10 today. Patient was maintained on Lasix drip as well as metolazone for several days for fluid overload. She was reluctant to do hemodialysis but agreed and underwent first treatment off ultrafiltration only on September 25. 2 L were removed. She is noted to have diastolic CHF with severe pulmonary hypertension. Edema is significantly improved and she is lost over 20 pounds since admission. Admits to good urine output. She is nonoliguric. Vital signs are stable. General: The patient appeared well nourished and normally developed. HEENT: Head exam is unremarkable. Neck is without jugular venous distension. LUNGS: Lungs are clear to auscultation and percussion. Breath sounds decreased. HEART: Rate and Rhythm are regular. First and second heart sounds normal. No murmurs, rubs or gallops. ABDOMEN: Abdominal exam reveals normal bowel sounds. Non-tender and non- distended. No evidence of peritonitis. EXTREMITITES: Trace edema. Objective - Vital Signs Vital signs: Vital Signs Temp 97.7 F 09/25/16 20:00 Pulse 57 L 09/26/16 03:01 Resp 18 09/26/16 03:01 BP 148/56 09/26/16 03:01 Pulse Ox 97 09/26/16 03:01 Intake & Output 09/25/16 09/26/16 09/26/16 18:59 06:59 18:59 Intake Total 670 0 Output Total 300 775 Balance 370 -775 Weight 59.8 kg Intake: IV 90 0 0.9 @10 30 0 Lasix 60 0 Oral 580 Output: Urine 300 775 Other: Voiding Method Bedside Commode # Voids 1 - Labs CBC & Chem 7: 09/20/16 06:26 09/26/16 06:13 Labs: Abnormal Lab Results - Last 24 Hours (Table) 09/25/16 09/25/16 09/25/16 Range/Units 11:37 16:54 20:35 Carbon Dioxide (22-30) mmol/L BUN (7-17) mg/dL Creatinine (0.52-1.04) mg/dL Glucose (74-99) mg/dL POC Glucose (mg/dL) 267 H 143 H 270 H (75-99) mg/dL 09/26/16 09/26/16 Range/Units 05:52 06:13 Carbon Dioxide 35 H (22-30) mmol/L BUN 105 H* (7-17) mg/dL Creatinine 2.10 H (0.52-1.04) mg/dL Glucose 101 H (74-99) mg/dL POC Glucose (mg/dL) 112 H (75-99) mg/dL Assessment and Plan Plan: Assessment: #1. Nonoliguric acute kidney injury secondary to cardiorenal syndrome. Creatinine down to 2.06 on September 22. 2.10 today. Urinalysis benign. No evidence of hydronephrosis on renal ultrasound. #2. Diastolic CHF. Decompensated. #3. Volume overload. Significantly improved since admission. #4. Acute anemia. s/p pRBC transfusion this admission and IV iron. #5. Metabolic acidosis secondary to acute kidney injury. Resolved. Now actually alkalotic due to diuresis induced volume contraction. #6. Insulin-dependent diabetes mellitus. #7. Chronic kidney disease stage III with baseline creatinine near 1.3. Etiology is cardiorenal syndrome. #8. Hypokalemia due to diuresis. Magnesium replete. Plan: Low-salt and 1200 mL fluid restricted diet. Discontinued sodium bicarbonate supplementation. Daily weights and strict I's and O's. Maintain Aranesp. Patient was initially refusing renal replacement therapy but has now agreed. She had a right groin catheter placed on September 24. Second treatment of ultrafiltration only today. Resume Lasix 40 mg orally twice daily. Depending on her volume status, the groin catheter can likely be discontinued tomorrow.
[2016-09-26] MEDS: IPRATROPIUM-ALBUTEROL 3 ML NEB INHALATION SCH ×4 (08:29→20:30)
[2016-09-26] MEDS: SYMBICORT 160-4.5 MCG INHALER INHALATION SCH ×2 (08:31→20:30)
[2016-09-26] MEDS: ISOSORBIDE MONONITRATE ER 60 MG TAB.ER.24H PO SCH (09:27)
[2016-09-26] MEDS: ASPIRIN 81 MG CHEW PO SCH (09:27)
[2016-09-26] MEDS: ATORVASTATIN 80 MG TAB PO SCH (09:27)
[2016-09-26] MEDS: HEPARIN SODIUM,PORCINE 5,000 UNIT/ML 1 ML VIAL SQ SCH ×3 (09:27→23:07)
[2016-09-26] MEDS: FUROSEMIDE 40 MG TAB PO SCH ×2 (09:28→18:18)
[2016-09-26] MEDS: NADOLOL 20 MG TAB PO SCH (09:28)
[2016-09-26] MEDS: POTASSIUM CHLORIDE ER 20 MEQ TAB.ER PO SCH ×2 (09:29→20:14)
[2016-09-26] MEDS: PRASUGREL 10 MG TAB PO SCH (09:29)
[2016-09-26 11:38] LABS: Glucose,Whole Blood 173 mg/dL (75-99)
[2016-09-26] MEDS: INSULIN LISPRO (humaLOG) 300 UNIT/3 ML VIAL SQ PRN ×2 (12:02→18:17)
[2016-09-26 16:40] LABS: Glucose,Whole Blood 145 mg/dL (75-99)
[2016-09-26 20:49] LABS: Glucose,Whole Blood 204 mg/dL (75-99)
[2016-09-26] MEDS: FUROSEMIDE 250 MG in SODIUM CHLORIDE 0.9% 225 ML IVP SCH (20:55)
[2016-09-26] MEDS: INSULIN GLARGINE 100 UNIT/ML 10 ML VIAL SQ SCH (20:59)
[2016-09-26 23:32] LABS: Glucose,Whole Blood 242 mg/dL (75-99)
--- NOTE | 2016-09-27 01:20 | P.PN ---
Subjective Principal diagnosis: Acute exacerbation of CHF- diastolic Ms. Baker is an 81-year-old female with known history of chronic kidney disease , admitted to the hospital with worsening short of breath and leg swelling. Patient noted to be in severe distress with congestive heart failure and was on BiPAP machine. Currently, patient is saturating well on nasal cannula. Otherwise, patient is still having bilateral lower extremity swelling. Currently, patient is on IV Lasix drip and Nephrology is following this patient as well. Patient, otherwise denied any complaints of chest pain or short of breath. No nausea, vomiting. On 09/20/2016 Patient is still having leg swelling but improved compared to yesterday. Still having significant orthopnea. They'll function slightly improved. Otherwise there is no very c/ of chest pain or short of breath. No acute overnight issues and is diagnosing well. In 09/21/2016 Patient's leg swelling is improving slowly. Patient is able to lie in the bed with 2 pillows today. Chest pain. No worsening short of breath. Patient is having bruises on the abdomen and the heparin injection site, heparin has been held today. Patient's creatinine level improved to 2.2 for today. On 09/22/2016 - patient's lower extremity edema has slightly improved. Patient is ambulating with some help. Renal functions slightly improving. On 09/23/2016 - patient still has significant lower extremity edema. Patient is still on IV Lasix drip. Patient was started on Tolvaptan as per nephrology . Discussed with the patient about hemodialysis. Patient would like to have a discussion with her daughter regarding this. On 09/24/2016 - patient still has significant lower extremity edema. Patient is agreeable to dialysis but wants to speak with vascular surgery and nephrology. On 09/25/2016 - Pt had a dialysis catheter placed yesterday, she is agreeable for dialysis and is being scheduled for ultrafiltration by nephrology . on 09/26/16: Pt. nick be getting second day of HD today. leg swelling much improved. Pt. says she feels tired. otherwise SOB improved. started on PO lasix REVIEW OF SYSTEMS: No fever, no chills, No abdominal pain. No nausea, vomiting. No headache, dizziness or lightheadedness. All other review of systems negative except above. Objective - Vital Signs Vital signs: Vital Signs Temp 98 F 09/26/16 20:00 Pulse 62 09/26/16 20:00 Resp 16 09/26/16 20:00 BP 153/72 09/26/16 20:00 Pulse Ox 96 09/26/16 20:00 Intake & Output 09/26/16 09/26/16 09/27/16 06:59 18:59 06:59 Intake Total 0 360 10 Output Total 775 400 400 Balance -775 -40 -390 Weight 59.8 kg Intake: IV 0 10 10 0.9 @10 0 0.9% NS FLUSH 10 Lasix 0 10 Oral 350 Output: Urine 775 400 400 Other: Voiding Method Bedside Commode Bedside Commode # Voids 1 2 - Exam An 81-year-old female, sitting in a chair, awake, alert and oriented x3. Appears to be in no apparent distress. HEENT: Atraumatic, normocephalic. Neck is supple, no JVD. CVS exam S1, S2 heard. No murmurs, no rub. LUNGS: Bilateral air entry is present. Decreased breath sounds basally. Nonlabored breathing. Mild crackles bilaterally. Abdomen is soft, nontender. Bowel sounds are heard. CHARM FILTER OPERATOR HELPER: Awake, alert, oriented x3. Able to move all her extremities. EXTREMITIES: Bilateral lower extremity 3+ edema, legs are in a Martell bandage, pitting type. Pulses palpable. SKIN: No rash or skin lesions. - Labs CBC & Chem 7: 09/20/16 06:26 09/26/16 06:13 Labs: Abnormal Lab Results - Last 24 Hours (Table) 09/26/16 09/26/16 09/26/16 Range/Units 05:52 06:13 11:36 Carbon Dioxide 35 H (22-30) mmol/L BUN 105 H* (7-17) mg/dL Creatinine 2.10 H (0.52-1.04) mg/dL Glucose 101 H (74-99) mg/dL POC Glucose (mg/dL) 112 H 173 H (75-99) mg/dL 09/26/16 09/26/16 09/26/16 Range/Units 16:39 20:48 23:20 Carbon Dioxide (22-30) mmol/L BUN (7-17) mg/dL Creatinine (0.52-1.04) mg/dL Glucose (74-99) mg/dL POC Glucose (mg/dL) 145 H 204 H 242 H (75-99) mg/dL Assessment and Plan Plan: 1. Acute exacerbation on congestive heart failure with diastolic dysfunction with valvular dysfunction. 2. Acute hypoxic respiratory failure on admission. Was on BiPAP machine. 3. Acute on chronic Kidney disease-4, possible cardiorenal, currently on IV Lasix drip. cr 2.4--2.24 - 2.06 - 2.40 - 2.60 - 2.15 4. Severe iron-deficiency anemia. 5. Non-anion gap metabolic acidosis currently on bicarb tablets. 6. History of chronic obstructive pulmonary disease. 7. Hypertension. 8. Diabetes type 2. 9. Hyperlipidemia. 10. History of coronary artery disease, status post PCI. 11. Moderate mitral regurgitation. DISCUSSION AND PLAN: IV Lasix drip has been discontinued. lasix changed to PO. She is getting hemodialysis today day 2. Monitor creatinine and continue with the current management. Continue with the PT, OT. Patient is still having orthopnea but improved. Will continue with the current management including oxygen therapy and titrate down to room air. Will follow closely. Further recommendations based on the clinical course. Time with Patient: Greater than 30
[2016-09-27 05:55] LABS: Glucose,Whole Blood 118 mg/dL (75-99)
[2016-09-27 07:21] LABS: Calcium 8.6 mg/dL (8.4-10.2); Potassium 3.9 mmol/L (3.5-5.1)
[2016-09-27] MEDS: SYMBICORT 160-4.5 MCG INHALER INHALATION SCH ×3 (08:20→19:10)
[2016-09-27] MEDS: IPRATROPIUM-ALBUTEROL 3 ML NEB INHALATION SCH ×4 (08:20→19:10)
--- NOTE | 2016-09-27 09:05 | PN ---
The patient is seen for follow up for acute kidney injury mainly cardiorenal with severe volume overload. The patient had been maintained on dobutamine and Lasix drip for a long period of time from which she had initially improved but then did not improve significantly to be able to be discharged. Volume status worsened and she has been started on Ultrafiltration. The patient has had 4 L off with two L at the time for the last 2 days. She states she is feeling better. On examination, blood pressure 135/59. heart rate 57 per minute. she is afebrile. Examination of the heart, S1, S2. Examination of the lungs decreased breath sounds at the bases, basal crackles are heard bilaterally. Abdomen is soft, nontender. Examination of the lower extremities shows chronic edema. FINISHED GOODS INSPECTOR exam is grossly intact. The patient is moving all four extremities. Labs show sodium 144, potassium 3.9, BUN 91, serum creatinine 2.52. ASSESSMENT: 1. Acute kidney injury cardiorenal currently maintained on ultrafiltration only with dialysis. The patient has had two days of treatment with 2 L at a time, total 4 L off and overall feeling slightly better. 2. Diastolic congestive heart failure. 3. Volume overload slowly improving. 4. Anemia, status post packed RBC transfusion and IV iron. 5. Metabolic acidosis, currently resolved. PLAN: Repeat ultrafiltration today with goal UF about 2 to 2.5 L as tolerated. MTDD
[2016-09-27] MEDS: DARBEPOETIN ALFA 40 MCG/0.4 ML SYRINGE SQ SCH (10:05)
[2016-09-27] MEDS: HEPARIN SODIUM,PORCINE 5,000 UNIT/ML 1 ML VIAL SQ SCH ×3 (10:06→22:43)
[2016-09-27] MEDS: FUROSEMIDE 40 MG TAB PO SCH ×2 (10:06→16:45)
[2016-09-27] MEDS: ISOSORBIDE MONONITRATE ER 60 MG TAB.ER.24H PO SCH (10:06)
[2016-09-27] MEDS: ASPIRIN 81 MG CHEW PO SCH (10:06)
[2016-09-27] MEDS: POTASSIUM CHLORIDE ER 20 MEQ TAB.ER PO SCH ×2 (10:06→21:10)
[2016-09-27] MEDS: ATORVASTATIN 80 MG TAB PO SCH (10:07)
[2016-09-27] MEDS: NADOLOL 20 MG TAB PO SCH (10:07)
[2016-09-27] MEDS: PRASUGREL 10 MG TAB PO SCH (10:07)
[2016-09-27 12:05] LABS: Glucose,Whole Blood 125 mg/dL (75-99)
--- NOTE | 2016-09-27 15:12 | P.PN ---
Subjective 7-year-old female with chronic kidney disease comes in the hospital with acute onset difficulty breathing. Patient states that she was in good health over the weekend started to have some progressive worsening of dyspnea on september thereafter noted to have severe dyspnea this morning and hence came to the hospital for ongoing care Patient was noted to be in severe distress patient was noted to be in congestive heart failure patient was started on BiPAP at 12/5 a BiPAP over EPAP patient is currently on 50% of FiO2 Patient denies having any headaches blurry vision nausea vomiting chest pain. Patient does state to have orthopnea and PND Patient is currently using about 4 pillows Has significant amount of weight gain in her lower extremity is Or 3+ edema according to her 09/12/2016 Patient states that she is having a difficulty breathing at this time patient is sitting up in bed continues to be on BiPAP at this time requiring over 5 L of oxygen States that her breathing has gotten worse over the last 24 hours 09/13/2016 Patient is doing significantly better today Is on 5 L of supplemental oxygen however uses BiPAP intermittently Urine output has improved Status post 1 unit of PRBC Denies having fevers chills chest pain nausea vomiting or diarrhea at this time 09/14/2016 States to be doing slightly better no fevers chills nausea vomiting diarrhea. States her breathing is better however is anxious that she does not have access to BiPAP now 09/15/2016 States to be feeling slightly better is currently maintained on 4 L supplement oxygen No fevers chills nausea vomiting or diarrhea is reported States to improvement in lower extremity edema. 09/16/2016 Patient states to be feeling better. Currently on 4 L supplement oxygen. However is not able to lay flat No fevers chills nausea vomiting or diarrhea is reported States that there is improvement in her lower extremity edema 03/20/2016 Patient is doing significantly better Was able to lay down. States that she is able to breathe better at rest her lower extremity edema is improved Chest pain diarrhea abdominal pain nausea vomiting headaches are reported 09/18/2016 Patient is doing better Was able to relate Our states to be weak Denies having fevers chills nausea vomiting or diarrhea Interval history Patient was not been able to be titrated off diuretics Hence patient was started on ultrafiltration after discussion with the family members. Patient has had 3 sessions including 1 today total of 6.5 L of ultrafiltrate was removed Patient is able to lay back with still 3-4 pillows. However states that she is significantly not able to lay flat denies having chest pain difficulty breathing lower extremity edema diarrhea urinary urgency or frequency Objective - Vital Signs Vital signs: Vital Signs Temp 97.8 F 09/27/16 08:30 Pulse 68 09/27/16 14:29 Resp 16 09/27/16 12:32 BP 148/63 09/27/16 12:32 Pulse Ox 93 L 09/27/16 12:32 Intake & Output 09/26/16 09/27/16 09/27/16 18:59 06:59 18:59 Intake Total 360 20 150 Output Total 400 800 Balance -40 -780 150 Weight 58.3 kg Intake: IV 10 20 0.9% NS FLUSH 20 Lasix 10 Oral 350 150 Output: Urine 400 800 Other: Voiding Method Bedside Commode Bedside Commode Bedside Commode # Voids 2 - Exam In appearance alert oriented 3 in no respiratory distress Lungs air movement is noted trace crackles no rhonchi noted Heart S1-S2 heard regular rate and rhythm no murmurs appreciated Abdomen is soft nontender organomegaly Neuro no focal motor or sensory deficits noted Lower extremities 2+ pitting edema noted bilaterally improved - Labs CBC & Chem 7: 09/20/16 06:26 09/27/16 06:48 Labs: Abnormal Lab Results - Last 24 Hours (Table) 09/26/16 09/26/16 09/26/16 Range/Units 16:39 20:48 23:20 Carbon Dioxide (22-30) mmol/L BUN (7-17) mg/dL Creatinine (0.52-1.04) mg/dL POC Glucose (mg/dL) 145 H 204 H 242 H (75-99) mg/dL 09/27/16 09/27/16 09/27/16 Range/Units 05:54 06:48 11:57 Carbon Dioxide 33 H (22-30) mmol/L BUN 91 H* (7-17) mg/dL Creatinine 2.52 H (0.52-1.04) mg/dL POC Glucose (mg/dL) 118 H 125 H (75-99) mg/dL Assessment and Plan Plan: #1 acute exacerbation of heart failure, diastolic in nature with valvular dysfunction #2 acute hypoxemic respiratory failure #3 severe iron deficiency anemia #4 non-anion gap metabolic acidosis #5 history of COPD #6 hypertension #7 diabetes most type II #8 Dyslipidemia #9 history of CAD status post PCI #10 moderate MR Plan Continue with ultrafiltration. Patient would like this to be a temporary measure We'll need to restart diuretics at this time Continue monitoring strict I's and O's Renal function is to monitor as well
[2016-09-27 17:17] LABS: Glucose,Whole Blood 173 mg/dL (75-99)
[2016-09-27 20:41] LABS: Glucose,Whole Blood 247 mg/dL (75-99)
[2016-09-27] MEDS: INSULIN GLARGINE 100 UNIT/ML 10 ML VIAL SQ SCH (21:13)
[2016-09-28 06:28] LABS: Glucose,Whole Blood 144 mg/dL (75-99)
[2016-09-28] MEDS: INSULIN LISPRO (humaLOG) 300 UNIT/3 ML VIAL SQ PRN (06:38)
[2016-09-28 06:46] LABS: Anisocytosis Slight; Basophils # (A) 0.1 k/uL (0-0.2); Basophils % (A) 1 %; CH 26.6; CHCM 30.1; Eosinophils # (A) 0.1 k/uL (0-0.7); Eosinophils % (A) 2 %; HDW 3.45; HGB 8.3 gm/dL (11.4-16.0); Hypochromasia Marked; Luc % (Auto) 4; Lymphocytes % (A) 25 %; MCH 27.4 pg (25.0-35.0); MCHC 30.9 g/dL (31.0-37.0); MCV 88.5 fL (80.0-100.0); Mean Platelet Volume 8.9; Monocytes # (A) 0.8 k/uL (0-1.0); Monocytes % (A) 10 %; Neutrophils # (A) 4.7 k/uL (1.3-7.7); Neutrophils % (A) 59 %; Poikilocytosis Slight; RBC 3.05 m/uL (3.80-5.40); RDW 18.6 % (11.5-15.5); WBC (Perox) 8.22
[2016-09-28 06:55] LABS: Calcium 8.9 mg/dL (8.4-10.2); Potassium 4.3 mmol/L (3.5-5.1); Total Bilirubin 0.6 mg/dL (0.2-1.3); Total Protein 6.3 g/dL (6.3-8.2)
[2016-09-28] MEDS: ASPIRIN 81 MG CHEW PO SCH (08:05)
[2016-09-28] MEDS: ATORVASTATIN 80 MG TAB PO SCH (08:05)
[2016-09-28] MEDS: HEPARIN SODIUM,PORCINE 5,000 UNIT/ML 1 ML VIAL SQ SCH ×3 (08:05→23:23)
[2016-09-28] MEDS: FUROSEMIDE 40 MG TAB PO SCH (08:05)
[2016-09-28] MEDS: POTASSIUM CHLORIDE ER 20 MEQ TAB.ER PO SCH ×2 (08:06→20:48)
[2016-09-28] MEDS: ISOSORBIDE MONONITRATE ER 60 MG TAB.ER.24H PO SCH (08:06)
[2016-09-28] MEDS: PRASUGREL 10 MG TAB PO SCH (08:06)
[2016-09-28] MEDS: NADOLOL 20 MG TAB PO SCH (08:06)
[2016-09-28] MEDS: IPRATROPIUM-ALBUTEROL 3 ML NEB INHALATION SCH ×4 (08:42→19:41)
[2016-09-28] MEDS: SYMBICORT 160-4.5 MCG INHALER INHALATION SCH ×3 (08:42→19:43)
[2016-09-28 12:20] LABS: Glucose,Whole Blood 182 mg/dL (75-99)
--- NOTE | 2016-09-28 12:23 | PN ---
Patient is seen for follow up for chronic kidney disease and acute kidney injury secondary to cardiorenal syndrome and volume overload. The patient has had three treatments of ultrafiltration with 2-2.5 liters off. She had 2.5 liters removed yesterday. She states she is feeling better. On examination, blood pressure is 139/62, heart rate 59 per minute, she is afebrile. HEART: S1/S2. LUNGS: Bilateral breath sounds are heard. ABDOMEN: Soft, nontender. LOWER EXTREMITIES: Show edema 2+ bilaterally. DOMESTIC HELPER: Grossly intact. Labs show sodium 143, potassium 4.3, BUN 86, serum creatinine 2.18. Hemoglobin 8.3 gm/dl. ASSESSMENT: 1. Acute kidney injury, cardiorenal syndrome mainly. Renal function fairly stable. Patient has been receiving ultrafiltration with no dialysis and her creatinine is fairly stable, staying at about 2.1 mg/dl. She has good urine output and we will continue with the Lasix which can be increased to IV to help with her own urine output. 2. Volume overload, slowly improving. Patient has had about 6.5 liters removed thus far. We can try another treatment of ultrafiltration tomorrow and remove her dialysis catheter tomorrow. In the meantime I will increase her Lasix to IV. 3. Anemia, status post packed red blood cells transfusion and IV iron. 4. Metabolic acidosis, currently resolved. PLAN: Repeat another treatment with ultrafiltration tomorrow and increase Lasix to IV. MTDD
--- NOTE | 2016-09-28 15:01 | P.PN ---
Subjective 7-year-old female with chronic kidney disease comes in the hospital with acute onset difficulty breathing. Patient states that she was in good health over the weekend started to have some progressive worsening of dyspnea on september thereafter noted to have severe dyspnea this morning and hence came to the hospital for ongoing care Patient was noted to be in severe distress patient was noted to be in congestive heart failure patient was started on BiPAP at 12/5 a BiPAP over EPAP patient is currently on 50% of FiO2 Patient denies having any headaches blurry vision nausea vomiting chest pain. Patient does state to have orthopnea and PND Patient is currently using about 4 pillows Has significant amount of weight gain in her lower extremity is Or 3+ edema according to her 09/12/2016 Patient states that she is having a difficulty breathing at this time patient is sitting up in bed continues to be on BiPAP at this time requiring over 5 L of oxygen States that her breathing has gotten worse over the last 24 hours 09/13/2016 Patient is doing significantly better today Is on 5 L of supplemental oxygen however uses BiPAP intermittently Urine output has improved Status post 1 unit of PRBC Denies having fevers chills chest pain nausea vomiting or diarrhea at this time 09/14/2016 States to be doing slightly better no fevers chills nausea vomiting diarrhea. States her breathing is better however is anxious that she does not have access to BiPAP now 09/15/2016 States to be feeling slightly better is currently maintained on 4 L supplement oxygen No fevers chills nausea vomiting or diarrhea is reported States to improvement in lower extremity edema. 09/16/2016 Patient states to be feeling better. Currently on 4 L supplement oxygen. However is not able to lay flat No fevers chills nausea vomiting or diarrhea is reported States that there is improvement in her lower extremity edema 03/20/2016 Patient is doing significantly better Was able to lay down. States that she is able to breathe better at rest her lower extremity edema is improved Chest pain diarrhea abdominal pain nausea vomiting headaches are reported 09/18/2016 Patient is doing better Was able to relate Our states to be weak Denies having fevers chills nausea vomiting or diarrhea Interval history Patient was not been able to be titrated off diuretics Hence patient was started on ultrafiltration after discussion with the family members. Patient has had 3 sessions including 1 today total of 6.5 L of ultrafiltrate was removed Patient is able to lay back with still 3-4 pillows. However states that she is significantly not able to lay flat denies having chest pain difficulty breathing lower extremity edema diarrhea urinary urgency or frequency 09/28/2016 Patient is restarted on diuretics Underwent 3 doses of ultrafiltration was 6.5 L of fluid removed Patient's renal function is stable No chest pain difficulty breathing nausea vomiting diarrhea is reported Patient is able to lay much flatter than prior to today's evaluation Objective - Vital Signs Vital signs: Vital Signs Temp 97.6 F 09/28/16 08:03 Pulse 60 09/28/16 13:15 Resp 16 09/28/16 12:00 BP 125/55 09/28/16 12:00 Pulse Ox 95 09/28/16 12:00 Intake & Output 09/27/16 09/28/16 09/28/16 18:59 06:59 18:59 Intake Total 150 20 100 Output Total 250 250 Balance 150 -230 -150 Weight 58.3 kg Intake: IV 20 0.9% NS FLUSH 20 Oral 150 100 Output: Urine 250 250 Other: Voiding Method Bedside Commode Bedside Commode Bedside Commode # Voids 2 - Exam In appearance alert oriented 3 in no respiratory distress Lungs air movement is noted trace crackles no rhonchi noted Heart S1-S2 heard regular rate and rhythm no murmurs appreciated Abdomen is soft nontender organomegaly Neuro no focal motor or sensory deficits noted Lower extremities 1+ pitting edema noted bilaterally improved - Labs CBC & Chem 7: 09/28/16 06:19 09/28/16 06:13 Labs: Abnormal Lab Results - Last 24 Hours (Table) 09/27/16 09/27/16 09/28/16 Range/Units 16:56 20:39 06:13 RBC (3.80-5.40) m/uL Hgb (11.4-16.0) gm/dL Hct (34.0-46.0) % MCHC (31.0-37.0) g/dL RDW (11.5-15.5) % Plt Count (150-450) k/uL BUN 86 H* (7-17) mg/dL Creatinine 2.18 H (0.52-1.04) mg/dL Glucose 116 H (74-99) mg/dL POC Glucose (mg/dL) 173 H 247 H (75-99) mg/dL 09/28/16 09/28/16 09/28/16 Range/Units 06:19 06:27 12:16 RBC 3.05 L (3.80-5.40) m/uL Hgb 8.3 L (11.4-16.0) gm/dL Hct 27.0 L (34.0-46.0) % MCHC 30.9 L (31.0-37.0) g/dL RDW 18.6 H (11.5-15.5) % Plt Count 147 L (150-450) k/uL BUN (7-17) mg/dL Creatinine (0.52-1.04) mg/dL Glucose (74-99) mg/dL POC Glucose (mg/dL) 144 H 182 H (75-99) mg/dL Assessment and Plan Plan: #1 acute exacerbation of heart failure, diastolic in nature with valvular dysfunction #2 acute hypoxemic respiratory failure #3 severe iron deficiency anemia #4 non-anion gap metabolic acidosis #5 history of COPD #6 hypertension #7 diabetes Mellitus type II #8 Dyslipidemia #9 history of CAD status post PCI #10 moderate MR Plan Hemodialysis catheter in place in the right groin Hold off on ultrafiltration today. IV diuretics for the next 24 hours clinically if patient is improving will likely consider discharge in the next 24 -48 hours to [facility] We'll have physical therapy evaluate the patient as well
[2016-09-28] MEDS: FUROSEMIDE 10 MG/ML 4 ML VIAL IV SCH ×2 (15:40→23:28)
[2016-09-28 17:15] LABS: Glucose,Whole Blood 148 mg/dL (75-99)
[2016-09-28 20:54] LABS: Anisocytosis Slight; CH 27.3; CHCM 30.2; HDW 3.34; Hypochromasia Marked; MCH 27.8 pg (25.0-35.0); MCHC 30.7 g/dL (31.0-37.0); MCV 90.7 fL (80.0-100.0); Mean Platelet Volume 9.5; RBC 2.86 m/uL (3.80-5.40); RDW 19.1 % (11.5-15.5); WBC 8.7 k/uL (3.8-10.6)
[2016-09-28 20:57] LABS: Glucose,Whole Blood 286 mg/dL (75-99)
[2016-09-28 21:06] LABS: INR 1.3 (<1.2); Partial Thromboplastin Time 33.9 sec (22.0-30.0); Prothrombin Time 13.1 sec (9.0-12.0)
[2016-09-28] MEDS: INSULIN GLARGINE 100 UNIT/ML 10 ML VIAL SQ SCH (21:33)
[2016-09-28] MEDS ORDERED: SODIUM CHLORIDE 0.9% IVPB ONE (22:30)
[2016-09-28] MEDS ORDERED: DESMOPRESSIN IVPB ONE (22:30)
[2016-09-29 02:03] LABS: Anisocytosis Slight; Basophils # (A) 0.1 k/uL (0-0.2); Basophils % (A) 1 %; CH 27.5; CHCM 30.6; Eosinophils # (A) 0.1 k/uL (0-0.7); Eosinophils % (A) 1 %; HCT 27.3 % (34.0-46.0); HGB 8.6 gm/dL (11.4-16.0); Hypochromasia Marked; Luc # (Auto) 0.27; Luc % (Auto) 3; Lymphocytes % (A) 25 %; MCH 28.4 pg (25.0-35.0); MCHC 31.5 g/dL (31.0-37.0); MCV 90.1 fL (80.0-100.0); Mean Platelet Volume 9.9; Monocytes # (A) 0.8 k/uL (0-1.0); Monocytes % (A) 10 %; Neutrophils # (A) 4.9 k/uL (1.3-7.7); Neutrophils % (A) 60 %; RBC 3.02 m/uL (3.80-5.40); RDW 19.3 % (11.5-15.5); WBC 8.1 k/uL (3.8-10.6); WBC (Perox) 8.31
[2016-09-29 06:18] LABS: Glucose,Whole Blood 150 mg/dL (75-99)
[2016-09-29 07:04] LABS: Anisocytosis Slight; Basophils # (A) 0.1 k/uL (0-0.2); Basophils % (A) 1 %; CH 27.4; CHCM 30.6; Eosinophils # (A) 0.1 k/uL (0-0.7); Eosinophils % (A) 2 %; HCT 26.4 % (34.0-46.0); HDW 3.31; HGB 8.1 gm/dL (11.4-16.0); Hypochromasia Marked; Luc # (Auto) 0.25; Luc % (Auto) 3; Lymphocytes # (A) 2.1 k/uL (1.0-4.8); Lymphocytes % (A) 26 %; MCH 27.5 pg (25.0-35.0); MCHC 30.6 g/dL (31.0-37.0); MCV 89.9 fL (80.0-100.0); Mean Platelet Volume 9.3; Monocytes # (A) 0.9 k/uL (0-1.0); Monocytes % (A) 11 %; Neutrophils # (A) 4.6 k/uL (1.3-7.7); Neutrophils % (A) 58 %; RBC 2.94 m/uL (3.80-5.40); RDW 19.2 % (11.5-15.5); WBC 7.9 k/uL (3.8-10.6); WBC (Perox) 7.86
[2016-09-29 07:22] LABS: Calcium 9.1 mg/dL (8.4-10.2); Potassium 3.5 mmol/L (3.5-5.1); Total Bilirubin 0.6 mg/dL (0.2-1.3); Total Protein 6.4 g/dL (6.3-8.2)
[2016-09-29] MEDS: FUROSEMIDE 10 MG/ML 4 ML VIAL IV SCH ×3 (08:51→23:12)
[2016-09-29] MEDS: HEPARIN SODIUM,PORCINE 5,000 UNIT/ML 1 ML VIAL SQ SCH ×3 (08:51→23:03)
[2016-09-29] MEDS: ISOSORBIDE MONONITRATE ER 60 MG TAB.ER.24H PO SCH (08:52)
[2016-09-29] MEDS: ASPIRIN 81 MG CHEW PO SCH (08:52)
[2016-09-29] MEDS: ATORVASTATIN 80 MG TAB PO SCH (08:52)
[2016-09-29] MEDS: PRASUGREL 10 MG TAB PO SCH (08:53)
[2016-09-29] MEDS: NADOLOL 20 MG TAB PO SCH (08:53)
[2016-09-29] MEDS: POTASSIUM CHLORIDE ER 20 MEQ TAB.ER PO SCH ×2 (08:53→19:55)
[2016-09-29] MEDS: IPRATROPIUM-ALBUTEROL 3 ML NEB INHALATION SCH ×4 (09:00→20:11)
[2016-09-29] MEDS: SYMBICORT 160-4.5 MCG INHALER INHALATION SCH ×2 (09:00→20:11)
--- NOTE | 2016-09-29 09:00 | P.PN ---
Subjective Patient is seen in follow-up for acute kidney injury. Her creatinine peaked at 3.2 this admission and is down to 1.97 today. Patient was maintained on Lasix drip as well as metolazone for several days for fluid overload. She was reluctant to do hemodialysis but agreed and has undergone 3 treatments of ultrafiltration only so far. She is noted to have diastolic CHF with severe pulmonary hypertension. Edema is significantly improved since admission. Admits to good urine output. She is nonoliguric. She did have some bleeding from the catheter site which is stable. Vascular surgery has evaluated the patient. Hemoglobin stable. Vital signs are stable. General: The patient appeared well nourished and normally developed. HEENT: Head exam is unremarkable. Neck is without jugular venous distension. LUNGS: Lungs are clear to auscultation and percussion. Breath sounds decreased. HEART: Rate and Rhythm are regular. First and second heart sounds normal. No murmurs, rubs or gallops. ABDOMEN: Abdominal exam reveals normal bowel sounds. Non-tender and non- distended. No evidence of peritonitis. EXTREMITITES: Trace edema. Objective - Vital Signs Vital signs: Vital Signs Temp 97.8 F 09/29/16 08:00 Pulse 58 L 09/29/16 08:00 Resp 18 09/29/16 08:00 BP 128/52 09/29/16 08:00 Pulse Ox 97 09/29/16 08:00 Intake & Output 09/28/16 09/29/16 09/29/16 18:59 06:59 18:59 Intake Total 100 294 240 Output Total 450 600 300 Balance -350 -306 -60 Weight 55 kg Intake: IV 94 0.9% NS FLUSH 20 0.9%NS 20mL/hr 20 Desmopressin Inj 18 mcg 50 In Sodium Chloride 0.9% 50 ml @ 200 mls/hr IVPB ONCE ONE Rx#:[id number] Lasix 4 Oral 100 200 240 Output: Urine 450 600 300 Other: Voiding Method Bedside Commode Bedpan Bedside Commode - Labs CBC & Chem 7: 09/29/16 06:06 09/29/16 06:03 Labs: Abnormal Lab Results - Last 24 Hours (Table) 09/28/16 09/28/16 09/28/16 Range/Units 12:16 17:08 20:40 RBC (3.80-5.40) m/uL Hgb (11.4-16.0) gm/dL Hct (34.0-46.0) % MCHC (31.0-37.0) g/dL RDW (11.5-15.5) % Plt Count (150-450) k/uL PT 13.1 H (9.0-12.0) sec INR 1.3 H (<1.2) APTT 33.9 H (22.0-30.0) sec Chloride (98-107) mmol/L Carbon Dioxide (22-30) mmol/L BUN (7-17) mg/dL Creatinine (0.52-1.04) mg/dL Glucose (74-99) mg/dL POC Glucose (mg/dL) 182 H 148 H (75-99) mg/dL 09/28/16 09/28/16 09/29/16 Range/Units 20:40 20:55 01:45 RBC 2.86 L 3.02 L (3.80-5.40) m/uL Hgb 8.0 L 8.6 L (11.4-16.0) gm/dL Hct 26.0 L 27.3 L (34.0-46.0) % MCHC 30.7 L (31.0-37.0) g/dL RDW 19.1 H 19.3 H (11.5-15.5) % Plt Count 137 L 142 L (150-450) k/uL PT (9.0-12.0) sec INR (<1.2) APTT (22.0-30.0) sec Chloride (98-107) mmol/L Carbon Dioxide (22-30) mmol/L BUN (7-17) mg/dL Creatinine (0.52-1.04) mg/dL Glucose (74-99) mg/dL POC Glucose (mg/dL) 286 H (75-99) mg/dL 09/29/16 09/29/16 09/29/16 Range/Units 06:03 06:06 06:17 RBC 2.94 L (3.80-5.40) m/uL Hgb 8.1 L (11.4-16.0) gm/dL Hct 26.4 L (34.0-46.0) % MCHC 30.6 L (31.0-37.0) g/dL RDW 19.2 H (11.5-15.5) % Plt Count 146 L (150-450) k/uL PT (9.0-12.0) sec INR (<1.2) APTT (22.0-30.0) sec Chloride 94 L (98-107) mmol/L Carbon Dioxide 35 H (22-30) mmol/L BUN 85 H* (7-17) mg/dL Creatinine 1.97 H (0.52-1.04) mg/dL Glucose 116 H (74-99) mg/dL POC Glucose (mg/dL) 150 H (75-99) mg/dL Assessment and Plan Plan: Assessment: #1. Nonoliguric acute kidney injury secondary to cardiorenal syndrome. Creatinine down to 1.97 today. Urinalysis benign. No evidence of hydronephrosis on renal ultrasound. #2. Diastolic CHF. Decompensated. #3. Volume overload. Significantly improved since admission. #4. Acute anemia. s/p pRBC transfusion this admission and IV iron. #5. Metabolic acidosis secondary to acute kidney injury. Resolved. Now actually alkalotic due to diuresis induced volume contraction. #6. Insulin-dependent diabetes mellitus. #7. Chronic kidney disease stage III with baseline creatinine near 1.3. Etiology is cardiorenal syndrome. #8. Hypokalemia due to diuresis. Magnesium replete. Plan: Low-salt and 1200 mL fluid restricted diet. Discontinued sodium bicarbonate supplementation. Daily weights and strict I's and O's. Maintain Aranesp. Patient was initially refusing renal replacement therapy but has now agreed. She had a right groin catheter placed on September 24. Fourth treatment of ultrafiltration only today. Continue IV Lasix 40 mg every 8 hours. Discontinue dialysis catheter after treatment today.
[2016-09-29 10:43] VITALS: BMI 22.1
[2016-09-29 11:30] LABS: Glucose,Whole Blood 185 mg/dL (75-99)
[2016-09-29] MEDS: INSULIN LISPRO (humaLOG) 300 UNIT/3 ML VIAL SQ PRN ×2 (12:56→17:27)
[2016-09-29 16:27] LABS: Glucose,Whole Blood 141 mg/dL (75-99)
--- NOTE | 2016-09-29 17:18 | P.PN ---
Subjective 7-year-old female with chronic kidney disease comes in the hospital with acute onset difficulty breathing. Patient states that she was in good health over the weekend started to have some progressive worsening of dyspnea on september thereafter noted to have severe dyspnea this morning and hence came to the hospital for ongoing care Patient was noted to be in severe distress patient was noted to be in congestive heart failure patient was started on BiPAP at 12/5 a BiPAP over EPAP patient is currently on 50% of FiO2 Patient denies having any headaches blurry vision nausea vomiting chest pain. Patient does state to have orthopnea and PND Patient is currently using about 4 pillows Has significant amount of weight gain in her lower extremity is Or 3+ edema according to her 09/12/2016 Patient states that she is having a difficulty breathing at this time patient is sitting up in bed continues to be on BiPAP at this time requiring over 5 L of oxygen States that her breathing has gotten worse over the last 24 hours 09/13/2016 Patient is doing significantly better today Is on 5 L of supplemental oxygen however uses BiPAP intermittently Urine output has improved Status post 1 unit of PRBC Denies having fevers chills chest pain nausea vomiting or diarrhea at this time 09/14/2016 States to be doing slightly better no fevers chills nausea vomiting diarrhea. States her breathing is better however is anxious that she does not have access to BiPAP now 09/15/2016 States to be feeling slightly better is currently maintained on 4 L supplement oxygen No fevers chills nausea vomiting or diarrhea is reported States to improvement in lower extremity edema. 09/16/2016 Patient states to be feeling better. Currently on 4 L supplement oxygen. However is not able to lay flat No fevers chills nausea vomiting or diarrhea is reported States that there is improvement in her lower extremity edema 03/20/2016 Patient is doing significantly better Was able to lay down. States that she is able to breathe better at rest her lower extremity edema is improved Chest pain diarrhea abdominal pain nausea vomiting headaches are reported 09/18/2016 Patient is doing better Was able to relate Our states to be weak Denies having fevers chills nausea vomiting or diarrhea Interval history Patient was not been able to be titrated off diuretics Hence patient was started on ultrafiltration after discussion with the family members. Patient has had 3 sessions including 1 today total of 6.5 L of ultrafiltrate was removed Patient is able to lay back with still 3-4 pillows. However states that she is significantly not able to lay flat denies having chest pain difficulty breathing lower extremity edema diarrhea urinary urgency or frequency 09/28/2016 Patient is restarted on diuretics Underwent 3 doses of ultrafiltration was 6.5 L of fluid removed Patient's renal function is stable No chest pain difficulty breathing nausea vomiting diarrhea is reported Patient is able to lay much flatter than prior to today's evaluation 09/29/16 doing well in low spirits today no fevers, chills, nausea, vomiting, diarrhea, chest pain Objective - Vital Signs Vital signs: Vital Signs Temp 97.6 F 09/29/16 15:28 Pulse 59 L 09/29/16 15:20 Resp 18 09/29/16 15:28 BP 119/64 09/29/16 15:28 Pulse Ox 100 09/29/16 15:28 Intake & Output 09/28/16 09/29/16 09/29/16 18:59 06:59 18:59 Intake Total 100 294 570 Output Total 450 600 300 Balance -350 -306 270 Weight 55 kg Intake: IV 94 90 0.9% NS FLUSH 20 0.9%NS 20mL/hr 20 Desmopressin Inj 18 mcg 50 In Sodium Chloride 0.9% 50 ml @ 200 mls/hr IVPB ONCE ONE Rx#:[id number] Lasix 4 90 Oral 100 200 480 Output: Urine 450 600 300 Other: Voiding Method Bedside Commode Bedpan Bedside Commode - Exam In appearance alert oriented 3 in no respiratory distress Lungs air movement is noted trace crackles no rhonchi noted Heart S1-S2 heard regular rate and rhythm no murmurs appreciated Abdomen is soft nontender organomegaly Neuro no focal motor or sensory deficits noted Lower extremities no edema noted bilaterally - Labs CBC & Chem 7: 09/29/16 06:06 09/29/16 06:03 Labs: Abnormal Lab Results - Last 24 Hours (Table) 09/28/16 09/28/16 09/28/16 Range/Units 20:40 20:40 20:55 RBC 2.86 L (3.80-5.40) m/uL Hgb 8.0 L (11.4-16.0) gm/dL Hct 26.0 L (34.0-46.0) % MCHC 30.7 L (31.0-37.0) g/dL RDW 19.1 H (11.5-15.5) % Plt Count 137 L (150-450) k/uL PT 13.1 H (9.0-12.0) sec INR 1.3 H (<1.2) APTT 33.9 H (22.0-30.0) sec Chloride (98-107) mmol/L Carbon Dioxide (22-30) mmol/L BUN (7-17) mg/dL Creatinine (0.52-1.04) mg/dL Glucose (74-99) mg/dL POC Glucose (mg/dL) 286 H (75-99) mg/dL 09/29/16 09/29/16 09/29/16 Range/Units 01:45 06:03 06:06 RBC 3.02 L 2.94 L (3.80-5.40) m/uL Hgb 8.6 L 8.1 L (11.4-16.0) gm/dL Hct 27.3 L 26.4 L (34.0-46.0) % MCHC 30.6 L (31.0-37.0) g/dL RDW 19.3 H 19.2 H (11.5-15.5) % Plt Count 142 L 146 L (150-450) k/uL PT (9.0-12.0) sec INR (<1.2) APTT (22.0-30.0) sec Chloride 94 L (98-107) mmol/L Carbon Dioxide 35 H (22-30) mmol/L BUN 85 H* (7-17) mg/dL Creatinine 1.97 H (0.52-1.04) mg/dL Glucose 116 H (74-99) mg/dL POC Glucose (mg/dL) (75-99) mg/dL 09/29/16 09/29/16 09/29/16 Range/Units 06:17 11:30 16:26 RBC (3.80-5.40) m/uL Hgb (11.4-16.0) gm/dL Hct (34.0-46.0) % MCHC (31.0-37.0) g/dL RDW (11.5-15.5) % Plt Count (150-450) k/uL PT (9.0-12.0) sec INR (<1.2) APTT (22.0-30.0) sec Chloride (98-107) mmol/L Carbon Dioxide (22-30) mmol/L BUN (7-17) mg/dL Creatinine (0.52-1.04) mg/dL Glucose (74-99) mg/dL POC Glucose (mg/dL) 150 H 185 H 141 H (75-99) mg/dL Assessment and Plan Plan: #1 acute exacerbation of heart failure, diastolic in nature with valvular dysfunction #2 acute hypoxemic respiratory failure #3 severe iron deficiency anemia #4 non-anion gap metabolic acidosis #5 history of COPD #6 hypertension #7 diabetes Mellitus type II #8 Dyslipidemia #9 history of CAD status post PCI #10 moderate MR Plan dc HD cath per nephrology iv lasix to continue volume status significantly improved continue ongoing care dc planning in the next 24 hrs
[2016-09-29 20:01] LABS: Glucose,Whole Blood 239 mg/dL (75-99)
[2016-09-29] MEDS: INSULIN GLARGINE 100 UNIT/ML 10 ML VIAL SQ SCH (20:05)
[2016-09-30 06:08] LABS: Glucose,Whole Blood 147 mg/dL (75-99)
[2016-09-30 07:06] LABS: Calcium 9.6 mg/dL (8.4-10.2); Potassium 4.4 mmol/L (3.5-5.1)
[2016-09-30] MEDS: IPRATROPIUM-ALBUTEROL 3 ML NEB INHALATION SCH ×4 (07:55→19:10)
[2016-09-30] MEDS: SYMBICORT 160-4.5 MCG INHALER INHALATION SCH ×2 (07:55→19:10)
[2016-09-30] MEDS: FUROSEMIDE 10 MG/ML 4 ML VIAL IV SCH ×2 (08:08→18:02)
[2016-09-30] MEDS: NADOLOL 20 MG TAB PO SCH (08:09)
[2016-09-30] MEDS: ISOSORBIDE MONONITRATE ER 60 MG TAB.ER.24H PO SCH (08:09)
[2016-09-30] MEDS: PRASUGREL 10 MG TAB PO SCH (08:09)
[2016-09-30] MEDS: POTASSIUM CHLORIDE ER 20 MEQ TAB.ER PO SCH ×2 (08:09→21:28)
[2016-09-30] MEDS: ASPIRIN 81 MG CHEW PO SCH (08:09)
[2016-09-30] MEDS: HEPARIN SODIUM,PORCINE 5,000 UNIT/ML 1 ML VIAL SQ SCH ×2 (08:09→12:51)
[2016-09-30] MEDS: ATORVASTATIN 80 MG TAB PO SCH (08:09)
--- NOTE | 2016-09-30 11:15 | P.PN ---
Subjective Patient is seen in follow-up for acute kidney injury. Her creatinine peaked at 3.2 this admission and is 2.55 today. Patient was maintained on Lasix drip as well as metolazone for several days for fluid overload. She was reluctant to do hemodialysis but agreed and has undergone 4 treatments of ultrafiltration only so far. She is noted to have diastolic CHF with severe pulmonary hypertension. Edema is significantly improved since admission. Admits to good urine output. She is nonoliguric. She did have some bleeding from the catheter site which is stable. Vascular surgery has evaluated the patient. Vital signs are stable. General: The patient appeared well nourished and normally developed. HEENT: Head exam is unremarkable. Neck is without jugular venous distension. LUNGS: Lungs are clear to auscultation and percussion. Breath sounds decreased. HEART: Rate and Rhythm are regular. First and second heart sounds normal. No murmurs, rubs or gallops. ABDOMEN: Abdominal exam reveals normal bowel sounds. Non-tender and non- distended. No evidence of peritonitis. EXTREMITITES: Trace edema. Objective - Vital Signs Vital signs: Vital Signs Temp 98.2 F 09/30/16 09:00 Pulse 58 L 09/30/16 09:00 Resp 18 09/30/16 09:00 BP 133/61 09/30/16 09:00 Pulse Ox 97 09/30/16 09:00 Intake & Output 09/29/16 09/30/16 09/30/16 18:59 06:59 18:59 Intake Total 810 120 Output Total 450 Balance 360 120 Weight 55 kg Intake: IV 90 Lasix 90 Oral 720 120 Output: Urine 450 Other: Voiding Method Bedside Commode Bedside Commode Bedside Commode # Voids 1 2 - Labs CBC & Chem 7: 09/29/16 06:06 09/30/16 05:53 Labs: Abnormal Lab Results - Last 24 Hours (Table) 09/29/16 09/29/16 09/29/16 Range/Units 11:30 16:26 20:00 Chloride (98-107) mmol/L BUN (7-17) mg/dL Creatinine (0.52-1.04) mg/dL Glucose (74-99) mg/dL POC Glucose (mg/dL) 185 H 141 H 239 H (75-99) mg/dL 09/30/16 09/30/16 Range/Units 05:53 06:07 Chloride 93 L (98-107) mmol/L BUN 89 H* (7-17) mg/dL Creatinine 2.55 H (0.52-1.04) mg/dL Glucose 129 H (74-99) mg/dL POC Glucose (mg/dL) 147 H (75-99) mg/dL Assessment and Plan Plan: Assessment: #1. Nonoliguric acute kidney injury secondary to cardiorenal syndrome. Creatinine 2.55 today. Urinalysis benign. No evidence of hydronephrosis on renal ultrasound. #2. Diastolic CHF. Decompensated. #3. Volume overload. Significantly improved since admission. #4. Acute anemia. s/p pRBC transfusion this admission and IV iron. #5. Metabolic acidosis secondary to acute kidney injury. Resolved. Now actually alkalotic due to diuresis induced volume contraction. #6. Insulin-dependent diabetes mellitus. #7. Chronic kidney disease stage III with baseline creatinine near 1.3. Etiology is cardiorenal syndrome. #8. Hypokalemia due to diuresis. Magnesium replete. Improved. Plan: Low-salt and 1200 mL fluid restricted diet. Discontinued sodium bicarbonate supplementation. Daily weights and strict I's and O's. Maintain Aranesp. Patient was initially refusing renal replacement therapy but has now agreed. She had a right groin catheter placed on September 24. Fourth treatment of ultrafiltration only today. Decrease Lasix to 40 mg IV twice daily. Discontinue dialysis catheter today.
[2016-09-30 12:49] LABS: Glucose,Whole Blood 157 mg/dL (75-99)
[2016-09-30] MEDS: INSULIN LISPRO (humaLOG) 300 UNIT/3 ML VIAL SQ SCH ×2 (12:49→18:01)
--- NOTE | 2016-09-30 17:41 | P.PN ---
Subjective 7-year-old female with chronic kidney disease comes in the hospital with acute onset difficulty breathing. Patient states that she was in good health over the weekend started to have some progressive worsening of dyspnea on september thereafter noted to have severe dyspnea this morning and hence came to the hospital for ongoing care Patient was noted to be in severe distress patient was noted to be in congestive heart failure patient was started on BiPAP at 12/5 a BiPAP over EPAP patient is currently on 50% of FiO2 Patient denies having any headaches blurry vision nausea vomiting chest pain. Patient does state to have orthopnea and PND Patient is currently using about 4 pillows Has significant amount of weight gain in her lower extremity is Or 3+ edema according to her 09/12/2016 Patient states that she is having a difficulty breathing at this time patient is sitting up in bed continues to be on BiPAP at this time requiring over 5 L of oxygen States that her breathing has gotten worse over the last 24 hours 09/13/2016 Patient is doing significantly better today Is on 5 L of supplemental oxygen however uses BiPAP intermittently Urine output has improved Status post 1 unit of PRBC Denies having fevers chills chest pain nausea vomiting or diarrhea at this time 09/14/2016 States to be doing slightly better no fevers chills nausea vomiting diarrhea. States her breathing is better however is anxious that she does not have access to BiPAP now 09/15/2016 States to be feeling slightly better is currently maintained on 4 L supplement oxygen No fevers chills nausea vomiting or diarrhea is reported States to improvement in lower extremity edema. 09/16/2016 Patient states to be feeling better. Currently on 4 L supplement oxygen. However is not able to lay flat No fevers chills nausea vomiting or diarrhea is reported States that there is improvement in her lower extremity edema 03/20/2016 Patient is doing significantly better Was able to lay down. States that she is able to breathe better at rest her lower extremity edema is improved Chest pain diarrhea abdominal pain nausea vomiting headaches are reported 09/18/2016 Patient is doing better Was able to relate Our states to be weak Denies having fevers chills nausea vomiting or diarrhea Interval history Patient was not been able to be titrated off diuretics Hence patient was started on ultrafiltration after discussion with the family members. Patient has had 3 sessions including 1 today total of 6.5 L of ultrafiltrate was removed Patient is able to lay back with still 3-4 pillows. However states that she is significantly not able to lay flat denies having chest pain difficulty breathing lower extremity edema diarrhea urinary urgency or frequency 09/28/2016 Patient is restarted on diuretics Underwent 3 doses of ultrafiltration was 6.5 L of fluid removed Patient's renal function is stable No chest pain difficulty breathing nausea vomiting diarrhea is reported Patient is able to lay much flatter than prior to today's evaluation 09/29/16 doing well in low spirits today no fevers, chills, nausea, vomiting, diarrhea, chest pain 09/30/16 doing well was able to ambulate today no fevers, chills, nausea, vomiting, reported Objective - Vital Signs Vital signs: Vital Signs Temp 98 F 09/30/16 15:00 Pulse 61 09/30/16 15:00 Resp 19 09/30/16 15:00 BP 128/61 09/30/16 15:00 Pulse Ox 100 09/30/16 15:00 Intake & Output 09/29/16 09/30/16 09/30/16 18:59 06:59 18:59 Intake Total 810 120 Output Total 450 Balance 360 120 Weight 55 kg Intake: IV 90 Lasix 90 Oral 720 120 Output: Urine 450 Other: Voiding Method Bedside Commode Bedside Commode Bedside Commode # Voids 1 2 2 - Exam In appearance alert oriented 3 in no respiratory distress Lungs air movement is noted trace crackles no rhonchi noted Heart S1-S2 heard regular rate and rhythm no murmurs appreciated Abdomen is soft nontender organomegaly Neuro no focal motor or sensory deficits noted Lower extremities no edema noted bilaterally - Labs CBC & Chem 7: 09/29/16 06:06 09/30/16 05:53 Labs: Abnormal Lab Results - Last 24 Hours (Table) 09/29/16 09/30/16 09/30/16 Range/Units 20:00 05:53 06:07 Chloride 93 L (98-107) mmol/L BUN 89 H* (7-17) mg/dL Creatinine 2.55 H (0.52-1.04) mg/dL Glucose 129 H (74-99) mg/dL POC Glucose (mg/dL) 239 H 147 H (75-99) mg/dL 09/30/16 Range/Units 12:37 Chloride (98-107) mmol/L BUN (7-17) mg/dL Creatinine (0.52-1.04) mg/dL Glucose (74-99) mg/dL POC Glucose (mg/dL) 157 H (75-99) mg/dL Assessment and Plan Plan: #1 acute exacerbation of heart failure, diastolic in nature with valvular dysfunction #2 acute hypoxemic respiratory failure #3 severe iron deficiency anemia #4 non-anion gap metabolic acidosis #5 history of COPD #6 hypertension #7 diabetes Mellitus type II #8 Dyslipidemia #9 history of CAD status post PCI #10 moderate MR Plan iv lasix to continue volume status significantly improved continue ongoing care dc in the next 24 hrs
[2016-09-30 17:48] LABS: Glucose,Whole Blood 204 mg/dL (75-99)
[2016-09-30] MEDS ORDERED: FUROSEMIDE 10 MG/ML 4 ML VIAL IV SCH (21:00)
[2016-09-30 21:01] LABS: Glucose,Whole Blood 234 mg/dL (75-99)
[2016-09-30] MEDS: INSULIN GLARGINE 100 UNIT/ML 10 ML VIAL SQ SCH (21:28)
[2016-10-01] MEDS: HEPARIN SODIUM,PORCINE 5,000 UNIT/ML 1 ML VIAL SQ SCH ×3 (00:25→16:05)
[2016-10-01] MEDS: FUROSEMIDE 10 MG/ML 4 ML VIAL IV SCH ×2 (06:34→18:17)
[2016-10-01 07:32] LABS: Glucose,Whole Blood 146 mg/dL (75-99)
[2016-10-01] MEDS: SYMBICORT 160-4.5 MCG INHALER INHALATION SCH ×2 (07:54→20:11)
[2016-10-01] MEDS: IPRATROPIUM-ALBUTEROL 3 ML NEB INHALATION SCH ×4 (07:54→20:11)
[2016-10-01] MEDS: INSULIN LISPRO (humaLOG) 300 UNIT/3 ML VIAL SQ SCH ×3 (08:11→18:16)
[2016-10-01] MEDS: ATORVASTATIN 80 MG TAB PO SCH (08:12)
[2016-10-01] MEDS: ASPIRIN 81 MG CHEW PO SCH (08:12)
[2016-10-01] MEDS: ISOSORBIDE MONONITRATE ER 60 MG TAB.ER.24H PO SCH (08:12)
[2016-10-01] MEDS: NADOLOL 20 MG TAB PO SCH (08:12)
[2016-10-01] MEDS: POTASSIUM CHLORIDE ER 20 MEQ TAB.ER PO SCH ×2 (08:13→21:53)
[2016-10-01] MEDS: PRASUGREL 10 MG TAB PO SCH (08:13)
[2016-10-01 09:34] LABS: Calcium 8.8 mg/dL (8.4-10.2); Potassium 4.6 mmol/L (3.5-5.1)
--- NOTE | 2016-10-01 10:58 | P.PN ---
Subjective Patient is seen in follow-up for acute kidney injury. Her creatinine peaked at 3.2 this admission and is 3.1 today. Patient was maintained on Lasix drip as well as metolazone for several days for fluid overload. She was reluctant to do hemodialysis but agreed and has undergone 4 treatments of ultrafiltration only so far. She is noted to have diastolic CHF with severe pulmonary hypertension. Edema is significantly improved since admission. Admits to good urine output. She is nonoliguric. Vital signs are stable. General: The patient appeared well nourished and normally developed. HEENT: Head exam is unremarkable. Neck is without jugular venous distension. LUNGS: Lungs are clear to auscultation and percussion. Breath sounds decreased. HEART: Rate and Rhythm are regular. First and second heart sounds normal. No murmurs, rubs or gallops. ABDOMEN: Abdominal exam reveals normal bowel sounds. Non-tender and non- distended. No evidence of peritonitis. EXTREMITITES: Trace edema. Objective - Vital Signs Vital signs: Vital Signs Temp 98.4 F 10/01/16 07:00 Pulse 68 10/01/16 08:04 Resp 16 10/01/16 07:00 BP 132/61 10/01/16 07:00 Pulse Ox 99 10/01/16 07:00 Intake & Output 09/30/16 10/01/16 10/01/16 18:59 06:59 18:59 Intake Total 120 300 Output Total 150 Balance -30 300 Weight 55 kg 53.977 kg Intake: Oral 120 300 Output: Urine 150 Other: Voiding Method Bedside Commode # Voids 2 1 # Bowel Movements 1 - Labs CBC & Chem 7: 09/29/16 06:06 10/01/16 09:07 Labs: Abnormal Lab Results - Last 24 Hours (Table) 09/30/16 09/30/16 09/30/16 Range/Units 12:37 17:19 20:58 Sodium (137-145) mmol/L Chloride (98-107) mmol/L BUN (7-17) mg/dL Creatinine (0.52-1.04) mg/dL Glucose (74-99) mg/dL POC Glucose (mg/dL) 157 H 204 H 234 H (75-99) mg/dL 10/01/16 10/01/16 Range/Units 07:04 09:07 Sodium 134 L (137-145) mmol/L Chloride 89 L (98-107) mmol/L BUN 105 H* (7-17) mg/dL Creatinine 3.11 H (0.52-1.04) mg/dL Glucose 234 H (74-99) mg/dL POC Glucose (mg/dL) 146 H (75-99) mg/dL Assessment and Plan Plan: Assessment: #1. Nonoliguric acute kidney injury secondary to cardiorenal syndrome. Creatinine 3.1 today. Urinalysis benign. No evidence of hydronephrosis on renal ultrasound. #2. Diastolic CHF. Decompensated. #3. Volume overload. Significantly improved since admission. #4. Acute anemia. s/p pRBC transfusion this admission and IV iron. #5. Metabolic acidosis secondary to acute kidney injury. Resolved. Now actually alkalotic due to diuresis induced volume contraction. #6. Insulin-dependent diabetes mellitus. #7. Chronic kidney disease stage III with baseline creatinine near 1.3. Etiology is cardiorenal syndrome. #8. Hypokalemia due to diuresis. Magnesium replete. Improved. Plan: Low-salt and 1200 mL fluid restricted diet. Discontinued sodium bicarbonate supplementation. Daily weights and strict I's and O's. Maintain Aranesp. Patient was initially refusing renal replacement therapy but has now agreed. She had a right groin catheter placed on September 24 and has now been discontinued. She underwent 4 treatments of ultrafiltration only. Continue Lasix to 40 mg IV twice daily. Repeat electrolytes in the morning.
[2016-10-01 12:03] LABS: Glucose,Whole Blood 191 mg/dL (75-99)
--- NOTE | 2016-10-01 16:38 | P.PN ---
Subjective 7-year-old female with chronic kidney disease comes in the hospital with acute onset difficulty breathing. Patient states that she was in good health over the weekend started to have some progressive worsening of dyspnea on september thereafter noted to have severe dyspnea this morning and hence came to the hospital for ongoing care Patient was noted to be in severe distress patient was noted to be in congestive heart failure patient was started on BiPAP at 12/5 a BiPAP over EPAP patient is currently on 50% of FiO2 Patient denies having any headaches blurry vision nausea vomiting chest pain. Patient does state to have orthopnea and PND Patient is currently using about 4 pillows Has significant amount of weight gain in her lower extremity is Or 3+ edema according to her 09/12/2016 Patient states that she is having a difficulty breathing at this time patient is sitting up in bed continues to be on BiPAP at this time requiring over 5 L of oxygen States that her breathing has gotten worse over the last 24 hours 09/13/2016 Patient is doing significantly better today Is on 5 L of supplemental oxygen however uses BiPAP intermittently Urine output has improved Status post 1 unit of PRBC Denies having fevers chills chest pain nausea vomiting or diarrhea at this time 09/14/2016 States to be doing slightly better no fevers chills nausea vomiting diarrhea. States her breathing is better however is anxious that she does not have access to BiPAP now 09/15/2016 States to be feeling slightly better is currently maintained on 4 L supplement oxygen No fevers chills nausea vomiting or diarrhea is reported States to improvement in lower extremity edema. 09/16/2016 Patient states to be feeling better. Currently on 4 L supplement oxygen. However is not able to lay flat No fevers chills nausea vomiting or diarrhea is reported States that there is improvement in her lower extremity edema 03/20/2016 Patient is doing significantly better Was able to lay down. States that she is able to breathe better at rest her lower extremity edema is improved Chest pain diarrhea abdominal pain nausea vomiting headaches are reported 09/18/2016 Patient is doing better Was able to relate Our states to be weak Denies having fevers chills nausea vomiting or diarrhea Interval history Patient was not been able to be titrated off diuretics Hence patient was started on ultrafiltration after discussion with the family members. Patient has had 3 sessions including 1 today total of 6.5 L of ultrafiltrate was removed Patient is able to lay back with still 3-4 pillows. However states that she is significantly not able to lay flat denies having chest pain difficulty breathing lower extremity edema diarrhea urinary urgency or frequency 09/28/2016 Patient is restarted on diuretics Underwent 3 doses of ultrafiltration was 6.5 L of fluid removed Patient's renal function is stable No chest pain difficulty breathing nausea vomiting diarrhea is reported Patient is able to lay much flatter than prior to today's evaluation 09/29/16 doing well in low spirits today no fevers, chills, nausea, vomiting, diarrhea, chest pain 09/30/16 doing well was able to ambulate today no fevers, chills, nausea, vomiting, reported 10/01/16 doing well is ambulating no fevers, chills, nausea, vomiting, chest pain no jonh reported Objective - Vital Signs Vital signs: Vital Signs Temp 96.9 F L 10/01/16 14:23 Pulse 68 10/01/16 15:33 Resp 16 10/01/16 14:23 BP 125/59 10/01/16 14:23 Pulse Ox 98 10/01/16 14:23 Intake & Output 09/30/16 10/01/16 10/01/16 18:59 06:59 18:59 Intake Total 120 300 Output Total 150 450 Balance -30 300 -450 Weight 55 kg 53.977 kg Intake: Oral 120 300 Output: Urine 150 450 Other: Voiding Method Bedside Commode Bedside Commode # Voids 2 1 0 # Bowel Movements 1 - Exam In appearance alert oriented 3 in no respiratory distress Lungs air movement is nocrackles no rhonchi noted Heart S1-S2 heard regular rate and rhythm no murmurs appreciated Abdomen is soft nontender organomegaly Neuro no focal motor or sensory deficits noted Lower extremities no edema noted bilaterally - Labs CBC & Chem 7: 09/29/16 06:06 10/01/16 09:07 Labs: Abnormal Lab Results - Last 24 Hours (Table) 09/30/16 09/30/16 10/01/16 Range/Units 17:19 20:58 07:04 Sodium (137-145) mmol/L Chloride (98-107) mmol/L BUN (7-17) mg/dL Creatinine (0.52-1.04) mg/dL Glucose (74-99) mg/dL POC Glucose (mg/dL) 204 H 234 H 146 H (75-99) mg/dL 10/01/16 10/01/16 Range/Units 09:07 11:39 Sodium 134 L (137-145) mmol/L Chloride 89 L (98-107) mmol/L BUN 105 H* (7-17) mg/dL Creatinine 3.11 H (0.52-1.04) mg/dL Glucose 234 H (74-99) mg/dL POC Glucose (mg/dL) 191 H (75-99) mg/dL Assessment and Plan Plan: #1 acute exacerbation of heart failure, diastolic in nature with valvular dysfunction #2 acute hypoxemic respiratory failure #3 severe iron deficiency anemia #4 non-anion gap metabolic acidosis #5 history of COPD #6 hypertension #7 diabetes Mellitus type II #8 Dyslipidemia #9 history of CAD status post PCI #10 moderate MR Plan iv lasix to continue volume status significantly improved continue ongoing care dc in the next 24 hrs
[2016-10-01 17:36] LABS: Glucose,Whole Blood 180 mg/dL (75-99)
[2016-10-01 20:38] LABS: Glucose,Whole Blood 297 mg/dL (75-99)
[2016-10-01] MEDS: INSULIN GLARGINE 100 UNIT/ML 10 ML VIAL SQ SCH (21:53)
[2016-10-02] MEDS: HEPARIN SODIUM,PORCINE 5,000 UNIT/ML 1 ML VIAL SQ SCH ×4 (01:01→23:29)
[2016-10-02] MEDS: FUROSEMIDE 10 MG/ML 4 ML VIAL IV SCH ×3 (06:28→09:53)
[2016-10-02 07:39] VITALS: RESP 16
[2016-10-02 07:39] LABS: Glucose,Whole Blood 173 mg/dL (75-99)
[2016-10-02] MEDS: IPRATROPIUM-ALBUTEROL 3 ML NEB INHALATION SCH ×4 (08:00→21:01)
[2016-10-02] MEDS: SYMBICORT 160-4.5 MCG INHALER INHALATION SCH ×2 (08:00→21:01)
[2016-10-02 08:36] LABS: Calcium 9.2 mg/dL (8.4-10.2); Potassium 4.7 mmol/L (3.5-5.1)
[2016-10-02] MEDS: NADOLOL 20 MG TAB PO SCH (09:12)
[2016-10-02] MEDS: PRASUGREL 10 MG TAB PO SCH (09:12)
[2016-10-02] MEDS: ISOSORBIDE MONONITRATE ER 60 MG TAB.ER.24H PO SCH (09:12)
[2016-10-02] MEDS: ASPIRIN 81 MG CHEW PO SCH (09:12)
[2016-10-02] MEDS: ATORVASTATIN 80 MG TAB PO SCH (09:12)
[2016-10-02] MEDS: POTASSIUM CHLORIDE ER 20 MEQ TAB.ER PO SCH ×2 (09:13→22:13)
[2016-10-02] MEDS: INSULIN LISPRO (humaLOG) 300 UNIT/3 ML VIAL SQ SCH ×3 (09:13→18:12)
--- NOTE | 2016-10-02 10:15 | P.PN ---
Subjective Patient is seen in follow-up for acute kidney injury. Her creatinine is up to 3.3 today. Patient was maintained on Lasix drip as well as metolazone for several days for fluid overload. She was reluctant to do hemodialysis but agreed and has undergone 4 treatments of ultrafiltration only so far. She is noted to have diastolic CHF with severe pulmonary hypertension. Edema is significantly improved since admission. Admits to good urine output. She is nonoliguric. Denies chest pain or shortness of breath. Currently maintained on Lasix 40 mg IV twice daily. Vital signs are stable. General: The patient appeared well nourished and normally developed. HEENT: Head exam is unremarkable. Neck is without jugular venous distension. LUNGS: Lungs are clear to auscultation and percussion. Breath sounds decreased. HEART: Rate and Rhythm are regular. First and second heart sounds normal. No murmurs, rubs or gallops. ABDOMEN: Abdominal exam reveals normal bowel sounds. Non-tender and non- distended. No evidence of peritonitis. EXTREMITITES: No edema. Objective - Vital Signs Vital signs: Vital Signs Temp 97.4 F L 10/02/16 07:00 Pulse 66 10/02/16 07:00 Resp 16 10/02/16 07:00 BP 106/59 10/02/16 07:00 Pulse Ox 98 10/02/16 08:00 Intake & Output 10/01/16 10/02/16 10/02/16 18:59 06:59 18:59 Intake Total 250 400 Output Total 650 200 400 Balance -650 50 0 Weight 53.977 kg 54.7 kg Intake: Oral 250 400 Output: Urine 650 200 400 Other: Voiding Method Bedside Commode Bedside Commode # Voids 0 50 # Bowel Movements 1 1 - Labs CBC & Chem 7: 09/29/16 06:06 10/02/16 07:47 Labs: Abnormal Lab Results - Last 24 Hours (Table) 10/01/16 10/01/16 10/01/16 Range/Units 11:39 17:21 20:37 Chloride (98-107) mmol/L BUN (7-17) mg/dL Creatinine (0.52-1.04) mg/dL Glucose (74-99) mg/dL POC Glucose (mg/dL) 191 H 180 H 297 H (75-99) mg/dL 10/02/16 10/02/16 Range/Units 07:23 07:47 Chloride 93 L (98-107) mmol/L BUN 113 H* (7-17) mg/dL Creatinine 3.31 H (0.52-1.04) mg/dL Glucose 151 H (74-99) mg/dL POC Glucose (mg/dL) 173 H (75-99) mg/dL Assessment and Plan Plan: Assessment: #1. Nonoliguric acute kidney injury secondary to cardiorenal syndrome. Creatinine elevated at 3.3 today. Urinalysis benign. No evidence of hydronephrosis on renal ultrasound. #2. Diastolic CHF. Now compensated. #3. Volume overload. Significantly improved since admission. #4. Acute anemia. s/p pRBC transfusion this admission and IV iron. #5. Metabolic acidosis secondary to acute kidney injury. Resolved. Now actually alkalotic due to diuresis induced volume contraction. #6. Insulin-dependent diabetes mellitus. #7. Chronic kidney disease stage III with baseline creatinine near 1.3. Etiology is cardiorenal syndrome. #8. Hypokalemia due to diuresis. Magnesium replete. Improved. Plan: Low-salt and 1200 mL fluid restricted diet. Discontinued sodium bicarbonate supplementation. Daily weights and strict I's and O's. Maintain Aranesp. Patient was initially refusing renal replacement therapy but has now agreed. She had a right groin catheter placed on September 24 and has now been discontinued. She underwent 4 treatments of ultrafiltration only. Hold tonight's dose of Lasix. Repeat electrolytes in the morning. Potential discharge tomorrow if renal function stable.
[2016-10-02 11:56] LABS: Glucose,Whole Blood 178 mg/dL (75-99)
[2016-10-02 17:11] LABS: Glucose,Whole Blood 132 mg/dL (75-99)
--- NOTE | 2016-10-02 17:52 | P.PN ---
Subjective 7-year-old female with chronic kidney disease comes in the hospital with acute onset difficulty breathing. Patient states that she was in good health over the weekend started to have some progressive worsening of dyspnea on september thereafter noted to have severe dyspnea this morning and hence came to the hospital for ongoing care Patient was noted to be in severe distress patient was noted to be in congestive heart failure patient was started on BiPAP at 12/5 a BiPAP over EPAP patient is currently on 50% of FiO2 Patient denies having any headaches blurry vision nausea vomiting chest pain. Patient does state to have orthopnea and PND Patient is currently using about 4 pillows Has significant amount of weight gain in her lower extremity is Or 3+ edema according to her 09/12/2016 Patient states that she is having a difficulty breathing at this time patient is sitting up in bed continues to be on BiPAP at this time requiring over 5 L of oxygen States that her breathing has gotten worse over the last 24 hours 09/13/2016 Patient is doing significantly better today Is on 5 L of supplemental oxygen however uses BiPAP intermittently Urine output has improved Status post 1 unit of PRBC Denies having fevers chills chest pain nausea vomiting or diarrhea at this time 09/14/2016 States to be doing slightly better no fevers chills nausea vomiting diarrhea. States her breathing is better however is anxious that she does not have access to BiPAP now 09/15/2016 States to be feeling slightly better is currently maintained on 4 L supplement oxygen No fevers chills nausea vomiting or diarrhea is reported States to improvement in lower extremity edema. 09/16/2016 Patient states to be feeling better. Currently on 4 L supplement oxygen. However is not able to lay flat No fevers chills nausea vomiting or diarrhea is reported States that there is improvement in her lower extremity edema 03/20/2016 Patient is doing significantly better Was able to lay down. States that she is able to breathe better at rest her lower extremity edema is improved Chest pain diarrhea abdominal pain nausea vomiting headaches are reported 09/18/2016 Patient is doing better Was able to relate Our states to be weak Denies having fevers chills nausea vomiting or diarrhea Interval history Patient was not been able to be titrated off diuretics Hence patient was started on ultrafiltration after discussion with the family members. Patient has had 3 sessions including 1 today total of 6.5 L of ultrafiltrate was removed Patient is able to lay back with still 3-4 pillows. However states that she is significantly not able to lay flat denies having chest pain difficulty breathing lower extremity edema diarrhea urinary urgency or frequency 09/28/2016 Patient is restarted on diuretics Underwent 3 doses of ultrafiltration was 6.5 L of fluid removed Patient's renal function is stable No chest pain difficulty breathing nausea vomiting diarrhea is reported Patient is able to lay much flatter than prior to today's evaluation 09/29/16 doing well in low spirits today no fevers, chills, nausea, vomiting, diarrhea, chest pain 09/30/16 doing well was able to ambulate today no fevers, chills, nausea, vomiting, reported 10/01/16 doing well is ambulating no fevers, chills, nausea, vomiting, chest pain no jonh reported 10/02/16 No new overnight events Objective - Vital Signs Vital signs: Vital Signs Temp 97.6 F 10/02/16 15:00 Pulse 62 10/02/16 15:00 Resp 16 10/02/16 15:00 BP 133/62 10/02/16 15:00 Pulse Ox 99 10/02/16 15:00 Intake & Output 10/01/16 10/02/16 10/02/16 18:59 06:59 18:59 Intake Total 250 940 Output Total 650 200 800 Balance -650 50 140 Weight 53.977 kg 54.7 kg Intake: Oral 250 940 Output: Urine 650 200 800 Other: Voiding Method Bedside Commode Bedside Commode # Voids 0 50 # Bowel Movements 1 1 - Exam In appearance alert oriented 3 in no respiratory distress Lungs air movement is nocrackles no rhonchi noted Heart S1-S2 heard regular rate and rhythm no murmurs appreciated Abdomen is soft nontender organomegaly Neuro no focal motor or sensory deficits noted Lower extremities no edema noted bilaterally - Labs CBC & Chem 7: 09/29/16 06:06 10/02/16 07:47 Labs: Abnormal Lab Results - Last 24 Hours (Table) 10/01/16 10/02/16 10/02/16 Range/Units 20:37 07:23 07:47 Chloride 93 L (98-107) mmol/L BUN 113 H* (7-17) mg/dL Creatinine 3.31 H (0.52-1.04) mg/dL Glucose 151 H (74-99) mg/dL POC Glucose (mg/dL) 297 H 173 H (75-99) mg/dL 10/02/16 10/02/16 Range/Units 11:53 16:59 Chloride (98-107) mmol/L BUN (7-17) mg/dL Creatinine (0.52-1.04) mg/dL Glucose (74-99) mg/dL POC Glucose (mg/dL) 178 H 132 H (75-99) mg/dL Assessment and Plan Plan: #1 acute exacerbation of heart failure, diastolic in nature with valvular dysfunction #2 acute hypoxemic respiratory failure #3 severe iron deficiency anemia #4 non-anion gap metabolic acidosis #5 history of COPD #6 hypertension #7 diabetes Mellitus type II #8 Dyslipidemia #9 history of CAD status post PCI #10 moderate MR Plan volume status significantly improved significant BUN moniter overnight continue ongoing care
[2016-10-02 20:49] LABS: Glucose,Whole Blood 188 mg/dL (75-99)
[2016-10-02] MEDS: INSULIN GLARGINE 100 UNIT/ML 10 ML VIAL SQ SCH (22:13)
[2016-10-03 05:59] LABS: Potassium 4.6 mmol/L (3.5-5.1)
[2016-10-03 07:19] VITALS: BP 147/70; PULSE 53; TEMP 97.4
[2016-10-03 07:21] LABS: Glucose,Whole Blood 129 mg/dL (75-99)
[2016-10-03] MEDS: INSULIN LISPRO (humaLOG) 300 UNIT/3 ML VIAL SQ SCH ×2 (07:41→12:36)
[2016-10-03] MEDS: ISOSORBIDE MONONITRATE ER 60 MG TAB.ER.24H PO SCH (07:47)
[2016-10-03] MEDS: HEPARIN SODIUM,PORCINE 5,000 UNIT/ML 1 ML VIAL SQ SCH ×2 (07:48→16:03)
[2016-10-03] MEDS: PRASUGREL 10 MG TAB PO SCH (07:48)
[2016-10-03] MEDS: ATORVASTATIN 80 MG TAB PO SCH (07:48)
[2016-10-03] MEDS: POTASSIUM CHLORIDE ER 20 MEQ TAB.ER PO SCH (07:48)
[2016-10-03] MEDS: NADOLOL 20 MG TAB PO SCH (07:48)
[2016-10-03] MEDS: ASPIRIN 81 MG CHEW PO SCH (07:48)
--- NOTE | 2016-10-03 08:57 | P.PN ---
Subjective Patient is seen in follow-up for acute kidney injury. Her creatinine is a little improved at 3.2 today. Patient was maintained on Lasix drip as well as metolazone for several days for fluid overload. She was reluctant to do hemodialysis but agreed and has undergone 4 treatments of ultrafiltration only so far. She is noted to have diastolic CHF with severe pulmonary hypertension. Edema is significantly improved since admission. Admits to good urine output. She is nonoliguric. Denies chest pain or shortness of breath. Currently maintained on Lasix 40 mg IV once daily. Vital signs are stable. General: The patient appeared well nourished and normally developed. HEENT: Head exam is unremarkable. Neck is without jugular venous distension. LUNGS: Lungs are clear to auscultation and percussion. Breath sounds decreased. HEART: Rate and Rhythm are regular. First and second heart sounds normal. No murmurs, rubs or gallops. ABDOMEN: Abdominal exam reveals normal bowel sounds. Non-tender and non- distended. No evidence of peritonitis. EXTREMITITES: No edema. Objective - Vital Signs Vital signs: Vital Signs Temp 97.4 F L 10/03/16 07:00 Pulse 53 L 10/03/16 07:00 Resp 16 10/03/16 07:00 BP 147/70 10/03/16 07:00 Pulse Ox 98 10/03/16 08:51 Intake & Output 10/02/16 10/03/16 10/03/16 18:59 06:59 18:59 Intake Total 940 Output Total 1200 200 Balance -260 -200 Weight 54.7 kg Intake: Oral 940 Output: Urine 1200 200 Other: # Bowel Movements 1 - Labs CBC & Chem 7: 09/29/16 06:06 10/03/16 05:27 Labs: Abnormal Lab Results - Last 24 Hours (Table) 10/02/16 10/02/16 10/02/16 Range/Units 11:53 16:59 20:36 Sodium (137-145) mmol/L Chloride (98-107) mmol/L BUN (7-17) mg/dL Creatinine (0.52-1.04) mg/dL Glucose (74-99) mg/dL POC Glucose (mg/dL) 178 H 132 H 188 H (75-99) mg/dL 07/28/17 07/28/17 Range/Units 05:27 07:11 Sodium 136 L (137-145) mmol/L Chloride 96 L (98-107) mmol/L BUN 117 H* (7-17) mg/dL Creatinine 3.20 H (0.52-1.04) mg/dL Glucose 134 H (74-99) mg/dL POC Glucose (mg/dL) 129 H (75-99) mg/dL Assessment and Plan Plan: Assessment: #1. Nonoliguric acute kidney injury secondary to cardiorenal syndrome. Creatinine level improved at 3.2 today. Urinalysis benign. No evidence of hydronephrosis on renal ultrasound. #2. Diastolic CHF. Now compensated. #3. Volume overload. Significantly improved since admission. #4. Acute anemia. s/p pRBC transfusion this admission and IV iron. #5. Metabolic acidosis secondary to acute kidney injury. Resolved. Now actually alkalotic due to diuresis induced volume contraction. #6. Insulin-dependent diabetes mellitus. #7. Chronic kidney disease stage III with baseline creatinine near 1.3. Etiology is cardiorenal syndrome. #8. Hypokalemia due to diuresis. Magnesium replete. Improved. Plan: Low-salt and 1200 mL fluid restricted diet. Discontinued sodium bicarbonate supplementation. Daily weights and strict I's and O's. Maintain Aranesp. Patient was initially refusing renal replacement therapy but eventually agreed. She had a right groin catheter placed on September 24 and has now been discontinued. She underwent 4 treatments of ultrafiltration only. Stable to be discharged to rehab from nephrology standpoint on Lasix 40 mg once daily. I advised her to restrict her fluid intake to 50 ounces daily and to also avoid excessive salt intake. If she notices worsening edema than she is to double her dose of Lasix. She will need to get a basic metabolic panel checked within 3-4 days of discharge and follow-up as an outpatient in the next 2 weeks.
[2016-10-03] MEDS: IPRATROPIUM-ALBUTEROL 3 ML NEB INHALATION SCH ×2 (08:58→15:27)
[2016-10-03] MEDS: SYMBICORT 160-4.5 MCG INHALER INHALATION SCH (08:58)
[2016-10-03] MEDS ORDERED: FUROSEMIDE 40 MG TAB PO SCH (09:00)
[2016-10-03 12:01] LABS: Glucose,Whole Blood 165 mg/dL (75-99)
--- NOTE | 2016-10-03 15:16 | P.DS ---
Providers Date of admission: 09/11/16 11:07 Attending physician: Evaristo Boston MD Consults: 09/11/16 11:05 Consult Physician Routine Consulting Provider: Ameya Medina Consult Reason/Comments: chf Do you want consulting provider notified?: Yes 09/12/16 09:14 Consult Physician Routine Consulting Provider: Lukasz Pagan Consult Reason/Comments: nick Do you want consulting provider notified?: Yes 09/24/16 10:38 Consult Physician Urgent Consulting Provider: Pravin North Consult Reason/Comments: Temporary Dialysis Catheter Insertion- Groin Site acceptable Do you want consulting provider notified?: Yes Primary care physician: [facility] Course: 81-year-old female with chronic kidney disease comes in the hospital with acute onset difficulty breathing. Patient states that she was in good health over the weekend started to have some progressive worsening of dyspnea on september thereafter noted to have severe dyspnea this morning and hence came to the hospital for ongoing care Patient was noted to be in severe distress patient was noted to be in congestive heart failure patient was started on BiPAP at 12/5 a BiPAP over EPAP patient is currently on 50% of FiO2 Patient denies having any headaches blurry vision nausea vomiting chest pain. Patient does state to have orthopnea and PND Patient is currently using about 4 pillows Has significant amount of weight gain in her lower extremity is Or 3+ edema according to her 09/12/2016 Patient states that she is having a difficulty breathing at this time patient is sitting up in bed continues to be on BiPAP at this time requiring over 5 L of oxygen States that her breathing has gotten worse over the last 24 hours 09/13/2016 Patient is doing significantly better today Is on 5 L of supplemental oxygen however uses BiPAP intermittently Urine output has improved Status post 1 unit of PRBC Denies having fevers chills chest pain nausea vomiting or diarrhea at this time 09/14/2016 States to be doing slightly better no fevers chills nausea vomiting diarrhea. States her breathing is better however is anxious that she does not have access to BiPAP now 09/15/2016 States to be feeling slightly better is currently maintained on 4 L supplement oxygen No fevers chills nausea vomiting or diarrhea is reported States to improvement in lower extremity edema. 09/16/2016 Patient states to be feeling better. Currently on 4 L supplement oxygen. However is not able to lay flat No fevers chills nausea vomiting or diarrhea is reported States that there is improvement in her lower extremity edema 03/20/2016 Patient is doing significantly better Was able to lay down. States that she is able to breathe better at rest her lower extremity edema is improved Chest pain diarrhea abdominal pain nausea vomiting headaches are reported 09/18/2016 Patient is doing better Was able to relate Our states to be weak Denies having fevers chills nausea vomiting or diarrhea Interval history Patient was not been able to be titrated off diuretics Hence patient was started on ultrafiltration after discussion with the family members. Patient has had 3 sessions including 1 today total of 6.5 L of ultrafiltrate was removed Patient is able to lay back with still 3-4 pillows. However states that she is significantly not able to lay flat denies having chest pain difficulty breathing lower extremity edema diarrhea urinary urgency or frequency 09/28/2016 Patient is restarted on diuretics Underwent 3 doses of ultrafiltration was 6.5 L of fluid removed Patient's renal function is stable No chest pain difficulty breathing nausea vomiting diarrhea is reported Patient is able to lay much flatter than prior to today's evaluation 09/29/16 doing well in low spirits today no fevers, chills, nausea, vomiting, diarrhea, chest pain 09/30/16 doing well was able to ambulate today no fevers, chills, nausea, vomiting, reported 10/01/16 doing well is ambulating no fevers, chills, nausea, vomiting, chest pain no jonh reported 10/02/16 No new overnight events - Exam In appearance alert oriented 3 in no respiratory distress Lungs air movement is nocrackles no rhonchi noted Heart S1-S2 heard regular rate and rhythm no murmurs appreciated Abdomen is soft nontender organomegaly Neuro no focal motor or sensory deficits noted Lower extremities no edema noted bilaterally Assessment and Plan Plan: #1 acute exacerbation of heart failure, diastolic in nature with valvular dysfunction improved with iv diuretics and HD with ultrafiltration 4 sesssions cardiorenal syndrome #2 acute hypoxemic respiratory failure #3 severe iron deficiency anemia #4 non-anion gap metabolic acidosis #5 history of COPD #6 hypertension #7 diabetes Mellitus type II #8 Dyslipidemia #9 history of CAD status post PCI #10 moderate MR Plan - Discharge Summary New Discharge Prescriptions: New Aspirin 81 mg PO DAILY Darbepoetin Conrado [Aranesp] 40 mcg SQ Q7D syr Potassium Chloride ER [K-Dur 20] 20 meq PO BID tab Continue Nadolol 20 mg PO DAILY Tiotropium 18 Mcg/Puff [Spiriva] 1 cap INHALATION RT-DAILY Prasugrel HCl [Effient] 10 mg PO DAILY Isosorbide Mononitrate [Imdur] 120 mg PO DAILY Atorvastatin [Lipitor] 80 mg PO DAILY Insulin Glargine [Lantus] 10 unit SQ HS INSULIN LISPRO (humaLOG) [humaLOG (formulary)] See Protocol SQ AC-TID PRN PRN Reason: Blood Sugar - High Changed Furosemide [Lasix] 40 mg PO DAILY #0 Discontinued Ezetimibe [Zetia] 10 mg PO DAILY Nitroglycerin Sl Tabs [Nitrostat] 0.4 mg SUBLINGUAL Q5M PRN PRN Reason: Angina Aspirin 325 mg PO DAILY amLODIPine [Norvasc] 10 mg PO DAILY Discharge Medication List Atorvastatin [Lipitor] 80 mg PO DAILY 07/01/16 [History] Isosorbide Mononitrate [Imdur] 120 mg PO DAILY 07/01/16 [History] Nadolol 20 mg PO DAILY 07/01/16 [History] Prasugrel HCl [Effient] 10 mg PO DAILY 07/01/16 [History] Tiotropium 18 Mcg/Puff [Spiriva] 1 cap INHALATION RT-DAILY 07/01/16 [History] INSULIN LISPRO (humaLOG) [humaLOG (formulary)] See Protocol SQ AC-TID PRN [History] Insulin Glargine [Lantus] 10 unit SQ HS 09/08/16 [History] Aspirin 81 mg PO DAILY 10/03/16 [Rx] Darbepoetin Conrado [Aranesp] 40 mcg SQ Q7D syr 10/03/16 [Rx] Furosemide [Lasix] 40 mg PO DAILY #0 10/03/16 [Rx] Potassium Chloride ER [K-Dur 20] 20 meq PO BID tab 10/03/16 [Rx] Follow up Appointment(s)/Referral(s): [facility], [NON-STAFF] - (To start upon discharge from [facility]) Rosey Osorio, [NON-STAFF] - 1 Week Lukasz Pagan DO [STAFF PHYSICIAN] - 2 Weeks John Galeano DO [Primary Care Provider] - 1-2 days Patient Instructions/Handouts: Heart Failure (DC) Activity/Diet/Wound Care/Special Instructions: Diabetic, low salt diet with 1200ml fluid restriction. Daily Weight. Have BMP checked in 4 days following discharge. Right Femoral dialysis puncture to be cleaned and observed daily. Right marie wound to keep clean and cover with nonadherant dressing daily. Discharge Disposition: TRANSFER TO SNF/ECF
== END 2016-10-03 16:17 | DRG 291 ==
LOC: EC 09:16 → 6SEL 11:07 → 4MS4W 09-30 09:08
PROVIDERS: ADMIT Internal Medicine; ATTEND Internal Medicine
PROC: 04HK33Z Insertion of Infusion Device into Right Femoral Artery, Percutaneous Approach (ICD-10-PCS; principal; 2016-09-24 17:37)
PROC: B44LZZZ Ultrasonography of Femoral Artery (ICD-10-PCS; principal; 2016-09-24 17:37)
DX: I13.0 Hypertensive heart and chronic kidney disease with heart failure and stage 1 through stage 4 chronic kidney disease, or unspecified chronic kidney disease (principal); I50.33 Acute on chronic diastolic (congestive) heart failure; J96.01 Acute respiratory failure with hypoxia; N17.0 Acute kidney failure with tubular necrosis; E87.4 Mixed disorder of acid-base balance; E11.22 Type 2 diabetes mellitus with diabetic chronic kidney disease; D50.9 Iron deficiency anemia, unspecified; F17.200 Nicotine dependence, unspecified, uncomplicated; I27.2 Other secondary pulmonary hypertension; J44.9 Chronic obstructive pulmonary disease, unspecified; E78.5 Hyperlipidemia, unspecified; E87.6 Hypokalemia; I25.10 Atherosclerotic heart disease of native coronary artery without angina pectoris; I34.0 Nonrheumatic mitral (valve) insufficiency; N18.3 Chronic kidney disease, stage 3 (moderate); T50.2X5A Adverse effect of carbonic-anhydrase inhibitors, benzothiadiazides and other diuretics, initial encounter; Z79.4 Long term (current) use of insulin; Z79.82 Long term (current) use of aspirin; Z79.899 Other long term (current) drug therapy; Z80.8 Family history of malignant neoplasm of other organs or systems; Z85.3 Personal history of malignant neoplasm of breast; Z95.1 Presence of aortocoronary bypass graft; Z95.5 Presence of coronary angioplasty implant and graft
CPT/HCPCS: 36415; 36556; 71010; 71020; 71250; 76770; 76937; 80048; 80053; 81001; 82550; 82553; 82728; 83036; 83540; 83550; 83735; 83880; 84132; 84484; 85025; 85027; 85610; 85730; 86850; 86900; 86901; 86920; 90935; 93005; 93306; 94640; 94660; 94760; 96374; 99285

== ENCOUNTER 2017-01-19 09:18 | Inpatient (IN) | payer MEDICARE, BC ==
[2017-01-19] MEDS ORDERED: SODIUM CHLORIDE 0.9% 1,000 ML IV STA (09:46)
[2017-01-19] MEDS ORDERED: HYDROmorphone 0.5 MG/0.5 ML SYRINGE IVP STA (09:46)
[2017-01-19] MEDS ORDERED: HYDROmorphone 1 MG/ML 1 ML SYRINGE IVP STA (10:00)
[2017-01-19 10:15] LABS: INR 2.1 (<1.2); Prothrombin Time 20.1 sec (9.0-12.0)
--- NOTE | 2017-01-19 10:17 | XR ---
EXAMINATION TYPE: XR chest 2V DATE OF EXAM: 01/19/2017 COMPARISON: 09/23/[address] 09/16/2016 HISTORY: 81-year-old female with weakness TECHNIQUE: AP and lateral views FINDINGS: Median sternotomy wires are present. Post-CABG clips in the mediastinum. Mild diffuse interstitial pr ominence with small right effusion and right basilar opacity. Improving aeration at the left base. Mi dthoracic vertebral compression deformity, unchanged from 09/16/2016 compatible with chronic compressi on injury. IMPRESSION: 1. Cardiomegaly and interstitial changes. Correlate for mild CHF. 2. Small right effusion with adjacent atelectasis and/or infiltrate.
[2017-01-19 10:18] LABS: Calcium 8.7 mg/dL (8.4-10.2); Magnesium 1.9 mg/dL (1.6-2.3); Potassium 4.2 mmol/L (3.5-5.1); Total Bilirubin 0.9 mg/dL (0.2-1.3); Total Protein 6.3 g/dL (6.3-8.2)
[2017-01-19 10:31] LABS: Anisocytosis Slight; Basophils % (A) 0 %; CH 22.5; Eosinophils % (A) 0 %; HCT 21.9 % (34.0-46.0); HDW 4.11; Hypochromasia Marked; Luc # (Auto) 0.13; Luc % (Auto) 1; Lymphocytes # (A) 1.1 k/uL (1.0-4.8); Lymphocytes % (A) 11 %; MCH 21.7 pg (25.0-35.0); Mean Platelet Volume 9.5; Microcytosis Slight; Monocytes # (A) 0.8 k/uL (0-1.0); Monocytes % (A) 8 %; Neutrophils % (A) 79 %; Poikilocytosis Moderate; RBC 2.73 m/uL (3.80-5.40); RDW 18.1 % (11.5-15.5); WBC 10.1 k/uL (3.8-10.6)
[2017-01-19] MEDS ORDERED: SODIUM CHLORIDE 0.9% 1,000 ML IV ONE (10:35)
[2017-01-19 10:40] LABS: Creatine Kinase MB 2.2 ng/mL (0.0-2.4)
--- NOTE | 2017-01-19 10:41 | ED ---
Weakness HPI <FadyTim - Last Filed: 01/19/17 11:40> - General Source: patient, EMS, RN notes reviewed, old records reviewed Mode of arrival: EMS Limitations: no limitations <Diana Simpson - Last Filed: 01/19/17 13:04> - General Chief complaint: Weakness Stated complaint: Weakness Time Seen by Provider: 01/19/17 09:27 - History of Present Illness Initial comments: This is an 81-year-old female presents emergency department with 2 days of increased muscle aches, fatigue, and bilateral lower leg edema. Patient reports that she has no chest pain or shortness of breath. Patient states that she has had no known fevers but does feel very chilled. Patient relates that she feels like her kidneys are not functioning, she's noticed some worsening swelling of her legs. Patient states that she has had some abdominal cramping, and feel not is feels nauseated but has had no vomiting episodes. She reports that she's had some diarrhea frequently as well. Patient states that she has no headache, chest pain or significant abdominal pain. She reports that her muscles just feels extremely achy.Patient denies any recent fever, chills, shortness of breath, chest pain, vomiting, numbness or tingling, dysuria or hematuria, constipation headaches or visual changes, or any other current symptoms. Patient has a history of CHF, pneumonia, heart failure, renal failure , and AAA. (Diana Simpson) - Related Data Home Medications Medication Instructions Recorded Confirmed Atorvastatin [Lipitor] 80 mg PO DAILY 07/01/16 01/19/17 Isosorbide Mononitrate [Imdur] 120 mg PO DAILY 07/01/16 01/19/17 Nadolol 20 mg PO DAILY 07/01/16 01/19/17 Prasugrel HCl [Effient] 10 mg PO DAILY 07/01/16 01/19/17 Tiotropium 18 Mcg/Puff [Spiriva] 1 cap INHALATION RT-DAILY 07/01/16 01/19/17 Aspirin/Calcium Carbonate/Mag 325 mg PO DAILY 01/19/17 01/19/17 [Bufferin 325 mg Tablet] Furosemide [Lasix] 40 mg PO TID 01/19/17 01/19/17 Nitroglycerin Sl Tabs [Nitrostat] 0.4 mg SUBLINGUAL Q5M PRN 01/19/17 01/19/17 Allergies Allergy/AdvReac Type Severity Reaction Status Date / Time eptifibatide Allergy Unknown Verified 01/19/17 09:53 [From Integrilin] Penicillins Allergy Rash/Hives Verified 01/19/17 09:53 Review of Systems ROS Other: All systems not noted in ROS Statement are negative. <Tim Shrestha - Last Filed: 01/19/17 11:40> ROS Other: All systems not noted in ROS Statement are negative. <Diana Simpson - Last Filed: 01/19/17 13:04> ROS Statement: Those systems with pertinent positive or pertinent negative responses have been documented in the HPI. 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 with a previous lumpectomy, nocturnal oxygen use at 2 L/m nasal cannula , chronic back pain, R sided sciatica, cardiac murmur, chronic renal failure stage III, normocytic anemia History of Any Multi-Drug Resistant Organisms: None Reported Past Surgical History: Appendectomy, Breast Surgery, Coronary Bypass/CABG, Heart Catheterization, Heart Catheterization With Stent Additional Past Surgical History / Comment(s): 1989 triple bypass, PCI with stent "years ago"-done in [place]-pt does not recall date, lumpectomy left breast, colonoscopy, ectopic with R fallopian tube and ovary removed, bilateral cataract removal with lens implants. Past Anesthesia/Blood Transfusion Reactions: No Reported Reaction Date of Last Stent Placement:: unkn Past Psychological History: No Psychological Hx Reported Smoking Status: Former smoker Past Alcohol Use History: None Reported Past Drug Use History: None Reported - Past Family History Father Family Medical History: Cancer Additional Family Medical History / Comment(s): Father had throat cancer and at the age of 85 yrs. Mother Family Medical History: No Reported History Additional Family Medical History / Comment(s): Mother was healthy and at the age of 85yrs. <Diana Simpson - Last Filed: 01/19/17 13:04> General Exam <Tim Shrestha - Last Filed: 01/19/17 11:40> Limitations: no limitations General appearance: alert, in no apparent distress Head exam: Present: atraumatic, normocephalic, normal inspection Eye exam: Present: normal appearance, PERRL, EOMI. Absent: scleral icterus, conjunctival injection, periorbital swelling ENT exam: Present: normal exam, mucous membranes moist Neck exam: Present: normal inspection. Absent: tenderness, meningismus, lymphadenopathy Respiratory exam: Present: decreased breath sounds (bilateral lower lobes, crackling). Absent: normal lung sounds bilaterally, respiratory distress, wheezes, rales, rhonchi, stridor Cardiovascular Exam: Present: regular rate, normal rhythm, normal heart sounds. Absent: systolic murmur, diastolic murmur, rubs, gallop, clicks GI/Abdominal exam: Present: soft, normal bowel sounds. Absent: distended, tenderness, guarding, rebound, rigid Extremities exam: Present: normal inspection, full ROM, normal capillary refill , other (multiple bruises noted over all extremities. Patietn has 4+ pitting edema). Absent: tenderness, pedal edema, joint swelling, calf tenderness Back exam: Present: normal inspection Neurological exam: Present: alert, oriented X3, CN II-XII intact Expanded Speech: Present: fluid speech Cranial nerves: EOM's Intact: Normal Cerebellar function: Finger to Nose: Normal Upper motor neuron: Pronator Drift: Normal Sensory exam: Upper Extremity Light Touch: Normal, Lower Extremity Light Touch: Normal Motor strength exam: RUE: 5, LUE: 5, RLE: 5, LLE: 5 Eye Response: (4) open spontaneously Motor Response: (6) obeys commands Verbal Response: (5) oriented Singh Total: 15 Psychiatric exam: Present: normal affect, normal mood Skin exam: Present: warm, dry, intact, normal color. Absent: rash <Diana Simpson - Last Filed: 01/19/17 13:04> - General Exam Comments Initial Comments: Frail, weak 81-year-old female. (Diana Simpson) Course <Tim Shrsetha - Last Filed: 01/19/17 11:40> <Diana Simpson - Last Filed: 01/19/17 13:04> Vital Signs 01/19/17 01/19/17 01/19/17 09:24 10:11 11:21 Temperature 96.4 F L 96.9 F L Pulse Rate 75 78 75 Respiratory 18 18 18 Rate Blood Pressure 140/65 154/68 149/67 O2 Sat by Pulse 92 L 100 98 Oximetry 01/19/17 01/19/17 01/19/17 12:07 12:19 12:22 Temperature 96.7 F L 97.1 F L 97.1 F L Pulse Rate 71 69 67 Respiratory 18 18 18 Rate Blood Pressure 138/63 133/60 153/67 O2 Sat by Pulse 98 98 98 Oximetry 01/19/17 12:49 Temperature Pulse Rate 69 Respiratory 16 Rate Blood Pressure 149/70 O2 Sat by Pulse 98 Oximetry - Reevaluation(s) Reevaluation #1: 01/19/17 11:40 Patient reevaluated by myself, Dr. Shrestha. Patient updated on results and plan. Case discussed in detail with Dr. Ortega, who will admit for Dr. Vanegas. Consults will be placed for GI, nephrology, cardiology, and Dr. Rubio. (Tim Shrestha) Medical Decision Making - Lab Data Result diagrams: 01/19/17 09:50 01/19/17 09:50 <Tim Shrestha - Last Filed: 01/19/17 11:40> - Lab Data Result diagrams: 01/19/17 09:50 01/19/17 09:50 - Radiology Data Radiology results: report reviewed <Diana Simpson - Last Filed: 01/19/17 13:04> - Medical Decision Making This is an 81-year-old female presents emergency Department chief complaint of weakness, or 4 back pain, body aches, and fatigue. She also reports she's had worsening swelling over her lower extremities. She denies any worsening chest pain or shortness breath this time. Patient was given IV fluids labwork obtained. Blood cultures also obtained. Her chest x-ray shows evidence of mild heart failure and early infiltrate. Patient will be started on Levaquin for the infiltrate on the chest x-ray. Her lab work shows that she is severely anemic. Hemoglobin of 5.6. patient was started on Protonix, she has a fecal occult test that is positive. Patient was given 2 units of PRBCs. Also elevated lactic acid at 3.6. Patient also received 2 L of fluids. Her BUN/ creatinine are significantly elevated at 172 and 3.56 respectively. She does have a history of kidney disease and heart failure. Patient does not meet sepsis criteria with normal vital signs at this time. Discussed this with Dr. Shrestha. At this time about is necessary to give the patient fluid boluses for the elevated lactic acid, further diuresis can be determined by cardiology and admitting physicians. We will have consults to pulmonology, for the pneumonia. Nephrology for patient's renal failure. GI for the GI bleed and anemia. Also we will consult cardiology this patient has elevated troponin for CHF. I also ultrasounded patient's abdominal aorta she has a known triple A. evident shows they continue AAA with a mural thrombus. Difficult to determine changes due to previous studies. (Diana Simpson) - Lab Data Lab Results 01/19/17 01/19/17 01/19/17 Range/Units 09:50 09:50 09:50 WBC 10.1 (3.8-10.6) k/uL RBC 2.73 L (3.80-5.40) m/uL Hgb 5.9 L* D (11.4-16.0) gm/dL Hct 21.9 L (34.0-46.0) % MCV 80.4 D (80.0-100.0) fL MCH 21.7 L (25.0-35.0) pg MCHC 27.0 L (31.0-37.0) g/dL RDW 18.1 H (11.5-15.5) % Plt Count 132 L (150-450) k/uL Neutrophils % 79 % Lymphocytes % 11 % Monocytes % 8 % Eosinophils % 0 % Basophils % 0 % Neutrophils # 8.0 H (1.3-7.7) k/uL Lymphocytes # 1.1 (1.0-4.8) k/uL Monocytes # 0.8 (0-1.0) k/uL Eosinophils # 0.0 (0-0.7) k/uL Basophils # 0.0 (0-0.2) k/uL Hypochromasia Marked Poikilocytosis Moderate Anisocytosis Slight Microcytosis Slight PT (9.0-12.0) sec INR (<1.2) APTT (22.0-30.0) sec Sodium 138 (137-145) mmol/L Potassium 4.2 (3.5-5.1) mmol/L Chloride 103 (98-107) mmol/L Carbon Dioxide 14 L (22-30) mmol/L Anion Gap 21 mmol/L BUN 172 H* (7-17) mg/dL Creatinine 3.56 H (0.52-1.04) mg/dL Est GFR (MDRD) Af Amer 15 (>60 ml/min/1.73 sqM) Est GFR (MDRD) Non-Af 12 (>60 ml/min/1.73 sqM) Glucose 193 H (74-99) mg/dL Plasma Lactic Acid Pierre (0.7-2.0) mmol/L Calcium 8.7 (8.4-10.2) mg/dL Magnesium 1.9 (1.6-2.3) mg/dL Total Bilirubin 0.9 (0.2-1.3) mg/dL AST 111 H (14-36) U/L ALT 158 H (9-52) U/L Alkaline Phosphatase 140 H (38-126) U/L Total Creatine Kinase 141 H (30-135) U/L CK-MB (CK-2) 2.2 (0.0-2.4) ng/mL CK-MB (CK-2) Rel Index 1.6 Troponin I 0.090 H* (0.000-0.034) ng/mL NT-Pro-B Natriuret Pep pg/mL Total Protein 6.3 (6.3-8.2) g/dL Albumin 3.2 L (3.5-5.0) g/dL Stool Occult Blood (Negative) Blood Type Blood Type Recheck Antibody Screen Crossmatch Spec Expiration Date 01/19/17 01/19/17 01/19/17 Range/Units 09:50 09:50 09:50 WBC (3.8-10.6) k/uL RBC (3.80-5.40) m/uL Hgb (11.4-16.0) gm/dL Hct (34.0-46.0) % MCV (80.0-100.0) fL MCH (25.0-35.0) pg MCHC (31.0-37.0) g/dL RDW (11.5-15.5) % Plt Count (150-450) k/uL Neutrophils % % Lymphocytes % % Monocytes % % Eosinophils % % Basophils % % Neutrophils # (1.3-7.7) k/uL Lymphocytes # (1.0-4.8) k/uL Monocytes # (0-1.0) k/uL Eosinophils # (0-0.7) k/uL Basophils # (0-0.2) k/uL Hypochromasia Poikilocytosis Anisocytosis Microcytosis PT 20.1 H (9.0-12.0) sec INR 2.1 H (<1.2) APTT 26.0 (22.0-30.0) sec Sodium (137-145) mmol/L Potassium (3.5-5.1) mmol/L Chloride (98-107) mmol/L Carbon Dioxide (22-30) mmol/L Anion Gap mmol/L BUN (7-17) mg/dL Creatinine (0.52-1.04) mg/dL Est GFR (MDRD) Af Amer (>60 ml/min/1.73 sqM) Est GFR (MDRD) Non-Af (>60 ml/min/1.73 sqM) Glucose (74-99) mg/dL Plasma Lactic Acid Pierre 3.6 H* (0.7-2.0) mmol/L Calcium (8.4-10.2) mg/dL Magnesium (1.6-2.3) mg/dL Total Bilirubin (0.2-1.3) mg/dL AST (14-36) U/L ALT (9-52) U/L Alkaline Phosphatase (38-126) U/L Total Creatine Kinase (30-135) U/L CK-MB (CK-2) (0.0-2.4) ng/mL CK-MB (CK-2) Rel Index Troponin I (0.000-0.034) ng/mL NT-Pro-B Natriuret Pep 19667 pg/mL Total Protein (6.3-8.2) g/dL Albumin (3.5-5.0) g/dL Stool Occult Blood (Negative) Blood Type Blood Type Recheck Antibody Screen Crossmatch Spec Expiration Date 01/19/17 01/19/17 Range/Units 09:50 11:01 WBC (3.8-10.6) k/uL RBC (3.80-5.40) m/uL Hgb (11.4-16.0) gm/dL Hct (34.0-46.0) % MCV (80.0-100.0) fL MCH (25.0-35.0) pg MCHC (31.0-37.0) g/dL RDW (11.5-15.5) % Plt Count (150-450) k/uL Neutrophils % % Lymphocytes % % Monocytes % % Eosinophils % % Basophils % % Neutrophils # (1.3-7.7) k/uL Lymphocytes # (1.0-4.8) k/uL Monocytes # (0-1.0) k/uL Eosinophils # (0-0.7) k/uL Basophils # (0-0.2) k/uL Hypochromasia Poikilocytosis Anisocytosis Microcytosis PT (9.0-12.0) sec INR (<1.2) APTT (22.0-30.0) sec Sodium (137-145) mmol/L Potassium (3.5-5.1) mmol/L Chloride (98-107) mmol/L Carbon Dioxide (22-30) mmol/L Anion Gap mmol/L BUN (7-17) mg/dL Creatinine (0.52-1.04) mg/dL Est GFR (MDRD) Af Amer (>60 ml/min/1.73 sqM) Est GFR (MDRD) Non-Af (>60 ml/min/1.73 sqM) Glucose (74-99) mg/dL Plasma Lactic Acid Pierre (0.7-2.0) mmol/L Calcium (8.4-10.2) mg/dL Magnesium (1.6-2.3) mg/dL Total Bilirubin (0.2-1.3) mg/dL AST (14-36) U/L ALT (9-52) U/L Alkaline Phosphatase (38-126) U/L Total Creatine Kinase (30-135) U/L CK-MB (CK-2) (0.0-2.4) ng/mL CK-MB (CK-2) Rel Index Troponin I (0.000-0.034) ng/mL NT-Pro-B Natriuret Pep pg/mL Total Protein (6.3-8.2) g/dL Albumin (3.5-5.0) g/dL Stool Occult Blood Positive H (Negative) Blood Type A Positive Blood Type Recheck No Antibody Screen NEGATIVE Crossmatch See Detail Spec Expiration Date 01/22/2017 - 234901/19/17 10:46 EKG shows sinus rhythm with frequent PVCs. Incomplete left bundle-branch block. ST wave N O'Jonas considering inferior lateral ischemia. His prolonged QT. X-ray of 75 beats were minute period. Avulsed 22 monocytes. Stressors 110 ms. QT/QTc is 438/489 no seconds. (Diana Simpson) - Radiology Data Since chest x-ray showed mild heart failure, as well as developing infiltrate. Abdominal ultrasound shows abdominal aortic aneurysm as discussed with a mural thrombus. There may be interval progression. Exact her symptoms difficult. No evidence of periaortic hematoma this time. Proximal aorta measures 2.2 cm, mid is 4.7 cm. Distal spur 0.3 cm. (Diana Simpson) Disposition <Tim Shrestha - Last Filed: 01/19/17 11:40> Time of Disposition: 12:27 <Diana Simpson - Last Filed: 01/19/17 13:04> Clinical Impression: Pneumonia, Congestive heart failure, Renal failure (ARF), acute on chronic, GI bleed, Elevated troponin, AAA (abdominal aortic aneurysm) Disposition: ADMITTED IP TO THIS HOSP Condition: Stable
[2017-01-19 10:44] LABS: HGB 5.9 gm/dL (11.4-16.0)
[2017-01-19 10:45] LABS: MCV 80.4 fL (80.0-100.0)
[2017-01-19 10:47] LABS: Troponin I 0.09 ng/mL (0.000-0.034)
[2017-01-19] MEDS ORDERED: PANTOPRAZOLE 40 MG/10 ML VIAL IVP STA (11:01)
[2017-01-19] MEDS ORDERED: LEVOFLOXACIN 750MG-D5W PMX 750 MG in DEXTROSE/WATER 1 150ML.BAG IVPB STA (11:04)
--- NOTE | 2017-01-19 11:54 | US ---
EXAMINATION TYPE: US duplex aorta DATE OF EXAM: 01/19/2017 COMPARISON: 01/16/2016 CLINICAL HISTORY: Pain. EXAM MEASUREMENTS: Abdominal Aorta: Proximal: 2.2cm Mid: 4.7cm Distal: 3.7 Bifurcation: 0.5cm 0.7cm Patient couldn't lay back for test and had to sit up somewhat. AAA measururing long 4.0 x sag 5.5 x trans 4.7cm. Previous measurement of 4. 4 x 4 by 3.8 cm IMPRESSION: Abdominal aortic aneurysm as discussed with mural thrombus. There may be interval progres iban. Exact comparison is difficult. No evidence for periaortic hematoma at this time.
[2017-01-19] MEDS ORDERED: NALOXONE 0.4 MG/ML 1 ML VIAL IV PRN (12:16)
[2017-01-19] MEDS ORDERED: ACETAMINOPHEN TAB 325 MG TAB PO PRN (12:16)
[2017-01-19] MEDS ORDERED: BISACODYL 5 MG TABLET.DR PO PRN (12:16)
[2017-01-19] MEDS ORDERED: LORazepam 2 MG/ML INJ IV PRN (12:16)
[2017-01-19] MEDS ORDERED: HYDROmorphone 1 MG/ML 1 ML SYRINGE IVP PRN (12:16)
[2017-01-19] MEDS ORDERED: ETOMIDATE 2 MG/ML 10 ML VIAL ONE (13:00)
[2017-01-19] MEDS ORDERED: NITROGLYCERIN SL TABS 0.4 MG TAB SUBLINGUAL PRN (13:05)
[2017-01-19] MEDS ORDERED: PNEUMONIA PROTOCOL UTILIZED 1 EACH MISC PO PRN (13:06)
[2017-01-19] MEDS ORDERED: PHYTONADIONE 5 MG in SODIUM CHLORIDE 0.9% 50 ML IVPB STA (13:52)
[2017-01-19] MEDS: SODIUM CHLORIDE 0.9% 1,000 ML IV SCH (16:04)
[2017-01-19] MEDS: IPRATROPIUM 0.5 MG/2.5 ML NEBU INHALATION SCH ×2 (16:45→20:46)
--- NOTE | 2017-01-19 16:45 | CONS ---
CONSULTATION This is an 83-year-old female, she came to the emergency room with history of weakness and workup showed patient has low hemoglobin having transfusion done. The patient has known abdominal aortic aneurysm. Ultrasound shows a 4 x 5.4 x 4.7 cm infrarenal abdominal aortic aneurysm. MEDICAL HISTORY: 1. Hypertension. 2. Diabetes. 3. Chronic renal failure. SURGICAL HISTORY: Post coronary artery bypass done in mid . EXAMINATION: Patient was seen in the emergency room. VITAL SIGNS: Stable and alert. NECK: Supple. No bruit. Chest has few crackles. First and second sounds normal. ABDOMEN: Soft, nontender. Vascular examination is 1+. Patient has some lower extremity swelling. The patient is worked up for a possible GI bleed. Ultrasound showed patient has infrarenal abdominal aortic aneurysm. PLAN: We will follow with you. At this point, no surgical intervention needed. Thank you very much for the consultation. MMODL / IJN: [id number] /
[2017-01-19] MEDS: ONDANSETRON 4 MG/2 ML VIAL IVP PRN ×2 (17:17→23:56)
[2017-01-19] MEDS: FUROSEMIDE 40 MG TAB PO SCH ×2 (17:19→21:15)
[2017-01-19 17:20] LABS: Glucose,Whole Blood 213 mg/dL (75-99)
--- NOTE | 2017-01-19 17:49 | HP ---
HISTORY AND PHYSICAL CHIEF COMPLAINTS: Weakness. HISTORY OF PRESENT ILLNESS: This 81-year-old woman with a past medical history of multiple medical problems including history of CAD, history of CHF, COPD, diabetes, hypertension, hyperlipidemia being followed by Dr. Galeano in the outpatient setting was complaining of generalized weakness and tiredness. The patient appears to have previously admitted with multiple medical issues. Patient also had temporary hemodialysis during a right femoral catheter during that time. Currently the patient is found to have hemoglobin 5.9. Patient had 2 unit transfusion has been ordered. The patient also had ultrasound of the abdomen showed evidence of abdominal aortic aneurysm with some thrombus also. There is no history of fever, rigors or chills. No headache, loss of consciousness. Some diarrhea is complained of. Patinet is hypothermic aslo. Otherwise no history of abdominal pain or back pain or any obvious melena, hematochezia at this time. PAST MEDICAL HISTORY: History of CAD, history of CHF, COPD, diabetes, hypertension, hyperlipidemia, history of pneumonia. MEDICATIONS: Prior to admission home medications are: 1. Nitro 0.4 sublingual p.r.n. 2. Spiriva 1 puff daily. 3. Effient 10 mg daily. 4. Nadolol 20 mg daily. 5. Imdur 120 mg daily. 6. Lasix 40 mg daily. 7. Lipitor 80 mg p.o. b.i.d. 8. Bufferin 325 mg p.o. daily. ALLERGIES: INTEGRILIN AND PENICILLIN. FAMILY HISTORY: History of cancer in the family. Throat cancer in father. SOCIAL HISTORY: Previous history of smoking. No history of alcohol intake. REVIEW OF SYSTEMS: ENT: Diminished hearing and diminished vision. CARDIOVASCULAR: As mentioned earlier. Respiratory: As mentioned earlier. GI: As mentioned earlier. no dysuria. Nervous system: No numbness or weakness. Allergy: No asthma or hayfever. MUSCULOSKELETAL: As mentioned earlier. Hematology/Oncology: As mentioned. ENDOCRINE: No history of diabetes or hypothyroidism. Constitutional: As mentioned earlier. Dermatology: Negative. Rheumatology: Negative. Psychiatric: As mentioned earlier. PHYSICAL EXAMINATION: Alert and oriented times three. Pulse is 69, blood pressure 140/68, respirations 16, temperature 94.2, pulse ox 97% on 2 L. HEENT: Conjunctivae pale. Oral mucosa dry. Neck is no jugular venous distention. No carotid bruit. No lymph node enlargement. Cardiovascular system: S1, S2. Ejection systolic murmur. Respiration: Breath sounds diminished in the bases. A few scattered rhonchi. No crackles. ABDOMEN: Soft, mild nontender. No mass palpable. No ascites. No hepatosplenomegaly. Bowel sounds present. No guarding. No rigidity. Legs bilateral leg edema. Nervous system: Higher functions as mentioned earlier. Moves all four extremities. Mild diffuse weakness. Lymphatics: No lymph nodes palpable in the neck, axillae or groin. Skin: No ulcers, rashes or bleeding. LAB STUDIES: WBC 10.1, hemoglobin 12.9, sodium 130 potassium 4.2, creatinine 2.56, plasma lactic acid of 3.6, AST is 111, ALT is 158, troponin 0.090, albumin 3.2. Stool OB is positive. ASSESSMENT: 1. Fatigue, tiredness and weakness, severe anemia possibly rule out acute gastrointestinal bleed. 2. Acute on chronic kidney disease, chronic kidney disease stage 4. 3. Elevated LFTs, possibly hepatitis. Hypothermia secondary to sepsis. 4. History of coronary artery disease. 5. History of congestive heart failure. 6. Chronic obstructive pulmonary disease. 7. Diabetes type 2. 8. Hypertension. 9. Hyperlipidemia. 10.History of pneumonia. 11.Appendectomy. 12.Elevated plasma lactic acid. 13.History of coronary artery disease, coronary artery bypass grafting, stent. 14.FULL CODE. RECOMMENDATIONS AND DISCUSSION: In this 81-year-old woman who presented with multiple complex medical issues, we will monitor the patient closely, continue the current medications, continue management and continue symptomatic treatment, one unit of transfusion has been arranged. Otherwise monitor fluid and electrolytes balance closely. Also recommend obtain cultures and empiric antibiotics also. Pneumonia was suspected, but however repeat labs will be ordered and symptomatic treatment also will be given. Hold anticoagulants and GI, pulmonology and cardiology will be consulted. Nephrology is also consulted. Once again overall prognosis extremely guarded because of multiple complex medical issues as mentioned earlier and we will continue to monitor. Discussed with the staff. Discussed with the patient. Understands and agrees. MMKATIEL / IJN: [id number] / MARIA ESTHER
--- NOTE | 2017-01-19 17:57 | CT ---
EXAMINATION TYPE: CT abdomen pelvis wo con DATE OF EXAM: 01/19/2017 COMPARISON: 01/28/2016 HISTORY: abdominal pain, nausea, anemia CT DLP: 399.3 mGycm Automated exposure control for dose reduction was used. TECHNIQUE: Helical acquisition of images was performed from the lung bases through the pelvis. FINDINGS: There is a moderate-sized right pleural effusion. Heart is enlarged. There is atherosclerotic vascula r calcification. There is coronary artery calcification. There is small left pleural effusion. There are numerous small calcified granulomata in the spleen. Bile ducts do not appear dilated. There are calcifications in the dependent gallbladder. There is no evidence of a pancreatic mass. There is a 4.5 cm fusiform lower abdominal aortic aneurysm extending to the iliac arteries. There is no retro peritoneal adenopathy. There are multiple sigmoid diverticula. There is free fluid in the pelvis and in the paracolic gutter s. Bladder distends smoothly. There is subcutaneous edema around the abdomen. There is multilevel spo ndylosis in the thoracic and lumbar spine. There is moderate compression deformity of T8 vertebral elsa dy. There appears to be mild diffuse thickening of the wall of the transverse colon and probably some of the right colon. IMPRESSION: THERE IS NEW MODERATE RIGHT PLEURAL EFFUSION COMPARED TO OLD EXAM. THERE IS NEW ASCITES FLUID IN THE ABDOMEN. THERE IS STABLE ABDOMINAL AORTIC ANEURYSM. STABLE MULTIPLE CALCIFIED GALLSTONES. T8 COMPRESSION FRACTURE. SUBCUTANEOUS EDEMA IS NEW COMPARED TO OLD EXAM AND PROBABLY RELATED TO CHRON IC CONGESTIVE HEART FAILURE. RENAL VASCULAR CALCIFICATIONS. NO DEFINITE EVIDENCE OF RENAL OBSTRUCTION . SIGMOID DIVERTICULOSIS WITHOUT SIGN OF DIVERTICULITIS. COLONIC WALL THICKENING COULD RELATE TO CONGESTIVE HEART FAILURE AND THE POSSIBILITY HOWEVER OF ISCHE RASHID BOWEL OR A NONSPECIFIC COLITIS CANNOT BE EXCLUDED.
[2017-01-19] MEDS: INSULIN ASPART 100 UNIT/ML 1 ML 10 ML VIAL SQ SCH ×2 (20:56→21:14)
[2017-01-19 21:18] LABS: Glucose,Whole Blood 195 mg/dL (75-99)
[2017-01-19 22:00] LABS: Creatine Kinase MB 2.5 ng/mL (0.0-2.4); Troponin I 0.399 ng/mL (0.000-0.034)
[2017-01-20 00:38] LABS: Appearance,Urine Clear (Clear); Bacteria,Urine Rare /hpf; Bilirubin,Urine Negative (Negative); Glucose,Urine (UA) Negative (Negative); Ketones,Urine Negative (Negative); Leukocyte Esterase,Urine Negative (Negative); Mucus,Urine Rare /hpf; Nitrite,Urine Negative (Negative); Particle Count 2245; Protein,Urine Trace (Negative); RBC,Urine <1 /hpf (0-5); Squamous Epithelial Cell,Urine <1 /hpf (0-4); UA Billing (MACRO vs. MICRO) MICRO; Urobilinogen,Urine <2.0 mg/dL (<2.0); WBC,Urine 1 /hpf (0-5)
[2017-01-20 02:04] LABS: Anisocytosis Slight; CH 24.7; CHCM 29.6; HCT 27.6 % (34.0-46.0); HDW 5.49; Hypochromasia Marked; Large Platelets Flag Slight; MCH 25.6 pg (25.0-35.0); MCHC 30.7 g/dL (31.0-37.0); MCV 83.3 fL (80.0-100.0); Mean Platelet Volume 11.6; Poikilocytosis Marked; RBC 3.31 m/uL (3.80-5.40); RDW 18.5 % (11.5-15.5); WBC 14.3 k/uL (3.8-10.6)
[2017-01-20 02:08] LABS: HGB 8.5 gm/dL (11.4-16.0)
[2017-01-20 02:50] LABS: Troponin I 0.963 ng/mL (0.000-0.034)
[2017-01-20 02:51] LABS: Creatine Kinase MB 2.9 ng/mL (0.0-2.4)
[2017-01-20] MEDS: SODIUM CHLORIDE 0.9% 1,000 ML IV SCH ×2 (05:33→21:57)
[2017-01-20 06:10] LABS: Glucose,Whole Blood 127 mg/dL (75-99)
[2017-01-20 06:14] LABS: Anisocytosis Slight; Basophils % (A) 0 %; CH 25.4; CHCM 29.7; Eosinophils % (A) 0 %; HCT 28.9 % (34.0-46.0); HDW 5.89; HGB 8.3 gm/dL (11.4-16.0); Hypochromasia Marked; Luc # (Auto) 0.08; Luc % (Auto) 1; Lymphocytes # (A) 0.3 k/uL (1.0-4.8); Lymphocytes % (A) 2 %; MCH 24.8 pg (25.0-35.0); MCHC 28.9 g/dL (31.0-37.0); MCV 85.8 fL (80.0-100.0); Mean Platelet Volume 9.4; Monocytes # (A) 0.7 k/uL (0-1.0); Monocytes % (A) 5 %; Neutrophils # (A) 13.2 k/uL (1.3-7.7); Neutrophils % (A) 92 %; Poikilocytosis Marked; Prothrombin Time 19.1 sec (9.0-12.0); RBC 3.37 m/uL (3.80-5.40); RDW 17.5 % (11.5-15.5); WBC 14.3 k/uL (3.8-10.6); WBC (Perox) 13.97
[2017-01-20] MEDS: INSULIN ASPART 100 UNIT/ML 1 ML 10 ML VIAL SQ SCH ×4 (06:17→21:58)
[2017-01-20 06:18] LABS: Calcium 8.3 mg/dL (8.4-10.2); Potassium 4.6 mmol/L (3.5-5.1)
[2017-01-20] MEDS: ISOSORBIDE MONONITRATE ER 60 MG TAB.ER.24H PO SCH (08:06)
[2017-01-20] MEDS: FUROSEMIDE 40 MG TAB PO SCH (08:06)
[2017-01-20] MEDS: ATORVASTATIN 80 MG TAB PO SCH (08:06)
[2017-01-20] MEDS: NADOLOL 20 MG TAB PO SCH (08:06)
[2017-01-20] MEDS: IPRATROPIUM 0.5 MG/2.5 ML NEBU INHALATION SCH ×4 (08:25→19:19)
[2017-01-20] MEDS ORDERED: PRASUGREL 10 MG TAB PO SCH (09:00)
[2017-01-20] MEDS ORDERED: PANTOPRAZOLE 40 MG/10 ML VIAL IV SCH (09:00)
[2017-01-20] MEDS ORDERED: ASPIRIN 325 MG TAB PO SCH (09:00)
--- NOTE | 2017-01-20 10:51 | P.CNPUL ---
History of Present Illness Consult date: 01/20/17 Requesting physician: Gregor Ortega Reason for consult: abnormal CXR/CT Chief complaint: Weakness, swelling in the lower extremities History of present illness: This is a very pleasant 81-year-old female patient who follows with Dr. Galeano as her primary care physician. She has a history of coronary artery disease with previous coronary artery bypass grafting and stent placement, insulin-dependent diabetes mellitus, left-sided breast cancer with previous lumpectomy, chronic back pain, hypertension, hyperlipidemia, chronic renal failure stage III, chronic obstructive pulmonary disease maintained on Spiriva and albuterol, abdominal aortic aneurysm. She presented to the emergency room yesterday with a several day complaint of pro-found and progressive weakness along with lower extremity edema. She denies any shortness of breath, cough or congestion. She is maintaining good O2 saturations in the 90s on room air. She 's been afebrile. She denies any chest pain, palpitations lightheadedness or dizziness. She has had issues with nausea and diarrhea. She was found be quite anemic with an hemoglobin of 5.9. Stool for occult blood was positive. She is status post 2 units of packed red blood cells, 1 unit of fresh frozen plasma. Current hemoglobin 8.5. Platelet count 111,000. Her INR is 2.0. She has been maintained on aspirin and Effient in the outpatient setting. Her BUN was 172 with a creatinine of 3.45. Liver enzymes also elevated with AST of 111 , ALT 158, alk phos 140. Troponins are 0.090, 0.399, 0.963. ProBNP 66,400. Echocardiogram from September 2016 revealed a preserved left ventricular systolic function with ejection fraction 50-55% severe pulmonary hypertension. Computed tomography scan of the abdomen revealed new moderate right pleural effusion, there is new ascites in the abdomen and a stable abdominal aortic aneurysm. Sigmoid diverticulosis without overt signs of diverticulitis. Multiple calcified gallstones. There is also thickening of the wall of the transverse colon, suggestive of congestive heart failure however ischemic bowel or nonspecific colitis could not be excluded. Review of Systems 14 point review of system was conducted. All negative other than as mentioned in the HPI. Past Medical History Past Medical History: Coronary Artery Disease (CAD), Cancer, Heart Failure, COPD , Diabetes Mellitus, Hyperlipidemia, Hypertension, Pneumonia, Renal Disease Additional Past Medical History / Comment(s): Coronary artery disease with previous bypass surgery, mild mitral valve dx, abdominal aortic aneurysm, IDDM type II, left-sided breast cancer with a previous lumpectomy, nocturnal oxygen use at 2 L/m nasal cannula, chronic back pain, R sided sciatica, cardiac murmur , chronic renal failure stage III, normocytic anemia History of Any Multi-Drug Resistant Organisms: None Reported Past Surgical History: Appendectomy, Breast Surgery, Coronary Bypass/CABG, Heart Catheterization, Heart Catheterization With Stent Additional Past Surgical History / Comment(s): 1989 triple bypass at [facility] in [place], PCI with stent "years ago"-done in [facility]-pt does not recall date but thinks about 1992, lumpectomy left breast, colonoscopy , ectopic with R fallopian tube and ovary removed, bilateral cataract removal with lens implants, R groin temporary dialysis catheter. Past Anesthesia/Blood Transfusion Reactions: No Reported Reaction Additional Past Anesthesia/Blood Transfusion Reaction / Comment(s): Pt is currently receiving blood. Date of Last Stent Placement:: 1992? Smoking Status: Former smoker - Past Family History Father Family Medical History: Cancer Additional Family Medical History / Comment(s): Father had throat cancer and at the age of 85 yrs. Mother Family Medical History: No Reported History Additional Family Medical History / Comment(s): Mother was healthy and at the age of 85yrs. Medications and Allergies Home Medications Medication Instructions Recorded Confirmed Type Atorvastatin [Lipitor] 80 mg PO DAILY 07/01/16 01/19/17 History Isosorbide Mononitrate [Imdur] 120 mg PO DAILY 07/01/16 01/19/17 History Nadolol 20 mg PO DAILY 07/01/16 01/19/17 History Prasugrel HCl [Effient] 10 mg PO DAILY 07/01/16 01/19/17 History Tiotropium 18 Mcg/Puff [Spiriva] 1 cap INHALATION RT-DAILY 07/01/16 01/19/17 History Aspirin/Calcium Carbonate/Mag 325 mg PO DAILY 01/19/17 01/19/17 History [Bufferin 325 mg Tablet] Furosemide [Lasix] 40 mg PO TID 01/19/17 01/19/17 History Nitroglycerin Sl Tabs [Nitrostat] 0.4 mg SUBLINGUAL Q5M PRN 01/19/17 01/19/17 History Allergies Allergy/AdvReac Type Severity Reaction Status Date / Time eptifibatide Allergy Unknown Verified 01/19/17 09:53 [From Integrilin] Penicillins Allergy Rash/Hives Verified 01/19/17 09:53 Physical Exam Vitals: Vital Signs Temp Pulse Pulse Resp BP BP Pulse Ox 01/20/17 08:00 96.6 F L 53 L 16 145/67 95 01/20/17 04:00 97.8 F 54 L 16 143/63 98 01/20/17 00:00 97.7 F 57 L 16 114/59 96 01/19/17 21:15 96.4 F L 68 16 137/65 97 01/19/17 20:00 96.4 F L 76 16 134/61 98 01/19/17 18:42 97.0 F L 66 16 144/65 01/19/17 18:32 96.9 F L 66 16 141/63 97 01/19/17 18:27 97.0 F L 65 16 144/65 96 01/19/17 17:43 96.0 F L 51 L 16 155/66 97 01/19/17 17:13 96.1 F L 66 16 162/69 99 01/19/17 17:03 95.6 F L 66 16 149/67 99 01/19/17 16:57 95.6 F L 66 16 143/66 100 01/19/17 16:00 69 16 01/19/17 15:13 94.2 F L 69 16 144/68 97 01/19/17 14:35 97.4 F L 67 18 158/74 98 01/19/17 13:51 68 18 149/87 98 01/19/17 12:49 69 16 149/70 98 01/19/17 12:22 97.1 F L 67 18 153/67 98 01/19/17 12:19 97.1 F L 69 18 133/60 98 01/19/17 12:07 96.7 F L 71 18 138/63 98 01/19/17 11:21 96.9 F L 75 18 149/67 98 Intake and Output 01/19/17 01/20/17 01/20/17 22:59 06:59 14:59 Intake Total 769 Output Total 100 310 Balance 669 -310 Intake: Intake, IV Titration 120 Amount Sodium Chloride 0.9% 1, 120 000 ml @ 60 mls/hr IV . [id number] [facility] Rx#:[id number] Oral 0 Blood Product 649 Ffp 24 Cpd Unit 339 [id number] Rc As-3 Unit 310 [id number] Output: Urine 100 310 Straight 310 Other: Voiding Method Bedpan Bedpan Bedpan # Voids 1 0 Weight 65.5 kg GENERAL EXAM: Pale. Alert, fairly comfortable in no acute distress. HEAD: Normocephalic. EYES: Normal reaction of pupils, equal size. NOSE: Clear with pink turbinates. THROAT: No erythema or exudates. NECK: No masses, no JVD. CHEST: No chest wall deformity. LUNGS: Equal air entry with crackles in the right lung. CVS: S1 and S2 normal with positive murmur, regular rhythm. ABDOMEN: No hepatosplenomegaly, normal bowel sounds, no guarding or rigidity. SPINE: No scoliosis or deformity SKIN: No rashes CENTRAL NERVOUS SYSTEM: No focal deficits, tone is normal in all 4 extremities. EXTREMITIES: There is 1+ peripheral edema. No clubbing, no cyanosis. Peripheral pulses are intact. Results - Laboratory Findings CBC and BMP: 01/20/17 05:35 01/20/17 05:35 PT/INR, D-dimer PT 19.1 sec (9.0-12.0) H 01/20/17 05:35 INR 2.0 (<1.2) H 01/20/17 05:35 Abnormal lab findings: Abnormal Labs 01/19/17 01/19/17 01/19/17 00:14 09:50 09:50 WBC RBC 2.73 L Hgb 5.9 L* D Hct 21.9 L MCH 21.7 L MCHC 27.0 L RDW 18.1 H Plt Count 132 L Neutrophils # 8.0 H Lymphocytes # PT INR Carbon Dioxide BUN Creatinine Glucose POC Glucose (mg/dL) Plasma Lactic Acid Pierre Calcium AST ALT Alkaline Phosphatase Total Creatine Kinase 141 H CK-MB (CK-2) Troponin I 0.090 H* Albumin Urine Protein Trace H Urine Blood Trace H Urine Bacteria Rare H Hyaline Casts 12 H Urine Mucus Rare H Stool Occult Blood Crossmatch 01/19/17 01/19/17 01/19/17 09:50 09:50 09:50 WBC RBC Hgb Hct MCH MCHC RDW Plt Count Neutrophils # Lymphocytes # PT 20.1 H INR 2.1 H Carbon Dioxide 14 L BUN 172 H* Creatinine 3.56 H Glucose 193 H POC Glucose (mg/dL) Plasma Lactic Acid Pierre 3.6 H* Calcium AST 111 H ALT 158 H Alkaline Phosphatase 140 H Total Creatine Kinase CK-MB (CK-2) Troponin I Albumin 3.2 L Urine Protein Urine Blood Urine Bacteria Hyaline Casts Urine Mucus Stool Occult Blood Crossmatch 01/19/17 01/19/17 01/19/17 09:50 11:01 17:19 WBC RBC Hgb Hct MCH MCHC RDW Plt Count Neutrophils # Lymphocytes # PT INR Carbon Dioxide BUN Creatinine Glucose POC Glucose (mg/dL) 213 H Plasma Lactic Acid Pierre Calcium AST ALT Alkaline Phosphatase Total Creatine Kinase CK-MB (CK-2) Troponin I Albumin Urine Protein Urine Blood Urine Bacteria Hyaline Casts Urine Mucus Stool Occult Blood Positive H Crossmatch See Detail 01/19/17 01/19/17 01/20/17 18:15 21:03 01:48 WBC RBC Hgb Hct MCH MCHC RDW Plt Count Neutrophils # Lymphocytes # PT INR Carbon Dioxide BUN Creatinine Glucose POC Glucose (mg/dL) 195 H Plasma Lactic Acid Pierre Calcium AST ALT Alkaline Phosphatase Total Creatine Kinase CK-MB (CK-2) 2.5 H* 2.9 H* Troponin I 0.399 H* 0.963 H* Albumin Urine Protein Urine Blood Urine Bacteria Hyaline Casts Urine Mucus Stool Occult Blood Crossmatch 01/20/17 01/20/17 01/20/17 01:48 05:35 05:35 WBC 14.3 H 14.3 H RBC 3.31 L 3.37 L Hgb 8.5 L D 8.3 L Hct 27.6 L 28.9 L MCH 24.8 L MCHC 30.7 L 28.9 L RDW 18.5 H 17.5 H Plt Count 111 L 109 L Neutrophils # 13.2 H Lymphocytes # 0.3 L PT 19.1 H INR 2.0 H Carbon Dioxide BUN Creatinine Glucose POC Glucose (mg/dL) Plasma Lactic Acid Pierre Calcium AST ALT Alkaline Phosphatase Total Creatine Kinase CK-MB (CK-2) Troponin I Albumin Urine Protein Urine Blood Urine Bacteria Hyaline Casts Urine Mucus Stool Occult Blood Crossmatch 11/14/17 11/14/17 05:35 06:01 WBC RBC Hgb Hct MCH MCHC RDW Plt Count Neutrophils # Lymphocytes # PT INR Carbon Dioxide 13 L BUN 172 H* Creatinine 3.45 H Glucose 111 H POC Glucose (mg/dL) 127 H Plasma Lactic Acid Pierre Calcium 8.3 L AST ALT Alkaline Phosphatase Total Creatine Kinase CK-MB (CK-2) Troponin I Albumin Urine Protein Urine Blood Urine Bacteria Hyaline Casts Urine Mucus Stool Occult Blood Crossmatch - Diagnostic Findings Chest x-ray: image reviewed Assessment and Plan Assessment: Impression: #1 Generalized weakness secondary to acute on chronic anemia with a presenting hemoglobin of 5.9. Stool for occult blood positive. Status post 2 units of packed red blood cells. Current hemoglobin 8.5. #2 Coagulopathy with presenting INR 2.1 on the patient on Effient and aspirin. Status post 1 unit of fresh frozen plasma. #3 Right lower lobe infiltrate/effusion. #4 Acute on chronic renal failure. #5 Elevated liver enzymes and evidence of ascites. #6 Acute on chronic diastolic congestive heart failure. #7 Troponin leak. #8 Coronary artery disease with previous coronary bypass grafting and stent placement. #9 Chronic obstructive pulmonary disease, currently inactive and stable. #10 Hyperlipidemia. #11 Poor overall functional performance based on the above mentioned multiple comorbidities. Plan: The patient was seen and evaluated by Dr. Rubio. Her chest x-ray CAT scan and labs were all reviewed. We'll continue with bronchodilators. She's been initiated on antibiotics in the form of Levaquin. Her Effient is currently on hold. We will await further input from the other consultants as well including nephrology, cardiology, infectious disease. Her overall prognosis is quite guarded and code status should be addressed. In the interim, we'll continue with full supportive care. We will continue to follow make further recommendations based on her clinical status. I, the cosigning physician, have performed a history and physical examination on the patient. Lung sounds have crackles in the right lung diminished in the right lung base. Maintaining good O2 saturations in the 90s on room air. I have discussed the assessment and plan of care with my nurse practitioner, Verna Jolly. I attest the above documented note as dictated by her. Time with Patient: Greater than 30
[2017-01-20 11:42] LABS: Glucose,Whole Blood 151 mg/dL (75-99)
--- NOTE | 2017-01-20 12:11 | P.CONS ---
History of Present Illness - Reason for Consult Consult date: 01/20/17 GI bleed anemia Requesting physician: Gregor Ortega - History of Present Illness 81-year-old female admitted with multiple complaints muscle aches fatigue bilateral lower leg edema without chest pain or shortness of breath. Consultation requested for anemia and possible GI bleed. Past medical history iron deficiency anemia, COPD, diabetes, dyslipidemia. CAD with PCI (2011) maintained on Effient, AAA, CHF, pneumonia, chronic kidney disease. Last EGD colonoscopy to her memory may have been about 5 years ago in [facility] findings unremarkable. Admission hemoglobin 5.9. MCV 80. Platelet 132. Transfused 3 units of blood, 1 unit FFP current hemoglobin 8.3. Platelet 109. Previous hemoglobin October, November, and December between 8.3-8.5. INR 2.1. BUN 110. Creatinine 2.7. Troponin 0.09. Iron 21. TIBC 369. Iron saturation 5% ferritin 51. Denies overt bleeding such as hematemesis hematochezia or melena however stool occult blood positive. Denies abdominal pain and weight loss. Aortic ultrasound AAA 4 x 5.5 x 4.7 cm with mural thrombus. CT abdomen and pelvis right pleural effusion ascites and abdomen stable AAA. Multiple sigmoid diverticula. LFTs elevated with normal bilirubin. LFTs normal in October. Total bilirubin 0.9. AST 111. ALT 158. Alkaline phosphatase 140. proBNP 66,400 Review of Systems Constitutional: Denies fever, chills, sweats, weight gain, or loss. HEENT: Negative for migraines, blurred vision or loss, earaches, drainage, tinnitus, oral mucosal lesions, dysphagia, or odynophagia. CARDIAC: CHF. CAD with PCI. AAA. Negative for chest pain, arrhythmias, or palpitation. RESPIRATORY: Negative for shortness of breath, hemoptysis, cough, or sputum production. GI: See HPI for pertinent findings. : Negative for hematuria, urgency, frequency, polyuria, or dysuria. GYNc: Denies possibility of . Negative vaginal discharge. MUSCULOSKELETAL: Negative for muscle aches, swelling, arthritis, and arthralgias. NEUROLOGIC: Negative for stroke or TIA. ENDOCRINE: Diabetes. Negative for thyroid problems. SKIN: Negative for rash or itching. PSYCHIATRIC: Negative history for depression and anxiety All systems: negative (See HPI) Past Medical History Past Medical History: Coronary Artery Disease (CAD), Cancer, Heart Failure, COPD , Diabetes Mellitus, Hyperlipidemia, Hypertension, Pneumonia, Renal Disease Additional Past Medical History / Comment(s): Coronary artery disease with previous bypass surgery, mild mitral valve dx, abdominal aortic aneurysm, IDDM type II, left-sided breast cancer with a previous lumpectomy, nocturnal oxygen use at 2 L/m nasal cannula, chronic back pain, R sided sciatica, cardiac murmur , chronic renal failure stage III, normocytic anemia History of Any Multi-Drug Resistant Organisms: None Reported Past Surgical History: Appendectomy, Breast Surgery, Coronary Bypass/CABG, Heart Catheterization, Heart Catheterization With Stent Additional Past Surgical History / Comment(s): 1989 triple bypass at [facility] in [place], PCI with stent "years ago"-done in [facility]-pt does not recall date but thinks about 1992, lumpectomy left breast, colonoscopy , ectopic with R fallopian tube and ovary removed, bilateral cataract removal with lens implants, R groin temporary dialysis catheter. Past Anesthesia/Blood Transfusion Reactions: No Reported Reaction Additional Past Anesthesia/Blood Transfusion Reaction / Comm: Pt is currently receiving blood. Date of Last Stent Placement:: 1992? Smoking Status: Former smoker - Past Family History Father Family Medical History: Cancer Additional Family Medical History / Comment(s): Father had throat cancer and at the age of 85 yrs. Mother Family Medical History: No Reported History Additional Family Medical History / Comment(s): Mother was healthy and at the age of 85yrs. Medications and Allergies Home Medications Medication Instructions Recorded Confirmed Type Atorvastatin [Lipitor] 80 mg PO DAILY 07/01/16 01/19/17 History Isosorbide Mononitrate [Imdur] 120 mg PO DAILY 07/01/16 01/19/17 History Nadolol 20 mg PO DAILY 07/01/16 01/19/17 History Prasugrel HCl [Effient] 10 mg PO DAILY 07/01/16 01/19/17 History Tiotropium 18 Mcg/Puff [Spiriva] 1 cap INHALATION RT-DAILY 07/01/16 01/19/17 History Aspirin/Calcium Carbonate/Mag 325 mg PO DAILY 01/19/17 01/19/17 History [Bufferin 325 mg Tablet] Furosemide [Lasix] 40 mg PO TID 01/19/17 01/19/17 History Nitroglycerin Sl Tabs [Nitrostat] 0.4 mg SUBLINGUAL Q5M PRN 01/19/17 01/19/17 History Allergies Allergy/AdvReac Type Severity Reaction Status Date / Time eptifibatide Allergy Unknown Verified 01/19/17 09:53 [From Integrilin] Penicillins Allergy Rash/Hives Verified 01/19/17 09:53 Physical Exam Vitals: Vital Signs Temp Pulse Pulse Resp BP BP Pulse Ox 01/20/17 08:00 96.6 F L 53 L 16 145/67 95 01/20/17 04:00 97.8 F 54 L 16 143/63 98 01/20/17 00:00 97.7 F 57 L 16 114/59 96 01/19/17 21:15 96.4 F L 68 16 137/65 97 01/19/17 20:00 96.4 F L 76 16 134/61 98 01/19/17 18:42 97.0 F L 66 16 144/65 01/19/17 18:32 96.9 F L 66 16 141/63 97 01/19/17 18:27 97.0 F L 65 16 144/65 96 01/19/17 17:43 96.0 F L 51 L 16 155/66 97 01/19/17 17:13 96.1 F L 66 16 162/69 99 01/19/17 17:03 95.6 F L 66 16 149/67 99 01/19/17 16:57 95.6 F L 66 16 143/66 100 01/19/17 16:00 69 16 01/19/17 15:13 94.2 F L 69 16 144/68 97 01/19/17 14:35 97.4 F L 67 18 158/74 98 01/19/17 13:51 68 18 149/87 98 01/19/17 12:49 69 16 149/70 98 01/19/17 12:22 97.1 F L 67 18 153/67 98 01/19/17 12:19 97.1 F L 69 18 133/60 98 01/19/17 12:07 96.7 F L 71 18 138/63 98 01/19/17 11:21 96.9 F L 75 18 149/67 98 Intake and Output 01/19/17 01/20/17 01/20/17 22:59 06:59 14:59 Intake Total 769 Output Total 100 310 Balance 669 -310 Intake: Intake, IV Titration 120 Amount Sodium Chloride 0.9% 1, 120 000 ml @ 60 mls/hr IV . [id number] [facility] Rx#:[id number] Oral 0 Blood Product 649 Ffp 24 Cpd Unit 339 [id number] Rc As-3 Unit 310 [id number] Output: Urine 100 310 Straight 310 Other: Voiding Method Bedpan Bedpan Bedpan # Voids 1 0 Weight 65.5 kg General appearance: The patient is alert, oriented, appears weak fatigued. HET: Head is normocephalic and atraumatic. Pupils are equal and reactive. Oropharynx is clear without lesions. Neck: Supple without lymphadenopathy. Trachea midline. Heart: S1 S2. Regular rate and rhythm. Lungs: No crackles or wheezes are heard. Abdomen: Soft, nontender, nondistended with bowel sounds. No peritoneal signs. No palpable organomegaly or masses. Extremities: Normal skin color and turgor. No cyanosis, rash, ulceration, clubbing, or edema. Radial and pedal pulses are 2/4 bilaterally. Neurological: No focal deficits. Strength and sensation are grossly intact. Results CBC & Chem 7: 01/21/17 05:30 01/21/17 05:30 Labs: Abnormal Lab Results - Last 24 Hours (Table) 01/19/17 01/19/17 01/19/17 Range/Units 00:14 09:50 09:50 WBC (3.8-10.6) k/uL RBC 2.73 L (3.80-5.40) m/uL Hgb 5.9 L* D (11.4-16.0) gm/dL Hct 21.9 L (34.0-46.0) % MCH 21.7 L (25.0-35.0) pg MCHC 27.0 L (31.0-37.0) g/dL RDW 18.1 H (11.5-15.5) % Plt Count 132 L (150-450) k/uL Neutrophils # 8.0 H (1.3-7.7) k/uL Lymphocytes # (1.0-4.8) k/uL PT (9.0-12.0) sec INR (<1.2) Carbon Dioxide (22-30) mmol/L BUN (7-17) mg/dL Creatinine (0.52-1.04) mg/dL Glucose (74-99) mg/dL POC Glucose (mg/dL) (75-99) mg/dL Calcium (8.4-10.2) mg/dL CK-MB (CK-2) (0.0-2.4) ng/mL Troponin I 0.090 H* (0.000-0.034) ng/mL Urine Protein Trace H (Negative) Urine Blood Trace H (Negative) Urine Bacteria Rare H (None) /hpf Hyaline Casts 12 H (0-2) /lpf Urine Mucus Rare H (None) /hpf Stool Occult Blood (Negative) Crossmatch 01/19/17 01/19/17 01/19/17 Range/Units 09:50 11:01 17:19 WBC (3.8-10.6) k/uL RBC (3.80-5.40) m/uL Hgb (11.4-16.0) gm/dL Hct (34.0-46.0) % MCH (25.0-35.0) pg MCHC (31.0-37.0) g/dL RDW (11.5-15.5) % Plt Count (150-450) k/uL Neutrophils # (1.3-7.7) k/uL Lymphocytes # (1.0-4.8) k/uL PT (9.0-12.0) sec INR (<1.2) Carbon Dioxide (22-30) mmol/L BUN (7-17) mg/dL Creatinine (0.52-1.04) mg/dL Glucose (74-99) mg/dL POC Glucose (mg/dL) 213 H (75-99) mg/dL Calcium (8.4-10.2) mg/dL CK-MB (CK-2) (0.0-2.4) ng/mL Troponin I (0.000-0.034) ng/mL Urine Protein (Negative) Urine Blood (Negative) Urine Bacteria (None) /hpf Hyaline Casts (0-2) /lpf Urine Mucus (None) /hpf Stool Occult Blood Positive H (Negative) Crossmatch See Detail 01/19/17 01/19/17 01/20/17 Range/Units 18:15 21:03 01:48 WBC (3.8-10.6) k/uL RBC (3.80-5.40) m/uL Hgb (11.4-16.0) gm/dL Hct (34.0-46.0) % MCH (25.0-35.0) pg MCHC (31.0-37.0) g/dL RDW (11.5-15.5) % Plt Count (150-450) k/uL Neutrophils # (1.3-7.7) k/uL Lymphocytes # (1.0-4.8) k/uL PT (9.0-12.0) sec INR (<1.2) Carbon Dioxide (22-30) mmol/L BUN (7-17) mg/dL Creatinine (0.52-1.04) mg/dL Glucose (74-99) mg/dL POC Glucose (mg/dL) 195 H (75-99) mg/dL Calcium (8.4-10.2) mg/dL CK-MB (CK-2) 2.5 H* 2.9 H* (0.0-2.4) ng/mL Troponin I 0.399 H* 0.963 H* (0.000-0.034) ng/mL Urine Protein (Negative) Urine Blood (Negative) Urine Bacteria (None) /hpf Hyaline Casts (0-2) /lpf Urine Mucus (None) /hpf Stool Occult Blood (Negative) Crossmatch 01/20/17 01/20/17 01/20/17 Range/Units 01:48 05:35 05:35 WBC 14.3 H 14.3 H (3.8-10.6) k/uL RBC 3.31 L 3.37 L (3.80-5.40) m/uL Hgb 8.5 L D 8.3 L (11.4-16.0) gm/dL Hct 27.6 L 28.9 L (34.0-46.0) % MCH 24.8 L (25.0-35.0) pg MCHC 30.7 L 28.9 L (31.0-37.0) g/dL RDW 18.5 H 17.5 H (11.5-15.5) % Plt Count 111 L 109 L (150-450) k/uL Neutrophils # 13.2 H (1.3-7.7) k/uL Lymphocytes # 0.3 L (1.0-4.8) k/uL PT 19.1 H (9.0-12.0) sec INR 2.0 H (<1.2) Carbon Dioxide (22-30) mmol/L BUN (7-17) mg/dL Creatinine (0.52-1.04) mg/dL Glucose (74-99) mg/dL POC Glucose (mg/dL) (75-99) mg/dL Calcium (8.4-10.2) mg/dL CK-MB (CK-2) (0.0-2.4) ng/mL Troponin I (0.000-0.034) ng/mL Urine Protein (Negative) Urine Blood (Negative) Urine Bacteria (None) /hpf Hyaline Casts (0-2) /lpf Urine Mucus (None) /hpf Stool Occult Blood (Negative) Crossmatch 01/20/17 01/20/17 Range/Units 05:35 06:01 WBC (3.8-10.6) k/uL RBC (3.80-5.40) m/uL Hgb (11.4-16.0) gm/dL Hct (34.0-46.0) % MCH (25.0-35.0) pg MCHC (31.0-37.0) g/dL RDW (11.5-15.5) % Plt Count (150-450) k/uL Neutrophils # (1.3-7.7) k/uL Lymphocytes # (1.0-4.8) k/uL PT (9.0-12.0) sec INR (<1.2) Carbon Dioxide 13 L (22-30) mmol/L BUN 172 H* (7-17) mg/dL Creatinine 3.45 H (0.52-1.04) mg/dL Glucose 111 H (74-99) mg/dL POC Glucose (mg/dL) 127 H (75-99) mg/dL Calcium 8.3 L (8.4-10.2) mg/dL CK-MB (CK-2) (0.0-2.4) ng/mL Troponin I (0.000-0.034) ng/mL Urine Protein (Negative) Urine Blood (Negative) Urine Bacteria (None) /hpf Hyaline Casts (0-2) /lpf Urine Mucus (None) /hpf Stool Occult Blood (Negative) Crossmatch CT scan - abdomen: report reviewed (Dr. Keene) US - abdomen: report reviewed (Dr. Keene) Assessment and Plan (1) Iron deficiency anemia Narrative/Plan: Without overt bleeding occult GI loss cannot be entirely excluded. Current Visit: Yes Status: Acute Code(s): D50.9 - IRON DEFICIENCY ANEMIA, UNSPECIFIED SNOMED Code(s): 40675064 (2) Stool guaiac positive Current Visit: Yes Status: Acute Code(s): R19.5 - OTHER FECAL ABNORMALITIES SNOMED Code(s): 93139859 (3) Chronic kidney disease Current Visit: Yes Status: Acute Code(s): N18.9 - CHRONIC KIDNEY DISEASE, UNSPECIFIED SNOMED Code(s): 366343388 (4) AAA (abdominal aortic aneurysm) Current Visit: Yes Status: Acute Code(s): I71.4 - ABDOMINAL AORTIC ANEURYSM , WITHOUT RUPTURE SNOMED Code(s): 138529861 (5) Coagulopathy Current Visit: Yes Status: Acute Code(s): D68.9 - COAGULATION DEFECT, UNSPECIFIED SNOMED Code(s): 22188865 (6) Elevated liver enzymes Narrative/Plan: Possible passive venous elevated proBNP possible medications Current Visit: Yes Status: Acute Code(s): R74.8 - ABNORMAL LEVELS OF OTHER SERUM ENZYMES SNOMED Code(s): 383001256 Plan: 1. EGD colonoscopy advised once medically optimized and will require cardiac medical clearance however patient declined secondary to profound fatigue and weakness. 2. Coagulopathy needs to improve 1.5 or less before proceeding with endoscopic exams. 3. GI prophylaxis. Renal consult. CBC monitoring. 4. Light diet as tolerated. Case discussed with cardiology and attending Dr. Escamilla. Thank you for this kind referral and the opportunity to participate in the care of your patient. This consultation was discussed with Dr. Keene. The impression and plan of care have been directed as dictated.
--- NOTE | 2017-01-20 13:56 | P.CRDCN ---
History of Present Illness Consult date: 01/20/17 Requesting physician: Gregor Ortega Chief complaint: Weakness and lower extremity edema History of present illness: This is a pleasant 81-year-old female who follows with Dr. Pool in the office. She has a known history of coronary artery disease with prior bypass surgery in 1989 at which time she underwent a GALAVIZ to the LAD, saphenous vein graft to the RCA saphenous vein graft to the diagonal, she also underwent stenting in 2009, 2010, most recent in 2011 she had a stent placed in the saphenous vein graft to the OM1. Patient also has a history of hypertension, hyperlipidemia, peripheral vascular disease, diabetes, breast cancer with prior lumpectomy, chronic renal failure stage III, COPD, abdominal aortic aneurysm. Patient presents to the hospital with symptoms of progressive weakness with associated lower extremity edema. She denies any chest discomfort, no shortness of breath. Patient does state that she has been having some episodes of nausea with associated diarrhea. Patient was found to be quite anemic on admission here with a hemoglobin of 5.9, stool for occult blood was positive. Patient did receive 2 units of packed red blood cells and one unit of fresh frozen plasma. Hemoglobin at present 8.5, INR is 2.0. Patient had been maintained on aspirin 325 mg daily along with Effient 10 mg daily. BUN was 172 with a creatinine of 3.4. Liver enzymes were also elevated. Troponins 09, 0.39 , 0.96. ProBNP 66,400. Echocardiogram performed in September revealed a preserved left ventricular systolic function with an ejection fraction of 50-55% with severe pulmonary hypertension. Blood pressure 144/60 with a heart rate in the 50s. Afebrile. 94% on 3 L of oxygen. At the time of our examination this morning, patient still complains of weakness, she denies any chest discomfort, she does complain of aching all of her muscles. Potassium 4.6, BUN 172, creatinine 3.4. Magnesium level I.9. AST 111, ALT 158, alk phos 140, 0.09, 0.39, 0.96. EKG on admission showed a normal sinus rhythm with frequent PVCs and incomplete left bundle branch block pattern. Nonspecific ST-T wave changes. Chest x-ray showed cardiomegaly with interstitial changes and mild congestive heart failure. Small right pleural effusion, aortic iliac vascular ultrasound revealed mural thrombus, may be interval progression. No evidence for periaortic hematoma at this time. Past Medical History Past Medical History: Coronary Artery Disease (CAD), Cancer, Heart Failure, COPD , Diabetes Mellitus, Hyperlipidemia, Hypertension, Pneumonia, Renal Disease Additional Past Medical History / Comment(s): Coronary artery disease with previous bypass surgery, mild mitral valve dx, abdominal aortic aneurysm, IDDM type II, left-sided breast cancer with a previous lumpectomy, nocturnal oxygen use at 2 L/m nasal cannula, chronic back pain, R sided sciatica, cardiac murmur , chronic renal failure stage III, normocytic anemia History of Any Multi-Drug Resistant Organisms: None Reported Past Surgical History: Appendectomy, Breast Surgery, Coronary Bypass/CABG, Heart Catheterization, Heart Catheterization With Stent Additional Past Surgical History / Comment(s): 1989 triple bypass at [facility] in [place], PCI with stent "years ago"-done in [facility]-pt does not recall date but thinks about 1992, lumpectomy left breast, colonoscopy , ectopic with R fallopian tube and ovary removed, bilateral cataract removal with lens implants, R groin temporary dialysis catheter. Past Anesthesia/Blood Transfusion Reactions: No Reported Reaction Additional Past Anesthesia/Blood Transfusion Reaction / Comment(s): Pt is currently receiving blood. Date of Last Stent Placement:: 1992? Smoking Status: Former smoker - Past Family History Father Family Medical History: Cancer Additional Family Medical History / Comment(s): Father had throat cancer and at the age of 85 yrs. Mother Family Medical History: No Reported History Additional Family Medical History / Comment(s): Mother was healthy and at the age of 85yrs. Medications and Allergies Home Medications Medication Instructions Recorded Confirmed Type Atorvastatin [Lipitor] 80 mg PO DAILY 07/01/16 01/19/17 History Isosorbide Mononitrate [Imdur] 120 mg PO DAILY 07/01/16 01/19/17 History Nadolol 20 mg PO DAILY 07/01/16 01/19/17 History Prasugrel HCl [Effient] 10 mg PO DAILY 07/01/16 01/19/17 History Tiotropium 18 Mcg/Puff [Spiriva] 1 cap INHALATION RT-DAILY 07/01/16 01/19/17 History Aspirin/Calcium Carbonate/Mag 325 mg PO DAILY 01/19/17 01/19/17 History [Bufferin 325 mg Tablet] Furosemide [Lasix] 40 mg PO TID 01/19/17 01/19/17 History Nitroglycerin Sl Tabs [Nitrostat] 0.4 mg SUBLINGUAL Q5M PRN 01/19/17 01/19/17 History Allergies Allergy/AdvReac Type Severity Reaction Status Date / Time eptifibatide Allergy Unknown Verified 01/19/17 09:53 [From Integrilin] Penicillins Allergy Rash/Hives Verified 01/19/17 09:53 Physical Exam Vitals: Vital Signs Temp Pulse Pulse Resp BP BP Pulse Ox 01/20/17 11:40 97.9 F 74 16 157/76 94 L 01/20/17 08:00 96.6 F L 53 L 16 145/67 95 01/20/17 04:00 97.8 F 54 L 16 143/63 98 01/20/17 00:00 97.7 F 57 L 16 114/59 96 01/19/17 21:15 96.4 F L 68 16 137/65 97 01/19/17 20:00 96.4 F L 76 16 134/61 98 01/19/17 18:42 97.0 F L 66 16 144/65 01/19/17 18:32 96.9 F L 66 16 141/63 97 01/19/17 18:27 97.0 F L 65 16 144/65 96 01/19/17 17:43 96.0 F L 51 L 16 155/66 97 01/19/17 17:13 96.1 F L 66 16 162/69 99 01/19/17 17:03 95.6 F L 66 16 149/67 99 01/19/17 16:57 95.6 F L 66 16 143/66 100 01/19/17 16:00 69 16 01/19/17 15:13 94.2 F L 69 16 144/68 97 01/19/17 14:35 97.4 F L 67 18 158/74 98 01/19/17 13:51 68 18 149/87 98 01/19/17 12:49 69 16 149/70 98 01/19/17 12:22 97.1 F L 67 18 153/67 98 01/19/17 12:19 97.1 F L 69 18 133/60 98 Intake and Output 1101/20/17 01/20/17 22:59 06:59 14:59 Intake Total 769 Output Total 100 310 Balance 669 -310 Intake: Intake, IV Titration 120 Amount Sodium Chloride 0.9% 1, 120 000 ml @ 60 mls/hr IV . [id number] [facility] Rx#:[id number] Oral 0 Blood Product 649 Ffp 24 Cpd Unit 339 [id number] Rc As-3 Unit 310 [id number] Output: Urine 100 310 Straight 310 Other: Voiding Method Bedpan Bedpan Bedpan # Voids 1 0 Weight 65.5 kg PHYSICAL EXAMINATION: HEENT: Head is atraumatic, normocephalic. Pupils equal, round. Neck is supple. There is no elevated jugular venous pressure. HEART EXAMINATION: S1 and S2 1 systolic murmur is heard. CHEST EXAMINATION: Lungs reveal diminished air entry to bilateral bases with fine crackles to the bases. ABDOMEN: Soft, nontender. Bowel sounds are heard. No organomegaly noted. EXTREMITIES: 2+ peripheral pulses with 2+ evidence of peripheral edema and no calf tenderness noted. NEUROLOGIC patient is awake, alert and oriented -3. . Results 01/20/17 05:35 01/20/17 05:35 Cardiac Enzymes 01/19/17 01/20/17 Range/Units 18:15 01:48 CK-MB (CK-2) 2.5 H* 2.9 H* (0.0-2.4) ng/mL Troponin I 0.399 H* 0.963 H* (0.000-0.034) ng/mL Coagulation 01/20/17 Range/Units 05:35 PT 19.1 H (9.0-12.0) sec CBC 01/20/17 01/20/17 Range/Units 01:48 05:35 WBC 14.3 H 14.3 H (3.8-10.6) k/uL RBC 3.31 L 3.37 L (3.80-5.40) m/uL Hgb 8.5 L D 8.3 L (11.4-16.0) gm/dL Hct 27.6 L 28.9 L (34.0-46.0) % Plt Count 111 L 109 L (150-450) k/uL Comprehensive Metabolic Panel 01/20/17 Range/Units 05:35 Sodium 138 (137-145) mmol/L Potassium 4.6 (3.5-5.1) mmol/L Chloride 105 (98-107) mmol/L Carbon Dioxide 13 L (22-30) mmol/L BUN 172 H* (7-17) mg/dL Creatinine 3.45 H (0.52-1.04) mg/dL Glucose 111 H (74-99) mg/dL Calcium 8.3 L (8.4-10.2) mg/dL Current Medications Generic Name Dose Route Start Last Admin Trade Name Freq PRN Reason Stop Dose Admin Acetaminophen 650 mg 01/19/17 12:16 Tylenol Tab PO Q6HR PRN Mild Pain or Fever > 100.5 Acetaminophen/Codeine Phosphate 1 each 01/19/17 12:16 Tylenol #3 PO Q4HR PRN Moderate Pain Albuterol/Ipratropium 3 ml 01/19/17 13:06 Duoneb 0.5 Mg-3 Mg/3 Ml Soln INHALATION RT-Q4H PRN shortness of breath Aspirin 325 mg 01/20/17 09:00 01/20/17 09:49 Aspirin PO Not Given DAILY [facility] Atorvastatin Calcium 80 mg 01/20/17 09:00 01/20/17 08:06 Lipitor PO 80 mg DAILY [facility] Administration Bisacodyl 5 mg 01/19/17 12:16 Dulcolax PO DAILY PRN Constipation Furosemide 40 mg 01/19/17 16:00 01/20/17 08:06 Lasix PO 40 mg TID [facility] Administration Hydromorphone HCl 1 mg 01/19/17 12:16 Dilaudid IVP Q3HR PRN Severe Pain Sodium Chloride 1,000 mls @ 60 mls/hr 01/19/17 12:30 01/20/17 05:33 Saline 0.9% IV 60 mls/hr .[id number] [facility] Administration Levofloxacin 500 mg/ IV 100 mls @ 100 mls/hr 01/21/17 11:00 Solution IVPB Q48H [facility] Insulin Aspart 0 unit 01/19/17 17:30 01/20/17 06:17 Novolog SQ Not Given ACHS [facility] Protocol Ipratropium [place] 0.5 mg 01/19/17 16:00 01/20/17 11:34 Atrovent Nebulized INHALATION Not Given RT-QID [facility] Isosorbide Mononitrate 120 mg 01/20/17 09:00 01/20/17 08:06 Imdur PO 120 mg DAILY [facility] Administration Lorazepam 0.5 mg 01/19/17 12:16 Ativan IV Q6HR PRN Anxiety Miscellaneous Information 1 each 01/19/17 13:06 Pneumonia Protocol Utilized PO ONCE PRN Per Protocol Nadolol 20 mg 01/20/17 09:00 01/20/17 08:06 Corgard PO 20 mg DAILY [facility] Administration Naloxone HCl 0.2 mg 01/19/17 12:16 Narcan IV Q2M PRN Opioid Reversal Nitroglycerin 0.4 mg 01/19/17 13:05 Nitrostat SUBLINGUAL Q5M PRN Chest Pain Ondansetron HCl 4 mg 01/19/17 16:39 01/19/17 23:56 Zofran IVP 4 mg Q6HR PRN Administration Nausea And Vomiting Pantoprazole Sodium 40 mg 01/20/17 09:00 01/20/17 08:06 Protonix IV 40 mg DAILY [facility] Administration Prasugrel 10 mg 01/20/17 09:00 Effient PO DAILY [facility] Intake and Output 01/19/17 01/20/17 01/20/17 22:59 06:59 14:59 Intake Total 769 Output Total 100 310 Balance 669 -310 Intake: Intake, IV Titration 120 Amount Sodium Chloride 0.9% 1, 120 000 ml @ 60 mls/hr IV . [id number] [facility] Rx#:[id number] Oral 0 Blood Product 649 Ffp 24 Cpd Unit 339 [id number] Rc As-3 Unit 310 [id number] Output: Urine 100 310 Straight 310 Other: Voiding Method Bedpan Bedpan Bedpan # Voids 1 0 Weight 65.5 kg 01/20/17 05:35 01/20/17 05:35 EKG Interpretations (text) EKG shows a normal sinus rhythm with frequent PVCs, incomplete left bundle branch block pattern Assessment and Plan Plan: Assessment and plan #1 diastolic congestive heart failure, acute on chronic, BNP level 66,400. chest x-ray suggests mild congestive heart failure with slight sided pleural effusion. #2 anemia, hemoglobin 5.9 on admission, status post 2 units of blood transfusion. #3 acute on chronic renal failure, BUN 172, creatinine 3.5. #4 hypertension # 5 diabetes #6 history of coronary artery disease with prior bypass and stent placements, last stent was performed in 2011, was on aspirin and Effient at home. #7 hyperlipidemia #8 nicotine dependence #9 COPD #10 abnormal liver enzymes #11 hypomagnesemia Plan We will repeat an echocardiogram with Doppler study here. We'll also discontinue the patient's aspirin and Plavix. 10 you other medications. We will continue to follow. GI consulted. DNP note has been reviewed, I agree with a documented findings and plan of care. Patient was seen and examined.
[2017-01-20 14:35] VITALS: BMI 26.4
--- NOTE | 2017-01-20 15:55 | P.PN ---
Subjective 81-year-old the female came in with compensative generalized weakness which is believed secondary to anemia patient hemoglobin is presently 8.2 but patient was evaluated for acute GI bleed pain gastric body evaluate the patient and they do not believe patient has an acute GI bleed but patient is severely anemic with the BUN of 175 creatinine of around 3.9 patient does have some chronic kidney disease stage IV patient does have pulmonary hypertension as well and chronic diastolic dysfunction patient is on high-dose of Lasix at this point of time in IV form patient does not have any elevated JVD does have some pedal edema. We'll hold off Lasix now and we will also consult nephrology. Patient is quite tired denied any chest pain patient was a valid by pulmonology as well as cardiology. Constitutional: Severe fatigue as mentioned above Cardio vascular: denied any chest pain, palpitations Gastrointestinal denied any nausea vomiting Pulmonary: Denied any shortness of breath cough Neurologic denied any new focal deficits Objective - Vital Signs Vital signs: Vital Signs Temp 97.9 F 01/20/17 11:40 Pulse 74 01/20/17 11:40 Resp 16 01/20/17 11:40 BP 157/76 01/20/17 11:40 Pulse Ox 94 L 01/20/17 11:40 Intake & Output 01/19/17 01/20/17 01/20/17 18:59 06:59 18:59 Intake Total 769 310 100 Output Total 410 Balance 769 -100 100 Weight 63.503 kg 65.5 kg 65.5 kg Intake: Intake, IV Titration 120 Amount Sodium Chloride 0.9% 1, 120 000 ml @ 60 mls/hr IV . [id number] [facility] Rx#:[id number] Oral 0 100 Blood Product 649 310 Ffp 24 Cpd Unit 339 [id number] Rc As-3 Unit 310 [id number] Rc As-3 Unit 0 310 [id number] Output: Urine 410 Straight 310 Other: Voiding Method Bedpan Bedpan # Voids 0 - Exam PHYSICAL EXAMINATION: GENERAL: The patient is alert and oriented x3, not in any acute distress. Well developed, well nourished. HEENT: Pupils are round and equally reacting to light. EOMI. No scleral icterus. No conjunctival pallor. Normocephalic, atraumatic. No pharyngeal erythema. No thyromegaly. CARDIOVASCULAR: S1 and S2 present. No murmurs, rubs, or gallops. PULMONARY: Chest is clear to auscultation, no wheezing or crackles. ABDOMEN: Soft, nontender, nondistended, normoactive bowel sounds. No palpable organomegaly. MUSCULOSKELETAL: No joint swelling or deformity. EXTREMITIES: No cyanosis, clubbing, she does have 1+ bilateral pitting pedal edema NEUROLOGICAL: Gross neurological examination did not reveal any focal deficits. SKIN: No rashes. - Labs CBC & Chem 7: 01/20/17 05:35 01/20/17 05:35 Labs: Abnormal Lab Results - Last 24 Hours (Table) 01/19/17 01/19/17 01/19/17 Range/Units 00:14 09:50 17:19 WBC (3.8-10.6) k/uL RBC (3.80-5.40) m/uL Hgb (11.4-16.0) gm/dL Hct (34.0-46.0) % MCH (25.0-35.0) pg MCHC (31.0-37.0) g/dL RDW (11.5-15.5) % Plt Count (150-450) k/uL Neutrophils # (1.3-7.7) k/uL Lymphocytes # (1.0-4.8) k/uL PT (9.0-12.0) sec INR (<1.2) Carbon Dioxide (22-30) mmol/L BUN (7-17) mg/dL Creatinine (0.52-1.04) mg/dL Glucose (74-99) mg/dL POC Glucose (mg/dL) 213 H (75-99) mg/dL Calcium (8.4-10.2) mg/dL CK-MB (CK-2) (0.0-2.4) ng/mL Troponin I (0.000-0.034) ng/mL Urine Protein Trace H (Negative) Urine Blood Trace H (Negative) Urine Bacteria Rare H (None) /hpf Hyaline Casts 12 H (0-2) /lpf Urine Mucus Rare H (None) /hpf Crossmatch See Detail 01/19/17 01/19/17 01/20/17 Range/Units 18:15 21:03 01:48 WBC (3.8-10.6) k/uL RBC (3.80-5.40) m/uL Hgb (11.4-16.0) gm/dL Hct (34.0-46.0) % MCH (25.0-35.0) pg MCHC (31.0-37.0) g/dL RDW (11.5-15.5) % Plt Count (150-450) k/uL Neutrophils # (1.3-7.7) k/uL Lymphocytes # (1.0-4.8) k/uL PT (9.0-12.0) sec INR (<1.2) Carbon Dioxide (22-30) mmol/L BUN (7-17) mg/dL Creatinine (0.52-1.04) mg/dL Glucose (74-99) mg/dL POC Glucose (mg/dL) 195 H (75-99) mg/dL Calcium (8.4-10.2) mg/dL CK-MB (CK-2) 2.5 H* 2.9 H* (0.0-2.4) ng/mL Troponin I 0.399 H* 0.963 H* (0.000-0.034) ng/mL Urine Protein (Negative) Urine Blood (Negative) Urine Bacteria (None) /hpf Hyaline Casts (0-2) /lpf Urine Mucus (None) /hpf Crossmatch 01/20/17 01/20/17 01/20/17 Range/Units 01:48 05:35 05:35 WBC 14.3 H 14.3 H (3.8-10.6) k/uL RBC 3.31 L 3.37 L (3.80-5.40) m/uL Hgb 8.5 L D 8.3 L (11.4-16.0) gm/dL Hct 27.6 L 28.9 L (34.0-46.0) % MCH 24.8 L (25.0-35.0) pg MCHC 30.7 L 28.9 L (31.0-37.0) g/dL RDW 18.5 H 17.5 H (11.5-15.5) % Plt Count 111 L 109 L (150-450) k/uL Neutrophils # 13.2 H (1.3-7.7) k/uL Lymphocytes # 0.3 L (1.0-4.8) k/uL PT 19.1 H (9.0-12.0) sec INR 2.0 H (<1.2) Carbon Dioxide (22-30) mmol/L BUN (7-17) mg/dL Creatinine (0.52-1.04) mg/dL Glucose (74-99) mg/dL POC Glucose (mg/dL) (75-99) mg/dL Calcium (8.4-10.2) mg/dL CK-MB (CK-2) (0.0-2.4) ng/mL Troponin I (0.000-0.034) ng/mL Urine Protein (Negative) Urine Blood (Negative) Urine Bacteria (None) /hpf Hyaline Casts (0-2) /lpf Urine Mucus (None) /hpf Crossmatch 01/20/17 01/20/17 01/20/17 Range/Units 05:35 06:01 11:41 WBC (3.8-10.6) k/uL RBC (3.80-5.40) m/uL Hgb (11.4-16.0) gm/dL Hct (34.0-46.0) % MCH (25.0-35.0) pg MCHC (31.0-37.0) g/dL RDW (11.5-15.5) % Plt Count (150-450) k/uL Neutrophils # (1.3-7.7) k/uL Lymphocytes # (1.0-4.8) k/uL PT (9.0-12.0) sec INR (<1.2) Carbon Dioxide 13 L (22-30) mmol/L BUN 172 H* (7-17) mg/dL Creatinine 3.45 H (0.52-1.04) mg/dL Glucose 111 H (74-99) mg/dL POC Glucose (mg/dL) 127 H 151 H (75-99) mg/dL Calcium 8.3 L (8.4-10.2) mg/dL CK-MB (CK-2) (0.0-2.4) ng/mL Troponin I (0.000-0.034) ng/mL Urine Protein (Negative) Urine Blood (Negative) Urine Bacteria (None) /hpf Hyaline Casts (0-2) /lpf Urine Mucus (None) /hpf Crossmatch Microbiology - Last 24 Hours (Table) 01/19/17 09:50 Blood Culture - Preliminary Blood No Growth after 24 hours 01/19/17 00:14 Urine Culture - Preliminary Urine,Catheterized Assessment and Plan Plan: #1 Generalized weakness secondary to acute on chronic anemia with contribution from uremia with a presenting hemoglobin of 5.9. Received 2 units of blood transfusion and hemoglobin is around 8 now patient does not appear to have an acute GI bleed. #2 Coagulopathy with presenting INR 2.1 , effient and aspirin are being discontinued #3 acute on chronic renal failure: Diuretic therapy will be held temporarily nephrology will be consulted patient does have chronic kidney disease stage IV unsure of the etiology of CK D #4 severe pulmonary had hypertension possible chronic diastolic dysfunction patient appears to be hypovolemic #5 COPD without any acute exacerbation #6 Acute on chronic diastolic congestive heart failure. #7 Troponin elevation secondary to chronic kidney disease #8 Coronary artery disease with previous coronary bypass grafting and stent placement. #9 hyperlipidemia
[2017-01-20 16:42] LABS: Glucose,Whole Blood 146 mg/dL (75-99)
--- NOTE | 2017-01-20 16:44 | CONS ---
CONSULTATION DATE OF SERVICE: 01/20/2017. REASON FOR CONSULTATION: 1. Sepsis. 2. Colitis, questionable ischemic. HISTORY OF PRESENT ILLNESS: The patient is an 81-year-old female, who presented to the ER at [facility] yesterday morning with chief complaints of increasing fatigue, weakness, no energy and bilateral leg aches and edema in the legs. The patient denies any high- grade fever, rigors or chills. No significant chest pain or shortness of breath. Very minimal cough. The patient complaining of some abdominal pain and cramping 3 to 4/10, and no radiation. Has felt nauseated but no vomiting. The patient also has some diarrhea with these symptoms. The patient has been evaluated by the ER physician. On evaluation of the ER physician the patient did have a chest x-ray shows cardiomegaly, interstitial changes consistent for mild CHF, infusion or infiltrate. The patient did have a CT abdomen and pelvis, did show nonspecific wall thickening of the right ascending and the transverse colon with a question of possible ischemic or infectious colitis. The patient also noticed to have a hemoglobin of 5.9, white count normal . Repeat was 14.3. The patient did have a UA that was not significantly positive. Did have elevated BUN and creatinine. She did have blood and urine culture obtained. She was started on Levaquin. ID was consulted for further recommendation regarding antibiotic therapy. REVIEW OF SYSTEMS: CONSTITUTIONAL: Positive for weakness, but no high-grade fever. EYES: No complaint. ENT: No complaint. RESPIRATORY: No complaint. CARDIOVASCULAR: No complaint. GENITOURINARY: No complaint. GASTROINTESTINAL: As per HPI. MUSCULOSKELETAL: No complaint. INTEGUMENTARY: No complaint. PSYCHOLOGICAL: No complaint. ENDOCRINE: No complaint. NEUROLOGICAL: No complaint. PAST MEDICAL HISTORY: Significant for a coronary artery disease, congestive heart failure, COPD, diabetes mellitus, hypertension, hyperlipidemia, pneumonia, chronic insufficiency, left- sided breast cancer. PAST SURGICAL HISTORY: Left breast lumpectomy, coronary bypass grafting, appendectomy, heart catheterization with stent placement. SOCIAL HISTORY: Former smoker. No drinking or drug use. FAMILY HISTORY: Father with history of throat cancer at age of 85. Mother remained to be healthy and of old age. ALLERGIES: PENICILLIN with a rash. No history of anaphylaxis. MEDICATION: Medications include the patient is currently on Tylenol, aspirin, Lipitor, Dulcolax, Pepcid, NovoLog, Imdur, Levaquin, Ativan, Nadolol, Narcan, Nitrostat, Zofran. EXAMINATION: Blood pressure is 157/76 with a pulse of 74 temperature 97.9. She is 94% on 2 L nasal cannula. General description is an elderly female lying in bed in no distress. No tachypnea or accessory muscle respiration use. HEENT: Shows pallor. No scleral icterus. Oral mucosa is dry. NECK: Trachea central. No thyromegaly. LUNGS: Unlabored breathing. Few crackles at the bases bilaterally. No wheeze. HEART: S1-S2 regular rate and rhythm. ABDOMEN: Soft, mildly distended. No guarding. No rigidity. No organomegaly. EXTREMITIES: No edema feet. SKIN EXAMINATION: No rash or mass palpable. NEUROLOGICALLY: The patient is awake, alert, oriented and affect normal. LABS: Hemoglobin is 8.8, white count 14.3, BUN of 172 with creatinine 3.4. Electrolytes have been normal. Troponin slightly elevated. UA was not significantly positive. Culture so far negative. DIAGNOSTIC IMPRESSION AND PLAN: 1. Patient admitted to the hospital with generalized weakness. The patient noted to have elevated white count with some hypotension, anemia and evidence of colitis on the CT with a question of possible ischemic colitis to be on top of list. Unlikely though infectious etiology not entirely excluded. 2. Patient does have a PENICILLIN ALLERGY with a rash that does limit number of antibiotics that could be safely used. PLAN: 1. Discontinue Levaquin. 2. Will start the patient on Rocephin 1 g daily and Flagyl 500 every 8 hours. 3. Depending upon the clinical response as well as cultures to further adjust medication if needed. Thank you for this consultation. Will follow this patient along with you. MMODL / IJN: [id number] / MARIA ESTHER
--- NOTE | 2017-01-20 16:51 | XR ---
EXAMINATION TYPE: XR chest 1V portable DATE OF EXAM: 01/20/2017 Comparison: 01/19/2017 Clinical History: 81-year-old female follow-up pneumonia. Findings: Focal medial right basilar opacity persists. Median sternotomy wires and post-CABG clips. Patchy atel ectasis at the left lung base. Small right pleural effusion persist. Impression: 1. Increasing medial right basilar consolidation which could represent pneumonia. 2. Continued small right effusion with adjacent atelectasis and/or consolidation.
[2017-01-20] MEDS: FAMOTIDINE 20 MG TAB PO SCH (17:42)
[2017-01-20] MEDS: cefTRIAXone IN SWFI 1,000 MG/10 ML SYRINGE IVP SCH (17:42)
[2017-01-20] MEDS: metroNIDAZOLE 500 MG TAB PO SCH ×2 (17:43→21:57)
--- NOTE | 2017-01-20 18:11 | CONS ---
CONSULTATION DATE OF CONSULTATION: 01/20/17 REASON FOR CONSULT: Renal failure. HISTORY OF PRESENT ILLNESS: The patient is an 81-year-old female who has a history of cardiomyopathy, mainly diastolic dysfunction, pulmonary hypertension, COPD and coronary artery disease. The patient was admitted to the hospital with shortness of breath and weakness. She has had severe fluid overload previously and had been on dobutamine and Lasix drips for a prolonged period of time. The patient had also been on dialysis to help with the fluid overload. She was taken off of dialysis and seemed to be doing okay for the past few months. She denies any significant urinary symptoms. The patient states she is voiding and she was maintained on Lasix 40 mg t.i.d. at home. She has not been on any SHANIKA inhibitors. Patient denies use of any nonsteroidal anti-inflammatory agents. Her creatinine this admission was 3.45 with a BUN of 172. Previously, her creatinine had been at about 2.1 and 2.0 mg/dL. The patient has been started on IV fluids. Her chest x-ray does show mild CHF. She continues to have lower extremity edema. However, she had been laying flat in bed earlier this morning. I have discussed renal replacement therapy with the patient and at this time she is agreeable to starting dialysis given her issues with volume overload and significant renal failure. Although the IV hydration might help the renal function to some degree but she is very high risk for readmission for fluid overload and worsening renal failure. I have advised her that she will likely need to start renal replacement therapy again and will likely remain on it. PAST MEDICAL HISTORY: COPD, severe pulmonary hypertension, diastolic dysfunction. Coronary artery disease, hypertension, history of pneumonia, hyperlipidemia, a history of chronic kidney disease. MEDICATIONS: Medications at home prior to admission include Spiriva, Nadolol, Imdur, Lasix, Lipitor and Bufferin. ALLERGIES: INTEGRILIN AND PENICILLIN. FAMILY HISTORY: Family history negative for kidney diseases. REVIEW OF SYSTEMS: Negative for nausea, abdominal pain, or diarrhea. Patient has had poor appetite. The rest of the review of systems as per HPI. EXAMINATION: Patient is comfortable. She is awake. She is alert and oriented x3, not in any acute distress. Blood pressure 143/63, heart rate 54 per minute. She is afebrile. Examination of the heart S1, S2. Examination lungs bilateral breath sounds are heard. Decreased breath sounds at bases with minimal basal crackles heard bilaterally. Abdomen is soft, nontender. Examination of lower extremities shows chronic skin changes with edema 2+ bilaterally, which is mainly chronic. COPYHOLDER exam is grossly intact. Patient is moving all 4 extremities. LABS SHOW: Sodium 138, potassium 4.6, CO2 is 13, BUN 172, serum creatinine 3.45, hemoglobin 8.3 g/dL. UA shows trace protein, trace blood. Stool for occult blood is positive. ASSESSMENT: 1. Acute kidney injury on top of chronic kidney disease with significantly elevated BUN, possibly prerenal, currently patient is maintained on IV fluids. She is not very symptomatic. I will continue the fluids. However, patient is advised that she will need to start renal replacement therapy. I will re-evaluate her again tomorrow. This will help to prevent recurrent admissions as she is not able to maintain good volume status as outpatient without dialysis. 2. Severe metabolic acidosis secondary to renal failure. 3. Diastolic dysfunction/cardiomyopathy. 4. Severe pulmonary hypertension. 5. History of pneumonia. PLAN: Start oral sodium bicarb. May continue with the fluids for now. We will proceed with initiation of renal replacement therapy tomorrow depending on her labs. I have advised the patient that she will likely need to stay on dialysis at this time. She is agreeable and at this time she is not ready to consider options like hospice. Thank you for this consultation. We will continue to follow the patient during her hospitalization. FRANKLYN / KATHLEEN: [id number] /
[2017-01-20 21:13] LABS: Glucose,Whole Blood 153 mg/dL (75-99)
[2017-01-20] MEDS: SODIUM BICARBONATE TAB 650 MG TAB PO SCH (21:57)
[2017-01-21 06:07] LABS: Glucose,Whole Blood 169 mg/dL (75-99)
[2017-01-21 06:23] LABS: Calcium 7.8 mg/dL (8.4-10.2); Magnesium 1.7 mg/dL (1.6-2.3); Potassium 4.5 mmol/L (3.5-5.1)
[2017-01-21 06:31] LABS: Anisocytosis Slight; Basophils % (A) 0 %; CHCM 29.7; Eosinophils % (A) 0 %; HDW 5.11; HGB 8.4 gm/dL (11.4-16.0); Hypochromasia Marked; Large Platelets Flag Moderate; Luc # (Auto) 0.13; Luc % (Auto) 1; Lymphocytes # (A) 0.4 k/uL (1.0-4.8); Lymphocytes % (A) 3 %; MCH 25.1 pg (25.0-35.0); MCHC 29.9 g/dL (31.0-37.0); Microcytosis Slight; Monocytes # (A) 0.8 k/uL (0-1.0); Monocytes % (A) 6 %; Neutrophils # (A) 12.5 k/uL (1.3-7.7); Neutrophils % (A) 90 %; Poikilocytosis Marked; RBC 3.34 m/uL (3.80-5.40); RDW 19.8 % (11.5-15.5); WBC 13.8 k/uL (3.8-10.6); WBC (Perox) 14.75
[2017-01-21 06:37] LABS: Phosphorus 8.6 mg/dL (2.5-4.5)
[2017-01-21 06:50] LABS: INR 2.2 (<1.2); Prothrombin Time 21.2 sec (9.0-12.0)
[2017-01-21] MEDS: INSULIN ASPART 100 UNIT/ML 1 ML 10 ML VIAL SQ SCH ×4 (07:34→21:39)
[2017-01-21] MEDS: ISOSORBIDE MONONITRATE ER 60 MG TAB.ER.24H PO SCH (07:47)
[2017-01-21] MEDS: NADOLOL 20 MG TAB PO SCH (07:48)
[2017-01-21] MEDS: ATORVASTATIN 80 MG TAB PO SCH (07:48)
[2017-01-21] MEDS: FAMOTIDINE 20 MG TAB PO SCH (07:48)
[2017-01-21] MEDS: metroNIDAZOLE 500 MG TAB PO SCH ×3 (07:48→21:21)
[2017-01-21] MEDS: SODIUM BICARBONATE TAB 650 MG TAB PO SCH ×3 (07:48→21:21)
[2017-01-21] MEDS: cefTRIAXone IN SWFI 1,000 MG/10 ML SYRINGE IVP SCH (07:50)
[2017-01-21] MEDS: IPRATROPIUM 0.5 MG/2.5 ML NEBU INHALATION SCH ×4 (08:02→21:47)
--- NOTE | 2017-01-21 08:43 | P.PN ---
Subjective Progress Note Date: 01/21/17 Principal diagnosis: anemia No bleeding. Fatigued. Renal replacement discussed yesterday with nephrology. Hemoglobin unchanged from yesterday. Objective - Vital Signs Vital signs: Vital Signs Temp 96.7 F L 01/21/17 04:00 Pulse 54 L 01/21/17 07:37 Resp 16 01/21/17 07:37 BP 146/71 01/21/17 04:00 Pulse Ox 93 L 01/21/17 04:00 Intake & Output 01/20/17 01/21/17 01/21/17 18:59 06:59 18:59 Intake Total 300 Output Total 300 Balance 0 Weight 65.5 kg 65 kg Intake: Oral 300 Output: Urine 300 Other: Voiding Method Bedpan Bedside Commode # Voids 0 - Exam General appearance: The patient is alert, oriented, in no acute distress. Weak appearance. HET: Head is normocephalic and atraumatic. Pupils are equal and reactive. Oropharynx is clear without lesions. Neck: Supple without lymphadenopathy. Trachea midline. Heart: S1 S2. Lungs: No crackles or wheezes are heard. Abdomen: Soft, nontender, nondistended with bowel sounds. No peritoneal signs. No palpable organomegaly or masses. Extremities: Normal skin color and turgor. No cyanosis, rash, ulceration, clubbing, or edema. Radial and pedal pulses are 2/4 bilaterally. Neurological: No focal deficits. Strength and sensation are grossly intact. - Labs CBC & Chem 7: 01/21/17 05:30 01/21/17 05:30 Labs: Abnormal Lab Results - Last 24 Hours (Table) 01/20/17 01/20/17 01/20/17 Range/Units 11:41 16:40 21:11 WBC (3.8-10.6) k/uL RBC (3.80-5.40) m/uL Hgb (11.4-16.0) gm/dL Hct (34.0-46.0) % MCHC (31.0-37.0) g/dL RDW (11.5-15.5) % Plt Count (150-450) k/uL PT (9.0-12.0) sec INR (<1.2) Carbon Dioxide (22-30) mmol/L BUN (7-17) mg/dL Creatinine (0.52-1.04) mg/dL Glucose (74-99) mg/dL POC Glucose (mg/dL) 151 H 146 H 153 H (75-99) mg/dL Calcium (8.4-10.2) mg/dL Phosphorus (2.5-4.5) mg/dL 01/21/17 01/21/17 01/21/17 Range/Units 05:30 05:30 05:30 WBC 13.8 H (3.8-10.6) k/uL RBC 3.34 L (3.80-5.40) m/uL Hgb 8.4 L (11.4-16.0) gm/dL Hct 28.0 L (34.0-46.0) % MCHC 29.9 L (31.0-37.0) g/dL RDW 19.8 H (11.5-15.5) % Plt Count 103 L (150-450) k/uL PT 21.2 H (9.0-12.0) sec INR 2.2 H (<1.2) Carbon Dioxide 13 L (22-30) mmol/L BUN 168 H* (7-17) mg/dL Creatinine 3.60 H (0.52-1.04) mg/dL Glucose 144 H (74-99) mg/dL POC Glucose (mg/dL) (75-99) mg/dL Calcium 7.8 L (8.4-10.2) mg/dL Phosphorus 8.6 H* (2.5-4.5) mg/dL 01/21/17 Range/Units 06:05 WBC (3.8-10.6) k/uL RBC (3.80-5.40) m/uL Hgb (11.4-16.0) gm/dL Hct (34.0-46.0) % MCHC (31.0-37.0) g/dL RDW (11.5-15.5) % Plt Count (150-450) k/uL PT (9.0-12.0) sec INR (<1.2) Carbon Dioxide (22-30) mmol/L BUN (7-17) mg/dL Creatinine (0.52-1.04) mg/dL Glucose (74-99) mg/dL POC Glucose (mg/dL) 169 H (75-99) mg/dL Calcium (8.4-10.2) mg/dL Phosphorus (2.5-4.5) mg/dL Microbiology - Last 24 Hours (Table) 01/19/17 09:50 Blood Culture - Preliminary Blood No Growth after 24 hours 01/19/17 00:14 Urine Culture - Preliminary Urine,Catheterized Assessment and Plan (1) Iron deficiency anemia Narrative/Plan: Without overt bleeding occult GI loss cannot be entirely excluded. Current Visit: Yes Status: Acute Code(s): D50.9 - IRON DEFICIENCY ANEMIA, UNSPECIFIED SNOMED Code(s): 10325475 (2) Stool guaiac positive Current Visit: Yes Status: Acute Code(s): R19.5 - OTHER FECAL ABNORMALITIES SNOMED Code(s): 95090347 (3) Chronic kidney disease Current Visit: Yes Status: Acute Code(s): N18.9 - CHRONIC KIDNEY DISEASE, UNSPECIFIED SNOMED Code(s): 775779697 (4) AAA (abdominal aortic aneurysm) Current Visit: Yes Status: Acute Code(s): I71.4 - ABDOMINAL AORTIC ANEURYSM , WITHOUT RUPTURE SNOMED Code(s): 898614706 (5) Coagulopathy Current Visit: Yes Status: Acute Code(s): D68.9 - COAGULATION DEFECT, UNSPECIFIED SNOMED Code(s): 00582271 (6) Elevated liver enzymes Narrative/Plan: Possible passive venous elevated proBNP possible medications Current Visit: Yes Status: Acute Code(s): R74.8 - ABNORMAL LEVELS OF OTHER SERUM ENZYMES SNOMED Code(s): 337028015 Plan: 1. EGD colonoscopy declined secondary to profound fatigue and weakness. 2. GI prophylaxis. Renal consult. CBC monitoring. 4. Light diet as tolerated. Renal replacement per nephrology. 5. Will follow as needed. Assessment and plan of care discussed with Dr. Keene
[2017-01-21 10:25] LABS: Large Platelets Present
--- NOTE | 2017-01-21 10:48 | CDI ---
In responding to this query, please exercise your independent professional judgment. The [facility] Coding Staff and Clinical Documentation Specialists appreciate your assistance in clarifying documentation, maintaining compliance with coding guidelines, accurately documenting patients condition and capturing severity of illness. The fact that a question is asked does not imply that any particular answer is desired or expected. Communication forms are a method of clarifying documentation and are not made part of the Legal Health Record. Thank you in advance for your clarification. Last Revision, May 2015 Max Osorio [address] [facility] [place] [address] Documentation Clarification Form Date: 01/21/2017 10:35:00 AM From: Yvonne Parkerluis Admit Date: 01/19/2017 12:43:00 PM Patient Name: Rosalinda Leon Visit Number: [id number] Dr. Santiago Rubio and Verna Jolly NP History/Risk Factors: CAD, CHF, COPD, DM type 2, HTN, CKD stage 4 Tobacco use: exsmoker Home oxygen: nocturnal oxygen use at 2L/m nasal cannula per ED PMH Clinical Indicators: RR 16-18, with sats 92-100% Treatment: Breathing tx O2 2-3 L nasal cannula IV Rocephin In your professional opinion, can you please clarify if these findings signify one of the following conditions? o Chronic Respiratory failure with hypercapnia o Chronic Respiratory failure with hypoxia o Other Diagnosis, please specify o Unable to determine Please document in your progress notes and discharge summary in order to capture severity of illness and risk of mortality. Include clinical findings that support your diagnosis. FYI: Press F11 to launch patient chart. MARIA ESTHER
[2017-01-21] MEDS ORDERED: LEVOFLOXACIN 500MG-D5W PMX 500 MG in DEXTROSE/WATER 1 100ML.BAG IVPB SCH (11:00)
--- NOTE | 2017-01-21 11:08 | CDI ---
In responding to this query, please exercise your independent professional judgment. The [facility] Coding Staff and Clinical Documentation Specialists appreciate your assistance in clarifying documentation, maintaining compliance with coding guidelines, accurately documenting patients condition and capturing severity of illness. The fact that a question is asked does not imply that any particular answer is desired or expected. Communication forms are a method of clarifying documentation and are not made part of the Legal Health Record. Thank you in advance for your clarification. Last Revision, June 2016 Max Osorio [address] [place] [address] Documentation Clarification Form Date: 01/21/2017 10:52:00 AM From: Yvonne Parkerluis Admit Date: 01/19/2017 12:43:00 PM Patient Name: Rosalinda Leon Visit Number: [id number] Dr. Mercedes Santacruz History/Risk Factors: CHF, COPD, DM type 2, CKD stage 4, Pneumonia, exsmoker, Home O2 Clinical Indicators: Vitals: temp 96.4, hr 75, rr 18, bp 140/65, sats 92% ra - on 01/19 temp rectally 94.2 WBC 10.1 on admission, 14.3 on 01/20 Lactic acid: 3.6 on admission Blood cultures: pending "Pneumonia was suspected" documented in H&P by Dr Ortega ID Consult reason for consultation "Sepsis" ID documentation on 01/20 includes 'increasing fatigue, weakness, no energy....denies high grade fever, rigors or chills...cxr consistent for mild CHF, ____ infusion or infiltrate......CT abd and pelvis - with question of possible ischemic or infectious colitis'. Treatment: ID Consult Pulmonary Consult Antibiotics: IV Levaquin d/c'd and IV Rocephin started, also put on PO Flagyl In your professional opinion, please clarify if these findings signify one of the following conditions, whether the condition is POA, and cause, if known: Sepsis, ruled out Sepsis, ruled in secondary to (please clarify) Unable to determine Other, please specify Present on Admission: Yes No Please document in your progress notes and discharge summary in order to capture severity of illness and risk of mortality. Include clinical findings that support your diagnosis. FYI: Press F11 to launch patient chart. MTDD
[2017-01-21 11:36] LABS: Glucose,Whole Blood 246 mg/dL (75-99)
--- NOTE | 2017-01-21 11:56 | P.PN ---
Subjective Progress Note Date: 01/21/17 Principal diagnosis: Acute on chronic anemia This is a very pleasant 81-year-old female patient who follows with Dr. Galeano as her primary care physician. She has a history of coronary artery disease with previous coronary artery bypass grafting and stent placement, insulin-dependent diabetes mellitus, left-sided breast cancer with previous lumpectomy, chronic back pain, hypertension, hyperlipidemia, chronic renal failure stage III, chronic obstructive pulmonary disease maintained on Spiriva and albuterol, abdominal aortic aneurysm. She presented to the emergency room yesterday with a several day complaint of pro-found and progressive weakness along with lower extremity edema. She denies any shortness of breath, cough or congestion. She is maintaining good O2 saturations in the 90s on room air. She 's been afebrile. She denies any chest pain, palpitations lightheadedness or dizziness. She has had issues with nausea and diarrhea. She was found be quite anemic with an hemoglobin of 5.9. Stool for occult blood was positive. She is status post 2 units of packed red blood cells, 1 unit of fresh frozen plasma. Current hemoglobin 8.5. Platelet count 111,000. Her INR is 2.0. She has been maintained on aspirin and Effient in the outpatient setting. Her BUN was 172 with a creatinine of 3.45. Liver enzymes also elevated with AST of 111 , ALT 158, alk phos 140. Troponins are 0.090, 0.399, 0.963. ProBNP 66,400. Echocardiogram from September 2016 revealed a preserved left ventricular systolic function with ejection fraction 50-55% severe pulmonary hypertension. Computed tomography scan of the abdomen revealed new moderate right pleural effusion, there is new ascites in the abdomen and a stable abdominal aortic aneurysm. Sigmoid diverticulosis without overt signs of diverticulitis. Multiple calcified gallstones. There is also thickening of the wall of the transverse colon, suggestive of congestive heart failure however ischemic bowel or nonspecific colitis could not be excluded. The patient is seen again today 01/21/2017 in follow-up on the selective care unit. She is more awake and alert today as compared to yesterday. She states she is feeling better but still quite weak with minimal exertion. She denies any worsening shortness of breath, cough or congestion. Her hemoglobin is 8.4. Platelets 103,000. INR was 2.2. BUN 168, creatinine 360, bicarb 13. She remains on sodium bicarb 650 mg 3 times a day. 0.9 normal saline at 60 mL's per hour. She may need renal replacement therapy. She is maintaining good O2 saturations in the mid 90s on 3 L/m per nasal cannula. She is afebrile. Hemodynamically stable. Objective - Vital Signs Vital signs: Vital Signs Temp 97.2 F L 01/21/17 08:00 Pulse 72 01/21/17 08:00 Resp 16 01/21/17 08:00 BP 130/93 01/21/17 08:00 Pulse Ox 94 L 01/21/17 08:00 Intake & Output 01/20/17 01/21/17 01/21/17 18:59 06:59 18:59 Intake Total 300 Output Total 300 Balance 0 Weight 65.5 kg 65 kg Intake: Oral 300 Output: Urine 300 Other: Voiding Method Bedpan Bedside Commode # Voids 0 - Exam GENERAL EXAM: Pale. Alert, fairly comfortable in no acute distress. HEAD: Normocephalic. EYES: Normal reaction of pupils, equal size. NOSE: Clear with pink turbinates. THROAT: No erythema or exudates. NECK: No masses, no JVD. CHEST: No chest wall deformity. LUNGS: Equal air entry with crackles in the right lung. CVS: S1 and S2 normal with positive murmur, regular rhythm. ABDOMEN: No hepatosplenomegaly, normal bowel sounds, no guarding or rigidity. SPINE: No scoliosis or deformity SKIN: No rashes CENTRAL NERVOUS SYSTEM: No focal deficits, tone is normal in all 4 extremities. EXTREMITIES: There is 1+ peripheral edema. No clubbing, no cyanosis. Peripheral pulses are intact. - Labs CBC & Chem 7: 01/21/17 05:30 01/21/17 05:30 Labs: Abnormal Lab Results - Last 24 Hours (Table) 01/20/17 01/20/17 01/21/17 Range/Units 16:40 21:11 05:30 WBC 13.8 H (3.8-10.6) k/uL RBC 3.34 L (3.80-5.40) m/uL Hgb 8.4 L (11.4-16.0) gm/dL Hct 28.0 L (34.0-46.0) % MCHC 29.9 L (31.0-37.0) g/dL RDW 19.8 H (11.5-15.5) % Plt Count 103 L (150-450) k/uL Neutrophils # 12.5 H (1.3-7.7) k/uL Lymphocytes # 0.4 L (1.0-4.8) k/uL PT (9.0-12.0) sec INR (<1.2) Carbon Dioxide (22-30) mmol/L BUN (7-17) mg/dL Creatinine (0.52-1.04) mg/dL Glucose (74-99) mg/dL POC Glucose (mg/dL) 146 H 153 H (75-99) mg/dL Calcium (8.4-10.2) mg/dL Phosphorus (2.5-4.5) mg/dL 01/21/17 01/21/17 01/21/17 Range/Units 05:30 05:30 06:05 WBC (3.8-10.6) k/uL RBC (3.80-5.40) m/uL Hgb (11.4-16.0) gm/dL Hct (34.0-46.0) % MCHC (31.0-37.0) g/dL RDW (11.5-15.5) % Plt Count (150-450) k/uL Neutrophils # (1.3-7.7) k/uL Lymphocytes # (1.0-4.8) k/uL PT 21.2 H (9.0-12.0) sec INR 2.2 H (<1.2) Carbon Dioxide 13 L (22-30) mmol/L BUN 168 H* (7-17) mg/dL Creatinine 3.60 H (0.52-1.04) mg/dL Glucose 144 H (74-99) mg/dL POC Glucose (mg/dL) 169 H (75-99) mg/dL Calcium 7.8 L (8.4-10.2) mg/dL Phosphorus 8.6 H* (2.5-4.5) mg/dL 01/21/17 Range/Units 11:35 WBC (3.8-10.6) k/uL RBC (3.80-5.40) m/uL Hgb (11.4-16.0) gm/dL Hct (34.0-46.0) % MCHC (31.0-37.0) g/dL RDW (11.5-15.5) % Plt Count (150-450) k/uL Neutrophils # (1.3-7.7) k/uL Lymphocytes # (1.0-4.8) k/uL PT (9.0-12.0) sec INR (<1.2) Carbon Dioxide (22-30) mmol/L BUN (7-17) mg/dL Creatinine (0.52-1.04) mg/dL Glucose (74-99) mg/dL POC Glucose (mg/dL) 246 H (75-99) mg/dL Calcium (8.4-10.2) mg/dL Phosphorus (2.5-4.5) mg/dL Microbiology - Last 24 Hours (Table) 01/19/17 09:50 Blood Culture - Preliminary Blood No Growth after 24 hours 01/19/17 00:14 Urine Culture - Preliminary Urine,Catheterized Assessment and Plan Assessment: Impression: #1 Generalized weakness secondary to acute on chronic anemia with a presenting hemoglobin of 5.9. Stool for occult blood positive. Status post 2 units of packed red blood cells. Current hemoglobin 8.4. #2 Coagulopathy with presenting INR 2.1 on the patient on Effient and aspirin. Status post 1 unit of fresh frozen plasma. Current INR 2.2. #3 Right lower lobe infiltrate/effusion. Remains on ceftriaxone and bronchodilators. #4 Acute on chronic renal failure. #5 Elevated liver enzymes and evidence of ascites. #6 Acute on chronic diastolic congestive heart failure. #7 Troponin leak. #8 Coronary artery disease with previous coronary bypass grafting and stent placement. #9 Chronic obstructive pulmonary disease, currently inactive and stable. #10 Hyperlipidemia. #11 Poor overall functional performance based on the above mentioned multiple comorbidities. Plan: The patient was seen and evaluated by Dr. Rubio. She is currently stable from the pulmonary standpoint. We will continue to follow make further recommendations based on her clinical status. I, the cosigning physician, have performed a history and physical examination on the patient. Lung sounds have crackles in the right lung diminished in the right lung base. Maintaining good O2 saturations in the 90s on 3 L/m per nasal cannula. I have discussed the assessment and plan of care with my nurse practitioner, Verna Jolly. I attest the above documented note as dictated by her.
[2017-01-21] MEDS: SODIUM CHLORIDE 0.9% 1,000 ML IV SCH (12:02)
[2017-01-21] MEDS: IPRATROPIUM-ALBUTEROL 3 ML NEB INHALATION PRN ×2 (12:30→23:47)
--- NOTE | 2017-01-21 13:50 | P.PN ---
Subjective 81-year-old the female came in with compensative generalized weakness which is believed secondary to anemia patient hemoglobin is presently 8.2 but patient was evaluated for acute GI bleed pain gastric body evaluate the patient and they do not believe patient has an acute GI bleed but patient is severely anemic with the BUN of 175 creatinine of around 3.9 patient does have some chronic kidney disease stage IV patient does have pulmonary hypertension as well and chronic diastolic dysfunction patient is on high-dose of Lasix at this point of time in IV form patient does not have any elevated JVD does have some pedal edema. We'll hold off Lasix now and we will also consult nephrology. Patient is quite tired denied any chest pain patient was a valid by pulmonology as well as cardiology. Jan, Patient's weakness is little bit better today, nephrology valid the patient patient was started on IV fluids and the patient will be evaluated tomorrow again and consider renal replacement therapy if needed. Constitutional: Severe fatigue as mentioned above Cardio vascular: denied any chest pain, palpitations Gastrointestinal denied any nausea vomiting Pulmonary: Denied any shortness of breath cough Neurologic denied any new focal deficits Objective - Vital Signs Vital signs: Vital Signs Temp 97.2 F L 01/21/17 12:00 Pulse 70 01/21/17 12:40 Resp 16 01/21/17 12:00 BP 142/72 01/21/17 12:00 Pulse Ox 95 01/21/17 12:00 Intake & Output 01/20/17 01/21/17 01/21/17 18:59 06:59 18:59 Intake Total 300 240 Output Total 300 Balance 0 240 Weight 65.5 kg 65 kg Intake: Oral 300 240 Output: Urine 300 Other: Voiding Method Bedpan Bedside Commode # Voids 0 - Exam PHYSICAL EXAMINATION: GENERAL: The patient is alert and oriented x3, not in any acute distress. Well developed, well nourished. HEENT: Pupils are round and equally reacting to light. EOMI. No scleral icterus. No conjunctival pallor. Normocephalic, atraumatic. No pharyngeal erythema. No thyromegaly. CARDIOVASCULAR: S1 and S2 present. No murmurs, rubs, or gallops. PULMONARY: Chest is clear to auscultation, no wheezing or crackles. ABDOMEN: Soft, nontender, nondistended, normoactive bowel sounds. No palpable organomegaly. MUSCULOSKELETAL: No joint swelling or deformity. EXTREMITIES: No cyanosis, clubbing, she does have 1+ bilateral pitting pedal edema NEUROLOGICAL: Gross neurological examination did not reveal any focal deficits. SKIN: No rashes. - Labs CBC & Chem 7: 01/21/17 05:30 01/21/17 05:30 Labs: Abnormal Lab Results - Last 24 Hours (Table) 01/20/17 01/20/17 01/21/17 Range/Units 16:40 21:11 05:30 WBC 13.8 H (3.8-10.6) k/uL RBC 3.34 L (3.80-5.40) m/uL Hgb 8.4 L (11.4-16.0) gm/dL Hct 28.0 L (34.0-46.0) % MCHC 29.9 L (31.0-37.0) g/dL RDW 19.8 H (11.5-15.5) % Plt Count 103 L (150-450) k/uL Neutrophils # 12.5 H (1.3-7.7) k/uL Lymphocytes # 0.4 L (1.0-4.8) k/uL PT (9.0-12.0) sec INR (<1.2) Carbon Dioxide (22-30) mmol/L BUN (7-17) mg/dL Creatinine (0.52-1.04) mg/dL Glucose (74-99) mg/dL POC Glucose (mg/dL) 146 H 153 H (75-99) mg/dL Calcium (8.4-10.2) mg/dL Phosphorus (2.5-4.5) mg/dL 01/21/17 01/21/17 01/21/17 Range/Units 05:30 05:30 06:05 WBC (3.8-10.6) k/uL RBC (3.80-5.40) m/uL Hgb (11.4-16.0) gm/dL Hct (34.0-46.0) % MCHC (31.0-37.0) g/dL RDW (11.5-15.5) % Plt Count (150-450) k/uL Neutrophils # (1.3-7.7) k/uL Lymphocytes # (1.0-4.8) k/uL PT 21.2 H (9.0-12.0) sec INR 2.2 H (<1.2) Carbon Dioxide 13 L (22-30) mmol/L BUN 168 H* (7-17) mg/dL Creatinine 3.60 H (0.52-1.04) mg/dL Glucose 144 H (74-99) mg/dL POC Glucose (mg/dL) 169 H (75-99) mg/dL Calcium 7.8 L (8.4-10.2) mg/dL Phosphorus 8.6 H* (2.5-4.5) mg/dL 01/21/17 Range/Units 11:35 WBC (3.8-10.6) k/uL RBC (3.80-5.40) m/uL Hgb (11.4-16.0) gm/dL Hct (34.0-46.0) % MCHC (31.0-37.0) g/dL RDW (11.5-15.5) % Plt Count (150-450) k/uL Neutrophils # (1.3-7.7) k/uL Lymphocytes # (1.0-4.8) k/uL PT (9.0-12.0) sec INR (<1.2) Carbon Dioxide (22-30) mmol/L BUN (7-17) mg/dL Creatinine (0.52-1.04) mg/dL Glucose (74-99) mg/dL POC Glucose (mg/dL) 246 H (75-99) mg/dL Calcium (8.4-10.2) mg/dL Phosphorus (2.5-4.5) mg/dL Microbiology - Last 24 Hours (Table) 01/19/17 00:14 Urine Culture - Final Urine,Catheterized 01/19/17 09:50 Blood Culture - Preliminary Blood No Growth after 48 hours Assessment and Plan Plan: #1 Generalized weakness secondary to acute on chronic anemia with contribution from uremia with a presenting hemoglobin of 5.9. Received 2 units of blood transfusion and hemoglobin is around 8 now patient does not appear to have an acute GI bleed. #2 Coagulopathy with presenting INR 2.1 , effient and aspirin are being discontinued #3 acute on chronic renal failure: Diuretic therapy will be held temporarily nephrology will be consulted patient does have chronic kidney disease stage IV unsure of the etiology of CK D the patient is receiving IV fluids at this time #4 severe pulmonary had hypertension possible chronic diastolic dysfunction patient appears to be hypovolemic #5 COPD without any acute exacerbation #6 Acute on chronic diastolic congestive heart failure. #7 Troponin elevation secondary to chronic kidney disease #8 Coronary artery disease with previous coronary bypass grafting and stent placement. #9 hyperlipidemia
--- NOTE | 2017-01-21 14:18 | P.PN ---
Subjective Progress Note Date: 01/21/17 This is a pleasant 81-year-old female who follows with Dr. Pool in the office. She has a known history of coronary artery disease with prior bypass surgery in 1989 at which time she underwent a GALAVIZ to the LAD, saphenous vein graft to the RCA saphenous vein graft to the diagonal, she also underwent stenting in 2009, 2010, most recent in 2011 she had a stent placed in the saphenous vein graft to the OM1. Patient also has a history of hypertension, hyperlipidemia, peripheral vascular disease, diabetes, breast cancer with prior lumpectomy, chronic renal failure stage III, COPD, abdominal aortic aneurysm. Patient presents to the hospital with symptoms of progressive weakness with associated lower extremity edema. She denies any chest discomfort, no shortness of breath. Patient does state that she has been having some episodes of nausea with associated diarrhea. Patient was found to be quite anemic on admission here with a hemoglobin of 5.9, stool for occult blood was positive. Patient did receive 2 units of packed red blood cells and one unit of fresh frozen plasma. Hemoglobin at present 8.5, INR is 2.0. Patient had been maintained on aspirin 325 mg daily along with Effient 10 mg daily. BUN was 172 with a creatinine of 3.4. Liver enzymes were also elevated. Troponins 09, 0.39 , 0.96. ProBNP 66,400. Echocardiogram performed in September revealed a preserved left ventricular systolic function with an ejection fraction of 50-55% with severe pulmonary hypertension. Blood pressure 144/60 with a heart rate in the 50s. Afebrile. 94% on 3 L of oxygen. At the time of our examination this morning, patient still complains of weakness, she denies any chest discomfort, she does complain of aching all of her muscles. Potassium 4.6, BUN 172, creatinine 3.4. Magnesium level I.9. AST 111, ALT 158, alk phos 140, 0.09, 0.39, 0.96. EKG on admission showed a normal sinus rhythm with frequent PVCs and incomplete left bundle branch block pattern. Nonspecific ST-T wave changes. Chest x-ray showed cardiomegaly with interstitial changes and mild congestive heart failure. Small right pleural effusion, aortic iliac vascular ultrasound revealed mural thrombus, may be interval progression. No evidence for periaortic hematoma at this time. 01/21/2017 Patient seen and examined this morning, continues to feel weak however is feeling much more stronger than yesterday. She is sitting up in the chair today. Land is for patient to have dialysis catheter placed possibly tomorrow. We will continue to hold her Coumadin. Decrease Lipitor to 40 mg daily. Blood pressure today 142/70 with a heart rate in the 60s, respirations 18. White blood cell count 13.8, hemoglobin 8.4, platelet count 103, INR 2.2. Potassium 4.5, BUN 168, creatinine 3.6, magnesium 1.7. Objective - Vital Signs Vital signs: Vital Signs Temp 97.2 F L 01/21/17 12:00 Pulse 70 01/21/17 12:40 Resp 16 01/21/17 12:00 BP 142/72 01/21/17 12:00 Pulse Ox 95 01/21/17 12:00 Intake & Output 01/20/17 01/21/17 01/21/17 18:59 06:59 18:59 Intake Total 300 240 Output Total 300 Balance 0 240 Weight 65.5 kg 65 kg Intake: Oral 300 240 Output: Urine 300 Other: Voiding Method Bedpan Bedside Commode # Voids 0 - Exam PHYSICAL EXAMINATION: HEENT: Head is atraumatic, normocephalic. Pupils equal, round. Neck is supple. There is no elevated jugular venous pressure. HEART EXAMINATION: S1 and S2 1 systolic murmur is heard. CHEST EXAMINATION: Lungs reveal diminished air entry to bilateral bases with fine crackles to the bases. ABDOMEN: Soft, nontender. Bowel sounds are heard. No organomegaly noted. EXTREMITIES: 2+ peripheral pulses with 2+ evidence of peripheral edema and no calf tenderness noted. NEUROLOGIC patient is awake, alert and oriented -3. - Labs CBC & Chem 7: 01/21/17 05:30 01/21/17 05:30 Labs: Abnormal Lab Results - Last 24 Hours (Table) 01/20/17 01/20/17 01/21/17 Range/Units 16:40 21:11 05:30 WBC 13.8 H (3.8-10.6) k/uL RBC 3.34 L (3.80-5.40) m/uL Hgb 8.4 L (11.4-16.0) gm/dL Hct 28.0 L (34.0-46.0) % MCHC 29.9 L (31.0-37.0) g/dL RDW 19.8 H (11.5-15.5) % Plt Count 103 L (150-450) k/uL Neutrophils # 12.5 H (1.3-7.7) k/uL Lymphocytes # 0.4 L (1.0-4.8) k/uL PT (9.0-12.0) sec INR (<1.2) Carbon Dioxide (22-30) mmol/L BUN (7-17) mg/dL Creatinine (0.52-1.04) mg/dL Glucose (74-99) mg/dL POC Glucose (mg/dL) 146 H 153 H (75-99) mg/dL Calcium (8.4-10.2) mg/dL Phosphorus (2.5-4.5) mg/dL 01/21/17 01/21/17 01/21/17 Range/Units 05:30 05:30 06:05 WBC (3.8-10.6) k/uL RBC (3.80-5.40) m/uL Hgb (11.4-16.0) gm/dL Hct (34.0-46.0) % MCHC (31.0-37.0) g/dL RDW (11.5-15.5) % Plt Count (150-450) k/uL Neutrophils # (1.3-7.7) k/uL Lymphocytes # (1.0-4.8) k/uL PT 21.2 H (9.0-12.0) sec INR 2.2 H (<1.2) Carbon Dioxide 13 L (22-30) mmol/L BUN 168 H* (7-17) mg/dL Creatinine 3.60 H (0.52-1.04) mg/dL Glucose 144 H (74-99) mg/dL POC Glucose (mg/dL) 169 H (75-99) mg/dL Calcium 7.8 L (8.4-10.2) mg/dL Phosphorus 8.6 H* (2.5-4.5) mg/dL 01/21/17 Range/Units 11:35 WBC (3.8-10.6) k/uL RBC (3.80-5.40) m/uL Hgb (11.4-16.0) gm/dL Hct (34.0-46.0) % MCHC (31.0-37.0) g/dL RDW (11.5-15.5) % Plt Count (150-450) k/uL Neutrophils # (1.3-7.7) k/uL Lymphocytes # (1.0-4.8) k/uL PT (9.0-12.0) sec INR (<1.2) Carbon Dioxide (22-30) mmol/L BUN (7-17) mg/dL Creatinine (0.52-1.04) mg/dL Glucose (74-99) mg/dL POC Glucose (mg/dL) 246 H (75-99) mg/dL Calcium (8.4-10.2) mg/dL Phosphorus (2.5-4.5) mg/dL Microbiology - Last 24 Hours (Table) 01/19/17 00:14 Urine Culture - Final Urine,Catheterized 01/19/17 09:50 Blood Culture - Preliminary Blood No Growth after 48 hours Assessment and Plan Plan: Assessment and plan #1 diastolic congestive heart failure, acute on chronic, BNP level 66,400. chest x-ray suggests mild congestive heart failure with slight sided pleural effusion. #2 anemia, hemoglobin 5.9 on admission, status post 2 units of blood transfusion. #3 acute on chronic renal failure, BUN 168, creatinine 3.6. #4 hypertension # 5 diabetes #6 history of coronary artery disease with prior bypass and stent placements, last stent was performed in 2011, was on aspirin and Effient at home. #7 hyperlipidemia #8 nicotine dependence #9 COPD #10 abnormal liver enzymes #11 hypomagnesemia Plan From cardiology's perspective, we'll continue to hold the Coumadin, decrease Lipitor to 40 mg daily, consultation requested with Dr. North for possible dialysis catheter placement tomorrow. DNP note has been reviewed, I agree with a documented findings and plan of care. Patient was seen and examined.
--- NOTE | 2017-01-21 14:42 | PN ---
PROGRESS NOTE DATE OF SERVICE: 01/21/2017 REASON FOR FOLLOWUP: Possible ischemic colitis. INTERVAL HISTORY: The patient is afebrile, she is breathing comfortably. Denies having any chest pain or cough. Abdominal pain has improved. Did not have any diarrhea per the PCP taking care of the patient. No nausea, no vomiting. PHYSICAL EXAMINATION: Blood pressure is 142/72 with a pulse of 70, temperature 97.2. She is 95% on 3 L nasal cannula. General description is an elderly female up in the chair, in no distress. RESPIRATORY SYSTEM: Unlabored breathing. Some decreased breath sounds in the bases, no wheeze. HEART: S1, S2. Regular rate and rhythm. ABDOMEN: Soft, no tenderness. LABS: Hemoglobin 8.4, white count of 13.8 with a BUN of 158, creatinine is 3.60. Blood and urine culture so far negative. DIAGNOSTIC IMPRESSION AND PLAN: Patient admitted to the hospital with general weakness, hypotension with evidence of colitis and a question of possible ischemic. She is currently on Rocephin. Flagyl will be continued, waiting for the condition to stabilize. Continue supportive care. MMODL / IJN: [id number] / MARIA ESTHER
--- NOTE | 2017-01-21 15:48 | PN ---
PROGRESS NOTE Patient is seen for followup for acute kidney injury on top of chronic kidney disease. This morning she is sitting in a bedside chair. She states she is feeling slightly better than yesterday. The patient denied any significant shortness of breath. She was started on IV fluids at 60 mL an hour yesterday. The BUN has improved and serum creatinine is slightly worse at 3.6 from 3.45. The urine output is not accurately charted does not look like the patient has had much urine output. I had discussed renal replacement therapy with her yesterday and patient is in agreement. Her INR is elevated at 2.2, and we will wait for another 1-2 days. The IV fluids will be used cautiously with the monitoring of her volume status on a daily basis. EXAMINATION: Blood pressure is 142/72, heart rate 60 per minute. She is afebrile. Examination of the heart S1, S2. Examination of the lungs bilateral breath sounds are heard. Decreased breath sounds at the bases. Basal crackles are heard. Abdomen is soft, nontender. Exam of lower extremities shows edema 2+ bilaterally. LAB: Show sodium of 137, potassium 4.5, CO2 remains at 13, BUN 168, serum creatinine 3.6, hemoglobin 8.4 g/dL. Phosphorus was 8.6. ASSESSMENT: 1. Acute kidney injury, prerenal versus cardiorenal syndrome. The patient has severe pulmonary hypertension and has chronic lower extremity edema. Her respiratory status is not significantly worse. Therefore, we can continue with the IV fluids for now. I will repeat labs in a.m. Her INR is elevated. Therefore, the PermCath is currently on hold. I will re-evaluate tomorrow. The patient is agreeable to starting renal replacement therapy. 2. Hyperphosphatemia associated with renal failure. We will start patient on phosphate binders. 3. Severe pulmonary hypertension. 4. Diastolic dysfunction, cardiomyopathy. 5. Chronic obstructive pulmonary disease. 6. Generalized debility. 7. Anemia with stool positive for occult blood. Will start patient on Aranesp. 8. Chronic kidney disease and NKF stage IV with baseline creatinine about 2 mg/dL secondary to nephrosclerosis. PLAN: Start PhosLo. May continue IV fluids. Re-evaluate volume status again tomorrow. Awaiting INR to decrease for placement of line for dialysis. Maintain sodium bicarb. Start Aranesp and check iron studies if not done recently. MMODL / IJN: [id number] /
[2017-01-21 16:42] LABS: Glucose,Whole Blood 255 mg/dL (75-99)
[2017-01-21] MEDS ORDERED: DARBEPOETIN ALFA 40 MCG/0.4 ML SYRINGE SQ SCH (18:00)
[2017-01-21 20:35] LABS: Glucose,Whole Blood 175 mg/dL (75-99)
[2017-01-21] MEDS: ONDANSETRON 4 MG/2 ML VIAL IVP PRN (21:38)
[2017-01-22 01:27] LABS: Iron Saturation 2.06 (12.00-45.00)
[2017-01-22 05:46] LABS: Glucose,Whole Blood 105 mg/dL (75-99)
[2017-01-22 06:13] LABS: Anisocytosis Slight; Basophils % (A) 0 %; CH 24.9; CHCM 27.4; Eosinophils % (A) 0 %; HCT 31.7 % (34.0-46.0); HGB 8.8 gm/dL (11.4-16.0); Hypochromasia Marked; Luc % (Auto) 2; Lymphocytes # (A) 0.5 k/uL (1.0-4.8); Lymphocytes % (A) 3 %; MCH 25.1 pg (25.0-35.0); MCHC 27.6 g/dL (31.0-37.0); Mean Platelet Volume 9.2; Monocytes # (A) 1.2 k/uL (0-1.0); Monocytes % (A) 7 %; Neutrophils # (A) 14.8 k/uL (1.3-7.7); Neutrophils % (A) 88 %; Poikilocytosis Marked; RBC 3.49 m/uL (3.80-5.40); RDW 17.9 % (11.5-15.5); WBC 16.9 k/uL (3.8-10.6); WBC (Perox) 16.52
[2017-01-22 06:15] LABS: MCV 90.9 fL (80.0-100.0)
[2017-01-22 06:20] LABS: Calcium 6.7 mg/dL (8.4-10.2); Potassium 4.2 mmol/L (3.5-5.1)
[2017-01-22 06:27] LABS: INR 2.3 (<1.2); Prothrombin Time 22.2 sec (9.0-12.0)
[2017-01-22] MEDS: INSULIN ASPART 100 UNIT/ML 1 ML 10 ML VIAL SQ SCH ×4 (06:51→20:44)
[2017-01-22] MEDS: SODIUM CHLORIDE 0.9% 1,000 ML IV SCH (06:51)
[2017-01-22] MEDS: SODIUM BICARBONATE TAB 650 MG TAB PO SCH (08:39)
[2017-01-22] MEDS: ISOSORBIDE MONONITRATE ER 60 MG TAB.ER.24H PO SCH (08:39)
[2017-01-22] MEDS: NADOLOL 20 MG TAB PO SCH (08:40)
[2017-01-22] MEDS: FAMOTIDINE 20 MG TAB PO SCH (08:40)
[2017-01-22] MEDS: cefTRIAXone IN SWFI 1,000 MG/10 ML SYRINGE IVP SCH (08:40)
[2017-01-22] MEDS: ATORVASTATIN 40 MG TAB PO SCH (08:40)
[2017-01-22] MEDS ORDERED: SODIUM BICARBONATE TAB 650 MG TAB PO SCH (08:46)
[2017-01-22] MEDS: IPRATROPIUM 0.5 MG/2.5 ML NEBU INHALATION SCH ×4 (09:01→20:52)
--- NOTE | 2017-01-22 09:15 | P.PN ---
Subjective Patient is seen in follow-up for acute kidney injury on chronic kidney disease. 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 Her baseline creatinine is 2 and is elevated at 3.6 today. BUN is trending up. States she is not making much urine. Oral intake is just fair. Patient has history of severe pulmonary hypertension. She hasn' t been taking sodium bicarbonate as it causes upset stomach. Denies chest pain. States her breathing is a little worse compared to yesterday. Lower extremity edema about the same. Vital signs are stable. General: The patient appeared well nourished and normally developed. HEENT: Head exam is unremarkable. Neck is without jugular venous distension. LUNGS: Lungs are clear to auscultation and percussion. Breath sounds decreased. HEART: Rate and Rhythm are regular. First and second heart sounds normal. No murmurs, rubs or gallops. ABDOMEN: Abdominal exam reveals normal bowel sounds. Non-tender and non- distended. EXTREMITITES: 2+ edema. Objective - Vital Signs Vital signs: Vital Signs Temp 97.5 F L 01/22/17 03:34 Pulse 76 01/22/17 09:03 Resp 16 01/22/17 03:34 BP 117/59 01/22/17 03:34 Pulse Ox 97 01/22/17 03:34 Intake & Output 01/21/17 01/22/17 01/22/17 18:59 06:59 18:59 Intake Total 290 510 Output Total 400 100 Balance -110 410 Weight 69.5 kg Intake: IV 510 Sodium Chloride 0.9% 1, 510 000 ml @ 60 mls/hr IV . [id number] [facility] Rx#:[id number] Oral 290 Output: Urine 400 100 Other: Voiding Method Bedside Commode # Voids 2 # Bowel Movements 0 - Labs CBC & Chem 7: 01/22/17 05:25 01/22/17 05:25 Labs: Abnormal Lab Results - Last 24 Hours (Table) 01/21/17 01/21/17 01/21/17 Range/Units 05:30 05:30 11:35 WBC 13.8 H (3.8-10.6) k/uL RBC 3.34 L (3.80-5.40) m/uL Hgb 8.4 L (11.4-16.0) gm/dL Hct 28.0 L (34.0-46.0) % MCHC 29.9 L (31.0-37.0) g/dL RDW 19.8 H (11.5-15.5) % Plt Count 103 L (150-450) k/uL Neutrophils # 12.5 H (1.3-7.7) k/uL Lymphocytes # 0.4 L (1.0-4.8) k/uL Monocytes # (0-1.0) k/uL PT (9.0-12.0) sec INR (<1.2) Carbon Dioxide (22-30) mmol/L BUN (7-17) mg/dL Creatinine (0.52-1.04) mg/dL POC Glucose (mg/dL) 246 H (75-99) mg/dL Calcium (8.4-10.2) mg/dL Iron 7 L (50-170) ug/dL Iron Saturation 2.06 L (12.00-45.00) 01/21/17 01/21/17 01/22/17 Range/Units 16:40 20:32 05:25 WBC 16.9 H (3.8-10.6) k/uL RBC 3.49 L (3.80-5.40) m/uL Hgb 8.8 L (11.4-16.0) gm/dL Hct 31.7 L (34.0-46.0) % MCHC 27.6 L (31.0-37.0) g/dL RDW 17.9 H (11.5-15.5) % Plt Count 88 L (150-450) k/uL Neutrophils # 14.8 H (1.3-7.7) k/uL Lymphocytes # 0.5 L (1.0-4.8) k/uL Monocytes # 1.2 H (0-1.0) k/uL PT (9.0-12.0) sec INR (<1.2) Carbon Dioxide (22-30) mmol/L BUN (7-17) mg/dL Creatinine (0.52-1.04) mg/dL POC Glucose (mg/dL) 255 H 175 H (75-99) mg/dL Calcium (8.4-10.2) mg/dL Iron (50-170) ug/dL Iron Saturation (12.00-45.00) 01/22/17 01/22/17 01/22/17 Range/Units 05:25 05:25 05:45 WBC (3.8-10.6) k/uL RBC (3.80-5.40) m/uL Hgb (11.4-16.0) gm/dL Hct (34.0-46.0) % MCHC (31.0-37.0) g/dL RDW (11.5-15.5) % Plt Count (150-450) k/uL Neutrophils # (1.3-7.7) k/uL Lymphocytes # (1.0-4.8) k/uL Monocytes # (0-1.0) k/uL PT 22.2 H (9.0-12.0) sec INR 2.3 H (<1.2) Carbon Dioxide 9 L* (22-30) mmol/L BUN 177 H* (7-17) mg/dL Creatinine 3.70 H (0.52-1.04) mg/dL POC Glucose (mg/dL) 105 H (75-99) mg/dL Calcium 6.7 L (8.4-10.2) mg/dL Iron (50-170) ug/dL Iron Saturation (12.00-45.00) Microbiology - Last 24 Hours (Table) 01/19/17 00:14 Urine Culture - Final Urine,Catheterized 01/19/17 09:50 Blood Culture - Preliminary Blood No Growth after 48 hours Assessment and Plan Plan: Assessment: #1. Acute kidney injury secondary to ATN secondary to cardiorenal syndrome. Creatinine is up to 3.7 today with BUN of 177. #2. 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 #3. Diastolic CHF with severe pulmonary hypertension. #4. Anemia of chronic kidney disease. Severe deficiency noted. #5. Severe metabolic acidosis secondary to chronic kidney disease and refusal to take oral sodium bicarbonate. #6. Hyperphosphatemia secondary to acute kidney injury. Plan: I did change to IV fluids to D5W with 3 amp of sodium bicarbonate to be run at 60 mL an hour. Avoid aggressive hydration due to her underlying pulmonary hypertension and cardiomyopathy. Further set 125 mg IV daily for 3 days. First dose today. Add PhosLo 667 mg 3 times daily with meals. Maintain Aranesp. Await permacath placement by vascular surgery. Start hemodialysis once catheter placed.
[2017-01-22] MEDS: SODIUM FERRIC GLUCONAT-SUCROSE 125 MG in SODIUM CHLORIDE 0.9% 100 ML IVPB SCH (09:27)
[2017-01-22] MEDS: metroNIDAZOLE 500 MG TAB PO SCH ×3 (09:27→20:52)
[2017-01-22] MEDS ORDERED: DEXTROSE 5% IN WATER 1,000 ML with SODIUM BICARB (1 MEQ/ML) 150 ML IV ONE (10:00)
[2017-01-22] MEDS ORDERED: PHYTONADIONE ORAL 5 MG/5 ML ORAL.SYRG PO STA (10:41)
--- NOTE | 2017-01-22 11:25 | P.PN ---
Subjective Progress Note Date: 01/22/17 Principal diagnosis: Renal failure This is a pleasant 81-year-old female followed by Dr. Cohen and in the office. She has a known history of coronary artery disease with prior bypass surgery 1998 which time she underwent GALAVIZ to the LAD, saphenous vein graft to the RCA, saphenous vein graft to the diagonal with subsequent stenting in 2009, 2010 and most recently in 2011. She also has a history of hypertension, hyperlipidemia, peripheral vascular disease, diabetes, breast cancer with prior lumpectomy, chronic renal failure stage III, COPD, AAA. Presented to the hospital with symptoms of progressive weakness with associated lower extremity edema. Her stools positive for occult blood and hemoglobin was 5.9 for which she received 2 units of packed red blood cells and one unit of FFP. Her Coumadin has been on hold. BUN and creatinine continue to climb with a BUN of 177 and creatinine of 3.[address] North has been asked to see the patient for probable dialysis catheter insertion. Despite holding Coumadin and administration of FFP INR this morning was 2.3. Objective - Vital Signs Vital signs: Vital Signs Temp 96.9 F L 01/22/17 08:00 Pulse 78 01/22/17 09:14 Resp 16 01/22/17 08:00 BP 144/70 01/22/17 08:00 Pulse Ox 94 L 01/22/17 08:00 Intake & Output 01/21/17 01/22/17 01/22/17 18:59 06:59 18:59 Intake Total 290 510 240 Output Total 400 100 Balance -110 410 240 Weight 69.5 kg Intake: IV 510 Sodium Chloride 0.9% 1, 510 000 ml @ 60 mls/hr IV . [id number] [facility] Rx#:[id number] Oral 290 240 Output: Urine 400 100 Other: Voiding Method Bedside Commode # Voids 2 0 # Bowel Movements 0 - Exam PHYSICAL EXAMINATION: HEENT: Head is atraumatic, normocephalic. Pupils equal, round. Neck is supple. There is no elevated jugular venous pressure. HEART EXAMINATION: Heart sounds regular, S1 and S2 with a systolic murmur. CHEST EXAMINATION: Lungs reveal diminished air entry. Fine crackles bilateral bases. No chest wall tenderness is noted on palpation or with deep breathing. ABDOMEN: Soft, nontender. Bowel sounds are heard. No organomegaly noted. EXTREMITIES: 2+ peripheral pulses with evidence of 2+ peripheral edema and no calf tenderness noted. NEUROLOGIC patient is awake, alert and oriented x3. . - Labs CBC & Chem 7: 01/22/17 05:25 01/22/17 05:25 Labs: Abnormal Lab Results - Last 24 Hours (Table) 01/21/17 01/21/17 01/21/17 Range/Units 05:30 11:35 16:40 WBC (3.8-10.6) k/uL RBC (3.80-5.40) m/uL Hgb (11.4-16.0) gm/dL Hct (34.0-46.0) % MCHC (31.0-37.0) g/dL RDW (11.5-15.5) % Plt Count (150-450) k/uL Neutrophils # (1.3-7.7) k/uL Lymphocytes # (1.0-4.8) k/uL Monocytes # (0-1.0) k/uL PT (9.0-12.0) sec INR (<1.2) Carbon Dioxide (22-30) mmol/L BUN (7-17) mg/dL Creatinine (0.52-1.04) mg/dL POC Glucose (mg/dL) 246 H 255 H (75-99) mg/dL Calcium (8.4-10.2) mg/dL Iron 7 L (50-170) ug/dL Iron Saturation 2.06 L (12.00-45.00) 01/21/17 01/22/17 01/22/17 Range/Units 20:32 05:25 05:25 WBC 16.9 H (3.8-10.6) k/uL RBC 3.49 L (3.80-5.40) m/uL Hgb 8.8 L (11.4-16.0) gm/dL Hct 31.7 L (34.0-46.0) % MCHC 27.6 L (31.0-37.0) g/dL RDW 17.9 H (11.5-15.5) % Plt Count 88 L (150-450) k/uL Neutrophils # 14.8 H (1.3-7.7) k/uL Lymphocytes # 0.5 L (1.0-4.8) k/uL Monocytes # 1.2 H (0-1.0) k/uL PT 22.2 H (9.0-12.0) sec INR 2.3 H (<1.2) Carbon Dioxide (22-30) mmol/L BUN (7-17) mg/dL Creatinine (0.52-1.04) mg/dL POC Glucose (mg/dL) 175 H (75-99) mg/dL Calcium (8.4-10.2) mg/dL Iron (50-170) ug/dL Iron Saturation (12.00-45.00) 01/22/17 01/22/17 Range/Units 05:25 05:45 WBC (3.8-10.6) k/uL RBC (3.80-5.40) m/uL Hgb (11.4-16.0) gm/dL Hct (34.0-46.0) % MCHC (31.0-37.0) g/dL RDW (11.5-15.5) % Plt Count (150-450) k/uL Neutrophils # (1.3-7.7) k/uL Lymphocytes # (1.0-4.8) k/uL Monocytes # (0-1.0) k/uL PT (9.0-12.0) sec INR (<1.2) Carbon Dioxide 9 L* (22-30) mmol/L BUN 177 H* (7-17) mg/dL Creatinine 3.70 H (0.52-1.04) mg/dL POC Glucose (mg/dL) 105 H (75-99) mg/dL Calcium 6.7 L (8.4-10.2) mg/dL Iron (50-170) ug/dL Iron Saturation (12.00-45.00) Microbiology - Last 24 Hours (Table) 01/19/17 00:14 Urine Culture - Final Urine,Catheterized 01/19/17 09:50 Blood Culture - Preliminary Blood No Growth after 48 hours Assessment and Plan Assessment: #1 diastolic congestive heart failure, acute on chronic, BNP level 66,400, chest x-ray suggests mild congestive heart failure with right sided pleural effusion #2 anemia, hemoglobin on admission 5.9, status post transfusion 2 units packed red blood cells #3 acute on chronic renal failure, BUN currently 177 and creatinine 3.7 #4 hypertension #5 diabetes #6 history of coronary artery disease and prior bypass and stent placement #7 hyperlipidemia #8 nicotine dependence #9 COPD #10 abnormal liver enzymes #11 hypomagnesemia Plan: From cardiology perspective, continue to hold Coumadin. We will give the patient vitamin K 5 mg by mouth 1 in anticipation for hemodialysis catheter placement by Dr. North. We will continue to follow the patient and provide further recommendations accordingly. [employer] note has been reviewed, I agree with a documented findings and plan of care. Patient was seen and examined.
--- NOTE | 2017-01-22 11:45 | P.PN ---
Subjective Progress Note Date: 01/22/17 Principal diagnosis: Acute on chronic anemia This is a very pleasant 81-year-old female patient who follows with Dr. Galeano as her primary care physician. She has a history of coronary artery disease with previous coronary artery bypass grafting and stent placement, insulin-dependent diabetes mellitus, left-sided breast cancer with previous lumpectomy, chronic back pain, hypertension, hyperlipidemia, chronic renal failure stage III, chronic obstructive pulmonary disease maintained on Spiriva and albuterol, abdominal aortic aneurysm. She presented to the emergency room yesterday with a several day complaint of pro-found and progressive weakness along with lower extremity edema. She denies any shortness of breath, cough or congestion. She is maintaining good O2 saturations in the 90s on room air. She 's been afebrile. She denies any chest pain, palpitations lightheadedness or dizziness. She has had issues with nausea and diarrhea. She was found be quite anemic with an hemoglobin of 5.9. Stool for occult blood was positive. She is status post 2 units of packed red blood cells, 1 unit of fresh frozen plasma. Current hemoglobin 8.5. Platelet count 111,000. Her INR is 2.0. She has been maintained on aspirin and Effient in the outpatient setting. Her BUN was 172 with a creatinine of 3.45. Liver enzymes also elevated with AST of 111 , ALT 158, alk phos 140. Troponins are 0.090, 0.399, 0.963. ProBNP 66,400. Echocardiogram from September 2016 revealed a preserved left ventricular systolic function with ejection fraction 50-55% severe pulmonary hypertension. Computed tomography scan of the abdomen revealed new moderate right pleural effusion, there is new ascites in the abdomen and a stable abdominal aortic aneurysm. Sigmoid diverticulosis without overt signs of diverticulitis. Multiple calcified gallstones. There is also thickening of the wall of the transverse colon, suggestive of congestive heart failure however ischemic bowel or nonspecific colitis could not be excluded. The patient is seen again today 01/21/2017 in follow-up on the selective care unit. She is more awake and alert today as compared to yesterday. She states she is feeling better but still quite weak with minimal exertion. She denies any worsening shortness of breath, cough or congestion. Her hemoglobin is 8.4. Platelets 103,000. INR was 2.2. BUN 168, creatinine 360, bicarb 13. She remains on sodium bicarb 650 mg 3 times a day. 0.9 normal saline at 60 mL's per hour. She may need renal replacement therapy. She is maintaining good O2 saturations in the mid 90s on 3 L/m per nasal cannula. She is afebrile. Hemodynamically stable. The patient is seen again today 01/22/2017 in follow-up on the selective care unit. She is currently sitting up in a chair. She is doing much better today as compared to the previous couple of days. She is less weak. She denies any worsening shortness of breath, cough or congestion. Maintaining good O2 saturations in the 90s on 2 L/m per nasal cannula. Unfortunately her crit and continues to rise currently at 3.7. She is being followed by nephrology. She is receiving D5W with 3 tabs a sodium bicarb at 60 miles per hour. The plan is for for renal replacement therapy. Awaiting permacath. Objective - Vital Signs Vital signs: Vital Signs Temp 96.9 F L 01/22/17 08:00 Pulse 78 01/22/17 09:14 Resp 16 01/22/17 08:00 BP 144/70 01/22/17 08:00 Pulse Ox 94 L 01/22/17 08:00 Intake & Output 01/21/17 01/22/17 01/22/17 18:59 06:59 18:59 Intake Total 290 510 730 Output Total 400 100 Balance -110 410 730 Weight 69.5 kg Intake: IV 510 330 Sodium Chloride 0.9% 1, 510 330 000 ml @ 60 mls/hr IV . [id number] [facility] Rx#:[id number] Intake, IV Titration 160 Amount Dextrose 5% in Water 1, 60 000 ml @ 60 mls/hr IV . [id number] ONE with Sodium Bicarb (1 Meq/ml) 150 ml Rx#:[id number] Sodium Ferric Gluconat- 100 Sucrose 125 mg In Sodium Chloride 0.9% 100 ml @ 100 mls/hr IVPB DAILY [facility] Rx#:[id number] Oral 290 240 Output: Urine 400 100 Other: Voiding Method Bedside Commode # Voids 2 0 # Bowel Movements 0 - Exam GENERAL EXAM: Pale. Alert, fairly comfortable in no acute distress. HEAD: Normocephalic. EYES: Normal reaction of pupils, equal size. NOSE: Clear with pink turbinates. THROAT: No erythema or exudates. NECK: No masses, no JVD. CHEST: No chest wall deformity. LUNGS: Equal air entry with crackles in the right lung. CVS: S1 and S2 normal with positive murmur, regular rhythm. ABDOMEN: No hepatosplenomegaly, normal bowel sounds, no guarding or rigidity. SPINE: No scoliosis or deformity SKIN: No rashes CENTRAL NERVOUS SYSTEM: No focal deficits, tone is normal in all 4 extremities. EXTREMITIES: There is 1+ peripheral edema. No clubbing, no cyanosis. Peripheral pulses are intact. - Labs CBC & Chem 7: 01/22/17 05:25 01/22/17 05:25 Labs: Abnormal Lab Results - Last 24 Hours (Table) 01/21/17 01/21/17 01/21/17 Range/Units 05:30 16:40 20:32 WBC (3.8-10.6) k/uL RBC (3.80-5.40) m/uL Hgb (11.4-16.0) gm/dL Hct (34.0-46.0) % MCHC (31.0-37.0) g/dL RDW (11.5-15.5) % Plt Count (150-450) k/uL Neutrophils # (1.3-7.7) k/uL Lymphocytes # (1.0-4.8) k/uL Monocytes # (0-1.0) k/uL PT (9.0-12.0) sec INR (<1.2) Carbon Dioxide (22-30) mmol/L BUN (7-17) mg/dL Creatinine (0.52-1.04) mg/dL POC Glucose (mg/dL) 255 H 175 H (75-99) mg/dL Calcium (8.4-10.2) mg/dL Iron 7 L (50-170) ug/dL Iron Saturation 2.06 L (12.00-45.00) 01/22/17 01/22/17 01/22/17 Range/Units 05:25 05:25 05:25 WBC 16.9 H (3.8-10.6) k/uL RBC 3.49 L (3.80-5.40) m/uL Hgb 8.8 L (11.4-16.0) gm/dL Hct 31.7 L (34.0-46.0) % MCHC 27.6 L (31.0-37.0) g/dL RDW 17.9 H (11.5-15.5) % Plt Count 88 L (150-450) k/uL Neutrophils # 14.8 H (1.3-7.7) k/uL Lymphocytes # 0.5 L (1.0-4.8) k/uL Monocytes # 1.2 H (0-1.0) k/uL PT 22.2 H (9.0-12.0) sec INR 2.3 H (<1.2) Carbon Dioxide 9 L* (22-30) mmol/L BUN 177 H* (7-17) mg/dL Creatinine 3.70 H (0.52-1.04) mg/dL POC Glucose (mg/dL) (75-99) mg/dL Calcium 6.7 L (8.4-10.2) mg/dL Iron (50-170) ug/dL Iron Saturation (12.00-45.00) 01/22/17 Range/Units 05:45 WBC (3.8-10.6) k/uL RBC (3.80-5.40) m/uL Hgb (11.4-16.0) gm/dL Hct (34.0-46.0) % MCHC (31.0-37.0) g/dL RDW (11.5-15.5) % Plt Count (150-450) k/uL Neutrophils # (1.3-7.7) k/uL Lymphocytes # (1.0-4.8) k/uL Monocytes # (0-1.0) k/uL PT (9.0-12.0) sec INR (<1.2) Carbon Dioxide (22-30) mmol/L BUN (7-17) mg/dL Creatinine (0.52-1.04) mg/dL POC Glucose (mg/dL) 105 H (75-99) mg/dL Calcium (8.4-10.2) mg/dL Iron (50-170) ug/dL Iron Saturation (12.00-45.00) Microbiology - Last 24 Hours (Table) 01/19/17 00:14 Urine Culture - Final Urine,Catheterized 01/19/17 09:50 Blood Culture - Preliminary Blood No Growth after 48 hours Assessment and Plan Assessment: Impression: #1 Generalized weakness secondary to acute on chronic anemia with a presenting hemoglobin of 5.9. Stool for occult blood positive. Status post 2 units of packed red blood cells. Current hemoglobin 8.8. #2 Coagulopathy with presenting INR 2.1 on the patient on Effient and aspirin. Status post 1 unit of fresh frozen plasma. Current INR 2.3. #3 Right lower lobe infiltrate/effusion. Remains on ceftriaxone and bronchodilators. #4 Acute on chronic renal failure. Current creatinine 3.70. #5 Elevated liver enzymes and evidence of ascites. #6 Acute on chronic diastolic congestive heart failure. #7 Troponin leak. #8 Coronary artery disease with previous coronary bypass grafting and stent placement. #9 Chronic hypoxic respiratory failure secondary to chronic obstructive pulmonary disease, currently inactive and stable. #10 Hyperlipidemia. #11 Poor overall functional performance based on the above mentioned multiple comorbidities. Plan: The patient was seen and evaluated by Dr. Rubio. She is currently stable from the pulmonary standpoint. The plan is for renal replacement therapy. She is currently on D5W with 3 A of bicarb at 60 miles per hour. Ferric sodium gluconate has been added. He was given a dose of vitamin K to reverse the warfarin so a permacath can be placed. We will continue to follow make further recommendations based on her clinical status. I, the cosigning physician, have performed a history and physical examination on the patient. Lung sounds have crackles in the right lung diminished in the right lung base. Maintaining good O2 saturations in the 90s on 3 L/m per nasal cannula. I have discussed the assessment and plan of care with my nurse practitioner, Verna Jolly. I attest the above documented note as dictated by her.
[2017-01-22 11:57] LABS: Glucose,Whole Blood 146 mg/dL (75-99)
[2017-01-22] MEDS: CALCIUM ACETATE 667 MG CAP PO SCH ×2 (12:02→17:03)
--- NOTE | 2017-01-22 13:28 | P.PN ---
Subjective 81-year-old the female came in with compensative generalized weakness which is believed secondary to anemia patient hemoglobin is presently 8.2 but patient was evaluated for acute GI bleed pain gastric body evaluate the patient and they do not believe patient has an acute GI bleed but patient is severely anemic with the BUN of 175 creatinine of around 3.9 patient does have some chronic kidney disease stage IV patient does have pulmonary hypertension as well and chronic diastolic dysfunction patient is on high-dose of Lasix at this point of time in IV form patient does not have any elevated JVD does have some pedal edema. We'll hold off Lasix now and we will also consult nephrology. Patient is quite tired denied any chest pain patient was a valid by pulmonology as well as cardiology. Jan, Patient's weakness is little bit better today, nephrology valid the patient patient was started on IV fluids and the patient will be evaluated tomorrow again and consider renal replacement therapy if needed. 2016 Patient says her fatigue is better compared to yesterday. Patient is on D5 with bicarbonate at 60 mL per hour inpatient will undergo evaluation for central line placement for hemodialysis Constitutional: Severe fatigue as mentioned above Cardio vascular: denied any chest pain, palpitations Gastrointestinal denied any nausea vomiting Pulmonary: Denied any shortness of breath cough Neurologic denied any new focal deficits Objective - Vital Signs Vital signs: Vital Signs Temp 97.1 F L 01/22/17 11:43 Pulse 82 01/22/17 12:05 Resp 18 01/22/17 11:43 BP 141/67 01/22/17 11:43 Pulse Ox 94 L 01/22/17 08:00 Intake & Output 01/21/17 01/22/17 01/22/17 18:59 06:59 18:59 Intake Total 290 510 730 Output Total 400 100 Balance -110 410 730 Weight 69.5 kg Intake: IV 510 330 Sodium Chloride 0.9% 1, 510 330 000 ml @ 60 mls/hr IV . [id number] [facility] Rx#:[id number] Intake, IV Titration 160 Amount Dextrose 5% in Water 1, 60 000 ml @ 60 mls/hr IV . [id number] ONE with Sodium Bicarb (1 Meq/ml) 150 ml Rx#:[id number] Sodium Ferric Gluconat- 100 Sucrose 125 mg In Sodium Chloride 0.9% 100 ml @ 100 mls/hr IVPB DAILY [facility] Rx#:[id number] Oral 290 240 Output: Urine 400 100 Other: Voiding Method Bedside Commode # Voids 2 0 # Bowel Movements 0 - Exam PHYSICAL EXAMINATION: GENERAL: The patient is alert and oriented x3, not in any acute distress. Well developed, well nourished. HEENT: Pupils are round and equally reacting to light. EOMI. No scleral icterus. No conjunctival pallor. Normocephalic, atraumatic. No pharyngeal erythema. No thyromegaly. CARDIOVASCULAR: S1 and S2 present. No murmurs, rubs, or gallops. PULMONARY: Chest is clear to auscultation, no wheezing or crackles. ABDOMEN: Soft, nontender, nondistended, normoactive bowel sounds. No palpable organomegaly. MUSCULOSKELETAL: No joint swelling or deformity. EXTREMITIES: No cyanosis, clubbing, she does have 1+ bilateral pitting pedal edema NEUROLOGICAL: Gross neurological examination did not reveal any focal deficits. SKIN: No rashes. - Labs CBC & Chem 7: 01/22/17 05:25 01/22/17 05:25 Labs: Abnormal Lab Results - Last 24 Hours (Table) 01/21/17 01/21/17 01/21/17 Range/Units 05:30 16:40 20:32 WBC (3.8-10.6) k/uL RBC (3.80-5.40) m/uL Hgb (11.4-16.0) gm/dL Hct (34.0-46.0) % MCHC (31.0-37.0) g/dL RDW (11.5-15.5) % Plt Count (150-450) k/uL Neutrophils # (1.3-7.7) k/uL Lymphocytes # (1.0-4.8) k/uL Monocytes # (0-1.0) k/uL PT (9.0-12.0) sec INR (<1.2) Carbon Dioxide (22-30) mmol/L BUN (7-17) mg/dL Creatinine (0.52-1.04) mg/dL POC Glucose (mg/dL) 255 H 175 H (75-99) mg/dL Calcium (8.4-10.2) mg/dL Iron 7 L (50-170) ug/dL Iron Saturation 2.06 L (12.00-45.00) 01/22/17 01/22/17 01/22/17 Range/Units 05:25 05:25 05:25 WBC 16.9 H (3.8-10.6) k/uL RBC 3.49 L (3.80-5.40) m/uL Hgb 8.8 L (11.4-16.0) gm/dL Hct 31.7 L (34.0-46.0) % MCHC 27.6 L (31.0-37.0) g/dL RDW 17.9 H (11.5-15.5) % Plt Count 88 L (150-450) k/uL Neutrophils # 14.8 H (1.3-7.7) k/uL Lymphocytes # 0.5 L (1.0-4.8) k/uL Monocytes # 1.2 H (0-1.0) k/uL PT 22.2 H (9.0-12.0) sec INR 2.3 H (<1.2) Carbon Dioxide 9 L* (22-30) mmol/L BUN 177 H* (7-17) mg/dL Creatinine 3.70 H (0.52-1.04) mg/dL POC Glucose (mg/dL) (75-99) mg/dL Calcium 6.7 L (8.4-10.2) mg/dL Iron (50-170) ug/dL Iron Saturation (12.00-45.00) 01/22/17 01/22/17 Range/Units 05:45 11:54 WBC (3.8-10.6) k/uL RBC (3.80-5.40) m/uL Hgb (11.4-16.0) gm/dL Hct (34.0-46.0) % MCHC (31.0-37.0) g/dL RDW (11.5-15.5) % Plt Count (150-450) k/uL Neutrophils # (1.3-7.7) k/uL Lymphocytes # (1.0-4.8) k/uL Monocytes # (0-1.0) k/uL PT (9.0-12.0) sec INR (<1.2) Carbon Dioxide (22-30) mmol/L BUN (7-17) mg/dL Creatinine (0.52-1.04) mg/dL POC Glucose (mg/dL) 105 H 146 H (75-99) mg/dL Calcium (8.4-10.2) mg/dL Iron (50-170) ug/dL Iron Saturation (12.00-45.00) Microbiology - Last 24 Hours (Table) 01/19/17 09:50 Blood Culture - Preliminary Blood No Growth after 72 hours 01/19/17 00:14 Urine Culture - Final Urine,Catheterized Assessment and Plan Plan: #1 Generalized weakness secondary to acute on chronic anemia with contribution from uremia with a presenting hemoglobin of 5.9. Received 2 units of blood transfusion and hemoglobin is around 8 now patient does not appear to have an acute GI bleed. #2 Coagulopathy with presenting INR 2.1 , effient and aspirin were discontinued #3 acute on chronic renal failure: Diuretic therapy will be held temporarily nephrology will be consulted patient does have chronic kidney disease stage IV unsure of the etiology of CK D the patient is receiving IV fluids at this time #4 severe pulmonary had hypertension possible chronic diastolic dysfunction patient appears to be hypovolemic. Patient is on D5 with bicarbonate and is being evaluated for hemodialysis tomorrow #5 COPD without any acute exacerbation #6 Acute on chronic diastolic congestive heart failure. #7 Troponin elevation secondary to chronic kidney disease #8 Coronary artery disease with previous coronary bypass grafting and stent placement. #9 hyperlipidemia
[2017-01-22 16:59] LABS: Glucose,Whole Blood 181 mg/dL (75-99)
[2017-01-22] MEDS: IPRATROPIUM-ALBUTEROL 3 ML NEB INHALATION PRN (17:40)
[2017-01-22 20:23] LABS: Glucose,Whole Blood 188 mg/dL (75-99)
--- NOTE | 2017-01-22 20:43 | PN ---
PROGRESS NOTE DATE OF SERVICE: 01/22/2015. REASON FOR FOLLOWUP: 1. Transverse colitis with question of possible ischemia. 2. Leukocytosis. INTERVAL HISTORY: The patient is afebrile. She is breathing comfortably, feeling slightly better, not as weak as she came in. No chest pain. Some shortness of breath. Occasional cough. No abdominal pain and no diarrhea. EXAMINATION: Blood pressure is 136/68 with a pulse of 80, temperature of 98. She is 95% on 3 L nasal cannula. General description is an elderly female up in the bed in no distress. RESPIRATORY SYSTEM: Unlabored breathing. Some decreased breath sounds in the bases. No wheeze. HEART: S1, S2. Regular rate. ABDOMEN: Soft, no tenderness. LABS: Hemoglobin is 8.8, white count 16.9 with a BUN of 177, with creatinine 3.70. DIAGNOSTIC IMPRESSION AND PLAN: Patient admitted to the hospital with generalized weakness, which is likely multifactorial. The patient did have a CT that was suggestive of a diffuse thickening of the transverse colon and splenic flexure with question of possible ischemic colitis. The patient has been empiric Rocephin, Flagyl and white count remains to be elevated. We will continue to monitor closely. The patient did not look toxic and not running any fever. MMODL / IJN: [id number] /
[2017-01-23 04:11] VITALS: TEMP 98.1
[2017-01-23 05:54] LABS: Glucose,Whole Blood 186 mg/dL (75-99)
[2017-01-23 06:18] LABS: INR 2.4 (<1.2); Prothrombin Time 22.7 sec (9.0-12.0)
[2017-01-23 06:36] LABS: Potassium 4.8 mmol/L (3.5-5.1)
[2017-01-23 07:03] LABS: Calcium 6.5 mg/dL (8.4-10.2)
[2017-01-23] MEDS: INSULIN ASPART 100 UNIT/ML 1 ML 10 ML VIAL SQ SCH ×3 (07:08→17:10)
[2017-01-23] MEDS: Acetaminophen-Codeine 300-30mg TAB PO PRN ×3 (07:10→17:23)
[2017-01-23 07:11] LABS: Anisocytosis Slight; CHCM 29.8; HCT 29.9 % (34.0-46.0); HDW 5.16; HGB 8.7 gm/dL (11.4-16.0); Hypochromasia Marked; Large Platelets Flag Moderate; MCH 24.5 pg (25.0-35.0); MCHC 29.2 g/dL (31.0-37.0); Mean Platelet Volume 11.6; Poikilocytosis Marked; RBC 3.56 m/uL (3.80-5.40); RDW 18.7 % (11.5-15.5)
[2017-01-23] MEDS: CALCIUM ACETATE 667 MG CAP PO SCH ×3 (07:11→17:10)
[2017-01-23] MEDS ORDERED: IV FLUID CONTINUATION 1,000 ML IV ONE (07:30)
[2017-01-23] MEDS ORDERED: fentaNYL (PF) 50 MCG/ML 2 ML AMP IV ONE (07:39)
[2017-01-23] MEDS: IPRATROPIUM 0.5 MG/2.5 ML NEBU INHALATION SCH ×3 (07:40→15:45)
[2017-01-23] MEDS ORDERED: LIDOCAINE 2% INJ 20 MG/ML SQ ONE (07:42)
--- NOTE | 2017-01-23 08:02 | CONS ---
CONSULTATION This is an 81-year-old female patient. She has been admitted with acute kidney injury with high BUN and creatinine. I was consulted for placement of the dialysis catheter. The patient's INR is 2.4 and BUN and creatinine are high. Discussed with Dr. Pagan. We will place a femoral catheter until the INR is normalized then we will be placing the right IJ because patient needs urgent dialysis catheter. She has history of coronary artery disease with previous coronary artery bypass graft and stent placement. The patient also has a history of insulin-dependent diabetes mellitus. The patient has been diagnosed in the past with left breast cancer with previous lumpectomy. She also has history of hypertension, hyperlipidemia, chronic renal failure stage 4 and COPD. PHYSICAL EXAMINATION: On examination, head is unremarkable. Lungs are clear with few crackles at the lung bases. First and second sounds are normal. ABDOMEN: Soft, nontender. Femoral pulses are present. INR is 2.4. We will place a Delta catheter for urgent dialysis because of high BUN and creatinine. Discussed with . Risks and complications of bleeding, infection, thrombosis has been discussed. MMODL / IJN: [id number] /
[2017-01-23 08:13] LABS: Add Differential Manual Differential
[2017-01-23 08:17] LABS: Nucleated Red Blood Cells 3 /100 WBC (0-0); Total Cells Counted 200
[2017-01-23 08:19] LABS: Crenated RBC Present
[2017-01-23 08:20] LABS: Manual Review Performed
--- NOTE | 2017-01-23 08:20 | PCN ---
PROCEDURE NOTE PREOP DIAGNOSIS: Acute on chronic renal failure failure. PROCEDURE: Placement of a dialysis catheter. Right femoral approach. Under fluoroscopy, and ultrasound guided. DESCRIPTION OF PROCEDURE: The patient was brought to the blood bank laboratory technician. Right groin was prepped and draped in the usual sterile manner. 1% lidocaine was infiltrated into the right groin. Ultrasound guided micropuncture introduced into the right femoral vein. Micropuncture guidewire was passed and 4 [place] dilator was advanced off the top of the guidewire. Then, we passed a regular guidewire and then we placed a dialysis catheter on top of the guidewire which was in the right femoral vein to the right common femoral and iliac vein. Free flow noted. Flushed with heparin saline and hep-locked and secured with 3- 0 nylon. Dressing applied. Patient tolerated the procedure well. MMODL / IJN: [id number] /
[2017-01-23 08:41] VITALS: RESP 16
--- NOTE | 2017-01-23 08:57 | P.PN ---
Subjective Patient is seen in follow-up for acute kidney injury on chronic kidney disease. 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 Her baseline creatinine is 2 and is elevated at 3.9 today. BUN is stable at 176. States she is not making much urine. Oral intake is just fair. Patient has history of severe pulmonary hypertension. She hasn't been taking sodium bicarbonate as it causes upset stomach. She did receive isotonic sodium bicarbonate drip the last 24 hours. Denies chest pain. Lower extremity edema about the same. Does admit to dyspnea with even minimal exertion. Vital signs are stable. General: The patient appeared well nourished and normally developed. HEENT: Head exam is unremarkable. Neck is without jugular venous distension. LUNGS: Lungs are clear to auscultation and percussion. Breath sounds decreased. HEART: Rate and Rhythm are regular. First and second heart sounds normal. No murmurs, rubs or gallops. ABDOMEN: Abdominal exam reveals normal bowel sounds. Non-tender and non- distended. EXTREMITITES: 2+ edema. Objective - Vital Signs Vital signs: Vital Signs Temp 98.1 F 01/23/17 04:00 Pulse 76 01/23/17 08:00 Resp 16 01/23/17 08:00 BP 126/81 01/23/17 08:00 Pulse Ox 93 L 01/23/17 08:00 Intake & Output 01/22/17 01/23/17 01/23/17 18:59 06:59 18:59 Intake Total 910 540 Output Total 100 100 Balance 810 440 Weight 66.5 kg Intake: IV 330 540 Sodium Chloride 0.9% 1, 330 540 000 ml @ 60 mls/hr IV . [id number] [facility] Rx#:[id number] Intake, IV Titration 160 Amount Dextrose 5% in Water 1, 60 000 ml @ 60 mls/hr IV . [id number] ONE with Sodium Bicarb (1 Meq/ml) 150 ml Rx#:[id number] Sodium Ferric Gluconat- 100 Sucrose 125 mg In Sodium Chloride 0.9% 100 ml @ 100 mls/hr IVPB DAILY [facility] Rx#:[id number] Oral 420 Output: Urine 100 100 Other: Voiding Method Bedside Commode Bedpan # Voids 0 - Labs CBC & Chem 7: 01/23/17 05:47 01/23/17 05:47 Labs: Abnormal Lab Results - Last 24 Hours (Table) 01/22/17 01/22/17 01/22/17 Range/Units 11:54 16:53 20:22 WBC (3.8-10.6) k/uL RBC (3.80-5.40) m/uL Hgb (11.4-16.0) gm/dL Hct (34.0-46.0) % MCH (25.0-35.0) pg MCHC (31.0-37.0) g/dL RDW (11.5-15.5) % Plt Count (150-450) k/uL Neutrophils # (Manual) (1.3-7.7) k/uL Lymphocytes # (Manual) (1.0-4.8) k/uL Monocytes # (Manual) (0-1.0) k/uL Nucleated RBCs (0-0) /100 WBC PT (9.0-12.0) sec INR (<1.2) Sodium (137-145) mmol/L Carbon Dioxide (22-30) mmol/L BUN (7-17) mg/dL Creatinine (0.52-1.04) mg/dL Glucose (74-99) mg/dL POC Glucose (mg/dL) 146 H 181 H 188 H (75-99) mg/dL Calcium (8.4-10.2) mg/dL 01/23/17 01/23/17 01/23/17 Range/Units 05:47 05:47 05:47 WBC 15.0 H (3.8-10.6) k/uL RBC 3.56 L (3.80-5.40) m/uL Hgb 8.7 L (11.4-16.0) gm/dL Hct 29.9 L (34.0-46.0) % MCH 24.5 L (25.0-35.0) pg MCHC 29.2 L (31.0-37.0) g/dL RDW 18.7 H (11.5-15.5) % Plt Count 85 L (150-450) k/uL Neutrophils # (Manual) 13.35 H (1.3-7.7) k/uL Lymphocytes # (Manual) 0.30 L (1.0-4.8) k/uL Monocytes # (Manual) 1.35 H (0-1.0) k/uL Nucleated RBCs 3 H (0-0) /100 WBC PT 22.7 H (9.0-12.0) sec INR 2.4 H (<1.2) Sodium 134 L (137-145) mmol/L Carbon Dioxide 11 L (22-30) mmol/L BUN 176 H* (7-17) mg/dL Creatinine 3.90 H (0.52-1.04) mg/dL Glucose 177 H (74-99) mg/dL POC Glucose (mg/dL) (75-99) mg/dL Calcium 6.5 L* (8.4-10.2) mg/dL 01/23/17 Range/Units 05:52 WBC (3.8-10.6) k/uL RBC (3.80-5.40) m/uL Hgb (11.4-16.0) gm/dL Hct (34.0-46.0) % MCH (25.0-35.0) pg MCHC (31.0-37.0) g/dL RDW (11.5-15.5) % Plt Count (150-450) k/uL Neutrophils # (Manual) (1.3-7.7) k/uL Lymphocytes # (Manual) (1.0-4.8) k/uL Monocytes # (Manual) (0-1.0) k/uL Nucleated RBCs (0-0) /100 WBC PT (9.0-12.0) sec INR (<1.2) Sodium (137-145) mmol/L Carbon Dioxide (22-30) mmol/L BUN (7-17) mg/dL Creatinine (0.52-1.04) mg/dL Glucose (74-99) mg/dL POC Glucose (mg/dL) 186 H (75-99) mg/dL Calcium (8.4-10.2) mg/dL Microbiology - Last 24 Hours (Table) 01/19/17 09:50 Blood Culture - Preliminary Blood No Growth after 72 hours Assessment and Plan Plan: Assessment: #1. Acute kidney injury secondary to ATN secondary to cardiorenal syndrome. Creatinine is up to 3.9 today with BUN of 176. #2. 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 #3. Diastolic CHF with severe pulmonary hypertension. #4. Anemia of chronic kidney disease. Severe deficiency noted. #5. Severe metabolic acidosis secondary to chronic kidney disease and refusal to take oral sodium bicarbonate. #6. Hyperphosphatemia secondary to acute kidney injury. Plan: Hep-Lock IV fluids. Avoid aggressive hydration due to her underlying pulmonary hypertension and cardiomyopathy. Ferrlicit 125 mg IV daily for 3 days. Second dose today. Continue PhosLo 667 mg 3 times daily with meals. Maintain Aranesp. Due to elevated INR, she had a femoral catheter placed today. Plan for first treatment of hemodialysis today and second treatment tomorrow. She will need a permacath once INR stable. exhibitions and collections manager on board to help facilitate outpatient hemodialysis.
--- NOTE | 2017-01-23 09:57 | IR ---
Fluoroscopy HISTORY: Hemodialysis catheter placement 0.4 minutes fluoroscopy time supplied to the referring clinician. 11 intraoperative C-arm images doc ument the procedure. See dictated report from vascular surgery.
--- NOTE | 2017-01-23 10:45 | P.PN ---
Subjective Progress Note Date: 01/23/17 Principal diagnosis: Acute GI blood loss anemia This is a very pleasant 81-year-old female patient who follows with Dr. Galeano as her primary care physician. She has a history of coronary artery disease with previous coronary artery bypass grafting and stent placement, insulin-dependent diabetes mellitus, left-sided breast cancer with previous lumpectomy, chronic back pain, hypertension, hyperlipidemia, chronic renal failure stage III, chronic obstructive pulmonary disease maintained on Spiriva and albuterol, abdominal aortic aneurysm. She presented to the emergency room yesterday with a several day complaint of pro-found and progressive weakness along with lower extremity edema. She denies any shortness of breath, cough or congestion. She is maintaining good O2 saturations in the 90s on room air. She 's been afebrile. She denies any chest pain, palpitations lightheadedness or dizziness. She has had issues with nausea and diarrhea. She was found be quite anemic with an hemoglobin of 5.9. Stool for occult blood was positive. She is status post 2 units of packed red blood cells, 1 unit of fresh frozen plasma. Current hemoglobin 8.5. Platelet count 111,000. Her INR is 2.0. She has been maintained on aspirin and Effient in the outpatient setting. Her BUN was 172 with a creatinine of 3.45. Liver enzymes also elevated with AST of 111 , ALT 158, alk phos 140. Troponins are 0.090, 0.399, 0.963. ProBNP 66,400. Echocardiogram from September 2016 revealed a preserved left ventricular systolic function with ejection fraction 50-55% severe pulmonary hypertension. Computed tomography scan of the abdomen revealed new moderate right pleural effusion, there is new ascites in the abdomen and a stable abdominal aortic aneurysm. Sigmoid diverticulosis without overt signs of diverticulitis. Multiple calcified gallstones. There is also thickening of the wall of the transverse colon, suggestive of congestive heart failure however ischemic bowel or nonspecific colitis could not be excluded. The patient is seen again today 01/21/2017 in follow-up on the selective care unit. She is more awake and alert today as compared to yesterday. She states she is feeling better but still quite weak with minimal exertion. She denies any worsening shortness of breath, cough or congestion. Her hemoglobin is 8.4. Platelets 103,000. INR was 2.2. BUN 168, creatinine 360, bicarb 13. She remains on sodium bicarb 650 mg 3 times a day. 0.9 normal saline at 60 mL's per hour. She may need renal replacement therapy. She is maintaining good O2 saturations in the mid 90s on 3 L/m per nasal cannula. She is afebrile. Hemodynamically stable. The patient is seen again today 01/22/2017 in follow-up on the selective care unit. She is currently sitting up in a chair. She is doing much better today as compared to the previous couple of days. She is less weak. She denies any worsening shortness of breath, cough or congestion. Maintaining good O2 saturations in the 90s on 2 L/m per nasal cannula. Unfortunately her crit and continues to rise currently at 3.7. She is being followed by nephrology. She is receiving D5W with 3 tabs a sodium bicarb at 60 miles per hour. The plan is for for renal replacement therapy. Awaiting permacath. On 01/23/2017 patient seen in follow-up selective care floor. She remains generally weak, resting in bed, appears fatigued. But no acute distress noted. She she had a permacath placed, she will be having her hemodialysis today. Hemoglobin today is 8.7, she's had no documented bowel movements. Hemodynamically stable, afebrile. Lung sounds are positive for some crackles at left lower base. 3 L per nasal cannula, O2 sat 93%. Respirations are even and nonlabored. 2+ pitting edema in bilateral lower extremities. Objective - Vital Signs Vital signs: Vital Signs Temp 98.1 F 01/23/17 04:00 Pulse 76 01/23/17 08:00 Resp 16 01/23/17 08:00 BP 126/81 01/23/17 08:00 Pulse Ox 93 L 01/23/17 08:00 Intake & Output 01/22/17 01/23/17 01/23/17 18:59 06:59 18:59 Intake Total 910 540 Output Total 100 100 Balance 810 440 Weight 66.5 kg Intake: IV 330 540 Sodium Chloride 0.9% 1, 330 540 000 ml @ 60 mls/hr IV . [id number] [facility] Rx#:[id number] Intake, IV Titration 160 Amount Dextrose 5% in Water 1, 60 000 ml @ 60 mls/hr IV . [id number] ONE with Sodium Bicarb (1 Meq/ml) 150 ml Rx#:[id number] Sodium Ferric Gluconat- 100 Sucrose 125 mg In Sodium Chloride 0.9% 100 ml @ 100 mls/hr IVPB DAILY [facility] Rx#:[id number] Oral 420 Output: Urine 100 100 Other: Voiding Method Bedside Commode Bedpan # Voids 0 - Exam GENERAL EXAM: Pale. Alert, fairly comfortable in no acute distress. HEAD: Normocephalic. EYES: Normal reaction of pupils, equal size. NOSE: Clear with pink turbinates. THROAT: No erythema or exudates. NECK: No masses, no JVD. CHEST: No chest wall deformity. LUNGS: Equal air entry with crackles in the right lung. CVS: S1 and S2 normal with positive murmur, regular rhythm. ABDOMEN: No hepatosplenomegaly, normal bowel sounds, no guarding or rigidity. SPINE: No scoliosis or deformity SKIN: No rashes CENTRAL NERVOUS SYSTEM: No focal deficits, tone is normal in all 4 extremities. EXTREMITIES: There is 2+ peripheral edema. No clubbing, no cyanosis. Peripheral pulses are intact. - Labs CBC & Chem 7: 01/23/17 05:47 01/23/17 05:47 Labs: Abnormal Lab Results - Last 24 Hours (Table) 01/22/17 01/22/17 01/22/17 Range/Units 11:54 16:53 20:22 WBC (3.8-10.6) k/uL RBC (3.80-5.40) m/uL Hgb (11.4-16.0) gm/dL Hct (34.0-46.0) % MCH (25.0-35.0) pg MCHC (31.0-37.0) g/dL RDW (11.5-15.5) % Plt Count (150-450) k/uL Neutrophils # (Manual) (1.3-7.7) k/uL Lymphocytes # (Manual) (1.0-4.8) k/uL Monocytes # (Manual) (0-1.0) k/uL Nucleated RBCs (0-0) /100 WBC PT (9.0-12.0) sec INR (<1.2) Sodium (137-145) mmol/L Carbon Dioxide (22-30) mmol/L BUN (7-17) mg/dL Creatinine (0.52-1.04) mg/dL Glucose (74-99) mg/dL POC Glucose (mg/dL) 146 H 181 H 188 H (75-99) mg/dL Calcium (8.4-10.2) mg/dL 01/23/17 01/23/17 01/23/17 Range/Units 05:47 05:47 05:47 WBC 15.0 H (3.8-10.6) k/uL RBC 3.56 L (3.80-5.40) m/uL Hgb 8.7 L (11.4-16.0) gm/dL Hct 29.9 L (34.0-46.0) % MCH 24.5 L (25.0-35.0) pg MCHC 29.2 L (31.0-37.0) g/dL RDW 18.7 H (11.5-15.5) % Plt Count 85 L (150-450) k/uL Neutrophils # (Manual) 13.35 H (1.3-7.7) k/uL Lymphocytes # (Manual) 0.30 L (1.0-4.8) k/uL Monocytes # (Manual) 1.35 H (0-1.0) k/uL Nucleated RBCs 3 H (0-0) /100 WBC PT 22.7 H (9.0-12.0) sec INR 2.4 H (<1.2) Sodium 134 L (137-145) mmol/L Carbon Dioxide 11 L (22-30) mmol/L BUN 176 H* (7-17) mg/dL Creatinine 3.90 H (0.52-1.04) mg/dL Glucose 177 H (74-99) mg/dL POC Glucose (mg/dL) (75-99) mg/dL Calcium 6.5 L* (8.4-10.2) mg/dL 01/23/17 Range/Units 05:52 WBC (3.8-10.6) k/uL RBC (3.80-5.40) m/uL Hgb (11.4-16.0) gm/dL Hct (34.0-46.0) % MCH (25.0-35.0) pg MCHC (31.0-37.0) g/dL RDW (11.5-15.5) % Plt Count (150-450) k/uL Neutrophils # (Manual) (1.3-7.7) k/uL Lymphocytes # (Manual) (1.0-4.8) k/uL Monocytes # (Manual) (0-1.0) k/uL Nucleated RBCs (0-0) /100 WBC PT (9.0-12.0) sec INR (<1.2) Sodium (137-145) mmol/L Carbon Dioxide (22-30) mmol/L BUN (7-17) mg/dL Creatinine (0.52-1.04) mg/dL Glucose (74-99) mg/dL POC Glucose (mg/dL) 186 H (75-99) mg/dL Calcium (8.4-10.2) mg/dL Microbiology - Last 24 Hours (Table) 01/19/17 09:50 Blood Culture - Preliminary Blood No Growth after 72 hours Assessment and Plan Plan: Assessment: #1 Generalized weakness secondary to acute on chronic anemia with a presenting hemoglobin of 5.9. Stool for occult blood positive. Status post 2 units of packed red blood cells. Current hemoglobin 8.8. #2 Coagulopathy with presenting INR 2.1 on the patient on Effient and aspirin. Status post 1 unit of fresh frozen plasma. Current INR 2.3. #3 Right lower lobe infiltrate/effusion. Remains on ceftriaxone and bronchodilators. #4 Acute on chronic renal failure. Current creatinine 3.70. #5 Elevated liver enzymes and evidence of ascites. #6 Acute on chronic diastolic congestive heart failure. #7 Troponin leak. #8 Coronary artery disease with previous coronary bypass grafting and stent placement. #9 Chronic hypoxic respiratory failure secondary to chronic obstructive pulmonary disease, currently inactive and stable. #10 Hyperlipidemia. #11 Poor overall functional performance based on the above mentioned multiple comorbidities. Plan: The patient was seen and evaluated by Dr. Rubio. She is currently stable from the pulmonary standpoint. She received her permacath, she will be having hemodialysis today. Hemoglobin is stable at 8.7, patient hasn't had any signs of bleeding. She is receiving iron sucrose infusions daily per nephrology. Hemodynamically stable. Case management is arranging outpatient hemodialysis. I performed a history & physical examination of the patient and discussed their management with my nurse practitioner, Adrianna Jaquez. I reviewed the nurse practitioner's note and agree with the documented findings and plan of care. Lung sounds are positive for scattered rales over left posterior base. The findings and the impression was discussed with the patient. I attest to the documentation by the nurse practitioner. Time with Patient: Greater than 30
[2017-01-23 11:45] LABS: Glucose,Whole Blood 139 mg/dL (75-99)
[2017-01-23] MEDS: IPRATROPIUM-ALBUTEROL 3 ML NEB INHALATION PRN (12:08)
[2017-01-23] MEDS ORDERED: SODIUM BICARB 8.4% 50 ML SYR (1 MEQ/ML) ONE (12:10)
[2017-01-23] MEDS ORDERED: ATROPINE SULFATE 0.1 MG/ML 10ML SYRINGE ONE (12:10)
[2017-01-23] MEDS ORDERED: CALCIUM CHLORIDE 100 MG/ML 10 ML SYRINGE ONE (12:10)
[2017-01-23] MEDS ORDERED: EPINEPHrine 10 ML SYRINGE (0.1 MG/ML) ONE ×2 (12:10→12:12)
[2017-01-23] MEDS: cefTRIAXone IN SWFI 1,000 MG/10 ML SYRINGE IVP SCH (13:42)
[2017-01-23] MEDS: ATORVASTATIN 40 MG TAB PO SCH ×2 (13:43→13:52)
[2017-01-23] MEDS: FAMOTIDINE 20 MG TAB PO SCH ×2 (13:43→13:52)
[2017-01-23] MEDS: ISOSORBIDE MONONITRATE ER 60 MG TAB.ER.24H PO SCH ×2 (13:44→13:53)
[2017-01-23] MEDS: metroNIDAZOLE 500 MG TAB PO SCH ×3 (13:44→17:09)
[2017-01-23] MEDS: NADOLOL 20 MG TAB PO SCH ×2 (13:45→13:53)
--- NOTE | 2017-01-23 14:00 | P.PN ---
Subjective Progress Note Date: 01/23/17 This is a pleasant 81-year-old female who follows with Dr. Pool in the office. She has a known history of coronary artery disease with prior bypass surgery in 1989 at which time she underwent a GALAVIZ to the LAD, saphenous vein graft to the RCA saphenous vein graft to the diagonal, she also underwent stenting in 2009, 2010, most recent in 2011 she had a stent placed in the saphenous vein graft to the OM1. Patient also has a history of hypertension, hyperlipidemia, peripheral vascular disease, diabetes, breast cancer with prior lumpectomy, chronic renal failure stage III, COPD, abdominal aortic aneurysm. Patient presents to the hospital with symptoms of progressive weakness with associated lower extremity edema. She denies any chest discomfort, no shortness of breath. Patient does state that she has been having some episodes of nausea with associated diarrhea. Patient was found to be quite anemic on admission here with a hemoglobin of 5.9, stool for occult blood was positive. Patient did receive 2 units of packed red blood cells and one unit of fresh frozen plasma. Hemoglobin at present 8.5, INR is 2.0. Patient had been maintained on aspirin 325 mg daily along with Effient 10 mg daily. BUN was 172 with a creatinine of 3.4. Liver enzymes were also elevated. Troponins 09, 0.39 , 0.96. ProBNP 66,400. Echocardiogram performed in September revealed a preserved left ventricular systolic function with an ejection fraction of 50-55% with severe pulmonary hypertension. Blood pressure 144/60 with a heart rate in the 50s. Afebrile. 94% on 3 L of oxygen. At the time of our examination this morning, patient still complains of weakness, she denies any chest discomfort, she does complain of aching all of her muscles. Potassium 4.6, BUN 172, creatinine 3.4. Magnesium level I.9. AST 111, ALT 158, alk phos 140, 0.09, 0.39, 0.96. EKG on admission showed a normal sinus rhythm with frequent PVCs and incomplete left bundle branch block pattern. Nonspecific ST-T wave changes. Chest x-ray showed cardiomegaly with interstitial changes and mild congestive heart failure. Small right pleural effusion, aortic iliac vascular ultrasound revealed mural thrombus, may be interval progression. No evidence for periaortic hematoma at this time. 01/21/2017 Patient seen and examined this morning, continues to feel weak however is feeling much more stronger than yesterday. She is sitting up in the chair today. Land is for patient to have dialysis catheter placed possibly tomorrow. We will continue to hold her Coumadin. Decrease Lipitor to 40 mg daily. Blood pressure today 142/70 with a heart rate in the 60s, respirations 18. White blood cell count 13.8, hemoglobin 8.4, platelet count 103, INR 2.2. Potassium 4.5, BUN 168, creatinine 3.6, magnesium 1.7. 01/23/2017 Patient underwent dialysis catheter placement, currently undergoing dialysis today.hemoglobin today 8.7, INR 2.4, potassium 4.8, BUN 176, creatinine 3.9.lead pressure 126/80 with a heart rate in the 70s. 93% on 3 L of oxygen. Objective - Vital Signs Vital signs: Vital Signs Temp 98.1 F 01/23/17 04:00 Pulse 81 01/23/17 12:19 Resp 16 01/23/17 11:12 BP 126/81 01/23/17 08:00 Pulse Ox 93 L 01/23/17 08:00 Intake & Output 01/22/17 01/23/17 01/23/17 18:59 06:59 18:59 Intake Total 910 540 Output Total 100 100 Balance 810 440 Weight 66.5 kg Intake: IV 330 540 Sodium Chloride 0.9% 1, 330 540 000 ml @ 60 mls/hr IV . [id number] [facility] Rx#:[id number] Intake, IV Titration 160 Amount Dextrose 5% in Water 1, 60 000 ml @ 60 mls/hr IV . [id number] [facility] with Sodium Bicarb (1 Meq/ml) 150 ml Rx#:[id number] Sodium Ferric Gluconat- 100 Sucrose 125 mg In Sodium Chloride 0.9% 100 ml @ 100 mls/hr IVPB DAILY [facility] Rx#:[id number] Oral 420 Output: Urine 100 100 Other: Voiding Method Bedside Commode Bedpan Bedpan # Voids 0 0 # Bowel Movements 0 - Exam PHYSICAL EXAMINATION: HEENT: Head is atraumatic, normocephalic. Pupils equal, round. Neck is supple. There is no elevated jugular venous pressure. HEART EXAMINATION: S1 and S2 1 systolic murmur is heard. CHEST EXAMINATION: Lungs reveal diminished air entry to bilateral bases with fine crackles to the bases. ABDOMEN: Soft, nontender. Bowel sounds are heard. No organomegaly noted. EXTREMITIES: 2+ peripheral pulses with 2+ evidence of peripheral edema and no calf tenderness noted. NEUROLOGIC patient is awake, alert and oriented -3. - Labs CBC & Chem 7: 01/23/17 05:47 01/23/17 05:47 Labs: Abnormal Lab Results - Last 24 Hours (Table) 01/22/17 01/22/17 01/23/17 Range/Units 16:53 20:22 05:47 WBC 15.0 H (3.8-10.6) k/uL RBC 3.56 L (3.80-5.40) m/uL Hgb 8.7 L (11.4-16.0) gm/dL Hct 29.9 L (34.0-46.0) % MCH 24.5 L (25.0-35.0) pg MCHC 29.2 L (31.0-37.0) g/dL RDW 18.7 H (11.5-15.5) % Plt Count 85 L (150-450) k/uL Neutrophils # (Manual) 13.35 H (1.3-7.7) k/uL Lymphocytes # (Manual) 0.30 L (1.0-4.8) k/uL Monocytes # (Manual) 1.35 H (0-1.0) k/uL Nucleated RBCs 3 H (0-0) /100 WBC PT (9.0-12.0) sec INR (<1.2) Sodium (137-145) mmol/L Carbon Dioxide (22-30) mmol/L BUN (7-17) mg/dL Creatinine (0.52-1.04) mg/dL Glucose (74-99) mg/dL POC Glucose (mg/dL) 181 H 188 H (75-99) mg/dL Calcium (8.4-10.2) mg/dL 01/23/17 01/23/17 01/23/17 Range/Units 05:47 05:47 05:52 WBC (3.8-10.6) k/uL RBC (3.80-5.40) m/uL Hgb (11.4-16.0) gm/dL Hct (34.0-46.0) % MCH (25.0-35.0) pg MCHC (31.0-37.0) g/dL RDW (11.5-15.5) % Plt Count (150-450) k/uL Neutrophils # (Manual) (1.3-7.7) k/uL Lymphocytes # (Manual) (1.0-4.8) k/uL Monocytes # (Manual) (0-1.0) k/uL Nucleated RBCs (0-0) /100 WBC PT 22.7 H (9.0-12.0) sec INR 2.4 H (<1.2) Sodium 134 L (137-145) mmol/L Carbon Dioxide 11 L (22-30) mmol/L BUN 176 H* (7-17) mg/dL Creatinine 3.90 H (0.52-1.04) mg/dL Glucose 177 H (74-99) mg/dL POC Glucose (mg/dL) 186 H (75-99) mg/dL Calcium 6.5 L* (8.4-10.2) mg/dL // Range/Units 11:41 WBC (3.8-10.6) k/uL RBC (3.80-5.40) m/uL Hgb (11.4-16.0) gm/dL Hct (34.0-46.0) % MCH (25.0-35.0) pg MCHC (31.0-37.0) g/dL RDW (11.5-15.5) % Plt Count (150-450) k/uL Neutrophils # (Manual) (1.3-7.7) k/uL Lymphocytes # (Manual) (1.0-4.8) k/uL Monocytes # (Manual) (0-1.0) k/uL Nucleated RBCs (0-0) /100 WBC PT (9.0-12.0) sec INR (<1.2) Sodium (137-145) mmol/L Carbon Dioxide (22-30) mmol/L BUN (7-17) mg/dL Creatinine (0.52-1.04) mg/dL Glucose (74-99) mg/dL POC Glucose (mg/dL) 139 H (75-99) mg/dL Calcium (8.4-10.2) mg/dL Microbiology - Last 24 Hours (Table) 01/19/17 09:50 Blood Culture - Preliminary Blood No Growth after 96 hours Assessment and Plan Plan: Assessment and plan #1 diastolic congestive heart failure, acute on chronic, BNP level 66,400. chest x-ray suggests mild congestive heart failure with slight sided pleural effusion. #2 anemia, hemoglobin 5.9 on admission, status post 2 units of blood transfusion. #3 acute on chronic renal failure, BUN 168, creatinine 3.6. #4 hypertension # 5 diabetes #6 history of coronary artery disease with prior bypass and stent placements, last stent was performed in 2011, was on aspirin and Effient at home. #7 hyperlipidemia #8 nicotine dependence #9 COPD #10 abnormal liver enzymes #11 hypomagnesemia Plan From Cardiology's perspective, we'll continue the patient on her current medications. She's undergoing dialysis today.We will continue to follow. DNP note has been reviewed, I agree with a documented findings and plan of care. Patient was seen and examined.
--- NOTE | 2017-01-23 14:40 | P.PN ---
Subjective 81-year-old the female came in with compensative generalized weakness which is believed secondary to anemia patient hemoglobin is presently 8.2 but patient was evaluated for acute GI bleed pain gastric body evaluate the patient and they do not believe patient has an acute GI bleed but patient is severely anemic with the BUN of 175 creatinine of around 3.9 patient does have some chronic kidney disease stage IV patient does have pulmonary hypertension as well and chronic diastolic dysfunction patient is on high-dose of Lasix at this point of time in IV form patient does not have any elevated JVD does have some pedal edema. We'll hold off Lasix now and we will also consult nephrology. Patient is quite tired denied any chest pain patient was a valid by pulmonology as well as cardiology. Jan, Patient's weakness is little bit better today, nephrology valid the patient patient was started on IV fluids and the patient will be evaluated tomorrow again and consider renal replacement therapy if needed. 2016 Patient says her fatigue is better compared to yesterday. Patient is on D5 with bicarbonate at 60 mL per hour inpatient will undergo evaluation for central line placement for hemodialysis January 23 2017 She is undergoing hemodialysis today is not feeling good because of hemodialysis Constitutional: Fatigue and malaise Cardio vascular: denied any chest pain, palpitations Gastrointestinal denied any nausea vomiting Pulmonary: Denied any shortness of breath cough Neurologic denied any new focal deficits Objective - Vital Signs Vital signs: Vital Signs Temp 98.1 F 01/23/17 04:00 Pulse 81 01/23/17 12:19 Resp 16 01/23/17 11:12 BP 126/81 01/23/17 08:00 Pulse Ox 93 L 01/23/17 08:00 Intake & Output 01/22/17 01/23/17 01/23/17 18:59 06:59 18:59 Intake Total 910 540 Output Total 100 100 Balance 810 440 Weight 66.5 kg Intake: IV 330 540 Sodium Chloride 0.9% 1, 330 540 000 ml @ 60 mls/hr IV . [id number] [facility] Rx#:[id number] Intake, IV Titration 160 Amount Dextrose 5% in Water 1, 60 000 ml @ 60 mls/hr IV . [id number] ONE with Sodium Bicarb (1 Meq/ml) 150 ml Rx#:[id number] Sodium Ferric Gluconat- 100 Sucrose 125 mg In Sodium Chloride 0.9% 100 ml @ 100 mls/hr IVPB DAILY [facility] Rx#:[id number] Oral 420 Output: Urine 100 100 Other: Voiding Method Bedside Commode Bedpan Bedpan # Voids 0 0 # Bowel Movements 0 - Exam PHYSICAL EXAMINATION: GENERAL: The patient is alert and oriented x3, not in any acute distress. Well developed, well nourished. HEENT: Pupils are round and equally reacting to light. EOMI. No scleral icterus. No conjunctival pallor. Normocephalic, atraumatic. No pharyngeal erythema. No thyromegaly. CARDIOVASCULAR: S1 and S2 present. No murmurs, rubs, or gallops. PULMONARY: Chest is clear to auscultation, no wheezing or crackles. ABDOMEN: Soft, nontender, nondistended, normoactive bowel sounds. No palpable organomegaly. MUSCULOSKELETAL: No joint swelling or deformity. EXTREMITIES: No cyanosis, clubbing, she does have 1+ bilateral pitting pedal edema NEUROLOGICAL: Gross neurological examination did not reveal any focal deficits. SKIN: No rashes. - Labs CBC & Chem 7: 01/23/17 05:47 01/23/17 05:47 Labs: Abnormal Lab Results - Last 24 Hours (Table) 01/22/17 01/22/17 01/23/17 Range/Units 16:53 20:22 05:47 WBC 15.0 H (3.8-10.6) k/uL RBC 3.56 L (3.80-5.40) m/uL Hgb 8.7 L (11.4-16.0) gm/dL Hct 29.9 L (34.0-46.0) % MCH 24.5 L (25.0-35.0) pg MCHC 29.2 L (31.0-37.0) g/dL RDW 18.7 H (11.5-15.5) % Plt Count 85 L (150-450) k/uL Neutrophils # (Manual) 13.35 H (1.3-7.7) k/uL Lymphocytes # (Manual) 0.30 L (1.0-4.8) k/uL Monocytes # (Manual) 1.35 H (0-1.0) k/uL Nucleated RBCs 3 H (0-0) /100 WBC PT (9.0-12.0) sec INR (<1.2) Sodium (137-145) mmol/L Carbon Dioxide (22-30) mmol/L BUN (7-17) mg/dL Creatinine (0.52-1.04) mg/dL Glucose (74-99) mg/dL POC Glucose (mg/dL) 181 H 188 H (75-99) mg/dL Calcium (8.4-10.2) mg/dL 01/23/17 01/23/17 01/23/17 Range/Units 05:47 05:47 05:52 WBC (3.8-10.6) k/uL RBC (3.80-5.40) m/uL Hgb (11.4-16.0) gm/dL Hct (34.0-46.0) % MCH (25.0-35.0) pg MCHC (31.0-37.0) g/dL RDW (11.5-15.5) % Plt Count (150-450) k/uL Neutrophils # (Manual) (1.3-7.7) k/uL Lymphocytes # (Manual) (1.0-4.8) k/uL Monocytes # (Manual) (0-1.0) k/uL Nucleated RBCs (0-0) /100 WBC PT 22.7 H (9.0-12.0) sec INR 2.4 H (<1.2) Sodium 134 L (137-145) mmol/L Carbon Dioxide 11 L (22-30) mmol/L BUN 176 H* (7-17) mg/dL Creatinine 3.90 H (0.52-1.04) mg/dL Glucose 177 H (74-99) mg/dL POC Glucose (mg/dL) 186 H (75-99) mg/dL Calcium 6.5 L* (8.4-10.2) mg/dL 01/23/17 Range/Units 11:41 WBC (3.8-10.6) k/uL RBC (3.80-5.40) m/uL Hgb (11.4-16.0) gm/dL Hct (34.0-46.0) % MCH (25.0-35.0) pg MCHC (31.0-37.0) g/dL RDW (11.5-15.5) % Plt Count (150-450) k/uL Neutrophils # (Manual) (1.3-7.7) k/uL Lymphocytes # (Manual) (1.0-4.8) k/uL Monocytes # (Manual) (0-1.0) k/uL Nucleated RBCs (0-0) /100 WBC PT (9.0-12.0) sec INR (<1.2) Sodium (137-145) mmol/L Carbon Dioxide (22-30) mmol/L BUN (7-17) mg/dL Creatinine (0.52-1.04) mg/dL Glucose (74-99) mg/dL POC Glucose (mg/dL) 139 H (75-99) mg/dL Calcium (8.4-10.2) mg/dL Microbiology - Last 24 Hours (Table) 01/19/17 09:50 Blood Culture - Preliminary Blood No Growth after 96 hours Assessment and Plan Plan: #1 Generalized weakness secondary to acute on chronic anemia with contribution from uremia with a presenting hemoglobin of 5.9. Received 2 units of blood transfusion and hemoglobin is around 8 now patient does not appear to have an acute GI bleed. #2 Coagulopathy with presenting INR 2.1 , effient and aspirin were discontinued #3 acute on chronic renal failure:off Diuretic therapy and patient was started on hemodialysis #4 severe pulmonary had hypertension possible chronic diastolic dysfunction patient appears to be hypovolemic. Patient is on bicarbonate, not on any diuretic therapy at this point of time #5 COPD without any acute exacerbation #6 Acute on chronic diastolic congestive heart failure. #7 Troponin elevation secondary to chronic kidney disease #8 Coronary artery disease with previous coronary bypass grafting and stent placement. #9 hyperlipidemia
[2017-01-23 15:57] VITALS: BP 121/63; PULSE 79
[2017-01-23 16:09] LABS: Hepatitis B Surface Antibody Non-Reactive (Non-Reactive)
[2017-01-23 16:48] LABS: Glucose,Whole Blood 149 mg/dL (75-99)
[2017-01-23] MEDS: SODIUM FERRIC GLUCONAT-SUCROSE 125 MG in SODIUM CHLORIDE 0.9% 100 ML IVPB SCH (17:27)
[2017-01-23 17:59] LABS: Anisocytosis Slight; Aty Lym Flag Slight; CH 24.8; CHCM 25.8; HCT 21.6 % (34.0-46.0); HDW 4.18; Hypochromasia Marked; Large Platelets Flag Marked; MCH 24.4 pg (25.0-35.0); MCHC 25.3 g/dL (31.0-37.0); Macrocytosis Slight; Mean Platelet Volume 14.8; Poikilocytosis Moderate; RBC 2.25 m/uL (3.80-5.40); RDW 17.6 % (11.5-15.5); WBC (Perox) 7.66
[2017-01-23 18:05] LABS: HGB 5.5 gm/dL (11.4-16.0)
[2017-01-23 18:06] LABS: MCV 96.2 fL (80.0-100.0)
[2017-01-23 18:06] LABS: Glucose,Whole Blood 138 mg/dL (75-99)
[2017-01-23 18:13] LABS: Anion Gap -14 mmol/L; Blood Urea Nitrogen 61 mg/dL (7-17); Glucose 72 mg/dL (74-99); Magnesium 2.3 mg/dL (1.6-2.3); Non-African American GFR(MDRD) 31 (>60 ml/min/1.73 sqM); Sodium 139 mmol/L (137-145)
[2017-01-23 18:19] LABS: Add Differential Manual Differential
[2017-01-23 18:22] LABS: Nucleated Red Blood Cells 3 /100 WBC (0-0); Polychromasia Present; Total Cells Counted 200; WBC 8.1 k/uL (3.8-10.6)
[2017-01-23 18:31] LABS: Calcium >28.0 mg/dL (8.4-10.2); Carbon Dioxide 7 mmol/L (22-30); Chloride 146 mmol/L (98-107); Potassium 2.6 mmol/L (3.5-5.1)
[2017-01-23] MEDS ORDERED: MORPHINE SULFATE 4 MG/ML SYRINGE IV PRN (18:54)
[2017-01-23] MEDS ORDERED: MORPHINE SULFATE (100 MG/2 ML) 100 MG in SODIUM CHLORIDE 0.9% 100 ML IV SCH (19:00)
--- NOTE | 2017-01-23 19:26 | P.PN ---
Subjective 81-year-old female started on hemodialysis today she had a card pulmonary arrest and I was present during the code and was part of the code. Patient initially has pulseless electrical activity lasted only for few minutes patient was given 3 doses of epinephrine, was intubated patient's pulse returned patient remained bradycardic for some time patient was given atropine with return of pulse and basic labs were obtained patient's hemoglobin dropped from 8.7 today morning to 5.5 platelet count dropped from 85,000-34,000 patient was started on hemodialysis as mentioned above earlier and still waiting on some labs. Patient was transferred to ICU. Patient coded again was part of the code again discuss her CODE STATUS family decided on DO NOT RESUSCITATE but patient spontaneously returned was having agonal breathing because of which we ended up putting her back and ventilator. Plan is not to do any more chest compressions but with continue the ventilatory support patient's hemoglobin is significantly low patient will be transfused we will Allsop an INR we'll also give her fresh frozen plasma patient's INR today morning was 2.4 patient has significant of late abnormalities I do not have any magnesium available yet patient's creatinine although improved chloride is 146 potassium is 2.6 patient had elevated troponin secondary to demand ischemia and patient also has some ST depressions presently patient is presently intubated not sedated, on PEEP of 5 FiO2 of 100% weaning it down I do not have any ABGs available yet we'll obtain phosphorus level, tidal volume of 400 patient is presently breathing over the ventilator. We'll make for wire annealer aware of these findings. Patient will emergently be transfused 2 units of blood along with platelets and fresh frozen plasma. During the code patient was given calcium because which her calcium level is very high now Objective - Vital Signs Vital signs: Vital Signs Temp 98.1 F 01/23/17 04:00 Pulse 79 01/23/17 16:00 Resp 16 01/23/17 16:00 BP 121/63 01/23/17 16:00 Pulse Ox 93 L 01/23/17 08:00 Intake & Output 01/23/17 01/23/17 01/24/17 06:59 18:59 06:59 Intake Total 540 Output Total 100 Balance 440 Weight 66.5 kg Intake: IV 540 Sodium Chloride 0.9% 1, 540 000 ml @ 60 mls/hr IV . [id number] [facility] Rx#:[id number] Output: Urine 100 Other: Voiding Method Bedpan Bedpan # Voids 0 # Bowel Movements 0 - Exam PHYSICAL EXAMINATION: GENERAL: is presently intubated and with the above-mentioned findings and the ventilator HEENT: Pupils are round and equally reacting to light. EOMI. No scleral icterus. No conjunctival pallor. Normocephalic, atraumatic. No pharyngeal erythema. No thyromegaly. CARDIOVASCULAR: S1 and S2 present. No murmurs, rubs, or gallops. PULMONARY: Chest is clear to auscultation, no wheezing or crackles. ABDOMEN: Soft, nontender, nondistended, normoactive bowel sounds. No palpable organomegaly. MUSCULOSKELETAL: No joint swelling or deformity. EXTREMITIES: No cyanosis, clubbing, she does have 1+ bilateral pitting pedal edema - Labs CBC & Chem 7: 01/23/17 17:44 01/23/17 17:44 Labs: Abnormal Lab Results - Last 24 Hours (Table) 01/22/17 01/23/17 01/23/17 Range/Units 20:22 05:47 05:47 WBC 15.0 H (3.8-10.6) k/uL RBC 3.56 L (3.80-5.40) m/uL Hgb 8.7 L (11.4-16.0) gm/dL Hct 29.9 L (34.0-46.0) % MCH 24.5 L (25.0-35.0) pg MCHC 29.2 L (31.0-37.0) g/dL RDW 18.7 H (11.5-15.5) % Plt Count 85 L (150-450) k/uL Neutrophils # (Manual) 13.35 H (1.3-7.7) k/uL Lymphocytes # (Manual) 0.30 L (1.0-4.8) k/uL Monocytes # (Manual) 1.35 H (0-1.0) k/uL Nucleated RBCs 3 H (0-0) /100 WBC PT 22.7 H (9.0-12.0) sec INR 2.4 H (<1.2) Sodium (137-145) mmol/L Potassium (3.5-5.1) mmol/L Chloride (98-107) mmol/L Carbon Dioxide (22-30) mmol/L BUN (7-17) mg/dL Creatinine (0.52-1.04) mg/dL Glucose (74-99) mg/dL POC Glucose (mg/dL) 188 H (75-99) mg/dL Calcium (8.4-10.2) mg/dL Troponin I (0.000-0.034) ng/mL 01/23/17 01/23/17 01/23/17 Range/Units 05:47 05:52 11:41 WBC (3.8-10.6) k/uL RBC (3.80-5.40) m/uL Hgb (11.4-16.0) gm/dL Hct (34.0-46.0) % MCH (25.0-35.0) pg MCHC (31.0-37.0) g/dL RDW (11.5-15.5) % Plt Count (150-450) k/uL Neutrophils # (Manual) (1.3-7.7) k/uL Lymphocytes # (Manual) (1.0-4.8) k/uL Monocytes # (Manual) (0-1.0) k/uL Nucleated RBCs (0-0) /100 WBC PT (9.0-12.0) sec INR (<1.2) Sodium 134 L (137-145) mmol/L Potassium (3.5-5.1) mmol/L Chloride (98-107) mmol/L Carbon Dioxide 11 L (22-30) mmol/L BUN 176 H* (7-17) mg/dL Creatinine 3.90 H (0.52-1.04) mg/dL Glucose 177 H (74-99) mg/dL POC Glucose (mg/dL) 186 H 139 H (75-99) mg/dL Calcium 6.5 L* (8.4-10.2) mg/dL Troponin I (0.000-0.034) ng/mL 01/23/17 01/23/17 01/23/17 Range/Units 16:46 17:32 17:44 WBC (3.8-10.6) k/uL RBC 2.25 L (3.80-5.40) m/uL Hgb 5.5 L* D (11.4-16.0) gm/dL Hct 21.6 L (34.0-46.0) % MCH 24.4 L (25.0-35.0) pg MCHC 25.3 L (31.0-37.0) g/dL RDW 17.6 H (11.5-15.5) % Plt Count 34 L* D (150-450) k/uL Neutrophils # (Manual) (1.3-7.7) k/uL Lymphocytes # (Manual) (1.0-4.8) k/uL Monocytes # (Manual) (0-1.0) k/uL Nucleated RBCs 3 H (0-0) /100 WBC PT (9.0-12.0) sec INR (<1.2) Sodium (137-145) mmol/L Potassium (3.5-5.1) mmol/L Chloride (98-107) mmol/L Carbon Dioxide (22-30) mmol/L BUN (7-17) mg/dL Creatinine (0.52-1.04) mg/dL Glucose (74-99) mg/dL POC Glucose (mg/dL) 149 H 138 H (75-99) mg/dL Calcium (8.4-10.2) mg/dL Troponin I (0.000-0.034) ng/mL 01/23/17 01/23/17 Range/Units 17:44 17:44 WBC (3.8-10.6) k/uL RBC (3.80-5.40) m/uL Hgb (11.4-16.0) gm/dL Hct (34.0-46.0) % MCH (25.0-35.0) pg MCHC (31.0-37.0) g/dL RDW (11.5-15.5) % Plt Count (150-450) k/uL Neutrophils # (Manual) (1.3-7.7) k/uL Lymphocytes # (Manual) (1.0-4.8) k/uL Monocytes # (Manual) (0-1.0) k/uL Nucleated RBCs (0-0) /100 WBC PT (9.0-12.0) sec INR (<1.2) Sodium (137-145) mmol/L Potassium 2.6 L* (3.5-5.1) mmol/L Chloride 146 H* (98-107) mmol/L Carbon Dioxide 7 L* (22-30) mmol/L BUN 61 H (7-17) mg/dL Creatinine 1.60 H (0.52-1.04) mg/dL Glucose 72 L (74-99) mg/dL POC Glucose (mg/dL) (75-99) mg/dL Calcium >28.0 H* (8.4-10.2) mg/dL Troponin I 0.194 H* (0.000-0.034) ng/mL Microbiology - Last 24 Hours (Table) 01/19/17 09:50 Blood Culture - Preliminary Blood No Growth after 96 hours Assessment and Plan Plan: Plan as mentioned in the interval history itself total time spent including both codes is about 90 minutes
--- NOTE | 2017-01-23 19:28 | P.DS ---
Providers Date of admission: 01/19/17 12:43 Attending physician: Gregor Ortega Consults: 01/19/17 12:16 Consult Physician Stat Consulting Provider: Santiago Rubio Consult Reason/Comments: Pneumonia Do you want consulting provider notified?: Yes Consult Physician Stat Consulting Provider: Rosemarie Zamora Consult Reason/Comments: Renal Failure Do you want consulting provider notified?: Yes 01/19/17 12:25 Consult Physician Stat Consulting Provider: Lisseth Ruiz Consult Reason/Comments: Elevated Troponin, CHF Do you want consulting provider notified?: Yes 01/19/17 13:16 Consult Physician Stat Consulting Provider: Pravin North Consult Reason/Comments: AAA with Mural Thrombus Do you want consulting provider notified?: Yes 01/19/17 18:04 Consult Physician Routine Consulting Provider: Mercedes Santacruz Consult Reason/Comments: sepsis Do you want consulting provider notified?: Yes 01/20/17 12:28 Consult Physician Routine Consulting Provider: Lukasz Pagan Consult Reason/Comments: ARCHANA Do you want consulting provider notified?: Yes [facility] Course: I just received a call from ICU staff that patient had cardio pulmonary arrest again this time patient was not resuscitated and patient at around 1920 please refer to nursing documentation for exact time Preliminary cause of acute blood loss anemia, source of bleed is unknown at this time with contribution from thrombocytopenia and severe coagulopathy Patient Condition at Discharge: Stable Plan - Discharge Summary Discharge Rx Participant: Yes New Discharge Prescriptions: No Action Nadolol 20 mg PO DAILY Tiotropium 18 Mcg/Puff [Spiriva] 1 cap INHALATION RT-DAILY Prasugrel HCl [Effient] 10 mg PO DAILY Isosorbide Mononitrate [Imdur] 120 mg PO DAILY Atorvastatin [Lipitor] 80 mg PO DAILY Furosemide [Lasix] 40 mg PO TID Aspirin/Calcium Carbonate/Mag [Bufferin 325 mg Tablet] 325 mg PO DAILY Nitroglycerin Sl Tabs [Nitrostat] 0.4 mg SUBLINGUAL Q5M PRN PRN Reason: Chest Pain Discharge Medication List Atorvastatin [Lipitor] 80 mg PO DAILY 07/01/16 [History] Isosorbide Mononitrate [Imdur] 120 mg PO DAILY 07/01/16 [History] Nadolol 20 mg PO DAILY 07/01/16 [History] Prasugrel HCl [Effient] 10 mg PO DAILY 07/01/16 [History] Tiotropium 18 Mcg/Puff [Spiriva] 1 cap INHALATION RT-DAILY 07/01/16 [History] Aspirin/Calcium Carbonate/Mag [Bufferin 325 mg Tablet] 325 mg PO DAILY 01/19/17 [History] Furosemide [Lasix] 40 mg PO TID 01/19/17 [History] Nitroglycerin Sl Tabs [Nitrostat] 0.4 mg SUBLINGUAL Q5M PRN 01/19/17 [History] Follow up Appointment(s)/Referral(s): [facility], [NON-STAFF] - Rosey Osorio, [NON-STAFF] - John Galeano DO [Primary Care Provider] - 1-2 days
[2017-01-23] MEDS ORDERED: POTASSIUM CHLORIDE 20 MEQ, LIDOCAINE 2% INJ 20 MG in SODIUM CHLORIDE 0.9% 100 ML IVPB SCH ×6 (20:00)
== END 2017-01-23 20:39 | disposition expired | DRG 811 ==
LOC: EC 09:18 → 6SEL 12:43 → 6ICU 01-23 18:05
PROVIDERS: ADMIT Hospitalist; ATTEND Hospitalist
PROC: 30233K1 Transfusion of Nonautologous Frozen Plasma into Peripheral Vein, Percutaneous Approach (ICD-10-PCS; principal; 2017-01-19)
PROC: 30233N1 Transfusion of Nonautologous Red Blood Cells into Peripheral Vein, Percutaneous Approach (ICD-10-PCS; 2017-01-19)
PROC: 5A1D70Z Performance of Urinary Filtration, Intermittent, Less than 6 Hours Per Day (ICD-10-PCS; 2017-01-22)
PROC: 0BH17EZ Insertion of Endotracheal Airway into Trachea, Via Natural or Artificial Opening (ICD-10-PCS; 2017-01-23)
PROC: 02HV33Z Insertion of Infusion Device into Superior Vena Cava, Percutaneous Approach (ICD-10-PCS; 2017-01-23)
PROC: B518ZZA Fluoroscopy of Superior Vena Cava, Guidance (ICD-10-PCS; 2017-01-23)
PROC: B54MZZA Ultrasonography of Right Upper Extremity Veins, Guidance (ICD-10-PCS; 2017-01-23)
PROC: 5A1935Z Respiratory Ventilation, Less than 24 Consecutive Hours (ICD-10-PCS; 2017-01-23 07:28)
DX: D62 Acute posthemorrhagic anemia (principal); I50.33 Acute on chronic diastolic (congestive) heart failure; N17.0 Acute kidney failure with tubular necrosis; J18.9 Pneumonia, unspecified organism; J90 Pleural effusion, not elsewhere classified; J44.0 Chronic obstructive pulmonary disease with (acute) lower respiratory infection; I13.0 Hypertensive heart and chronic kidney disease with heart failure and stage 1 through stage 4 chronic kidney disease, or unspecified chronic kidney disease; J96.11 Chronic respiratory failure with hypoxia; D68.9 Coagulation defect, unspecified; I42.9 Cardiomyopathy, unspecified; R18.8 Other ascites; N18.4 Chronic kidney disease, stage 4 (severe); A09 Infectious gastroenteritis and colitis, unspecified; I27.20 Pulmonary hypertension, unspecified; E11.22 Type 2 diabetes mellitus with diabetic chronic kidney disease; E11.51 Type 2 diabetes mellitus with diabetic peripheral angiopathy without gangrene; E78.5 Hyperlipidemia, unspecified; I46.9 Cardiac arrest, cause unspecified; Z66 Do not resuscitate; E83.42 Hypomagnesemia; F17.200 Nicotine dependence, unspecified, uncomplicated; I25.10 Atherosclerotic heart disease of native coronary artery without angina pectoris; I44.7 Left bundle-branch block, unspecified; K57.30 Diverticulosis of large intestine without perforation or abscess without bleeding; K80.20 Calculus of gallbladder without cholecystitis without obstruction; I71.4 Abdominal aortic aneurysm, without rupture; D63.1 Anemia in chronic kidney disease; I51.3 Intracardiac thrombosis, not elsewhere classified; D50.9 Iron deficiency anemia, unspecified; D69.6 Thrombocytopenia, unspecified; R19.5 Other fecal abnormalities; Z88.0 Allergy status to penicillin; Z85.3 Personal history of malignant neoplasm of breast; Z95.1 Presence of aortocoronary bypass graft; Z96.1 Presence of intraocular lens; Z98.41 Cataract extraction status, right eye; Z98.42 Cataract extraction status, left eye; Z90.89 Acquired absence of other organs; Z80.8 Family history of malignant neoplasm of other organs or systems; Z79.899 Other long term (current) drug therapy; Z79.82 Long term (current) use of aspirin; Z79.4 Long term (current) use of insulin
CPT/HCPCS: 36415; 36556; 71010; 71020; 74176; 76937; 77001; 80048; 80053; 80061; 80074; 81001; 82272; 82550; 82553; 83540; 83550; 83605; 83735; 83880; 84100; 84443; 84484; 85025; 85027; 85610; 85730; 86706; 86850; 86900; 86901; 86920; 87040; 87086; 90935; 93005; 93979; 94640; 96360; 96361; 96365; 96366; 96375; 99285